=== PATIENT | female | born 1930 | race Caucasian/White ===

== ENCOUNTER → 2016-10-20 | Outpatient (CLI) | payer BC ==
[~2016-10-20] MED LIST: ACET1TAB84 PO; AMIO200T4 PO; AMOX875T PO; ASPI81TA28 PO; ATOR10TA88 PO; CALC500C70 PO; CHOL1000 PO; CLON0.5T3 PO; CLOP1TAB5 PO; CRD200 PO; DXY100 PO; ELQ25 PO; FLUO10CA48 PO; FLUO20CA35 PO; LOSA1TAB38 PO; LOSA50TA54 PO; LPR25 PO; MECL1TAB40 PO; MULT-513 PO; MXZC25 PO; NMN10 PO; OMG3 PO; ONDA4TAB65 PO; PRVC10 PO; SYN25 PO; SYN50 PO; VITA400C3 PO; ZFRI4 IV; ZNT150 PO; [UNRECOGNIZED DRUG - CODE] PO
[2016-10-20 12:39] LABS: BLOOD UREA NITROGEN 21 mg/dl (7-18); BUN/CREATININE RATIO 15.8 (10-20); CALCIUM 9.3 mg/dl (8.5-10.1); CARBON DIOXIDE 27 mmol/L (21-32); CHLORIDE 106 mmol/L (98-107); GLUCOSE 113 mg/dl (70-99); SODIUM 142 mmol/L (136-145)
== END | disposition home or self-care (01) ==
LOC: C.LABPVFM 10:15
PROVIDERS: ATTEND Family Medicine
DX: E03.9 Hypothyroidism, unspecified (principal); E83.52 Hypercalcemia

== ENCOUNTER 2016-10-27 17:05 | Inpatient (IN) | payer BC, OTHER ==
[~2016-10-27] VITALS: Ht 170.2 cm; Wt 77.6 kg
[~2016-10-27 17:05] MED LIST changes: -ACET1TAB84 PO; -AMIO200T4 PO; -AMOX875T PO; -ASPI81TA28 PO; -CRD200 PO; -DXY100 PO; -ELQ25 PO; -FLUO10CA48 PO; -LOSA1TAB38 PO; -LPR25 PO; -ONDA4TAB65 PO; -PRVC10 PO; -SYN25 PO; -SYN50 PO; -VITA400C3 PO; -ZFRI4 IV; -ZNT150 PO; -[UNRECOGNIZED DRUG - CODE] PO
[2016-10-27] MEDS ORDERED: [UNRECOGNIZED DRUG - CODE] PO (17:14)
[2016-10-27] MEDS ORDERED: ACET1TAB84 PO (17:14)
[2016-10-27] MEDS ORDERED: LOSA1TAB38 PO (17:14)
[2016-10-27] MEDS ORDERED: FLUO10CA48 PO (17:14)
[2016-10-27] MEDS ORDERED: VITA400C3 PO (17:14)
[2016-10-27] MEDS ORDERED: SYN25 PO (17:14)
--- NOTE | 2016-10-27 17:30 | EMERGENCY ROOM VISIT NOTE ---
History Report prepared by Marsha: Hayder Bah Under the Supervision of: Dr. Mary Concepcion M.D. First contact with patient: 17:23 Chief Complaint: VOMITING Stated Complaint: weakness Nursing Triage Summary: patient with nasuea and vomiting and headache/ History of Present Illness The patient is an 85 year old female who presents to the Emergency Room with complaints of episodes of vomiting that started this morning. She says she did not feel well when she got up this morning. The patient vomited at her primary care physician's office today, and was then sent here. She was there for a physical checkup that she gets every 3 or 4 months. The patient associates the vomiting with a bad headache. She has not eaten or drank much today, but she says that she did not miss any of her pills today. The patient does not think she vomited them up. She denies any diarrhea or specific abdominal pain. The patient has not had any abdominal surgeries. Source of History: patient Onset: This morning Position: other (global - vomiting) Timing: other (persistent) Associated Symptoms: + headache, No abdominal pain, No diarrhea Note: No other associated symptoms noted. Review of Systems See HPI for pertinent positives & negatives. A total of 10 systems reviewed and were otherwise negative. Past Medical & Surgical Medical Problems: (1) Calculus Of Kidney (2) Diab Tiffanie Wo Compl, Type Ii Or Unspec Type, Not Uncntrld (3) Hyperlipidemia Nec/Nos (4) Hypertension Nos (5) Intractable vomiting (6) Mixed Hyperlipidemia (7) Weakness Family History Malignancy Stroke Social History Smoking Status: Never Smoker Drug Use: none Marital Status: Occupation Status: retired Current/Historical Medications Scheduled Atorvastatin (Lipitor), 10 MG PO DAILY Cholecalciferol (Vitamin D3), 1,000 MG PO DAILY Clopidogrel Bisulfate (Plavix), 75 MG PO DAILY Doxycycline Hyclate (Doxycycline Hyclate), 100 MG PO BID Fish Oil (Fish Oil), 1,000 MG PO DAILY Fluoxetine (Prozac), 10 MG PO DAILY Levothyroxine Sodium (Synthroid), 25 MCG PO DAILY Losartan Potassium (Cozaar), 100 MG PO DAILY Memantine (Namenda), 10 MG PO BID Multivitamins/Minerals (Mvi With Minerals), 1 TAB PO DAILY Ondansetron Hcl (Zofran), 4 MG PO Q6H Triamterene/Hctz (Triamterene/Hctz 37.5-25MG Tab), 0.5 TAB PO DAILY Vitamin E (Vitamin E 400 Iu), 400 INTER.UNIT PO DAILY Scheduled PRN Acetaminophen (Tylenol Arthritis Ext Rel), 650 MG PO QID PRN for Pain Meclizine HCl (Meclizine HCl), 12.5 MG PO Q6H PRN for vertigo Misc Natural Products (Midnite Pm), 1 TAB PO HS PRN for Sleep Allergies Coded Allergies: BEE STING (Verified Allergy, Unknown, SWELLING, 06/20/16) Penicillins (Verified Allergy, Unknown, hives, 10/29/16) Codeine (Unverified Adverse Reaction, Mild, NAUSEA/VOMITING, 06/20/16) Physical Exam Vital Signs Date Time Temp Pulse Resp B/P Pulse Ox O2 Delivery O2 Flow Rate FiO2 10/27/16 21:03 92 23 97 10/27/16 20:58 159/88 10/27/16 20:38 164/85 10/27/16 20:33 86 18 93 10/27/16 20:28 165/100 10/27/16 20:18 166/94 10/27/16 20:08 173/94 10/27/16 20:03 94 24 95 10/27/16 19:58 143/85 10/27/16 19:55 87 21 98 10/27/16 19:50 88 21 98 10/27/16 19:45 87 22 10/27/16 19:44 175/97 10/27/16 19:00 105 19 10/27/16 18:58 162/95 10/27/16 18:55 99 20 97 10/27/16 18:50 95 18 96 10/27/16 18:45 91 19 97 10/27/16 18:43 185/104 10/27/16 18:40 89 19 96 10/27/16 18:37 180/96 10/27/16 18:35 95 15 96 10/27/16 18:25 96 20 220/118 97 10/27/16 18:23 211/124 10/27/16 18:20 85 18 96 10/27/16 18:15 82 20 94 10/27/16 18:10 78 17 93 10/27/16 18:05 79 17 93 10/27/16 18:04 202/110 10/27/16 18:01 202/110 10/27/16 18:00 76 16 95 10/27/16 17:55 79 18 93 10/27/16 17:50 77 19 99 10/27/16 17:48 79 20 205/99 95 Room Air 10/27/16 17:47 205/99 10/27/16 17:45 85 20 92 10/27/16 17:40 77 19 93 10/27/16 17:35 73 17 97 10/27/16 17:31 207/97 10/27/16 17:30 77 19 98 10/27/16 17:29 72 10/27/16 17:12 215/91 10/27/16 17:12 36.4 72 20 215/91 99 Room Air Physical Exam Vital signs reviewed. General: Elderly ill-appearing 85 year old female, in no significant distress. Hypertensive. Neurologically intact but appears distracted when questioned. Somnolent but responds to verbal stimuli. HEENT: No scleral icterus, PERRLA, neck supple. Atraumatic. Cardiovascular: Regular rate and rhythm, no extra sounds. Pulmonary: Clear to auscultation bilaterally, normal work of breathing. Abdomen: Soft, mild diffuse tenderness, no rebound or guarding. Nondistended, positive bowel sounds. Musculoskeletal: Atraumatic, no peripheral edema. Neurologic: Patient somnolent but awakens to verbal stimuli, answers simple questions appropriately. Skin: Warm, dry, no rash Medical Decision & Procedures ER Provider Diagnostic Interpretation: X-ray results as stated below per my interpretation and radiologist interpretation. Other radiology results as stated below per my review and radiologist interpretation: CT HEAD WITHOUT CONTRAST (CT) CLINICAL HISTORY: Headache, vomiting, weakness. COMPARISON STUDY: June 20, 2016 TECHNIQUE: Axial CT of the brain is performed from the vertex to the skull base. IV contrast was not administered for this examination. CT DOSE: 537.48 mGy.cm FINDINGS: There is a stable 1 cm extra-axial mass in the right frontoparietal region, consistent with a small meningioma. There is no CT evidence of acute cortical infarction. There is no evidence of midline shift. There is no acute hemorrhage. No calvarial fractures are visualized. There are patchy white matter hypodensities likely on a small vessel basis. 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 There is mild ventricular prominence, proportional to volume loss. There is minimal fluid within the left maxillary sinus. Several left-sided ethmoid air cells are opacified. There is partial opacification left frontal sinus. IMPRESSION: 1. Inflammatory changes within the left frontal left ethmoid and left maxillary sinuses 2. Right frontoparietal 1 cm meningioma. This remain stable 3. No acute intracranial findings. Electronically signed by: Chino Gallardo M.D. 10/27/2016 6:38 PM Dictated Date/Time: 10/27/2016 6:35 PM ABDOMEN 2VIEW W/PA CHEST RTN CLINICAL HISTORY: vomiting COMPARISON STUDY: Chest x-ray dated 05/29/2014 FINDINGS: There is no free intraperitoneal air. There is mild interstitial thickening. There are old right-sided rib fractures. There are no abnormally dilated loops of large or small bowel. The provided decubitus view is somewhat limited from a technical standpoint as the lower abdomen is not included. IMPRESSION: No evidence of bowel obstruction. No evidence of free air. Electronically signed by: Chino Gallardo M.D. 10/27/2016 7:38 PM Dictated Date/Time: 10/27/2016 7:37 PM Laboratory Results Test 10/27/16 17:35 10/27/16 18:20 Immature Granulocyte % (Auto) 0.7 % White Blood Count 4.12 K/uL (4.8-10.8) Red Blood Count 4.27 M/uL (4.2-5.4) Hemoglobin 12.7 g/dL (12.0-16.0) Hematocrit 37.8 % (37-47) Mean Corpuscular Volume 88.5 fL (80-100) Mean Corpuscular Hemoglobin 29.7 pg (25-34) Mean Corpuscular Hemoglobin Concent 33.6 g/dl (32-36) Platelet Count 240 K/uL (130-400) Mean Platelet Volume 10.3 fL (7.4-10.4) Neutrophils (%) (Auto) 59.3 % Lymphocytes (%) (Auto) 29.1 % Monocytes (%) (Auto) 10.2 % Eosinophils (%) (Auto) 0.5 % Basophils (%) (Auto) 0.2 % Neutrophils # (Auto) 2.44 K/uL (1.4-6.5) Lymphocytes # (Auto) 1.20 K/uL (1.2-3.4) Monocytes # (Auto) 0.42 K/uL (0.11-0.59) Eosinophils # (Auto) 0.02 K/uL (0-0.5) Basophils # (Auto) 0.01 K/uL (0-0.2) Immature Granulocyte # (Auto) 0.03 K/uL (0.00-0.02) Magnesium Level 2.2 mg/dl (1.8-2.4) Direct Bilirubin 0.2 mg/dl (0-0.2) Lipase 175 U/L (73-393) Bedside Troponin I 0.030 ng/ml (0-0.045) Laboratory results per my review. Medications Administered Medications (Trade) Dose Ordered Sig/Cristi Route Start Time Stop Time Status Last Admin Dose Admin Sodium Chloride (Nss 1000ml) 1,000 ml @ 125 mls/hr Q8H STAT IV 10/27/16 18:05 10/27/16 22:28 DC 10/27/16 18:05 125 MLS/HR Hydralazine HCl (HydrALAZINE INJ) 10 mg NOW STAT IV. 10/27/16 18:05 10/27/16 18:08 DC 10/27/16 18:18 10 MG Ondansetron HCl 4 mg 4 mg NOW STAT IV 10/27/16 18:05 10/27/16 18:08 DC 10/27/16 18:05 4 MG Ampicillin Sodium/ Sulbactam Sodium/ Sodium Chloride (Unasyn Inj/Nss 100ml) 108 ml @ 200 mls/hr ONE ONCE IV 10/27/16 19:00 10/27/16 19:32 DC 10/27/16 20:44 200 MLS/HR Morphine Sulfate (MoRPHine SULFATE INJ) 2 mg NOW STAT IV 10/27/16 18:47 10/27/16 18:48 DC 10/27/16 19:46 2 MG Ondansetron HCl (Zofran Inj) 4 mg Q6H PRN IV 10/27/16 21:15 10/29/16 14:38 DC 10/28/16 21:34 4 MG s ECG Indication: vomiting Rate (beats per minute): 73 Rhythm: normal sinus Findings: other (Premature supraventricular complexes, T-wave abnormality in lateral leads) ED Course 172: Past medical records reviewed. The patient was evaluated in room C3. A complete history and physical examination was performed. 180: Ordered Zofran Inj 4 mg IV, Hydralazine Inj 10 mg IV, NSS 1000 ml @ 125 mls/hr IV. 182: I reevaluated the patient and she is resting comfortably. 1846: Ordered Morphine Sulfate Inj 2 mg IV. 1899: Ordered Ampicillin Sodium/Sulbactam Sodium 3000 mg/Sodium Chloride 108 ml @ 200 mls/hr IV. 1923: Ordered Hydralazine Inj 10 mg IV. 1941: I reevaluated the patient and she is resting comfortably. The patient verbally expressed understanding and agreement of the treatment plan. The patient will be evaluated for further treatment. 2029: I discussed the patient with Dr. Nayeli CROCKETT hospitalist - he will evaluate the patient for further treatment. Medical Decision Differential diagnosis: Etiologies such as gastroenteritis, food borne illness, infections, appendicitis , diverticulitis, inflammatory bowel disease, obstruction, GI bleed, biliary pathology, intracranial hemorrhage, intracranial mass, migraine headache, tension headache, sinusitis, meningitis This pt was evaluated and appeared to be in some discomfort. IV access was obtained and lab work was drawn. Pt was hydrated with NSS, given IV zofran. Pt was medicated with IV hydralazine. Abd XR series was performed and reveals no obstruction or free air. Head CT is significant for a meningioma and a L front , ethmoid and maxillary sinusitis. Pt was medicated with IV morphine for pain, additional zofran and IV unasyn. Pt was d/w the hospitalist service for further management. Consults Time Called: 1949 Consulting Physician: Dr. Nayeli CROCKETT hospitalist Returned Call: 2029 I discussed the patient with Dr. Nayeli CROCKETT hospitalist - he will evaluate the patient for further treatment. Impression Primary Impression: Sinusitis Additional Impressions: Vomiting Hypertension Scribe Attestation The scribe's documentation has been prepared under my direction and personally reviewed by me in its entirety. I confirm that the note above accurately reflects all work, treatment, procedures, and medical decision making performed by me. Departure Information Dispostion Being Evaluated By Hospitalist Prescriptions Doxycycline Hyclate (Doxycycline Hyclate) 100 Mg Cap 100 MG PO BID for 5 Days, #10 TABS Prov: Itzel Pink PA-C 10/29/16 Ondansetron Hcl (ZOFRAN) 4 Mg Tab 4 MG PO Q6H for Nausea or Vomiting for 10 Days, #40 TAB Prov: Itzel Pink PA-C 10/29/16 Referrals Khoa Gallegos M.D. (PCP) Patient Instructions [facility], [facility] Problem Qualifiers Primary Impression: Sinusitis Sinusitis location: frontal Chronicity: acute Recurrence: not specified as recurrent Qualified Codes: J01.10 - Acute frontal sinusitis, unspecified Additional Impressions: Vomiting Vomiting type: unspecified Vomiting Intractability: non-intractable Nausea presence: with nausea Qualified Codes: R11.2 - Nausea with vomiting, unspecified Hypertension Hypertension type: essential hypertension Qualified Codes: I10 - Essential ( primary) hypertension
[2016-10-27] MEDS ORDERED: ONDANSETRON INJ 2 MG/ML 2 ML VIAL IV STA (18:05)
[2016-10-27] MEDS ORDERED: HydrALAZINE HCL 20 MG/ML VIAL IV. STA ×2 (18:05→19:24)
[2016-10-27] MEDS ORDERED: SODIUM CHLORIDE 0.9% 1000ML 1,000 ML IV STA (18:05)
[2016-10-27 18:20] LABS: BASO % 0.2 %; BASO ABS # 0.01 K/uL (0-0.2); COMPLETE YES; EOS % 0.5 %; HEMATOCRIT 37.8 % (37-47); IG% 0.7 %; LYMPH % 29.1 %; MEAN CELL VOLUME 88.5 fL (80-100); MEAN CORPUSCULAR HEMOGLOBIN 29.7 pg (25-34); MEAN CORPUSCULAR HGB CONC 33.6 g/dl (32-36); MEAN PLATELET VOLUME 10.3 fL (7.4-10.4); MONO % 10.2 %; NEUT % 59.3 %; PLATELET COUNT 240 K/uL (130-400); RED BLOOD COUNT 4.27 M/uL (4.2-5.4); WHITE BLOOD COUNT 4.12 K/uL (4.8-10.8)
[2016-10-27 18:25] LABS: BUN/CREATININE RATIO 14.5 (10-20); CALCIUM 10.3 mg/dl (8.5-10.1); CREATININE 1.1 mg/dl (0.60-1.20); MAGNESIUM 2.2 mg/dl (1.8-2.4); POTASSIUM 3.9 mmol/L (3.5-5.1)
--- NOTE | 2016-10-27 18:40 | DIAGNOSTIC IMAGING REPORT ---
CT HEAD WITHOUT CONTRAST (CT) CLINICAL HISTORY: Headache, vomiting, weakness. COMPARISON STUDY: June 20, 2016 TECHNIQUE: Axial CT of the brain is performed from the vertex to the skull base. IV contrast was not administered for this examination. CT DOSE: 537.48 mGy.cm FINDINGS: There is a stable 1 cm extra-axial mass in the right frontoparietal region, consistent with a small meningioma. There is no CT evidence of acute cortical infarction. There is no evidence of midline shift. There is no acute hemorrhage. No calvarial fractures are visualized. There are patchy white matter hypodensities likely on a small vessel basis. 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 There is mild ventricular prominence, proportional to volume loss. There is minimal fluid within the left maxillary sinus. Several left-sided ethmoid air cells are opacified. There is partial opacification left frontal sinus. IMPRESSION: 1. Inflammatory changes within the left frontal left ethmoid and left maxillary sinuses 2. Right frontoparietal 1 cm meningioma. This remain stable 3. No acute intracranial findings. Electronically signed by: Chino Gallardo M.D. 10/27/2016 6:38 PM Dictated Date/Time: 10/27/2016 6:35 PM
[2016-10-27] MEDS ORDERED: MoRPHine SULFATE 2 MG/ML CARP IV STA (18:47)
[2016-10-27] MEDS ORDERED: AMPICILLIN/SULBACTAM SOD INJ 3,000 MG in SODIUM CHLORIDE 0.9% 100ML 100 ML IV ONE (19:00)
--- NOTE | 2016-10-27 19:39 | DIAGNOSTIC IMAGING REPORT ---
ABDOMEN 2VIEW W/PA CHEST RTN CLINICAL HISTORY: vomiting COMPARISON STUDY: Chest x-ray dated 05/29/2014 FINDINGS: There is no free intraperitoneal air. There is mild interstitial thickening. There are old right-sided rib fractures. There are no abnormally dilated loops of large or small bowel. The provided decubitus view is somewhat limited from a technical standpoint as the lower abdomen is not included. IMPRESSION: No evidence of bowel obstruction. No evidence of free air. Electronically signed by: Chino Gallardo M.D. 10/27/2016 7:38 PM Dictated Date/Time: 10/27/2016 7:37 PM
[2016-10-27] MEDS ORDERED: ALUMINUM/MAGNESIUM/SIMETH (MAALOX MAX) 30 ML UDC PO PRN (21:15)
[2016-10-27] MEDS ORDERED: MAGNESIUM HYDROXIDE SUSP 30 ML UDC PO PRN (21:15)
[2016-10-27] MEDS ORDERED: MoRPHine SULFATE 2 MG/ML CARP ONE (21:52)
[2016-10-27] MEDS ORDERED: MoRPHine SULFATE 2 MG/ML CARP IV PRN (22:00)
[2016-10-27] MEDS ORDERED: MoRPHine SULFATE 4 MG/ML 1 ML CARP\\VIAL IV PRN (22:00)
[2016-10-27] MEDS: ONDANSETRON INJ 2 MG/ML 2 ML VIAL IV PRN (23:27)
[2016-10-27 23:48] VITALS: BP 163/85; PULSE 78; TEMP 36.7; O2SAT 97
[2016-10-28 00:21] VITALS: BP 162/73; PULSE 76; TEMP 36.8; Ht 170.2 cm; Wt 77.6 kg
[2016-10-28] MEDS ORDERED: NATURAL PRODUCTS PO PRN (00:45)
[2016-10-28] MEDS ORDERED: MECLIZINE HCL 12.5 MG TAB PO PRN (00:45)
[2016-10-28] MEDS ORDERED: ACETAMINOPHEN 325 MG TAB PO PRN (00:45)
[2016-10-28] MEDS: SODIUM CHLORIDE 0.9% 1000ML 1,000 ML IV SCH ×3 (02:10→14:59)
--- NOTE | 2016-10-28 04:57 | History and Physical ---
History & Physical Date & Time of Service: Oct 28, 2016 at 04:41 Chief Complaint: Intractable Vomiting, Weakness Primary Care Physician: Khoa Gallegos M.D. History of Present Illness Source: patient this is an 85 yo f that is presenting to us with N&V and generalized weakness. She states that this morning she woke up with a very mild headache and since then has been vomiting intermittently. She has been unable to keep anything PO down. She denies any abdominal pain. She denies any fever, chest pain, SOB, change in BM or urine. She was concerned because the vomiting was intractable and thought she should be evaluated in the ED. She denies any sick contacts or raw foods. she lives alone but has family close by. Past Medical/Surgical History Medical Problems: (1) Calculus Of Kidney Status: Resolved (2) Diab Tiffanie Wo Compl, Type Ii Or Unspec Type, Not Uncntrld Status: Chronic (3) Hyperlipidemia Nec/Nos Status: Chronic (4) Hypertension Nos Status: Chronic Family History Malignancy Stroke Social History Smoking Status: Never Smoker Smokeless Tobacco Use: No Alcohol Use: none Drug Use: none Marital Status: Housing status: lives alone Occupational Status: retired Immunizations History of Influenza Vaccine: Yes Influenza Vaccine Date: Jul 25, 2007 History of Tetanus Vaccine?: Unknown History of Pneumococcal: No History of Hepatitis B Vaccine: No Multi-Drug Resistant Organisms History of MDRO: No Allergies Coded Allergies: BEE STING (Verified Allergy, Unknown, SWELLING, 06/20/16) Codeine (Unverified Adverse Reaction, Mild, NAUSEA/VOMITING, 06/20/16) Home Medications Scheduled Atorvastatin (Lipitor), 10 MG PO DAILY Cholecalciferol (Vitamin D3), 1,000 MG PO DAILY Clopidogrel Bisulfate (Plavix), 75 MG PO DAILY Fish Oil (Fish Oil), 1,000 MG PO DAILY Fluoxetine (Prozac), 10 MG PO DAILY Levothyroxine Sodium (Synthroid), 25 MCG PO DAILY Losartan Potassium (Cozaar), 100 MG PO DAILY Memantine (Namenda), 10 MG PO BID Multivitamins/Minerals (Mvi With Minerals), 1 TAB PO DAILY Triamterene/Hctz (Triamterene/Hctz 37.5-25MG Tab), 0.5 TAB PO DAILY Vitamin E (Vitamin E 400 Iu), 400 INTER.UNIT PO DAILY Scheduled PRN Acetaminophen (Tylenol Arthritis Ext Rel), 650 MG PO QID PRN for Pain Meclizine HCl (Meclizine HCl), 12.5 MG PO Q6H PRN for vertigo Misc Natural Products (Midnite Pm), 1 TAB PO HS PRN for Sleep Review of Systems Constitutional: No fever Eyes: No worsening of vision ENT: No hearing loss Respiratory: No cough, No dyspnea at rest, No dyspnea on exertion, No shortness of breath, No sputum, No wheezing Cardiovascular: No chest pain Abdomen: + nausea, + vomiting, No constipation, No diarrhea, No pain Musculoskeletal: No joint pain, No muscle pain Genitourinary - Female: + dysuria, + problem reported Neurologic: + weakness, No balance problems, No numbness/tingling Endocrine: + fatigue Integumentary: No rash Physical Exam Vital Signs Date Time Temp Pulse Resp B/P Pulse Ox O2 Delivery O2 Flow Rate FiO2 10/28/16 00:21 36.8 76 20 162/73 Room Air 10/28/16 00:00 Room Air 10/27/16 23:48 36.7 78 18 163/85 97 Room Air 10/27/16 22:08 36.4 86 18 165/91 93 10/27/16 22:03 86 18 93 10/27/16 21:58 165/91 10/27/16 21:44 163/104 10/27/16 21:33 84 23 97 10/27/16 21:28 180/106 10/27/16 21:27 79 10/27/16 21:03 92 23 97 10/27/16 20:58 159/88 10/27/16 20:38 164/85 10/27/16 20:33 86 18 93 10/27/16 20:28 165/100 10/27/16 20:18 166/94 10/27/16 20:08 173/94 10/27/16 20:03 94 24 95 10/27/16 19:58 143/85 10/27/16 19:55 87 21 98 10/27/16 19:50 88 21 98 10/27/16 19:45 87 22 10/27/16 19:44 175/97 10/27/16 19:00 105 19 10/27/16 18:58 162/95 10/27/16 18:55 99 20 97 10/27/16 18:50 95 18 96 10/27/16 18:45 91 19 97 10/27/16 18:43 185/104 10/27/16 18:40 89 19 96 10/27/16 18:37 180/96 10/27/16 18:35 95 15 96 10/27/16 18:25 96 20 220/118 97 10/27/16 18:23 211/124 10/27/16 18:20 85 18 96 10/27/16 18:15 82 20 94 10/27/16 18:10 78 17 93 10/27/16 18:05 79 17 93 10/27/16 18:04 202/110 10/27/16 18:01 202/110 10/27/16 18:00 76 16 95 10/27/16 17:55 79 18 93 10/27/16 17:50 77 19 99 10/27/16 17:48 79 20 205/99 95 Room Air 10/27/16 17:47 205/99 10/27/16 17:45 85 20 92 10/27/16 17:40 77 19 93 10/27/16 17:35 73 17 97 10/27/16 17:31 207/97 10/27/16 17:30 77 19 98 10/27/16 17:29 72 10/27/16 17:12 215/91 10/27/16 17:12 36.4 72 20 215/91 99 Room Air General Appearance: WD/WN, no apparent distress Head: normocephalic, atraumatic Eyes: normal inspection ENT: normal ENT inspection Neck: supple Respiratory/Chest: lungs clear, normal breath sounds, no respiratory distress, no accessory muscle use Cardiovascular: no murmur, + irregularly irregular Abdomen/GI: normal bowel sounds, non tender, soft Back: normal inspection Extremities/Musculoskelatal: normal inspection, no pedal edema, normal range of motion Neurologic/Psych: alert, normal mood/affect, oriented x 3 Skin: normal color, warm/dry, no rash Lymphatic: no adenopathy Diagnostics Laboratory Results Results Past 24 Hours Test 10/27/16 17:35 Range/Units White Blood Count 4.12 4.8-10.8 K/uL Red Blood Count 4.27 4.2-5.4 M/uL Hemoglobin 12.7 12.0-16.0 g/dL Hematocrit 37.8 37-47 % Mean Corpuscular Volume 88.5 80-100 fL Mean Corpuscular Hemoglobin 29.7 25-34 pg Mean Corpuscular Hemoglobin Concent 33.6 32-36 g/dl Platelet Count 240 130-400 K/uL Mean Platelet Volume 10.3 7.4-10.4 fL Neutrophils (%) (Auto) 59.3 % Lymphocytes (%) (Auto) 29.1 % Monocytes (%) (Auto) 10.2 % Eosinophils (%) (Auto) 0.5 % Basophils (%) (Auto) 0.2 % Neutrophils # (Auto) 2.44 1.4-6.5 K/uL Lymphocytes # (Auto) 1.20 1.2-3.4 K/uL Monocytes # (Auto) 0.42 0.11-0.59 K/uL Eosinophils # (Auto) 0.02 0-0.5 K/uL Basophils # (Auto) 0.01 0-0.2 K/uL RDW Standard Deviation 46.3 36.4-46.3 fL RDW Coefficient of Variation 14.3 11.5-14.5 % Immature Granulocyte % (Auto) 0.7 % Immature Granulocyte # (Auto) 0.03 0.00-0.02 K/uL Sodium Level 142 136-145 mmol/L Potassium Level 3.9 3.5-5.1 mmol/L Chloride Level 106 98-107 mmol/L Carbon Dioxide Level 25 21-32 mmol/L Anion Gap 11.0 3-11 mmol/L Blood Urea Nitrogen 16 7-18 mg/dl Creatinine 1.10 0.60-1.20 mg/dl Est Creatinine Clear Calc Drug Dose 39.4 ml/min Estimated GFR () 53.0 Estimated GFR (Non- 45.7 BUN/Creatinine Ratio 14.5 10-20 Random Glucose 102 70-99 mg/dl Calcium Level 10.3 8.5-10.1 mg/dl Magnesium Level 2.2 1.8-2.4 mg/dl Total Bilirubin 0.7 0.2-1 mg/dl Direct Bilirubin 0.2 0-0.2 mg/dl Aspartate Amino Transf (AST/SGOT) 21 15-37 U/L Alanine Aminotransferase (ALT/SGPT) 32 12-78 U/L Alkaline Phosphatase 118 45-117 U/L Total Protein 8.1 6.4-8.2 gm/dl Albumin 4.0 3.4-5.0 gm/dl Lipase 175 73-393 U/L Diagnostic Radiology CT HEAD WITHOUT CONTRAST (CT) CLINICAL HISTORY: Headache, vomiting, weakness. COMPARISON STUDY: June 20, 2016 TECHNIQUE: Axial CT of the brain is performed from the vertex to the skull base. IV contrast was not administered for this examination. CT DOSE: 537.48 mGy.cm FINDINGS: There is a stable 1 cm extra-axial mass in the right frontoparietal region, consistent with a small meningioma. There is no CT evidence of acute cortical infarction. There is no evidence of midline shift. There is no acute hemorrhage. No calvarial fractures are visualized. There are patchy white matter hypodensities likely on a small vessel basis. 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 There is mild ventricular prominence, proportional to volume loss. There is minimal fluid within the left maxillary sinus. Several left-sided ethmoid air cells are opacified. There is partial opacification left frontal sinus. IMPRESSION: 1. Inflammatory changes within the left frontal left ethmoid and left maxillary sinuses 2. Right frontoparietal 1 cm meningioma. This remain stable 3. No acute intracranial findings. ABDOMEN 2VIEW W/PA CHEST RTN CLINICAL HISTORY: vomiting COMPARISON STUDY: Chest x-ray dated 05/29/2014 FINDINGS: There is no free intraperitoneal air. There is mild interstitial thickening. There are old right-sided rib fractures. There are no abnormally dilated loops of large or small bowel. The provided decubitus view is somewhat limited from a technical standpoint as the lower abdomen is not included. IMPRESSION: No evidence of bowel obstruction. No evidence of free air. EKG bpm 73 ectopic beats noted no ishcemic changes Impression Assessment and Plan This is an 85 yo f here with intractable vomiting and generalized weakness Intractable vomiting most likely secondary to a viral illness -med surg admission - NSS IVF @ 150 - CBC and CMP in am - morphine and zofran - abd usg for elevated alk phos Contact dermatis secondary to urinary incontinence -zinc oxide as a barrier cream tid h/o Stroke cont atorvastatin and plavix depression - cont fluoxetine Hypothyroidism - cont levo HTN - cont losartan and triamterene/ HCTZ Alzheimer's - cont memantine DVT prophylaxis - lovenox FULL CODE Level of Care Med/Surg Advanced Directives Existing Living Will: Yes Existing Power of Securities Supervisor: Yes Resuscitation Status FULL RESUSCITATION VTE Prophylaxis VTE Risk Assessment Done? Y/N: Yes Risk Level: Moderate Given or contraindicated: Enoxaparin (Lovenox)SQ Social Service Consult >80 yr.& Lives Alone Note Total Time: Critical Care 30 - 74 minutes Additional Copies To Khoa Gallegos M.D. Assessment and Plan Attending Addendum: I have physically seen and examined this patient, have directed their medical care, have supervised the medical residents activities, and agree with the H&P as noted above, with the following changes: NONE The patient is awake, alert and oriented 3, normocephalic and atraumatic, lying in bed and in mild to moderate distress secondary to headache pain. HEENT--PERRL, EOMI, mucous membranes and oropharynx dry. Neck--supple, no JVD or bruits, thyroid normal, trachea midline, no adenopathy. Heart--normal S1 and S2, no extra beats, no murmurs, rubs or gallops. Lungs--clear bilaterally, no respiratory distress, no accessory muscle use. Abdomen--normal bowel sounds and soft, nontender and nondistended, no hernias or masses, no organomegaly. Extremities--no cyanosis, clubbing or edema. There are good distal pulses b/l. Dermatologic--normal skin turgor, normal color, warm and dry, no abnormal lymph nodes, no rash. Neurologic--cranial nerves II through XII grossly intact. Psychiatric--normal affect. Assessment and Plan: Severe headache secondary to sinusitis and barometric pressure change with the snowstorm coming--patient to be admitted to the medical floor. She has received Unasyn in the emergency department, and we'll place on ceftriaxone 1 g IV daily, and we'll hold on IV Solu-Medrol for now. Her headache may in part be aggravated by dehydration, and we'll hold the triamterene/HCTZ, and gently hydrate with IV fluids. Hyperlipidemia--continue atorvastatin 10 mg by mouth daily. Hypothyroidism--continue levothyroxine sodium at 25 g by mouth daily. Hypertension--hold triamterene/HCTZ as noted above. Continue clopidogrel 70 mg by mouth daily and losartan 100 mg by mouth daily with hold parameters. Depression--continue fluoxetine 10 mg by mouth daily. Dementia--continue Namenda 10 mg by mouth twice a day.
[2016-10-28] MEDS: LEVOTHYROXINE 25 MCG TAB PO SCH (06:21)
[2016-10-28] MEDS: CEFTRIAXONE SOD INJ 1 GM in DEXTROSE 5% ADD-VANTAGE 50ML 50 ML IV SCH (06:21)
[2016-10-28 07:21] LABS: HEMATOCRIT 35.2 % (37-47); MEAN CELL VOLUME 88.9 fL (80-100); MEAN CORPUSCULAR HEMOGLOBIN 29.5 pg (25-34); MEAN CORPUSCULAR HGB CONC 33.2 g/dl (32-36); MEAN PLATELET VOLUME 9.8 fL (7.4-10.4); PLATELET COUNT 215 K/uL (130-400); RED BLOOD COUNT 3.96 M/uL (4.2-5.4); WHITE BLOOD COUNT 7.12 K/uL (4.8-10.8)
[2016-10-28 07:49] LABS: BUN/CREATININE RATIO 15.9 (10-20); CALCIUM 9.4 mg/dl (8.5-10.1); CREATININE 1.1 mg/dl (0.60-1.20); POTASSIUM 3.7 mmol/L (3.5-5.1)
[2016-10-28 08:10] VITALS: BP 160/84; PULSE 82; TEMP 36.8; O2SAT 92
--- NOTE | 2016-10-28 08:12 | Hospitalist Progress Note ---
Hospitalist Progress Note Date of Service Oct 28, 2016. (Itzel Pink ., KEVIN) Subjective Pt evaluation today including: conversation w/ patient, physical exam, chart review, lab review, review of studies, review of inpatient medication list Voiding: no voiding problems, no incontinence Patient states she is feeling slightly better since admission. +nausea. + dizziness. +frontal sinus tenderness. Currently NPO. Patient denies any fever, chills, sweats, lightheadedness, vision changes, CP, palpitations, edema, SOB, wheezing, cough, vomiting, diarrhea, urinary symptoms, melena, numbness/tingling , weakness, muscle/joint pain, anxiety/depression, active bleeding, or new skin discoloration/changes. (Itzel Pink ., TAMYC) Medications Current Inpatient Medications Medications (Trade) Dose Ordered Sig/Cristi Route Start Time Stop Time Status Last Admin Dose Admin Al Hydrox/Mg Hydrox/Simethicone (Maalox Max Susp) 15 ml Q4H PRN PO 10/27/16 21:15 11/26/16 21:14 Magnesium Hydroxide (Milk Of Magnesia Susp) 30 ml Q6H PRN PO 10/27/16 21:15 11/26/16 21:14 Ondansetron HCl (Zofran Inj) 4 mg Q6H PRN IV 10/27/16 21:15 11/26/16 21:14 10/27/16 23:27 4 MG Morphine Sulfate (MoRPHine SULFATE INJ) 2 mg Q2H PRN IV 10/27/16 22:00 11/10/16 21:59 Morphine Sulfate (MoRPHine SULFATE INJ) 4 mg Q2H PRN IV 10/27/16 22:00 11/10/16 21:59 Atorvastatin Calcium (Lipitor Tab) 10 mg DAILY PO 10/28/16 09:00 11/27/16 08:59 10/28/16 08:39 10 MG Cholecalciferol (Vitamin D Tab) 1,000 inter.unit DAILY PO 10/28/16 09:00 11/27/16 08:59 10/28/16 08:39 1,000 INTER.UNIT Clopidogrel Bisulfate (plAVix TAB) 75 mg DAILY PO 10/28/16 09:00 11/27/16 08:59 10/28/16 08:39 75 MG Fish Oil ([place]-3 (Purified Fish Oil) Cap) 1 gm DAILY PO 10/28/16 09:00 11/27/16 08:59 10/28/16 08:39 1 GM Fluoxetine HCl (Prozac Cap) 10 mg DAILY PO 10/28/16 09:00 11/27/16 08:59 10/28/16 08:38 10 MG Levothyroxine Sodium (Synthroid Tab) 25 mcg DAILYBB PO 10/28/16 06:30 11/27/16 06:29 10/28/16 06:21 25 MCG Losartan Potassium (coZAAR TAB) 100 mg DAILY PO 10/28/16 09:00 11/27/16 08:59 10/28/16 08:40 100 MG Memantine (Namenda Tab) 10 mg BID PO 10/28/16 09:00 11/27/16 08:59 10/28/16 08:40 10 MG Multivitamins/ Minerals (Multivitamin W/ Minerals Tab) 1 tab DAILY PO 10/28/16 09:00 11/27/16 08:59 10/28/16 08:39 1 TAB to-Ehrak-Nzuhyzzyio Acetate (Vitamin E Cap) 400 interunit DAILY PO 10/28/16 09:00 11/27/16 08:59 10/28/16 08:38 400 INTERUNIT Acetaminophen (Tylenol Tab) 650 mg QID PRN PO 10/28/16 00:45 11/27/16 00:44 Meclizine HCl 12.5 mg 12.5 mg Q6H PRN PO 10/28/16 00:45 11/27/16 00:44 Sodium Chloride 1,000 ml @ 150 mls/hr Q6H40M IV 10/28/16 01:45 10/28/16 21:44 10/28/16 08:34 150 MLS/HR Ceftriaxone Sodium/Dextrose (Rocephin Inj/ Dextrose Add-[place] 50ML) 50 ml @ 100 mls/hr Q24H IV 10/28/16 06:00 11/07/16 05:59 10/28/16 06:21 100 MLS/HR (Itzel Pink, KEVIN) Objective Vital Signs Date Time Temp Pulse Resp B/P Pulse Ox O2 Delivery O2 Flow Rate FiO2 10/28/16 00:21 36.8 76 20 162/73 Room Air 10/28/16 00:00 Room Air 10/27/16 23:48 36.7 78 18 163/85 97 Room Air 10/27/16 22:08 36.4 86 18 165/91 93 10/27/16 22:03 86 18 93 10/27/16 21:58 165/91 10/27/16 21:44 163/104 10/27/16 21:33 84 23 97 10/27/16 21:28 180/106 10/27/16 21:27 79 10/27/16 21:03 92 23 97 10/27/16 20:58 159/88 10/27/16 20:38 164/85 10/27/16 20:33 86 18 93 10/27/16 20:28 165/100 10/27/16 20:18 166/94 10/27/16 20:08 173/94 10/27/16 20:03 94 24 95 10/27/16 19:58 143/85 10/27/16 19:55 87 21 98 10/27/16 19:50 88 21 98 10/27/16 19:45 87 22 10/27/16 19:44 175/97 10/27/16 19:00 105 19 10/27/16 18:58 162/95 10/27/16 18:55 99 20 97 10/27/16 18:50 95 18 96 10/27/16 18:45 91 19 97 10/27/16 18:43 185/104 10/27/16 18:40 89 19 96 10/27/16 18:37 180/96 10/27/16 18:35 95 15 96 10/27/16 18:25 96 20 220/118 97 10/27/16 18:23 211/124 10/27/16 18:20 85 18 96 10/27/16 18:15 82 20 94 10/27/16 18:10 78 17 93 10/27/16 18:05 79 17 93 10/27/16 18:04 202/110 10/27/16 18:01 202/110 10/27/16 18:00 76 16 95 10/27/16 17:55 79 18 93 10/27/16 17:50 77 19 99 10/27/16 17:48 79 20 205/99 95 Room Air 10/27/16 17:47 205/99 10/27/16 17:45 85 20 92 10/27/16 17:40 77 19 93 10/27/16 17:35 73 17 97 10/27/16 17:31 207/97 10/27/16 17:30 77 19 98 10/27/16 17:29 72 10/27/16 17:12 215/91 10/27/16 17:12 36.4 72 20 215/91 99 Room Air (Itzel Pink, JUAN-C) Physical Exam General Appearance: no apparent distress Eyes: normal inspection, PERRL ENT: hearing grossly normal Neck: supple Respiratory/Chest: lungs clear, no respiratory distress, no accessory muscle use Cardiovascular: regular rate, rhythm Abdomen: normal bowel sounds, soft, + tenderness (mild diffuse abdomen tenderness ) Extremities: no pedal edema, no calf tenderness Neurologic/Psychiatric: alert, normal mood/affect, oriented x 3 Skin: normal color, warm/dry, no rash (Itzel Pink, JUAN-C) Laboratory Results Last 24 Hours Test 10/27/16 17:35 10/28/16 06:57 White Blood Count 4.12 K/uL 7.12 K/uL Red Blood Count 4.27 M/uL 3.96 M/uL Hemoglobin 12.7 g/dL 11.7 g/dL Hematocrit 37.8 % 35.2 % Mean Corpuscular Volume 88.5 fL 88.9 fL Mean Corpuscular Hemoglobin 29.7 pg 29.5 pg Mean Corpuscular Hemoglobin Concent 33.6 g/dl 33.2 g/dl Platelet Count 240 K/uL 215 K/uL Mean Platelet Volume 10.3 fL 9.8 fL Neutrophils (%) (Auto) 59.3 % Lymphocytes (%) (Auto) 29.1 % Monocytes (%) (Auto) 10.2 % Eosinophils (%) (Auto) 0.5 % Basophils (%) (Auto) 0.2 % Neutrophils # (Auto) 2.44 K/uL Lymphocytes # (Auto) 1.20 K/uL Monocytes # (Auto) 0.42 K/uL Eosinophils # (Auto) 0.02 K/uL Basophils # (Auto) 0.01 K/uL RDW Standard Deviation 46.3 fL 46.2 fL RDW Coefficient of Variation 14.3 % 14.3 % Immature Granulocyte % (Auto) 0.7 % Immature Granulocyte # (Auto) 0.03 K/uL Sodium Level 142 mmol/L 142 mmol/L Potassium Level 3.9 mmol/L 3.7 mmol/L Chloride Level 106 mmol/L 106 mmol/L Carbon Dioxide Level 25 mmol/L 28 mmol/L Anion Gap 11.0 mmol/L 8.0 mmol/L Blood Urea Nitrogen 16 mg/dl 17 mg/dl Creatinine 1.10 mg/dl 1.10 mg/dl Est Creatinine Clear Calc Drug Dose 39.4 ml/min 40.1 ml/min Estimated GFR () 53.0 53.0 Estimated GFR (Non- 45.7 45.7 BUN/Creatinine Ratio 14.5 15.9 Random Glucose 102 mg/dl 95 mg/dl Calcium Level 10.3 mg/dl 9.4 mg/dl Magnesium Level 2.2 mg/dl Total Bilirubin 0.7 mg/dl 0.5 mg/dl Direct Bilirubin 0.2 mg/dl Aspartate Amino Transf (AST/SGOT) 21 U/L 14 U/L Alanine Aminotransferase (ALT/SGPT) 32 U/L 25 U/L Alkaline Phosphatase 118 U/L 96 U/L Total Protein 8.1 gm/dl 7.2 gm/dl Albumin 4.0 gm/dl 3.6 gm/dl Lipase 175 U/L Globulin 3.6 gm/dl Albumin/Globulin Ratio 1.0 (Itzel Pink, PA-C) Assessment and Plan This is an 85 y/o female here with intractable vomiting and generalized weakness. Intractable vomiting, likely secondary to a viral illness: - Admit to med/surg - NPO, advance diet as tolerated - NSS IVF @ 150 ml/hr - IV Morphine PRN and IV Zofran PRN - IV Rocephin (started on 10/28) for sinusitis. Significant hx of sinusitis, inflammatory changes on CT, +dizziness, +frontal sinus tenderness. - Imaging/studies: -- Head CT- Inflammatory changes within the left frontal left ethmoid and left maxillary sinuses. Right frontoparietal 1 cm meningioma, stable. No acute intracranial findings. -- Abdominal/chest x-ray- No evidence of bowel obstruction. No evidence of free air. -- Abdominal U/S- - Follow CMP and CBC Contact dermatis secondary to urinary incontinence: - Zinc oxide as a barrier cream TID h/o Stroke: - Continue Atorvastatin and Plavix Depression: - Continue Fluoxetine Hypothyroidism - Continue Synthroid HTN: - Continue Losartan and Triamterene/ HCTZ Alzheimer's: - Continue Memantine DVT prophylaxis: - Lovenox 40 mg SQ q24 hrs - JATIN and SCDs Code Status: - LEVEL I, FULL Dispo: - Lives alone- PT/OT evaluations. (Itzel Pink, PA-C) i personally examined pt and verified all hoang points renard TORO feeling better would like to try some applesauce, no nausea/vomiting today, no diarrhea today vitals noted, nad breathing unlabored no pallor or icterus nausea/vomiting/diarrhea - now resolved - likely viral GE dehydration / weakness - continue IVFs, PT/OT eval and treat DVT proph - lovenox (Kadeem Stephenson D.O.)
--- NOTE | 2016-10-28 08:25 | DIAGNOSTIC IMAGING REPORT ---
ABDOMINAL ULTRASOUND, RIGHT UPPER QUADRANT HISTORY: Right upper quadrant ultrasound gall bladder and harper for elevate alk phos and acute vomiting. COMPARISON: None. FINDINGS: Pancreas: Slight prominence of pancreatic duct 4 mm. Liver: Mild fatty infiltration Gallbladder: No gallbladder wall thickening. No gallstones. CBD: 7 mm Right kidney: No hydronephrosis. IMPRESSION: Slight prominence of the common bile duct and pancreatic duct. Otherwise negative study. As on those minute fatty infiltration of liver. Electronically signed by: Taco Romero M.D. 10/28/2016 8:23 AM Dictated Date/Time: 10/28/2016 8:22 AM
[2016-10-28] MEDS: BUTT PASTE 171 APPLN/57 GM JAR EXT SCH (08:36)
[2016-10-28] MEDS: FLUOXETINE HCL 10 MG CAP PO SCH (08:38)
[2016-10-28] MEDS: TOCOPHERYL, DL-ALPHA 400 INTER.UNIT CAP PO SCH (08:38)
[2016-10-28] MEDS: CEROVITE ADV FORMULA TAB PO SCH (08:39)
[2016-10-28] MEDS: OMEGA-3 (PURIFIED FISH OIL) 1 GM CAP PO SCH (08:39)
[2016-10-28] MEDS: CHOLECALCIFEROL 1000 INTER.UNIT TAB PO SCH (08:39)
[2016-10-28] MEDS: CLOPIDOGREL BISULFATE 75 MG TAB PO SCH (08:39)
[2016-10-28] MEDS: ATORVASTATIN 10 MG TAB PO SCH (08:39)
[2016-10-28] MEDS: LOSARTAN POTASSIUM 50 MG TAB PO SCH (08:40)
[2016-10-28] MEDS: MEMANTINE 10 MG TAB PO SCH ×2 (08:40→22:04)
[2016-10-28] MEDS ORDERED: TRIAMTERENE/HCTZ 37.5/25MG TAB PO SCH (09:00)
[2016-10-28 15:42] VITALS: BP 183/74; PULSE 86; TEMP 36.6; O2SAT 97
[2016-10-28 21:02] LABS: URINE APPEARANCE CLEAR (CLEAR); URINE BILIRUBIN NEG (NEG); URINE COLOR YELLOW; URINE NITRITE NEG (NEG); UROBILINOGEN NEG (NEG); ZZUR CULT IF INDIC CLEAN CATCH NO
[2016-10-28 21:04] LABS: MANUAL MICROSCOPIC REQUIRED? NO; REVIEW REQ? NO
[2016-10-28 21:13] LABS: INR 1.1 (0.9-1.1); PARTIAL THROMBOPLASTIN RATIO 1.1; PROTHROMBIN TIME (PATIENT) 11.7 SECONDS (9.0-12.0)
[2016-10-28] MEDS ORDERED: NURSING VERBAL MED ORDER ONE (21:15)
[2016-10-28] MEDS ORDERED: hydrOXYzine HCL 25 MG TAB PO STA (21:31)
[2016-10-28] MEDS: ONDANSETRON INJ 2 MG/ML 2 ML VIAL IV PRN (21:34)
[2016-10-28 23:15] VITALS: BP 132/76; PULSE 121; TEMP 36.4; O2SAT 91
[2016-10-29 06:09] LABS: HEMATOCRIT 34.5 % (37-47); MEAN CELL VOLUME 89.1 fL (80-100); MEAN CORPUSCULAR HGB CONC 33.6 g/dl (32-36); MEAN PLATELET VOLUME 9.8 fL (7.4-10.4); PLATELET COUNT 207 K/uL (130-400); RED BLOOD COUNT 3.87 M/uL (4.2-5.4); WHITE BLOOD COUNT 5.98 K/uL (4.8-10.8)
[2016-10-29] MEDS: CEFTRIAXONE SOD INJ 1 GM in DEXTROSE 5% ADD-VANTAGE 50ML 50 ML IV SCH (06:18)
[2016-10-29] MEDS: LEVOTHYROXINE 25 MCG TAB PO SCH (06:18)
[2016-10-29 06:37] LABS: BUN/CREATININE RATIO 15.2 (10-20); CALCIUM 8.7 mg/dl (8.5-10.1); POTASSIUM 3.5 mmol/L (3.5-5.1)
[2016-10-29 06:39] LABS: ALB/GLOB RATIO 0.8 (0.9-2)
[2016-10-29 08:03] VITALS: BP 119/66; PULSE 75; TEMP 37; O2SAT 94
[2016-10-29] MEDS: BUTT PASTE 171 APPLN/57 GM JAR EXT SCH (08:05)
[2016-10-29] MEDS: OMEGA-3 (PURIFIED FISH OIL) 1 GM CAP PO SCH (08:06)
[2016-10-29] MEDS: FLUOXETINE HCL 10 MG CAP PO SCH (08:06)
[2016-10-29] MEDS: CHOLECALCIFEROL 1000 INTER.UNIT TAB PO SCH (08:06)
[2016-10-29] MEDS: LOSARTAN POTASSIUM 50 MG TAB PO SCH (08:06)
[2016-10-29] MEDS: ATORVASTATIN 10 MG TAB PO SCH (08:06)
[2016-10-29] MEDS: CLOPIDOGREL BISULFATE 75 MG TAB PO SCH (08:06)
[2016-10-29] MEDS: CEROVITE ADV FORMULA TAB PO SCH (08:07)
[2016-10-29] MEDS: MEMANTINE 10 MG TAB PO SCH (08:07)
[2016-10-29] MEDS: TOCOPHERYL, DL-ALPHA 400 INTER.UNIT CAP PO SCH (08:07)
[2016-10-29] MEDS ORDERED: ENOXAPARIN 40 MG/0.4 ML SYR SQ SCH (09:00)
--- NOTE | 2016-10-29 09:10 | Clinical Documentation Query ---
CLINICAL DOCUMENTATION QUERY 85-y/o female who presents with N/V, Headache, weakness, and hypertensive 11/03/90. Query #1/2 In your clinical opinion is this patient being managed for: ( ) "Hypertensive encephalopathy in setting of hypertensive emergency" treated with IV Hydralazine, morphine, and Zofran. ( ) Other explanation of clinical findings (Please Explain) ( ) Unable to determine (Please Define) ( ) Need to Discuss ( X ) Not Agree The medical record reflects the following clinical findings, treatment, and risk factors. Clinical Indicators: As above. Treatment:IV Hydralazine, IV Morphine, IV Zofran Risk Factors: Age, HTN, CKD Query #2/2 In your clinical opinion is this patient being managed for: ( X ) Possible viral gastroenteritis treated with antiemetics and IVF's ( ) Other explanation of clinical findings (Please Explain) ( ) Unable to determine (Please Define) ( ) Need to Discuss ( ) Not Agree The medical record reflects the following clinical findings, treatment, and risk factors. Clinical Indicators: N/V Treatment: IV Zofran, IVF's Risk Factors: Age Please clarify and document your clinical opinion in the progress notes and discharge summary. Terms such as "probable", "suspected", "likely", "questionable", "possible", or "still to be ruled out" are acceptable. IF IN AGREEMENT, YOU MUST DOCUMENT ABOVE DIAGNOSTIC STATEMENT IN DAILY PROGRESS NOTES AND DISCHARGE SUMMARY. This document is not part of the patient's record. Thank You, Venancio Macedo, RN [phone]
[2016-10-29] MEDS ORDERED: ZFRI4 IV (09:16)
[2016-10-29] MEDS ORDERED: AMOX875T PO (09:16)
[2016-10-29] MEDS ORDERED: ONDA4TAB65 PO ×2 (09:18→09:19)
--- NOTE | 2016-10-29 09:42 | Discharge Summary ---
Discharge Summary Admission Date: Oct 27, 2016 at 21:18 Discharge Date: Oct 29, 2016 Discharge Disposition: Home with services Principal Diagnosis: Intractable vomiting Problems/Secondary Diagnoses: 1. Contact dermatis secondary to urinary incontinence 2. h/o Stroke 3. Depression 4. Hypothyroidism 5. HTN 6. Alzheimer's disease Immunizations: Have You Had Influenza Vaccine: Yes Influenza Vaccine Date: Jul 25, 2007 History of Tetanus Vaccine?: Unknown History of Pneumococcal: No History of Hepatitis B Vaccine: No Procedures: CT HEAD WITHOUT CONTRAST (CT) CLINICAL HISTORY: Headache, vomiting, weakness. COMPARISON STUDY: June 20, 2016 TECHNIQUE: Axial CT of the brain is performed from the vertex to the skull base. IV contrast was not administered for this examination. CT DOSE: 537.48 mGy.cm FINDINGS: There is a stable 1 cm extra-axial mass in the right frontoparietal region, consistent with a small meningioma. There is no CT evidence of acute cortical infarction. There is no evidence of midline shift. There is no acute hemorrhage. No calvarial fractures are visualized. There are patchy white matter hypodensities likely on a small vessel basis. 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 There is mild ventricular prominence, proportional to volume loss. There is minimal fluid within the left maxillary sinus. Several left-sided ethmoid air cells are opacified. There is partial opacification left frontal sinus. IMPRESSION: 1. Inflammatory changes within the left frontal left ethmoid and left maxillary sinuses 2. Right frontoparietal 1 cm meningioma. This remain stable 3. No acute intracranial findings. Electronically signed by: Chino Gallardo M.D. 10/27/2016 6:38 PM Dictated Date/Time: 10/27/2016 6:35 PM The status of this report is Signed. Draft = Not yet reviewed or approved by Radiologist. Signed = Reviewed and approved by Radiologist. ABDOMEN 2VIEW W/PA CHEST RTN CLINICAL HISTORY: vomiting COMPARISON STUDY: Chest x-ray dated 05/29/2014 FINDINGS: There is no free intraperitoneal air. There is mild interstitial thickening. There are old right-sided rib fractures. There are no abnormally dilated loops of large or small bowel. The provided decubitus view is somewhat limited from a technical standpoint as the lower abdomen is not included. IMPRESSION: No evidence of bowel obstruction. No evidence of free air. Electronically signed by: Chino Gallardo M.D. 10/27/2016 7:38 PM Dictated Date/Time: 10/27/2016 7:37 PM The status of this report is Signed. Draft = Not yet reviewed or approved by Radiologist. Signed = Reviewed and approved by Radiologist. ABDOMINAL ULTRASOUND, RIGHT UPPER QUADRANT HISTORY: Right upper quadrant ultrasound gall bladder and harper for elevate alk phos and acute vomiting. COMPARISON: None. FINDINGS: Pancreas: Slight prominence of pancreatic duct 4 mm. Liver: Mild fatty infiltration Gallbladder: No gallbladder wall thickening. No gallstones. CBD: 7 mm Right kidney: No hydronephrosis. IMPRESSION: Slight prominence of the common bile duct and pancreatic duct. Otherwise negative study. As on those minute fatty infiltration of liver. Electronically signed by: Taco Romero M.D. 10/28/2016 8:23 AM Dictated Date/Time: 10/28/2016 8:22 AM The status of this report is Signed. Draft = Not yet reviewed or approved by Radiologist. Signed = Reviewed and approved by Radiologist. (Itzel Pink, TAMYC) Medication Reconciliation New Medications: Amoxicillin & Pot Clavulanate (Augmentin 875-125 mg) 1 Tab Tab 1 TAB PO BID for 5 Days, #10 TAB Ondansetron Hcl (Zofran) 4 Mg Tab 4 MG PO Q6H for Nausea or Vomiting for 10 Days, #40 TAB Continued Medications: Acetaminophen (Tylenol Arthritis Ext Rel) 650 Mg Cplt 650 MG PO QID PRN for Pain, CAP Atorvastatin (Lipitor) 10 Mg Tab 10 MG PO DAILY, 0 Refills Cholecalciferol (Vitamin D3) 1,000 Unit Tab 1000 MG PO DAILY Clopidogrel Bisulfate (Plavix) 75 Mg Tab 75 MG PO DAILY, TAB Fish Oil (Fish Oil) 1 Gm Cap 1000 MG PO DAILY Fluoxetine (Prozac) 10 Mg Cap 10 MG PO DAILY, CAP Levothyroxine Sodium (Synthroid) 25 Mcg Tab 25 MCG PO DAILY Losartan Potassium (Cozaar) 100 Mg Tab 100 MG PO DAILY, TAB Meclizine HCl (Meclizine HCl) 12.5 Mg Tab 12.5 MG PO Q6H PRN for vertigo, #60 TAB Memantine (Namenda) 10 Mg Tab 10 MG PO BID, TAB Misc Natural Products (Midnite Pm) 1 Chw Chw 1 TAB PO HS PRN for Sleep Multivitamins/Minerals (Mvi With Minerals) Tab 1 TAB PO DAILY, TAB Triamterene/Hctz (Triamterene/Hctz 37.5-25MG Tab) 1 Tab Tab 0.5 TAB PO DAILY, TAB TAKE ONE-HALF TAB DAILY Vitamin E (Vitamin E 400 Iu) 400 Unit Cap 400 INTER.UNIT PO DAILY, CAP Referrals At Discharge Follow up Referrals: Family Practice Referral - Within 1 Week with Khoa Gallegos M.D. Discharge Exam Review of Systems: Constitutional: No chills, No fatigue, No fever, No sweats, No weakness Respiratory: No cough, No hemoptysis, No shortness of breath Cardiovascular: No chest pain, No edema, No palpitations Abdomen: No constipation, No diarrhea, No nausea, No pain, No vomiting Musculoskeletal: No calf pain, No joint pain, No muscle pain, No swelling Genitourinary - Female: No dysuria, No hematuria Neurologic: No numbness/tingling, No weakness Psychiatric: No anxiety, No depression symptoms Hematologic / Lymphatic: No abnormal bleeding/bruising Integumentary: No itch, No new/changing skin lesions, No rash Physical Exam: General Appearance: no apparent distress Eyes: normal inspection, PERRL ENT: hearing grossly normal Neck: supple Respiratory/Chest: lungs clear, no respiratory distress, no accessory muscle use Cardiovascular: no edema, normal peripheral pulses, + pertinent finding ( regular rate, irregular rhythm ) Abdomen / GI: normal bowel sounds, non tender, soft Extremities: no calf tenderness, no pedal edema Neurologic/Psychiatric: alert, normal mood/affect, oriented x 3 Skin: normal color, warm/dry, no rash (Itzel Pink, PA-C) Hospital Course This is an 85 y/o female here with intractable vomiting and generalized weakness. Intractable vomiting, likely secondary to a viral gastroenteritis: - Admit to med/surg - NPO, advance diet as tolerated - NSS IVF @ 150 ml/hr - IV Morphine PRN and IV Zofran PRN - IV Rocephin (started on 10/28) for sinusitis. Significant hx of sinusitis, inflammatory changes on CT, +dizziness, +frontal sinus tenderness. - Imaging/studies: -- Head CT- Inflammatory changes within the left frontal left ethmoid and left maxillary sinuses. Right frontoparietal 1 cm meningioma, stable. No acute intracranial findings. -- Abdominal/chest x-ray- No evidence of bowel obstruction. No evidence of free air. -- Abdominal U/S- - Follow CMP and CBC At discharge, patient tolerating full diet well. Given script for Zofran PRN and Doxycycline 100 mg PO BID x5 days to total 7 day course of antibiotic treatment for sinusitis. (Initatally wanted to give patient Augmentin, but patient's pharmacy called, patient allergic to Penicillins- hives) Contact dermatis secondary to urinary incontinence: - Zinc oxide as a barrier cream TID h/o Stroke: - Continue Atorvastatin and Plavix Depression: - Continue Fluoxetine Hypothyroidism - Continue Synthroid HTN: - Continue Losartan 100 mg PO daily - Hydralazine IV PRN During stay, patient was consistently hypertensive. Corrected PRN with Hydralazine. Per patient, has been following closely with PCP due to high blood pressures. Patient states PCP recently (within the last week) increased Losartan from 50 mg to 100 mg and she is to follow-up in the next week. Hesitant to add additional BP medications at this time because patient has not been receiving Maxzide throughout her hospital stay (per patient, takes this medication at home. Although, according to [employer], patient does NOT take this medication). Instructed patient to resume current home regimen and follow- up with PCP on 11/02 to further f/u with patient's BP medications and need for additional medications/any adjustments. Alzheimer's: - Continue Memantine DVT prophylaxis: - Lovenox 40 mg SQ q24 hrs - JATIN and SCDs Code Status: - LEVEL I, FULL Dispo: - Discharge to home Total Time Spent: Greater than 30 minutes This includes examination of the patient, discharge planning, medication reconciliation, and communication with other providers. (Itzel Pink, PAQuintinC) i personally examined pt and verified all hoang points w Papo Pink PAC feeling better, eating OK, wants to go home vitals noted, nad, breathing unlabored, no pallor. did OK w PT dehydration - from viral GE - improved. safe/stable for home (Kadeem Stephenson, D.Waldemar.) Discharge Instructions Please refer to the electronic Patient Visit Report (Discharge Instructions) for additional information. (Itzel Pink, PA-C) Follow-Up Please follow-up with your PCP on November 02 at 9:30 AM Please follow-up/keep all of your subspecialty appointments (Itzel Pink, JUAN-C) Additional Copies To Khoa Gallegos M.D.
--- NOTE | 2016-10-29 09:43 | Discharge Instructions ---
Discharge Instructions Admission Reason for Admission: Intractable Vomiting, Weakness Discharge Discharge Diagnosis / Problem: Intractable vomiting Discharge Goals Goal(s): Decrease discomfort, Improve function, Therapeutic intervention Activity Recommendations Activity Limitations: resume your previous activity . Instructions / Follow-Up Instructions / Follow-Up Nausea and Vomiting- You may take Zofran 4 mg by mouth every 6 hours as needed for nausea/vomiting Sinusitis (infection of sinuses)- Take Doxycycline 1 tablet by mouth twice per day until prescription is complete. START THIS MEDICATION ON 10/30/16. Resume all regular home medications as prescribed to you Please follow-up with your PCP on November 02 at 9:30 AM Please follow-up/keep all of your subspecialty appointments Current Hospital Diet Patient's current hospital diet: Regular Diet Discharge Diet Recommended Diet: Regular Diet Procedures Procedures Performed: 1. Abdominal u/s 2. Abdominal/chest x-ray 3. Head CT Pending Studies Studies pending at discharge: no Laboratory Results Last 24 Hours Test 10/28/16 20:30 10/28/16 20:45 10/29/16 05:54 Prothrombin Time 11.7 SECONDS Prothromb Time International Ratio 1.1 Activated Partial Thromboplast Time 28.6 SECONDS Partial Thromboplastin Ratio 1.1 Urine Color YELLOW Urine Appearance CLEAR Urine pH 7.0 Urine Specific [place] 1.000 Urine Protein NEG Urine Glucose (UA) NEG Urine Ketones NEG Urine Occult Blood NEG Urine Nitrite NEG Urine Bilirubin NEG Urine Urobilinogen NEG Urine Leukocyte Esterase NEG White Blood Count 5.98 K/uL Red Blood Count 3.87 M/uL Hemoglobin 11.6 g/dL Hematocrit 34.5 % Mean Corpuscular Volume 89.1 fL Mean Corpuscular Hemoglobin 30.0 pg Mean Corpuscular Hemoglobin Concent 33.6 g/dl RDW Standard Deviation 46.7 fL RDW Coefficient of Variation 14.3 % Platelet Count 207 K/uL Mean Platelet Volume 9.8 fL Sodium Level 145 mmol/L Potassium Level 3.5 mmol/L Chloride Level 112 mmol/L Carbon Dioxide Level 25 mmol/L Anion Gap 8.0 mmol/L Blood Urea Nitrogen 15 mg/dl Creatinine 1.00 mg/dl Est Creatinine Clear Calc Drug Dose 44.1 ml/min Estimated GFR () 59.5 Estimated GFR (Non- 51.3 BUN/Creatinine Ratio 15.2 Random Glucose 84 mg/dl Calcium Level 8.7 mg/dl Total Bilirubin 0.6 mg/dl Aspartate Amino Transf (AST/SGOT) 15 U/L Alanine Aminotransferase (ALT/SGPT) 20 U/L Alkaline Phosphatase 87 U/L Total Protein 6.8 gm/dl Albumin 3.1 gm/dl Globulin 3.7 gm/dl Albumin/Globulin Ratio 0.8 Medical Emergencies . Who to Call and When: Medical Emergencies: If at any time you feel your situation is an emergency, please call 911 immediately. . Non-Emergent Contact Non-Emergency issues call your: Primary Care Provider Call Non-Emergent contact if: you have a fever, your pain is unusual for you, your pain is concerning you, you have any medication questions . . "Provider Documentation" section prepared by Itzel Pink. VTE Core Measure Inpt VTE Proph given/why not?: Enoxaparin (Lovenox)SQ
[2016-10-29 09:58] VITALS: O2SAT 94
[2016-10-29] MEDS ORDERED: DXY100 PO (10:01)
[2016-10-29 14:15] VITALS: BP 119/66; PULSE 75; TEMP 37; O2SAT 94
[2017-05-08] MEDS ORDERED: ZNT150 PO (10:28)
[2017-05-08] MEDS ORDERED: CRD200 PO (10:28)
[2017-05-08] MEDS ORDERED: LPR25 PO (10:28)
[2017-06-03] MEDS ORDERED: CLON0.5T3 PO (19:58)
[2017-06-03] MEDS ORDERED: AMIO200T4 PO (19:58)
[2017-06-07] MEDS ORDERED: PRVC10 PO (09:15)
[2017-06-07] MEDS ORDERED: ELQ25 PO ×2 (09:15→09:30)
[2017-06-07] MEDS ORDERED: ASPI81TA28 PO (09:15)
[2017-06-07] MEDS ORDERED: SYN50 PO (13:49)
== END 2016-10-29 14:30 | disposition home health service (06) | DRG 392 ==
LOC: ENRESERVDT → ENRESERVTM → EDBD 17:05 → C.EDC 17:06 → C.MS2W 21:18
PROVIDERS: ADMIT Hospitalist; ATTEND Family Medicine
DX: A08.4 Viral intestinal infection, unspecified (principal); E86.0 Dehydration; R51 Headache; R74.8 Abnormal levels of other serum enzymes; J32.9 Chronic sinusitis, unspecified; L25.8 Unspecified contact dermatitis due to other agents; R32 Unspecified urinary incontinence; E03.9 Hypothyroidism, unspecified; E78.5 Hyperlipidemia, unspecified; I10 Essential (primary) hypertension; F32.9 Major depressive disorder, single episode, unspecified; G30.9 Alzheimer's disease, unspecified; F02.80 Dementia in other diseases classified elsewhere, unspecified severity, without behavioral disturbance, psychotic disturbance, mood disturbance, and anxiety; Z86.73 Personal history of transient ischemic attack (TIA), and cerebral infarction without residual deficits; Z88.0 Allergy status to penicillin; Z79.02 Long term (current) use of antithrombotics/antiplatelets; Z79.2 Long term (current) use of antibiotics; Z79.899 Other long term (current) drug therapy

== ENCOUNTER 2017-05-02 14:15 | Inpatient (IN) | payer BC, OTHER ==
[~2017-05-02] VITALS: Ht 162.6 cm; Wt 75.3 kg
[~2017-05-02 14:15] MED LIST changes: +ACET1TAB84 PO; -CALC500C70 PO; -CLON0.5T3 PO; +DXY100 PO; +FLUO10CA48 PO; -FLUO20CA35 PO; +LOSA1TAB38 PO; -LOSA50TA54 PO; +ONDA4TAB65 PO; +SYN25 PO; +VITA400C3 PO; +[UNRECOGNIZED DRUG - CODE] PO
[2017-05-02] MEDS ORDERED: ADENOSINE IV SOLN 3 MG/ML 2 ML VIAL ONE (14:36)
[2017-05-02] MEDS ORDERED: SODIUM CHLORIDE 0.9% 1000ML 1,000 ML IV STA (14:39)
[2017-05-02] MEDS ORDERED: DILTIAZEM BOLUS / DRIP IV STA (14:41)
--- NOTE | 2017-05-02 14:42 | EMERGENCY ROOM VISIT NOTE ---
History Report prepared by Nahedibjosie: Yazmin Sotelo Under the Supervision of: Dr. Jabari Pisano D.O. First contact with patient: 14:35 Chief Complaint: FALL Stated Complaint: FELL X 6 DAYS, TAILBONE AND LEFT SIDED RIB CAGE History of Present Illness The patient is a 86 year old female who presents to the Emergency Room with complaints of worsening back and shoulder pain after a fall. She reports she fell 6 days ago when she tripped over her cat. She fell backwards, landing on her left hip, left shoulder and tailbone area. She currently rates her pain as an 8/10. She denies hitting her head or losing consciousness during the fall. She denies any history of an irregular heart beat or atrial fibrillation. She does not take daily blood thinners. She currently states "I just don't feel good " and complains of a headache. The patient admits to a history of a previous TIA. Source of History: patient Onset: 6 days [employer] Position: shoulder (left), buttock (tailbone), other (left hip) Symptom Intensity: 8/10 Timing: worsening Associated Symptoms: + headache, No LOC Review of Systems See HPI for pertinent positives & negatives. A total of 10 systems reviewed and were otherwise negative. Past Medical & Surgical Medical Problems: (1) Calculus Of Kidney (2) Diab Tiffanie Wo Compl, Type Ii Or Unspec Type, Not Uncntrld (3) Hyperlipidemia Nec/Nos (4) Hypertension Nos (5) Intractable vomiting (6) Mixed Hyperlipidemia (7) Weakness Family History Hypertension Malignancy Stroke Social History Smoking Status: Never Smoker Alcohol Use: none Drug Use: none Marital Status: Housing Status: lives with family Occupation Status: retired Current/Historical Medications Scheduled Atorvastatin (Lipitor), 10 MG PO DAILY Cholecalciferol (Vitamin D3), 1,000 MG PO DAILY Clopidogrel Bisulfate (Plavix), 75 MG PO DAILY Doxycycline Hyclate (Doxycycline Hyclate), 100 MG PO BID Fish Oil (Fish Oil), 1,000 MG PO DAILY Fluoxetine (Prozac), 10 MG PO DAILY Levothyroxine Sodium (Synthroid), 25 MCG PO DAILY Losartan Potassium (Cozaar), 100 MG PO DAILY Memantine (Namenda), 10 MG PO BID Multivitamins/Minerals (Mvi With Minerals), 1 TAB PO DAILY Ondansetron Hcl (Zofran), 4 MG PO Q6H Triamterene/Hctz (Triamterene/Hctz 37.5-25MG Tab), 0.5 TAB PO DAILY Vitamin E (Vitamin E 400 Iu), 400 INTER.UNIT PO DAILY Scheduled PRN Acetaminophen (Tylenol Arthritis Ext Rel), 650 MG PO QID PRN for Pain Meclizine HCl (Meclizine HCl), 12.5 MG PO Q6H PRN for vertigo Misc Natural Products (Midnite Pm), 1 TAB PO HS PRN for Sleep Allergies Coded Allergies: BEE STING (Verified Allergy, Unknown, SWELLING, 06/20/16) Penicillins (Verified Allergy, Unknown, hives, 10/29/16) Codeine (Unverified Adverse Reaction, Mild, NAUSEA/VOMITING, 06/20/16) Physical Exam Vital Signs Date Time Temp Pulse Resp B/P (MAP) Pulse Ox O2 Delivery O2 Flow Rate FiO2 05/02/17 16:10 89 19 152/76 100 Room Air 05/02/17 15:40 101 18 05/02/17 15:36 155/79 05/02/17 15:05 90 17 100 Room Air 05/02/17 15:02 94 05/02/17 15:00 89 20 145/72 100 Room Air 05/02/17 14:55 113 20 99 Room Air 05/02/17 14:54 131/87 05/02/17 14:50 154 20 100 Room Air 05/02/17 14:45 156 19 100 05/02/17 14:41 168/109 05/02/17 14:40 153 23 100 05/02/17 14:40 158 05/02/17 14:35 157 22 95 05/02/17 14:32 137/93 05/02/17 14:18 36.7 162 20 126/81 96 Room Air Physical Exam GENERAL: Patient is awake, alert, very anxious appearing, and appears to be uncomfortable. EYES: The conjunctivae are clear. The pupils are round and reactive. EARS, NOSE, MOUTH AND THROAT: The nose is without any evidence of any deformity. Mucous membranes are moist tongue is midline NECK: The neck is nontender and supple. RESPIRATORY: Normal respiratory effort is noted there is no evidence of wheezing rhonchi or rales CARDIOVASCULAR: Heart sounds were tachycardic but regular. No definite murmur noted to auscultation. GASTROINTESTINAL: The abdomen is soft. Bowel sounds are present in all quadrants. Abdomen is nontender MUSCULOSKELETAL/EXTREMITIES: Tenderness over the lateral aspect of the left hip , ROM appeared intact. No evidence of shortening. Tenderness over posterior shoulder and left lateral rib cage, no ecchymosis noted. SKIN: Trace pedal edema bilaterally. Pulses are symmetric. There is no obvious evidence of any rash. There are no petechiae, pallor or cyanosis noted. NEUROLOGIC: Patient is awake alert and oriented x3 Medical Decision & Procedures ER Provider Diagnostic Interpretation: Radiology results as stated below per my review and radiologist interpretation: TWO VIEW CHEST CLINICAL HISTORY: Palpitations. Fall. FINDINGS: PA and lateral chest radiographs are compared to study dated 10/27/2016. The heart is enlarged and there is atherosclerotic calcification of the thoracic aorta. There is bilateral patchy airspace consolidation, greatest in the upper lobes. The lung bases appear clear. No pleural effusion or pneumothorax is seen. The skeletal structures are osteopenic. Degenerative change is seen throughout the thoracic spine. There are healed right-sided rib fractures. IMPRESSION: 1. Cardiomegaly. 2. There is bilateral patchy airspace consolidation within upper lobe predominance, which is new from 10/27/2016. Correlate clinically for evidence of an infectious/inflammatory pneumonitis. Radiographic follow-up to resolution is recommended. Electronically signed by: Yamil Ambrocio M.D. 05/02/2017 3:38 PM LEFT PELVIS/UNILATERAL HIP 2-3VIEWS CLINICAL HISTORY: fall COMPARISON STUDY: None. FINDINGS: No acute fracture or dislocation within the pelvis or hips. The sacrum appears intact. Vascular calcifications are noted. 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 IMPRESSION: No fracture or dislocation within the pelvis or hips. Electronically signed by: Cabrera Ross M.D. 05/02/2017 3:40 PM LEFT SHOULDER 3 VIEWS HISTORY: Left shoulder pain. fall COMPARISON: None. FINDINGS: There is no fracture or dislocation. Small calcification at the distal supraspinatus tendon consistent with calcific tendinitis. The left clavicle is intact. Mild to moderate degenerative change at the a.c. and glenohumeral joints. No radiopaque foreign bodies. IMPRESSION: 1. No fracture or dislocation within the left shoulder. 2. Supraspinatus calcific tendinitis. 3. Degenerative changes as described above. Electronically signed by: Cabrera Ross M.D. 05/02/2017 3:43 PM Laboratory Results 05/02/17 14:40 Red Blood Count 4.55, Mean Corpuscular Volume 87.3, Mean Corpuscular Hemoglobin 28.1, Mean Corpuscular Hemoglobin Concent 32.2, Mean Platelet Volume 10.7, Neutrophils (%) (Auto) 50.8, Lymphocytes (%) (Auto) 33.8, Monocytes (%) (Auto) 13.6, Eosinophils (%) (Auto) 0.7, Basophils (%) (Auto) 0.1, Neutrophils # (Auto ) 3.46, Lymphocytes # (Auto) 2.31, Monocytes # (Auto) 0.93, Eosinophils # (Auto ) 0.05, Basophils # (Auto) 0.01 05/02/17 14:40 Test 05/02/17 14:40 05/02/17 15:41 05/02/17 17:00 White Blood Count 6.83 K/uL (4.8-10.8) Red Blood Count 4.55 M/uL (4.2-5.4) Hemoglobin 12.8 g/dL (12.0-16.0) Hematocrit 39.7 % (37-47) Mean Corpuscular Volume 87.3 fL (80-100) Mean Corpuscular Hemoglobin 28.1 pg (25-34) Mean Corpuscular Hemoglobin Concent 32.2 g/dl (32-36) Platelet Count 274 K/uL (130-400) Mean Platelet Volume 10.7 fL (7.4-10.4) Neutrophils (%) (Auto) 50.8 % Lymphocytes (%) (Auto) 33.8 % Monocytes (%) (Auto) 13.6 % Eosinophils (%) (Auto) 0.7 % Basophils (%) (Auto) 0.1 % Neutrophils # (Auto) 3.46 K/uL (1.4-6.5) Lymphocytes # (Auto) 2.31 K/uL (1.2-3.4) Monocytes # (Auto) 0.93 K/uL (0.11-0.59) Eosinophils # (Auto) 0.05 K/uL (0-0.5) Basophils # (Auto) 0.01 K/uL (0-0.2) RDW Standard Deviation 45.8 fL (36.4-46.3) RDW Coefficient of Variation 14.3 % (11.5-14.5) Immature Granulocyte % (Auto) 1.0 % Immature Granulocyte # (Auto) 0.07 K/uL (0.00-0.02) Anion Gap 7.0 mmol/L (3-11) Est Creatinine Clear Calc Drug Dose 33.4 ml/min Estimated GFR () 47.4 Estimated GFR (Non- 40.9 BUN/Creatinine Ratio 19.2 (10-20) Calcium Level 10.3 mg/dl (8.5-10.1) Magnesium Level 2.1 mg/dl (1.8-2.4) Total Bilirubin 0.5 mg/dl (0.2-1) Direct Bilirubin 0.1 mg/dl (0-0.2) Aspartate Amino Transf (AST/SGOT) 18 U/L (15-37) Alanine Aminotransferase (ALT/SGPT) 25 U/L (12-78) Alkaline Phosphatase 107 U/L (45-117) Total Creatine Kinase 42 U/L (26-192) Creatine Kinase MB 1.6 ng/ml (0.5-3.6) Creatine Kinase MB Ratio 3.8 (0-3.0) Troponin I 0.039 ng/ml (0-0.045) Pro-B-Type Natriuretic Peptide 5454 pg/ml (0-1800) Total Protein 7.9 gm/dl (6.4-8.2) Albumin 3.6 gm/dl (3.4-5.0) Lipase 250 U/L (73-393) Thyroid Stimulating Hormone (TSH) 5.450 uIu/ml (0.300-4.500) Free Thyroxine 1.03 ng/dl (0.80-1.60) Prothrombin Time 11.0 SECONDS (9.0-12.0) Prothromb Time International Ratio 1.0 (0.9-1.1) Activated Partial Thromboplast Time 28.4 SECONDS (21.0-31.0) Partial Thromboplastin Ratio 1.1 Urine Color YELLOW Urine Appearance CLEAR (CLEAR) Urine pH 6.5 (4.5-7.5) Urine Specific Kimberly 1.015 (1.000-1.030) Urine Protein NEG (NEG) Urine Glucose (UA) NEG (NEG) Urine Ketones NEG (NEG) Urine Occult Blood NEG (NEG) Urine Nitrite NEG (NEG) Urine Bilirubin NEG (NEG) Urine Urobilinogen NEG (NEG) Urine Leukocyte Esterase SMALL (NEG) Urine WBC (Auto) 1-5 /hpf (0-5) Urine RBC (Auto) 0-4 /hpf (0-4) Urine Hyaline Casts (Auto) 1-5 /lpf (0-5) Urine Epithelial Cells (Auto) 5-10 /lpf (0-5) Urine Bacteria (Auto) NEG (NEG) Laboratory results per my review. Medications Administered Medications (Trade) Dose Ordered Sig/Cristi Route Start Time Stop Time Status Last Admin Dose Admin Adenosine (Adenosine IV) 24 mg STK-MED ONCE .ROUTE 05/02/17 14:36 05/02/17 14:37 DC 05/02/17 14:36 6 MG Sodium Chloride 1,000 ml @ 999 mls/hr Q1H1M STAT IV 05/02/17 14:39 05/02/17 15:39 DC 05/02/17 14:55 999 MLS/HR Diltiazem HCl (Cardizem Inj) 10 mg TODAY@1450 ONCE IV 05/02/17 14:50 05/02/17 14:51 DC 05/02/17 14:52 10 MG Diltiazem HCl 125 mg/Dextrose 125 ml @ 0 mls/hr Q0M PRN IV 05/02/17 15:00 06/01/17 14:59 05/02/17 15:09 2.5 MLS/HR Levofloxacin (Levaquin / D5W) 750 mg NOW ONCE IV 05/02/17 16:00 05/02/17 16:01 DC 05/02/17 16:36 750 MG ECG Indication: weakness Rate (beats per minute): 158 Rhythm: atrial fibrillation (Atrial fibrillation with RVR) Findings: nonspecific-ST abn (Diffuse ST segment abnormalities noted), other ( No PVC's) Comparison ECG Date: Changes are new when compared to EKG from October 27, 2016 ED Course 1436: The patient was evaluated in room C1. A complete history and physical examination were performed. 1436: Adenosine 24 mg IV. 1439: NSS 1000 ml @ 999 mls/hr IV. 1450: Diltiazem HCl 10 mg IV. 1500: Diltiazem HCl 125 mg/Dextrose 125 ml @ 0 mls/hr IV. 1600: I reevaluated the patient. She is resting comfortably. I discussed her results and my recommendation she remain in the hospital for further evaluation and management and she verbalized complete understanding and agreement. 1600: Levaquin 750 mg IV. 1610: I discussed the patients case with Dr. Aguirre [facility] Hospitalist. The patient will be further evaluated. Medical Decision Prior records/ancillary studies reviewed. Triage Nursing notes reviewed. The patient's history was concerning for palpitations. Differential diagnosis: Etiologies such as premature contractions, electrolyte abnormality, cardiac dysrhythmia, thyroid dysfunction, pulmonary embolism, infection, gastrointestinal, as well as others were entertained. The patient is an 86-year-old female who presented to the emergency department for an evaluation of weakness and palpitations. The patient states that she became weak and fell. This fall occurred last week and she injured her left hip left shoulder and left chest wall that time. The patient states that recently she started feeling very weak again and was found to be in rapid narrow complex tachycardia. Initially it appeared very regular and my concerns with this was a new rapid atrial fibrillation with rapid ventricular response versus an SVT. Initially she was treated with adenosine which revealed an underlying fibrillation waves. The patient was then switched to IV Cardizem and on subsequent reevaluation was feeling much better. I discussed the patient's laboratory and radiographic studies with her. I discussed her case with the on- call [facility] hospitalist group. They've agreed to evaluate the patient in emergency department for further management and disposition. The patient did not appear to have a headache and did not complain of a headache. She had no signs of trauma on her head and denies striking her head when she fell. Medication Reconcilliation Current Medication List: was personally reviewed by me Blood Pressure Screening Patient's blood pressure: Elevated blood pressure Blood pressure disposition: Referred to PCP (The patients blood pressure will be further managed by the hospital medicine team) Consults Time Called: 1608 Consulting Physician: Dr. Aguirre [facility] Hospitalist Returned Call: 1610 I discussed the patients case with Dr. Aguirre [facility] Hospitalist. The patient will be further evaluated. Impression Primary Impression: Atrial fibrillation with RVR Additional Impressions: Fall Chest wall contusion Contusion, hip Shoulder contusion Pneumonia Critical Care I have personally spent greater than 40 minutes of critical care time in the direct management of this patient. This includes bedside care, interpretation of diagnostic studies, and testing, discussion with consultants, patient, and family members, and other required patient management activities. This 40 minutes is in excess of all separately billable procedures. Scribe Attestation The scribe's documentation has been prepared under my direction and personally reviewed by me in its entirety. I confirm that the note above accurately reflects all work, treatment, procedures, and medical decision making performed by me. Departure Information Dispostion Being Evaluated By Hospitalist Khoa Fuchs M.D. (PCP) Patient Instructions My [facility] Problem Qualifiers Additional Impressions: Fall Encounter type: initial encounter Qualified Codes: W19.XXXA - Unspecified fall, initial encounter Chest wall contusion Encounter type: initial encounter Laterality: left Qualified Codes: S20.212A - Contusion of left front wall of thorax, initial encounter Contusion, hip Encounter type: initial encounter Laterality: left Qualified Codes: S70.02XA - Contusion of left hip, initial encounter Shoulder contusion Encounter type: initial encounter Laterality: left Qualified Codes: S40.012A - Contusion of left shoulder, initial encounter Pneumonia Pneumonia type: due to unspecified organism Laterality: unspecified laterality Lung location: unspecified part of lung Qualified Codes: J18.9 - Pneumonia, unspecified organism
[2017-05-02] MEDS ORDERED: DILTIAZEM HCL 5 MG/ML 5 ML VIAL IV ONE (14:50)
[2017-05-02 14:53] LABS: BASO % 0.1 %; BASO ABS # 0.01 K/uL (0-0.2); COMPLETE YES; EOS % 0.7 %; HEMATOCRIT 39.7 % (37-47); LYMPH % 33.8 %; LYMPH ABS # 2.31 K/uL (1.2-3.4); MEAN CELL VOLUME 87.3 fL (80-100); MEAN CORPUSCULAR HEMOGLOBIN 28.1 pg (25-34); MEAN CORPUSCULAR HGB CONC 32.2 g/dl (32-36); MEAN PLATELET VOLUME 10.7 fL (7.4-10.4); MONO % 13.6 %; NEUT % 50.8 %; PLATELET COUNT 274 K/uL (130-400); RED BLOOD COUNT 4.55 M/uL (4.2-5.4); WHITE BLOOD COUNT 6.83 K/uL (4.8-10.8)
[2017-05-02] MEDS: DILTIAZEM HCL INJ 125 MG in DEXTROSE 5% 100ML IV PRN ×3 (15:09→22:16)
[2017-05-02 15:22] LABS: BUN/CREATININE RATIO 19.2 (10-20); CALCIUM 10.3 mg/dl (8.5-10.1); CKMB/CK RATIO 3.8 (0-3.0); CREATININE 1.2 mg/dl (0.60-1.20); MAGNESIUM 2.1 mg/dl (1.8-2.4); POTASSIUM 4.2 mmol/L (3.5-5.1); THYROID STIMULATING HORMONE 5.45 uIu/ml (0.300-4.500)
--- NOTE | 2017-05-02 15:39 | DIAGNOSTIC IMAGING REPORT ---
TWO VIEW CHEST CLINICAL HISTORY: Palpitations. Fall. FINDINGS: PA and lateral chest radiographs are compared to study dated 10/27/2016. The heart is enlarged and there is atherosclerotic calcification of the thoracic aorta. There is bilateral patchy airspace consolidation, greatest in the upper lobes. The lung bases appear clear. No pleural effusion or pneumothorax is seen. The skeletal structures are osteopenic. Degenerative change is seen throughout the thoracic spine. There are healed right-sided rib fractures. IMPRESSION: 1. Cardiomegaly. 2. There is bilateral patchy airspace consolidation within upper lobe predominance, which is new from 10/27/2016. Correlate clinically for evidence of an infectious/inflammatory pneumonitis. Radiographic follow-up to resolution is recommended. Electronically signed by: Yamil Ambrocio M.D. 05/02/2017 3:38 PM Dictated Date/Time: 05/02/2017 3:36 PM
--- NOTE | 2017-05-02 15:41 | DIAGNOSTIC IMAGING REPORT ---
LEFT PELVIS/UNILATERAL HIP 2-3VIEWS CLINICAL HISTORY: fall COMPARISON STUDY: None. FINDINGS: No acute fracture or dislocation within the pelvis or hips. The sacrum appears intact. Vascular calcifications are noted. 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 IMPRESSION: No fracture or dislocation within the pelvis or hips. Electronically signed by: Cabrera Ross M.D. 05/02/2017 3:40 PM Dictated Date/Time: 05/02/2017 3:39 PM
--- NOTE | 2017-05-02 15:44 | DIAGNOSTIC IMAGING REPORT ---
LEFT SHOULDER 3 VIEWS HISTORY: Left shoulder pain. fall COMPARISON: None. FINDINGS: There is no fracture or dislocation. Small calcification at the distal supraspinatus tendon consistent with calcific tendinitis. The left clavicle is intact. Mild to moderate degenerative change at the a.c. and glenohumeral joints. No radiopaque foreign bodies. IMPRESSION: 1. No fracture or dislocation within the left shoulder. 2. Supraspinatus calcific tendinitis. 3. Degenerative changes as described above. Electronically signed by: Cabrera Ross M.D. 05/02/2017 3:43 PM Dictated Date/Time: 05/02/2017 3:41 PM
[2017-05-02 15:57] LABS: PARTIAL THROMBOPLASTIN RATIO 1.1
[2017-05-02] MEDS ORDERED: LEVAQUIN 750MG / 150ML D5W IV ONE (16:00)
[2017-05-02 17:21] LABS: URINE APPEARANCE CLEAR (CLEAR); URINE BILIRUBIN NEG (NEG); URINE COLOR YELLOW; URINE NITRITE NEG (NEG); URINE PH 6.5 (4.5-7.5); URINE SPECIFIC GRAVITY 1.015 (1.000-1.030); UROBILINOGEN NEG (NEG)
[2017-05-02 17:23] LABS: MANUAL MICROSCOPIC REQUIRED? NO; REVIEW REQ? NO
[2017-05-02] MEDS ORDERED: ALUMINUM/MAGNESIUM/SIMETH (MAALOX MAX) 30 ML UDC PO PRN (19:00)
[2017-05-02] MEDS ORDERED: DILTIAZEM BOLUS / DRIP IV SCH (19:00)
[2017-05-02] MEDS ORDERED: NITROGLYCERIN 0.4 MG SL PER TAB CHARGE SL PRN (19:00)
[2017-05-02] MEDS ORDERED: ACETAMINOPHEN 325 MG TAB ONE (19:27)
[2017-05-02 20:38] VITALS: BP 157/92; PULSE 106; TEMP 37.2; O2SAT 96; Ht 162.6 cm; Wt 75.3 kg
[2017-05-02 21:00] VITALS: PULSE 153
[2017-05-02] MEDS ORDERED: LEVOFLOXACIN / D5W 750 MG in PREMIXED IN D5W 150 ML IV SCH (21:00)
[2017-05-02] MEDS ORDERED: LEVOFLOXACIN CONSULT ACTIVE PRN (21:00)
[2017-05-02] MEDS ORDERED: PNEUMOCOCCAL ADMINISTRATION CHARGE ONE (21:30)
[2017-05-02] MEDS ORDERED: PNEUMOCOCCAL POLYSACCHARIDES 25 MCG/0.5 ML VIAL/SYR IM. ONE (21:30)
[2017-05-02] MEDS ORDERED: HEPARIN IV BOLUS 5,000 UNIT in SYRINGE 0 ML IV ONE (21:45)
[2017-05-02] MEDS: HEPARIN 25,000 UNIT/500ML D5W 500 ML IV PRN (22:14)
[2017-05-02] MEDS: METOPROLOL TARTRATE 25 MG TAB PO SCH (22:16)
[2017-05-02] MEDS: MEMANTINE 10 MG TAB PO SCH (22:17)
[2017-05-02] MEDS: RANITIDINE HCL 150 MG TAB PO SCH (22:17)
[2017-05-02 23:33] VITALS: PULSE 90
--- NOTE | 2017-05-02 23:55 | History and Physical ---
History & Physical Date & Time of Service: May 02, 2017 at 23:54 Chief Complaint: Atrial Flutter With Rvr Primary Care Physician: Khoa Gallegos M.D. History of Present Illness Source: patient, family This patient is an 86-year-old female with a history of TIA, hypertension, mild cognitive impairment, hyperlipidemia, vertigo, depression, insomnia, and colon polyps, who presents to the ER with persistent profound fatigue since a fall 4 days ago. She reports she tripped backwards over a cat and fell down mostly on her left side, injuring her left buttocks and hip as well as left shoulder and left thorax. She has been taking Tylenol for pain and noticed since that fall, she has felt very fatigued and had some dyspnea on exertion. In the ER, she was found to have a rapid heartbeat in the 160s. She was given adenosine which revealed an atrial flutter. She does report feeling similar symptoms in the past, but not for this long. She denies any previous history of A. fib or flutter, but a cardiology consult from 2009 notes that she may have had A. fib in the 1980s. She is also been having some burning in her chest that comes and goes on its own and is not positional or associated with eating. It occurs 2 times a day may be for several weeks and she takes Tylenol for it. She denies any weight loss or weight gain, no lower extremity edema. She has had a mild cough and maybe some sweats and chills the last month. She admits that she has trouble with her memory and cannot give me exact timeframes on her symptoms. Interestingly, her chest x-ray was significant for bilateral patchy airspace opacities particularly in the upper lobes. She has not had any productive sputum. She was started on a diltiazem drip and given IV fluids as well as IV Levaquin in the ER. Her heart rate was in the 80s at the time I saw her. She will be admitted for rapid atrial fibrillation/flutter, and likely atypical pneumonia. Past Medical/Surgical History Past Medical Problems: Calculus Of Kidney Hyperlipidemia Hypertension History of TIA Mild cognitive impairment Vertigo Depression Insomnia Colon polyps Past surgical history: Left TKA Family History Hypertension Malignancy Stroke Father of alcoholic cirrhosis at age 50 Mother at age 89 of an unknown cancer Sr. of complications from alcoholism Another sister of an unknown cancer Social History Smoking Status: Never Smoker Alcohol Use: none Drug Use: none Marital Status: Housing status: lives alone Occupational Status: retired Immunizations History of Influenza Vaccine: Yes Influenza Vaccine Date: Jul 25, 2007 History of Tetanus Vaccine?: Unknown History of Pneumococcal: No History of Hepatitis B Vaccine: No Multi-Drug Resistant Organisms History of MDRO: No Allergies Coded Allergies: BEE STING (Verified Allergy, Unknown, SWELLING, 06/20/16) Penicillins (Verified Allergy, Unknown, hives, 10/29/16) Codeine (Unverified Adverse Reaction, Mild, NAUSEA/VOMITING, 06/20/16) Home Medications Scheduled Atorvastatin (Lipitor), 10 MG PO DAILY Cholecalciferol (Vitamin D3), 1,000 MG PO DAILY Clopidogrel Bisulfate (Plavix), 75 MG PO DAILY Doxycycline Hyclate (Doxycycline Hyclate), 100 MG PO BID Fish Oil (Fish Oil), 1,000 MG PO DAILY Fluoxetine (Prozac), 10 MG PO DAILY Levothyroxine Sodium (Synthroid), 25 MCG PO DAILY Losartan Potassium (Cozaar), 100 MG PO DAILY Memantine (Namenda), 10 MG PO BID Multivitamins/Minerals (Mvi With Minerals), 1 TAB PO DAILY Ondansetron Hcl (Zofran), 4 MG PO Q6H Triamterene/Hctz (Triamterene/Hctz 37.5-25MG Tab), 0.5 TAB PO DAILY Vitamin E (Vitamin E 400 Iu), 400 INTER.UNIT PO DAILY Scheduled PRN Acetaminophen (Tylenol Arthritis Ext Rel), 650 MG PO QID PRN for Pain Meclizine HCl (Meclizine HCl), 12.5 MG PO Q6H PRN for vertigo Misc Natural Products (Midnite Pm), 1 TAB PO HS PRN for Sleep Review of Systems Constitutional: + chills, + sweats, + fatigue Eyes: No problem reported ENT: No problem reported Respiratory: + cough, + dyspnea on exertion, No sputum Cardiovascular: + chest pain (as per history of present illness), No edema, No palpitations Abdomen: No pain, No nausea, No vomiting, No GI bleeding Musculoskeletal: + joint pain (left buttocks, left thorax) Genitourinary - Female: No problem reported Neurologic: + memory loss Psychiatric: No problem reported Endocrine: No problem reported Hematologic / Lymphatic: No abnormal bleeding/bruising, No clotting problems, No problem reported Integumentary: No bleeding Allergic / Immunologic: No problem reported Physical Exam Vital Signs Date Time Temp Pulse Resp B/P (MAP) Pulse Ox O2 Delivery O2 Flow Rate FiO2 05/02/17 23:33 90 05/02/17 22:00 Room Air 05/02/17 21:00 153 05/02/17 20:38 37.2 106 20 157/92 96 Room Air 05/02/17 19:55 36.7 86 18 134/90 98 05/02/17 19:31 86 18 134/90 98 Room Air 05/02/17 19:20 96 19 05/02/17 19:05 150/116 05/02/17 19:02 153 05/02/17 18:50 118 22 05/02/17 18:26 100 18 98 Room Air 05/02/17 16:45 93 20 100 Room Air 05/02/17 16:44 152/76 05/02/17 16:15 93 25 05/02/17 16:10 89 19 152/76 100 Room Air 05/02/17 15:40 101 18 05/02/17 15:36 155/79 05/02/17 15:05 90 17 100 Room Air 05/02/17 15:02 94 05/02/17 15:00 89 20 145/72 100 Room Air 05/02/17 14:55 113 20 99 Room Air 05/02/17 14:54 131/87 05/02/17 14:50 154 20 100 Room Air 05/02/17 14:45 156 19 100 05/02/17 14:41 168/109 05/02/17 14:40 153 23 100 05/02/17 14:40 158 05/02/17 14:35 157 22 95 05/02/17 14:32 137/93 05/02/17 14:18 36.7 162 20 126/81 96 Room Air General Appearance: WD/WN, no apparent distress Head: normocephalic, atraumatic Eyes: normal inspection, sclerae normal ENT: hearing grossly normal, pharynx normal Neck: thyroid normal, no carotid bruits, trachea midline Respiratory/Chest: lungs clear, normal breath sounds, no respiratory distress, no accessory muscle use Cardiovascular: no edema, no gallop, no JVD, no murmur, normal peripheral pulses, + tachycardia (in A. fib on the youth nutritional monitor when I was examining her in the room), + irregularly irregular Abdomen/GI: normal bowel sounds, non tender, soft, no organomegaly, no pulsatile mass Back: normal inspection Extremities/Musculoskelatal: normal inspection, no calf tenderness, no pedal edema Neurologic/Psych: alert, normal mood/affect, oriented x 3 Skin: normal color, warm/dry, no rash Diagnostics Laboratory Results Results Past 24 Hours Test 05/02/17 14:40 05/02/17 15:41 05/02/17 17:00 Range/Units White Blood Count 6.83 4.8-10.8 K/uL Red Blood Count 4.55 4.2-5.4 M/uL Hemoglobin 12.8 12.0-16.0 g/dL Hematocrit 39.7 37-47 % Mean Corpuscular Volume 87.3 80-100 fL Mean Corpuscular Hemoglobin 28.1 25-34 pg Mean Corpuscular Hemoglobin Concent 32.2 32-36 g/dl Platelet Count 274 130-400 K/uL Mean Platelet Volume 10.7 7.4-10.4 fL Neutrophils (%) (Auto) 50.8 % Lymphocytes (%) (Auto) 33.8 % Monocytes (%) (Auto) 13.6 % Eosinophils (%) (Auto) 0.7 % Basophils (%) (Auto) 0.1 % Neutrophils # (Auto) 3.46 1.4-6.5 K/uL Lymphocytes # (Auto) 2.31 1.2-3.4 K/uL Monocytes # (Auto) 0.93 0.11-0.59 K/uL Eosinophils # (Auto) 0.05 0-0.5 K/uL Basophils # (Auto) 0.01 0-0.2 K/uL RDW Standard Deviation 45.8 36.4-46.3 fL RDW Coefficient of Variation 14.3 11.5-14.5 % Immature Granulocyte % (Auto) 1.0 % Immature Granulocyte # (Auto) 0.07 0.00-0.02 K/uL Sodium Level 139 136-145 mmol/L Potassium Level 4.2 3.5-5.1 mmol/L Chloride Level 106 98-107 mmol/L Carbon Dioxide Level 26 21-32 mmol/L Anion Gap 7.0 3-11 mmol/L Blood Urea Nitrogen 23 7-18 mg/dl Creatinine 1.20 0.60-1.20 mg/dl Est Creatinine Clear Calc Drug Dose 33.4 ml/min Estimated GFR () 47.4 Estimated GFR (Non- 40.9 BUN/Creatinine Ratio 19.2 10-20 Random Glucose 88 70-99 mg/dl Calcium Level 10.3 8.5-10.1 mg/dl Magnesium Level 2.1 1.8-2.4 mg/dl Total Bilirubin 0.5 0.2-1 mg/dl Direct Bilirubin 0.1 0-0.2 mg/dl Aspartate Amino Transf (AST/SGOT) 18 15-37 U/L Alanine Aminotransferase (ALT/SGPT) 25 12-78 U/L Alkaline Phosphatase 107 45-117 U/L Total Creatine Kinase 42 26-192 U/L Creatine Kinase MB 1.6 0.5-3.6 ng/ml Creatine Kinase MB Ratio 3.8 0-3.0 Troponin I 0.039 0-0.045 ng/ml Pro-B-Type Natriuretic Peptide 5454 0-1800 pg/ml Total Protein 7.9 6.4-8.2 gm/dl Albumin 3.6 3.4-5.0 gm/dl Lipase 250 73-393 U/L Thyroid Stimulating Hormone (TSH) 5.450 0.300-4.500 uIu/ml Free Thyroxine 1.03 0.80-1.60 ng/dl Prothrombin Time 11.0 9.0-12.0 SECONDS Prothromb Time International Ratio 1.0 0.9-1.1 Activated Partial Thromboplast Time 28.4 21.0-31.0 SECONDS Partial Thromboplastin Ratio 1.1 Urine Color YELLOW Urine Appearance CLEAR CLEAR Urine pH 6.5 4.5-7.5 Urine Specific [place] 1.015 1.000-1.030 Urine Protein NEG NEG Urine Glucose (UA) NEG NEG Urine Ketones NEG NEG Urine Occult Blood NEG NEG Urine Nitrite NEG NEG Urine Bilirubin NEG NEG Urine Urobilinogen NEG NEG Urine Leukocyte Esterase SMALL NEG Urine WBC (Auto) 1-5 0-5 /hpf Urine RBC (Auto) 0-4 0-4 /hpf Urine Hyaline Casts (Auto) 1-5 0-5 /lpf Urine Epithelial Cells (Auto) 5-10 0-5 /lpf Urine Bacteria (Auto) NEG NEG Microbiology Results 05/02/17 Blood Culture, Received Pending 05/02/17 Blood Culture, Received Pending Diagnostic Radiology Left shoulder with supraspinatus calcific tendinitis, degenerative changes, no fractures Left hip and pelvis-no acute changes TWO VIEW CHEST CLINICAL HISTORY: Palpitations. Fall. FINDINGS: PA and lateral chest radiographs are compared to study dated 10/27/2016. The heart is enlarged and there is atherosclerotic calcification of the thoracic aorta. There is bilateral patchy airspace consolidation, greatest in the upper lobes. The lung bases appear clear. No pleural effusion or pneumothorax is seen. The skeletal structures are osteopenic. Degenerative change is seen throughout the thoracic spine. There are healed right-sided rib fractures. IMPRESSION: 1. Cardiomegaly. 2. There is bilateral patchy airspace consolidation within upper lobe predominance, which is new from 10/27/2016. Correlate clinically for evidence of an infectious/inflammatory pneumonitis. Radiographic follow-up to resolution is recommended. EKG ECG with SVT, rate 158 Impression Assessment and Plan This patient is an 86-year-old female with a history of TIA, hypertension, mild cognitive impairment, hyperlipidemia, vertigo, depression, insomnia, and colon polyps, who presents to the ER with persistent profound fatigue and dyspnea on exertion since a mechanical fall 4 days ago. In the ER, she was found to have a rapid heartbeat in the 160s. She was given adenosine which revealed an atrial flutter. She does report feeling similar symptoms in the past, but not for this long. She denies any previous history of A. fib or flutter, but a cardiology consult from 2009 notes that she may have had A. fib in the 1980s. She is also been having some burning in her chest that comes and goes on its own and is not positional or associated with eating. It occurs 2 times a day may be for several weeks and she takes Tylenol for it. She denies any weight loss or weight gain, no lower extremity edema. She has had a mild cough and maybe some sweats and chills the last month. She admits that she has trouble with her memory and cannot give me exact timeframes on her symptoms. Interestingly, her chest x-ray was significant for bilateral patchy airspace opacities particularly in the upper lobes. She has not had any productive sputum. She was started on a diltiazem drip and given IV fluids as well as IV Levaquin in the ER. She will be admitted for rapid atrial fibrillation/flutter, and likely atypical pneumonia. Rapid atrial fibrillation/flutter, dyspnea on exertion-probably not new in onset for her but she is unable to give me a clear history on this. Rate is better controlled on diltiazem drip. She has no contraindications for anticoagulation. I discussed the case with the promotions officer on-call. There is no evidence of clear ischemia on her ECG. Her pro BNP is significantly elevated at 5000, however she has no other evidence on exam of acutely decompensated CHF. Her dyspnea on exertion is probably related to her tachyarrhythmia, but could be related to her concurrent pneumonia. -Start heparin drip for anticoagulation and will need to decide on long-term anticoagulation either with warfarin or NOAC-given her history of TIA, she has a very high risk of future CVA -Check echocardiogram for LV function and valvular abnormalities -No need for diuresis and she is not hypervolemic on exam, can continue her home Dyazide -Start by mouth metoprolol at 25 mg by mouth twice a day for improved rate control -Continue diltiazem drip and wean off as tolerated after starting by mouth metoprolol -Appreciate cardiology consultation Community-acquired pneumonia-appearance suggests atypical pneumonia especially with absence of leukocytosis and fevers. She definitely has an abnormal appearing chest x-ray. She is not hypoxic. -We'll continue IV Levaquin for 7 day course -Will need follow-up chest x-ray to ensure resolution in 2-3 weeks -If chest x-ray appearance is not improving with treatment of pneumonia, would suggest outpatient pulmonology referral Hypertension, hyperlipidemia, history of TIA-all stable here -Continue Plavix, losartan, Dyazide, and statin -Adding on metoprolol as above -May need to lower the dose of her losartan to allow metoprolol to be given Mild cognitive impairment-stable -Continue Namenda Atypical chest pain/burning-could be related to pneumonia versus GERD -Trial of Zantac 150 milligrams by mouth twice a day CKD stage III-creatinine 1.2 with GFR 40. -Renally dose medications -Avoid nephrotoxins -Okay to continue losartan and Dyazide as above Depression, insomnia-stable -Continue Prozac Hypothyroidism-TSH mildly elevated at 5, but free T4 is normal -Continue current dose of levothyroxine Prophylaxis-heparin drip, H2 kush Disposition-she is a DO NOT RESUSCITATE, but does report that if only having respiratory issues, she would still consider intubation Level of Care Telemetry Advanced Directives Existing Living Will: Yes Existing Power of Metal Die Finisher: No Resuscitation Status DO NOT RESUSCITATE VTE Prophylaxis VTE Risk Assessment Done? Y/N: Yes Risk Level: Moderate Given or contraindicated: Unfractionated heparin Social Service Consult >80 yr.& Lives Alone Additional Copies To Khoa Gallegos M.D.
[2017-05-03] VITALS (19 sets, daily range): BP systolic 112–137; BP diastolic 60–85; PULSE 54–141; TEMP 36.4–37.2; O2SAT 94–99
[2017-05-03 05:00] LABS: BASO % 0.2 %; BASO ABS # 0.01 K/uL (0-0.2); COMPLETE YES; EOS % 0.8 %; HEMATOCRIT 34.4 % (37-47); IG% 1.6 %; LYMPH ABS # 1.65 K/uL (1.2-3.4); MEAN CELL VOLUME 85.4 fL (80-100); MEAN PLATELET VOLUME 10.2 fL (7.4-10.4); MONO % 30.9 %; NEUT % 34.5 %; PLATELET COUNT 206 K/uL (130-400); RED BLOOD COUNT 4.03 M/uL (4.2-5.4); WHITE BLOOD COUNT 5.15 K/uL (4.8-10.8)
[2017-05-03 05:21] LABS: INR 1.2 (0.9-1.1); PARTIAL THROMBOPLASTIN RATIO 4.5; PROTHROMBIN TIME (PATIENT) 12.6 SECONDS (9.0-12.0)
[2017-05-03 05:26] LABS: BUN/CREATININE RATIO 16.4 (10-20); CALCIUM 9.5 mg/dl (8.5-10.1); CREATININE 1.2 mg/dl (0.60-1.20); MAGNESIUM 1.7 mg/dl (1.8-2.4); POTASSIUM 4.3 mmol/L (3.5-5.1)
[2017-05-03] MEDS: LEVOTHYROXINE 25 MCG TAB PO SCH (05:54)
[2017-05-03] MEDS: HEPARIN 25,000 UNIT/500ML D5W 500 ML IV PRN (06:37)
[2017-05-03] MEDS: RANITIDINE HCL 150 MG TAB PO SCH ×2 (08:02→20:21)
[2017-05-03] MEDS: TRIAMTERENE/HCTZ 37.5/25MG TAB PO SCH (08:02)
[2017-05-03] MEDS: MEMANTINE 10 MG TAB PO SCH ×2 (08:03→20:22)
[2017-05-03] MEDS: CLOPIDOGREL BISULFATE 75 MG TAB PO SCH (08:04)
[2017-05-03] MEDS: CEROVITE ADV FORMULA TAB PO SCH (08:04)
[2017-05-03] MEDS: FLUOXETINE HCL 10 MG CAP PO SCH (08:04)
[2017-05-03] MEDS: METOPROLOL TARTRATE 25 MG TAB PO SCH ×2 (08:04→20:22)
[2017-05-03] MEDS: ATORVASTATIN 10 MG TAB PO SCH (08:05)
[2017-05-03] MEDS: CHOLECALCIFEROL 1000 INTER.UNIT TAB PO SCH (08:05)
[2017-05-03] MEDS: LOSARTAN POTASSIUM 50 MG TAB PO SCH (08:05)
[2017-05-03] MEDS: ACETAMINOPHEN 325 MG TAB PO PRN ×3 (08:08→19:20)
[2017-05-03] MEDS: DILTIAZEM HCL INJ 125 MG in DEXTROSE 5% 100ML IV PRN (08:56)
[2017-05-03] MEDS ORDERED: MAGNESIUM SULFATE 1GM / D5W 1 GM in PREMIXED IN D5W 100 ML IV STA (09:06)
--- NOTE | 2017-05-03 11:26 | Cardiology Consultation ---
Cardiology Consultation Date of Consultation: May 03, 2017. Requesting Physician: Dr. Aguirre Attending Physician: Dr. Aguirre Reason for Consultation: Atrial flutter with RVR Pt evaluation today including: conversation w/ patient, conversation w/ family (son Noreen), physical exam, chart review, lab review, review of studies, review of inpatient medication list, conversation w/ attending (Dr. Aguirre) History of Present Illness Mrs. Naik is an 86 year old female with a medical history significant for hypertension, history of TIA, dyslipidemia and mild cognitive impairment who was admitted on 05/02/17 with progressive weakness after a fall. Over the past month she has noted fatigue and exertional dyspnea which is unusual for her. She lives alone and remains fairly independent. She does admit to having some difficulties with her memory. She reports a fall at home about one week ago after tripping over her cat. Since then she has had left hip/ buttocks pain and increasing weakness/fatigue. She was spending a great deal of time in bed which is unlike her. She does not recall having any palpitations. She has had intermittent right-sided chest discomfort which she describes as a burning or pressure sensation. Her pain is often associated with strenuous activity but can also be random. She denies any history of atrial fibrillation or atrial flutter. She had a TIA which she believes was 8 or 9 years ago which manifested as right sided visual changes. She has been on Plavix since. She presented to the emergency department with these symptoms on 05/02/17 and was subsequently admitted. In the ED she was tachycardic with a heart rate in the 160s and was given a dose of adenosine. An electrocardiogram revealed atrial flutter with rapid ventricular response. Her troponin I was 0.039. Her chest x-ray noted bilateral patchy airspace opacities and she was started on Levaquin for possible pneumonia. She was started on Cardizem drip and metoprolol tartrate 25 mg twice daily but her heart rate remained difficult to control overnight. She was placed on heparin for anticoagulation. She was seen at the bedside today and is unaccompanied. She was just given a dose of Lopressor and complains of "feeling warm."She has not had any chest discomfort since admission. She denies dyspnea, orthopnea, PND, edema, palpitations, lightheadedness, presyncope or syncope. No abnormal bleeding including melena, hematochezia or hematuria. No symptoms of CVA or TIA. The remainder of her review of systems is unremarkable. Past Medical/Surgical History (1) Atrial flutter with rapid ventricular response (2) Shoulder contusion (3) Fall (4) Pneumonia (5) Contusion, hip (6) Hypertension (7) CVA (cerebral infarction) (8) Hyperlipidemia Nec/Nos (9) Diab Tiffanie Wo Compl, Type Ii Or Unspec Type, Not Uncntrld (10) Calculus Of Kidney Family History Hypertension Malignancy Stroke Social History Smoking Status: Never Smoker History of Alcohol Use: No Patient is and lives alone in [place]. She has 3 sons who live nearby. She has 6 grandchildren and 7 great grandchildren. 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 No history of tobacco use. No alcohol or illicit drug use. Her son, Noreen, is present at the bedside. Allergies Coded Allergies: Penicillins (Verified Allergy, Intermediate, hives, 05/03/17) BEE STING (Verified Allergy, Unknown, SWELLING, 06/20/16) Codeine (Verified Adverse Reaction, Mild, NAUSEA/VOMITING, 05/03/17) Medications Current Inpatient Medications Medications (Trade) Dose Ordered Sig/Cristi Route Start Time Stop Time Status Last Admin Dose Admin Acetaminophen (Tylenol Tab) 650 mg Q4H PRN PO 05/02/17 19:00 06/01/17 18:59 05/03/17 08:08 650 MG Al Hydrox/Mg Hydrox/Simethicone (Maalox Max Susp) 15 ml Q4H PRN PO 05/02/17 19:00 06/01/17 18:59 Nitroglycerin (Nitrostat Tab) 0.4 mg UD PRN SL 05/02/17 19:00 06/01/17 18:59 Metoprolol Tartrate (Lopressor Tab) 25 mg BID PO 05/02/17 21:00 06/01/17 20:59 05/03/17 08:04 25 MG Levofloxacin 750 mg/Prmx 150 ml @ 100 mls/hr Q48H IV 05/02/17 21:00 05/09/17 20:59 05/02/17 21:21 100 MLS/HR Atorvastatin Calcium (Lipitor Tab) 10 mg DAILY PO 05/03/17 09:00 06/02/17 08:59 05/03/17 08:05 10 MG Cholecalciferol (Vitamin D Tab) 1,000 inter.unit DAILY PO 05/03/17 09:00 06/02/17 08:59 05/03/17 08:05 1,000 INTER.UNIT Clopidogrel Bisulfate (plAVix TAB) 75 mg DAILY PO 05/03/17 09:00 06/02/17 08:59 05/03/17 08:04 75 MG Fluoxetine HCl (Prozac Cap) 10 mg DAILY PO 05/03/17 09:00 06/02/17 08:59 05/03/17 08:04 10 MG Levothyroxine Sodium (Synthroid Tab) 25 mcg DAILYBB PO 05/03/17 06:00 06/02/17 05:59 05/03/17 05:54 25 MCG Losartan Potassium (coZAAR TAB) 100 mg DAILY PO 05/03/17 09:00 06/02/17 08:59 05/03/17 08:05 100 MG Memantine (Namenda Tab) 10 mg BID PO 05/02/17 21:00 06/01/17 20:59 05/03/17 08:03 10 MG Multivitamins/ Minerals (Multivitamin W/ Minerals Tab) 1 tab DAILY PO 05/03/17 09:00 06/02/17 08:59 05/03/17 08:04 1 TAB Triamterene/HCTZ (Maxzide 37.5/25 Tab) 0.5 tab DAILY PO 05/03/17 09:00 06/02/17 08:59 05/03/17 08:02 0.5 TAB Ranitidine HCl (zANTac TAB) 150 mg BID PO 05/02/17 21:00 06/01/17 20:59 05/03/17 08:02 150 MG Levofloxacin (Consult) 1 ea UD PRN N/A 05/02/17 21:00 06/01/17 20:59 Diltiazem HCl 125 mg/Dextrose 125 ml @ 0 mls/hr Q0M PRN IV 05/02/17 21:15 06/01/17 21:14 05/03/17 08:56 5 MLS/HR Heparin Sodium/ Dextrose 500 ml @ 19 mls/hr Q24H PRN IV 05/02/17 21:45 06/01/17 21:44 05/03/17 06:37 19 MLS/HR Magnesium Sulfate 1 gm/Prmx 100 ml @ 100 mls/hr ONE IV 05/03/17 09:00 06/02/17 08:59 UNV Physical Exam Vital Signs Past 12 Hours Date Time Temp Pulse Resp B/P (MAP) Pulse Ox O2 Delivery O2 Flow Rate FiO2 05/03/17 07:54 36.6 137 20 122/85 (97) 96 Nasal Cannula 2.0 05/03/17 07:22 37.1 97 18 135/75 (95) 94 Room Air 05/03/17 04:03 Room Air 05/03/17 04:00 37.0 100 18 137/83 (101) 96 Room Air 05/03/17 00:00 Room Air 05/03/17 00:00 37.2 75 18 126/71 (89) 97 Room Air 05/02/17 23:33 90 05/02/17 22:00 Room Air General: In no acute distress. Alert and oriented. Somewhat diaphoretic. HEENT: Head is normal. PERRLA. Sclera nonicteric. Ears, nose and throat unremarkable. Mucous membranes moist. Neck: Supple without appreciable JVD. No carotid bruits. Lungs: Clear to auscultation bilaterally without rales, rhonchi or wheezes. No respiratory distress. Cardiac: Irregular rhythm with tachycardic rate. No appreciable murmur, gallop or rub. No chest wall tenderness to palpation. Abdomen: Soft and nontender. Bowel sounds present. No appreciable mass organomegaly. Extremities: Without cyanosis, clubbing or peripheral edema. Peripheral pulses palpable. Skin: No rashes or abnormal lesions. Normal turgor. Neurologic: Carries on appropriate conversation. No lateralizing changes. Psychiatric: Affect seems appropriate. Data Laboratory Results: Last 24 Hours Test 05/02/17 14:40 05/02/17 15:41 05/02/17 17:00 05/03/17 04:49 White Blood Count 6.83 K/uL 5.15 K/uL Red Blood Count 4.55 M/uL 4.03 M/uL Hemoglobin 12.8 g/dL 11.7 g/dL Hematocrit 39.7 % 34.4 % Mean Corpuscular Volume 87.3 fL 85.4 fL Mean Corpuscular Hemoglobin 28.1 pg 29.0 pg Mean Corpuscular Hemoglobin Concent 32.2 g/dl 34.0 g/dl Platelet Count 274 K/uL 206 K/uL Mean Platelet Volume 10.7 fL 10.2 fL Neutrophils (%) (Auto) 50.8 % 34.5 % Lymphocytes (%) (Auto) 33.8 % 32.0 % Monocytes (%) (Auto) 13.6 % 30.9 % Eosinophils (%) (Auto) 0.7 % 0.8 % Basophils (%) (Auto) 0.1 % 0.2 % Neutrophils # (Auto) 3.46 K/uL 1.78 K/uL Lymphocytes # (Auto) 2.31 K/uL 1.65 K/uL Monocytes # (Auto) 0.93 K/uL 1.59 K/uL Eosinophils # (Auto) 0.05 K/uL 0.04 K/uL Basophils # (Auto) 0.01 K/uL 0.01 K/uL RDW Standard Deviation 45.8 fL 44.5 fL RDW Coefficient of Variation 14.3 % 14.2 % Immature Granulocyte % (Auto) 1.0 % 1.6 % Immature Granulocyte # (Auto) 0.07 K/uL 0.08 K/uL Sodium Level 139 mmol/L 140 mmol/L Potassium Level 4.2 mmol/L 4.3 mmol/L Chloride Level 106 mmol/L 107 mmol/L Carbon Dioxide Level 26 mmol/L 26 mmol/L Anion Gap 7.0 mmol/L 7.0 mmol/L Blood Urea Nitrogen 23 mg/dl 20 mg/dl Creatinine 1.20 mg/dl 1.20 mg/dl Est Creatinine Clear Calc Drug Dose 33.4 ml/min 33.7 ml/min Estimated GFR () 47.4 47.4 Estimated GFR (Non- 40.9 40.9 BUN/Creatinine Ratio 19.2 16.4 Random Glucose 88 mg/dl 102 mg/dl Calcium Level 10.3 mg/dl 9.5 mg/dl Magnesium Level 2.1 mg/dl 1.7 mg/dl Total Bilirubin 0.5 mg/dl Direct Bilirubin 0.1 mg/dl Aspartate Amino Transf (AST/SGOT) 18 U/L Alanine Aminotransferase (ALT/SGPT) 25 U/L Alkaline Phosphatase 107 U/L Total Creatine Kinase 42 U/L Creatine Kinase MB 1.6 ng/ml Creatine Kinase MB Ratio 3.8 Troponin I 0.039 ng/ml Pro-B-Type Natriuretic Peptide 5454 pg/ml Total Protein 7.9 gm/dl Albumin 3.6 gm/dl Lipase 250 U/L Thyroid Stimulating Hormone (TSH) 5.450 uIu/ml Free Thyroxine 1.03 ng/dl Prothrombin Time 11.0 SECONDS 12.6 SECONDS Prothromb Time International Ratio 1.0 1.2 Activated Partial Thromboplast Time 28.4 SECONDS 117.6 SECONDS Partial Thromboplastin Ratio 1.1 4.5 Urine Color YELLOW Urine Appearance CLEAR Urine pH 6.5 Urine Specific [place] 1.015 Urine Protein NEG Urine Glucose (UA) NEG Urine Ketones NEG Urine Occult Blood NEG Urine Nitrite NEG Urine Bilirubin NEG Urine Urobilinogen NEG Urine Leukocyte Esterase SMALL Urine WBC (Auto) 1-5 /hpf Urine RBC (Auto) 0-4 /hpf Urine Hyaline Casts (Auto) 1-5 /lpf Urine Epithelial Cells (Auto) 5-10 /lpf Urine Bacteria (Auto) NEG Imaging: Chest xray 05/02/17: Cardiomegaly. Bilateral patchy airspace consolidation with upper lobe prominence. Electrocardiogram 05/03/17: atrial flutter with variable A-V block. Nonspecific T wave abnormality. Telemetry reviewed: Atrial flutter with RVR Assessment & Plan Patient was discussed with Dr. Alejo and plan was made in collaboration with him. Patient also requested I speak with her son who I attempted to call but had to leave a message. 1. Atrial flutter with RVR: Reportedly a new diagnosis. It is unclear how long she has been in atrial flutter but she has noticed fatigue and exertional dyspnea over the past month. Her heart rate remained uncontrolled overnight despite Cardizem drip. When initially examined she remained tachycardic with a heart rate in the 120-130s. However, shortly after she was given a dose of Lopressor her heart rate improved to the 60s and her so her Cardizem was stopped. Recommend increasing metoprolol tartrate to 50 mg twice daily. If her heart rate is difficult to control we could consider cardioversion. This could be done as an outpatient once she has been anticoagulated for at least 4 weeks or inpatient with a FRANCISCO prior. Recommend medical terminologist anticoagulation for stroke risk reduction. I briefly discussed warfarin versus newer anticoagulants and a decision can be made before hospital discharge. An echocardiogram is pending. 2. Exertional dyspnea: Likely secondary to tachycardia. She appears euvolemic on exam. She is also being treated with antibiotics for possible pneumonia. 3. Chest pain: Right, lower chest pain with exertion and at random. Not reproducible on exam. No history of coronary artery disease. Troponin was not elevated at the time of admission. She denies having any chest pain since admission. Continue to monitor. 4. Hypertension: Blood pressure has been well controlled. Will monitor for hypotension while adjusting rate control medications. Addendum by Cardiology attending: Patient was seen and examined. Please see full details as noted above. Patient care was discussed with Mrs. Martini KEVIN. Patient reports to me that she has had exertional chest discomfort described as a right-sided pain as well as overall a feeling of fatigue. The symptoms have resolved since she has spontaneously converted to sinus rhythm at 12:48 p.m. today. She also admits however that she has not strenuously exerted herself since being in the hospital. She denies bleeding such as melena, hematochezia, hematuria. She denies palpitations. She does feel as though she has improved since converting to sinus. Exam notable for: Neck: No JVD Cardiac: Irregular on exam (sinus with PACs on telemetry). No murmur, rubs, or gallops. Lungs: Clear to auscultation bilaterally. Extremities: No edema or cyanosis. ECGs personally reviewed. ECG 05/03/2017 at 4:20 p.m.: Sinus rhythm with sinus arrhythmia at 72 bpm. Nonspecific T-wave abnormality. ECG 05/03/2017 at 7:24 a.m.: Atrial flutter with variable AV block. Nonspecific T-wave abnormality. Echo 05/03/2017 personally reviewed: 1. Normal left ventricular size with hyperdynamic systolic function. EF 65-70% . No regional wall motion abnormalities. Moderate concentric left ventricular hypertrophy. 2. The left atrium is mildly dilated. 3. There is mild mitral regurgitation. 4. Rhythm is atrial flutter. 5. Normal estimated right ventricular systolic pressure; 23 mmHg. 6. Compared to prior study on 05/30/2014, rhythm is now atrial flutter. ASSESSMENT/PLAN: 1. Atrial flutter with rapid ventricular response: She states she feels better now that she is spontaneously converted. We discussed the diagnosis in detail with the help of a diagram. Her son believes this may have been occurring intermittently for some time based on her symptoms that she has described him in the past. For this reason, anti rhythmic therapy is recommended. We discussed risks and benefits. Amiodarone 200 mg twice daily can be started. If she has recurrent atrial arrhythmias while hospitalized, can increase to a usual loading dose of 400 mg twice daily. Monitor TSH and LFTs periodically. Anticoagulation for stroke risk reduction was recommended and this was discussed in detail. She was agreeable. Continue heparin drip for now at upon discharge, can consider Eliquis. This was communicated with Dr. Aguirre who will discuss with nurse navigator to see which agent is covered with her insurance. 2. Chest pain: May have been related to atrial flutter with rapid ventricular response. If she has continued symptoms, could consider further workup in the future. Could also be related to pneumonia for which she is being treated by primary service. 3. Dyspnea with exertion: Could be secondary to pneumonia or atrial flutter with rapid ventricular response, verses other etiology. If symptoms continue despite treatment as above, consider further evaluation. 4. Pneumonia: Treatment as per primary service. Would try to avoid Levaquin with amiodarone for concerns of QT prolongation. Adjustments are being made by primary service. 5. Disposition: Plan of care has been discussed with Dr. Aguirre. Cardiology will continue to follow along. Thank you for allowing me to participate in the care of your patient. Please call for any other questions or concerns. Sincerely, Teddy Alejo M.D.
[2017-05-03 13:07] LABS: PARTIAL THROMBOPLASTIN RATIO 3.4
--- NOTE | 2017-05-03 15:01 | ECHOCARDIOGRAM REPORT ---
*NOTICE TO RECEIVING [employer] This information is strictly Confidential and protected under [place] law. [place] law prohibits you from making any further disclosure of this information unless further disclosure is expressly permitted by the written consent of the person to whom it pertains or is authorized by law. A general authorization for the release of medical or other information is not sufficient for this purpose. Hospital accepts no responsibility if the information is made available to any other person, INCLUDING THE PATIENT. Interpretation Summary * Name: SUSANNA PRINCE Study Date: 05/03/2017 06:15 AM BP: 137/83 mmHg * Patient Location: 2\S\S239\S\1 HR: 105 * : 1930 (M/d/yyyy) Gender: Female Height: 64 in * Age: 86 yrs Ethnicity: [place] Weight: 165 lb * Ordering Physician: Kylah Aguirer * Referring Physician: Self, Referred * Performed By: Mohini Guzmán RDCS * * Reason For Study: AFLUTTER * BSA: 1.8 m2 * -- Conclusions -- * 1. Normal left ventricular size with hyperdynamic systolic function. EF 65-70%. No regional wall motion abnormalities. Moderate concentric left ventricular hypertrophy. * 2. The left atrium is mildly dilated. * 3. There is mild mitral regurgitation. * 4. Rhythm is atrial flutter. * 5. Normal estimated right ventricular systolic pressure; 23 mmHg. * 6. Compared to prior study on 05/30/2014, rhythm is now atrial flutter. Procedure Details * A complete two-dimensional transthoracic echocardiogram was performed (2D, M-mode, Doppler and color flow Doppler). Left Ventricle * Normal left ventricular size with hyperdynamic systolic function. EF 65-70%. No regional wall motion abnormalities. Moderate concentric left ventricular hypertrophy. Right Ventricle * The right ventricle is normal in size and function. * The right ventricular systolic function is normal as assessed by tricuspid annular plane systolic excursion (TAPSE) (normal >1.5 cm). Atria * The left atrium is mildly dilated. * Right atrial size is normal. * There is no evidence of atrial septal defect, but resolution does not allow assessment for a patent foramen ovale. Mitral Valve * There is mild to moderate mitral annular calcification. * There is no mitral valve stenosis. * There is mild mitral regurgitation. Tricuspid Valve * The tricuspid valve is not well visualized. * There is no tricuspid stenosis. * There is trace tricuspid regurgitation. Aortic Valve * The aortic valve is trileaflet. * No hemodynamically significant valvular aortic stenosis. * Trace aortic regurgitation. Pulmonic Valve * The pulmonary valve is inadequately visualized, but the Doppler data is adequate for interpretation. * There is no pulmonic valvular stenosis. * There is no significant pulmonary regurgitation. Great Vessels * The aortic root is normal size. Pericardium/Pleural * No significant pericardial effusion. Great Vessels * Normal inferior vena cava size and collapsability with sniff indicates a normal right atrial pressure of 3 mmHg MMode 2D Measurements and Calculations IVSd 1.5 cm IVSs 1.8 cm LVIDd 3.5 cm LVIDs 2.3 cm LVPWd 1.4 cm LVPWs 1.8 cm IVS/LVPW 1.1 FS 34.2 % EDV(Teich) 52.1 ml ESV(Teich) 18.7 ml EF(Teich) 64.2 % EDV(cubed) 44.2 ml ESV(cubed) 12.6 ml EF(cubed) 71.5 % % IVS thick 21.6 % % LVPW thick 28.5 % LV mass(C)d 191.6 grams LV mass(C)dI 106.3 grams/m\S\2 LV mass(C)s 171.9 grams LV mass(C)sI 95.4 grams/m\S\2 SV(Teich) 33.4 ml SI(Teich) 18.6 ml/m\S\2 SV(cubed) 31.6 ml SI(cubed) 17.5 ml/m\S\2 Ao root diam 2.9 cm Ao root area 6.7 cm\S\2 LA dimension 4.1 cm asc Aorta Diam 3.3 cm LA/Ao 1.4 LVAd ap4 21.9 cm\S\2 LVLd ap4 7.0 cm EDV(MOD-sp4) 56.9 ml EDV(sp4-el) 58.2 ml LVAs ap4 11.4 cm\S\2 LVLs ap4 6.0 cm ESV(MOD-sp4) 20.9 ml ESV(sp4-el) 18.5 ml EF(MOD-sp4) 63.3 % EF(sp4-el) 68.2 % SV(MOD-sp4) 36.0 ml SI(MOD-sp4) 20.0 ml/m\S\2 SV(sp4-el) 39.7 ml SI(sp4-el) 22.0 ml/m\S\2 Doppler Measurements and Calculations MV E max lizzy 135.3 cm/sec MV dec time 0.27 sec Ao V2 max 126.0 cm/sec Ao max PG 6.3 mmHg Ao max PG (full) 1.3 mmHg LV V1 max PG 5.0 mmHg LV V1 max 112.3 cm/sec TR max lizzy 223.3 cm/sec RVSP(TR) 22.9 mmHg RAP systole 3.0 mmHg
[2017-05-03] MEDS: CEFTRIAXONE SOD INJ 1 GM in DEXTROSE 5% ADD-VANTAGE 50ML 50 ML IV SCH (17:33)
--- NOTE | 2017-05-03 18:27 | Hospitalist Progress Note ---
Hospitalist Progress Note Date of Service May 03, 2017. Subjective Pt evaluation today including: conversation w/ patient, conversation w/ family , physical exam, lab review, review of inpatient medication list Pt feeling better today, less fatigued, not SOB with walking to the bathroom. Had a long d/w pt and her family about anticoagulation All Other Systems: Reviewed and Negative Objective Vital Signs Date Time Temp Pulse Resp B/P (MAP) Pulse Ox O2 Delivery O2 Flow Rate FiO2 05/03/17 11:27 36.8 72 18 131/60 (83) 96 05/03/17 09:55 63 128/75 (92) 05/03/17 09:20 59 112/68 (83) 05/03/17 09:09 54 18 112/68 (83) 98 Nasal Cannula 2.0 05/03/17 08:53 102 125/82 (96) 05/03/17 08:50 124 115/72 (86) 05/03/17 08:23 139 117/77 (90) 05/03/17 08:15 139 120/84 (96) 05/03/17 08:09 141 120/84 (96) 05/03/17 08:00 99 Nasal Cannula 2.0 05/03/17 07:54 36.6 137 20 122/85 (97) 96 Nasal Cannula 2.0 05/03/17 07:22 37.1 97 18 135/75 (95) 94 Room Air 05/03/17 04:03 Room Air 05/03/17 04:00 37.0 100 18 137/83 (101) 96 Room Air 05/03/17 00:00 Room Air 05/03/17 00:00 37.2 75 18 126/71 (89) 97 Room Air 05/02/17 23:33 90 05/02/17 22:00 Room Air 05/02/17 21:00 153 05/02/17 20:38 37.2 106 20 157/92 96 Room Air 05/02/17 19:55 36.7 86 18 134/90 98 05/02/17 19:31 86 18 134/90 98 Room Air 05/02/17 19:20 96 19 05/02/17 19:05 150/116 05/02/17 19:02 153 05/02/17 18:50 118 22 05/02/17 18:26 100 18 98 Room Air 05/02/17 16:45 93 20 100 Room Air 05/02/17 16:44 152/76 05/02/17 16:15 93 25 05/02/17 16:10 89 19 152/76 100 Room Air 05/02/17 15:40 101 18 Physical Exam General Appearance: WD/WN, no apparent distress Eyes: normal inspection, sclerae normal ENT: hearing grossly normal Neck: trachea midline Respiratory/Chest: lungs clear, normal breath sounds, no respiratory distress, no accessory muscle use Cardiovascular: + pertinent finding (frequent ectopy, mostly regular, no mgr) Abdomen: normal bowel sounds, non tender, soft Extremities: non-tender, normal inspection, no pedal edema, no calf tenderness Neurologic/Psychiatric: alert, normal mood/affect, oriented x 3 Skin: normal color, warm/dry, no rash Laboratory Results Last 24 Hours Test 05/02/17 15:41 05/02/17 17:00 05/03/17 04:49 05/03/17 12:36 Prothrombin Time 11.0 SECONDS 12.6 SECONDS Prothromb Time International Ratio 1.0 1.2 Activated Partial Thromboplast Time 28.4 SECONDS 117.6 SECONDS 88.2 SECONDS Partial Thromboplastin Ratio 1.1 4.5 3.4 Urine Color YELLOW Urine Appearance CLEAR Urine pH 6.5 Urine Specific [place] 1.015 Urine Protein NEG Urine Glucose (UA) NEG Urine Ketones NEG Urine Occult Blood NEG Urine Nitrite NEG Urine Bilirubin NEG Urine Urobilinogen NEG Urine Leukocyte Esterase SMALL Urine WBC (Auto) 1-5 /hpf Urine RBC (Auto) 0-4 /hpf Urine Hyaline Casts (Auto) 1-5 /lpf Urine Epithelial Cells (Auto) 5-10 /lpf Urine Bacteria (Auto) NEG White Blood Count 5.15 K/uL Red Blood Count 4.03 M/uL Hemoglobin 11.7 g/dL Hematocrit 34.4 % Mean Corpuscular Volume 85.4 fL Mean Corpuscular Hemoglobin 29.0 pg Mean Corpuscular Hemoglobin Concent 34.0 g/dl Platelet Count 206 K/uL Mean Platelet Volume 10.2 fL Neutrophils (%) (Auto) 34.5 % Lymphocytes (%) (Auto) 32.0 % Monocytes (%) (Auto) 30.9 % Eosinophils (%) (Auto) 0.8 % Basophils (%) (Auto) 0.2 % Neutrophils # (Auto) 1.78 K/uL Lymphocytes # (Auto) 1.65 K/uL Monocytes # (Auto) 1.59 K/uL Eosinophils # (Auto) 0.04 K/uL Basophils # (Auto) 0.01 K/uL RDW Standard Deviation 44.5 fL RDW Coefficient of Variation 14.2 % Immature Granulocyte % (Auto) 1.6 % Immature Granulocyte # (Auto) 0.08 K/uL Sodium Level 140 mmol/L Potassium Level 4.3 mmol/L Chloride Level 107 mmol/L Carbon Dioxide Level 26 mmol/L Anion Gap 7.0 mmol/L Blood Urea Nitrogen 20 mg/dl Creatinine 1.20 mg/dl Est Creatinine Clear Calc Drug Dose 33.7 ml/min Estimated GFR () 47.4 Estimated GFR (Non- 40.9 BUN/Creatinine Ratio 16.4 Random Glucose 102 mg/dl Calcium Level 9.5 mg/dl Magnesium Level 1.7 mg/dl Assessment and Plan This patient is an 86-year-old female with a history of TIA, hypertension, mild cognitive impairment, hyperlipidemia, vertigo, depression, insomnia, and colon polyps, who presents to the ER with persistent profound fatigue and dyspnea on exertion since a mechanical fall 4 days ago. In the ER, she was found to have a rapid heartbeat in the 160s. She was given adenosine which revealed an atrial flutter. She does report feeling similar symptoms in the past, but not for this long. She denies any previous history of A. fib or flutter, but a cardiology consult from 2009 notes that she may have had A. fib in the 1980s. She is also been having some burning in her chest that comes and goes on its own and is not positional or associated with eating. It occurs 2 times a day may be for several weeks and she takes Tylenol for it. She denies any weight loss or weight gain, no lower extremity edema. She has had a mild cough and maybe some sweats and chills the last month. She admits that she has trouble with her memory and cannot give me exact timeframes on her symptoms. Interestingly, her chest x-ray was significant for bilateral patchy airspace opacities particularly in the upper lobes. She has not had any productive sputum. She was started on a diltiazem drip and given IV fluids as well as IV Levaquin in the ER. She will be admitted for rapid atrial fibrillation/flutter, and likely atypical pneumonia. Rapid atrial fibrillation/flutter, dyspnea on exertion-probably not new in onset for her given prior similar symptoms. She is now converted to a NSR after being on diltiazem gtt and po metoprolol. She has no contraindications for anticoagulation, and we discussed risks, ASEs, benefits, and alternatives to AC for CVA prevention with A-fib. There is no evidence of clear ischemia on her ECG. Her pro BNP is significantly elevated at 5000, however she has no other evidence on exam of acutely decompensated CHF. Her dyspnea on exertion is probably related to her tachyarrhythmia, but could be related to her concurrent pneumonia. 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 -I discussed the case with the receiving associate again today-consideration may be made for antiarrhythmic ECHO with hyperdynamic LV function, mod LVH, mild MR -continue heparin drip for anticoagulation and will need to decide on long-term anticoagulation either with warfarin or NOAC-given her history of TIA, she has a very high risk of future CVA -No need for diuresis and she is not hypervolemic on exam, can continue her home Dyazide -continue metoprolol and Cardiolopgy increased to 50 mg by mouth twice a day for improved rate control -Appreciate cardiology consultation Community-acquired pneumonia-appearance suggests atypical pneumonia especially with absence of leukocytosis and fevers. She definitely has an abnormal appearing chest x-ray. She is not hypoxic. Remains fairly symptom-free -We'll continue Levaquin for 7 day course, today day #10/26 -Will need follow-up chest x-ray to ensure resolution in 2-3 weeks, will also repeat CXR in AM here -If chest x-ray appearance is not improving with treatment of pneumonia, would suggest outpatient pulmonology referral Hypertension, hyperlipidemia, history of TIA-all stable here -Continue Plavix, losartan, Dyazide, and statin continue metoprolol as above Mild cognitive impairment-stable -Continue Namenda Atypical chest pain/burning-could be related to pneumonia versus GERD -Trial of Zantac 150 milligrams by mouth twice a day CKD stage III-creatinine 1.2 with GFR 40. -Renally dose medications -Avoid nephrotoxins -Okay to continue losartan and Dyazide as above Depression, insomnia-stable -Continue Prozac Hypothyroidism-TSH mildly elevated at 5, but free T4 is normal -Continue current dose of levothyroxine Prophylaxis-heparin drip, H2 kush Disposition-she is a DO NOT RESUSCITATE, but does report that if only having respiratory issues, she would still consider intubation
[2017-05-03] MEDS ORDERED: METOPROLOL TARTRATE 25 MG TAB PO SCH (21:00)
[2017-05-03] MEDS: DOXYCYCLINE IV 100 MG in DEXTROSE 5% 100ML 100 ML IV SCH (21:23)
[2017-05-03] MEDS: AMIODARONE 200 MG TAB PO SCH (21:23)
[2017-05-03 21:28] LABS: PARTIAL THROMBOPLASTIN RATIO 2.5
[2017-05-04 04:13] VITALS: BP 126/72; PULSE 88; TEMP 36.7; O2SAT 96
[2017-05-04] MEDS: HEPARIN 25,000 UNIT/500ML D5W 500 ML IV PRN (04:21)
[2017-05-04 04:50] LABS: BASO % 0.2 %; BASO ABS # 0.01 K/uL (0-0.2); COMPLETE YES; HEMATOCRIT 31.5 % (37-47); LYMPH % 42.3 %; LYMPH ABS # 1.74 K/uL (1.2-3.4); MEAN CELL VOLUME 85.8 fL (80-100); MEAN CORPUSCULAR HEMOGLOBIN 27.8 pg (25-34); MEAN CORPUSCULAR HGB CONC 32.4 g/dl (32-36); MONO % 30.2 %; NEUT % 25.3 %; PLATELET COUNT 183 K/uL (130-400); RED BLOOD COUNT 3.67 M/uL (4.2-5.4); WHITE BLOOD COUNT 4.11 K/uL (4.8-10.8)
[2017-05-04 05:10] LABS: BUN/CREATININE RATIO 19.6 (10-20); CALCIUM 9.2 mg/dl (8.5-10.1); CREATININE 1.3 mg/dl (0.60-1.20); INR 1.1 (0.9-1.1); MAGNESIUM 1.9 mg/dl (1.8-2.4); PARTIAL THROMBOPLASTIN RATIO 2.6; POTASSIUM 3.8 mmol/L (3.5-5.1); PROTHROMBIN TIME (PATIENT) 11.6 SECONDS (9.0-12.0)
[2017-05-04] MEDS: LEVOTHYROXINE 25 MCG TAB PO SCH (05:58)
[2017-05-04 07:02] VITALS: BP 118/70; PULSE 95; TEMP 36.5; O2SAT 96
--- NOTE | 2017-05-04 07:55 | DIAGNOSTIC IMAGING REPORT ---
CHEST 2 VIEWS ROUTINE CLINICAL HISTORY: Pneumonia COMPARISON STUDY: 05/02/2017 FINDINGS: The heart is normal in size. There is aortic tortuosity/ectasia. There are persistent bilateral pulmonary airspace opacities with a mid to upper lung zone predominance. No significant pleural effusions are visualized. There are old right-sided rib deformities.[ IMPRESSION: Persistent bilateral pulmonary airspace opacities, likely infectious/inflammatory. Radiographic follow-up is recommended. Electronically signed by: Chino Gallardo M.D. 05/04/2017 7:54 AM Dictated Date/Time: 05/04/2017 7:52 AM
[2017-05-04] MEDS: CEROVITE ADV FORMULA TAB PO SCH (08:00)
[2017-05-04] MEDS: LOSARTAN POTASSIUM 50 MG TAB PO SCH (08:00)
[2017-05-04] MEDS: RANITIDINE HCL 150 MG TAB PO SCH ×2 (08:00→20:15)
[2017-05-04] MEDS: METOPROLOL TARTRATE 25 MG TAB PO SCH ×2 (08:00→20:16)
[2017-05-04] MEDS: MEMANTINE 10 MG TAB PO SCH ×2 (08:01→20:14)
[2017-05-04] MEDS: ATORVASTATIN 10 MG TAB PO SCH (08:01)
[2017-05-04] MEDS: CLOPIDOGREL BISULFATE 75 MG TAB PO SCH (08:01)
[2017-05-04] MEDS: TRIAMTERENE/HCTZ 37.5/25MG TAB PO SCH (08:02)
[2017-05-04] MEDS: CHOLECALCIFEROL 1000 INTER.UNIT TAB PO SCH (08:02)
[2017-05-04] MEDS: AMIODARONE 200 MG TAB PO SCH ×2 (08:03→20:15)
[2017-05-04] MEDS: FLUOXETINE HCL 10 MG CAP PO SCH (08:03)
[2017-05-04] MEDS ORDERED: POTASSIUM CHLORIDE 10 MEQ TABCR PO STA (08:03)
[2017-05-04] MEDS: DOXYCYCLINE IV 100 MG in DEXTROSE 5% 100ML 100 ML IV SCH ×2 (08:08→20:17)
[2017-05-04] MEDS ORDERED: MAGNESIUM SULFATE 1GM / D5W 1 GM in PREMIXED IN D5W 100 ML IV ONE (08:15)
[2017-05-04] MEDS ORDERED: LEVOFLOXACIN 750 MG TAB PO SCH (11:00)
[2017-05-04 11:22] VITALS: BP 90/48; PULSE 94; TEMP 36.7; O2SAT 95
--- NOTE | 2017-05-04 12:49 | PROGRESS NOTE ---
DATE: 05/04/2017 TIME: 12:26 p.m. SUBJECTIVE: She denies chest pain, shortness of breath, syncope, near syncope, palpitations or edema. She still feels fatigued somewhat, but overall better than when she presented in the hospital. She states that she tolerated ambulation in the hallway. OBJECTIVE: VITAL SIGNS: Temperature 36.7 degrees, heart rate 94 beats per minute, respiratory rate 16, blood pressure 90/48 mmHg; however, her blood pressure has otherwise been normotensive since yesterday. Oxygen saturation 95% on room air. Weight 77.5 kg. GENERAL: No acute distress. She is alert. NECK: No JVD. CARDIAC: No ventricular heave. Regular with ectopy, normal S1 and S2. No audible murmurs, rubs or gallops. LUNGS: Clear to auscultation bilaterally without wheezes, rales or rhonchi. ABDOMEN: Soft, nontender, and nondistended. Normoactive bowel sounds. No bruits noted. EXTREMITIES: No significant edema. No cyanosis. PSYCHIATRIC: Affect appears appropriate. MEDICATIONS: Reviewed. Medications include atorvastatin 10 mg daily, amiodarone 200 mg p.o. b.i.d., Plavix 75 mg daily, ceftriaxone 1 gram IV q. 24 hours, doxycycline 100 mg IV b.i.d., heparin drip per protocol, losartan 100 mg daily, metoprolol tartrate 25 mg p.o. b.i.d., triamterene/HCTZ half tab daily, and ranitidine 150 mg p.o. b.i.d. Telemetry personally reviewed. She had a very short nonsustained atrial run overnight, but no further atrial flutter noted. Otherwise, sinus with PACs. ECG: From this morning personally reviewed, 05/04/2017 at 06:19 a.m., sinus rhythm with sinus arrhythmia. Nonspecific T-wave abnormality. Normal QT interval. LABORATORY DATA: White blood cell count 4.11, hemoglobin 10.2, and platelets 183. Sodium 136, potassium 3.8, BUN 26, creatinine 1.3, and magnesium 1.9. ASSESSMENT AND PLAN: 1. Paroxysmal atrial flutter: She had rapid ventricular response with her atrial flutter, but spontaneously converted to sinus rhythm yesterday. She has been started on amiodarone to prevent recurrence as her son believes she may have been having issues for quite some time intermittently. Continue anticoagulation for stroke risk reduction, but monitor CBC closely as she has developed anemia. Monitor TSH and LFTs over time. 2. Chest pain: She has not had any further chest pain. It may have been related to atrial flutter. Further evaluation may be appropriate if she has recurrent symptoms while in sinus rhythm. 3. Dyspnea with exertion: Could be due to pneumonia or atrial flutter with rapid ventricular response. She feels much better now. She is in sinus rhythm. 4. Pneumonia: As per primary service. 5. Anemia: Her hemoglobin has decreased somewhat. Monitor closely. She has been placed on Plavix in the past with her transient ischemic attack/stroke. Now that she is on anticoagulation, she may be able to potentially discontinue antiplatelet therapy, but we will leave this to the primary service. Monitor closely with her anemia overall while on anticoagulation. 6. Disposition: Please call for any further questions or concerns from a cardiac perspective. Recommend cardiology followup as an outpatient. We would be happy to follow her in the office.
[2017-05-04] MEDS ORDERED: NURSING VERBAL MED ORDER ONE (13:15)
[2017-05-04] MEDS ORDERED: PROMETHAZINE HCL INJ 12.5 MG in SODIUM CHLORIDE 0.9% 50ML 50 ML IV PRN (13:30)
[2017-05-04 13:41] VITALS: BP 109/61; PULSE 66
[2017-05-04 15:02] LABS: HEMATOCRIT 29.6 % (37-47); MEAN CELL VOLUME 85.5 fL (80-100); MEAN CORPUSCULAR HEMOGLOBIN 28.6 pg (25-34); MEAN PLATELET VOLUME 10.4 fL (7.4-10.4); PLATELET COUNT 186 K/uL (130-400); RED BLOOD COUNT 3.46 M/uL (4.2-5.4); WHITE BLOOD COUNT 4.41 K/uL (4.8-10.8)
--- NOTE | 2017-05-04 15:19 | Hospitalist Progress Note ---
Hospitalist Progress Note Date of Service May 04, 2017. Subjective Pt evaluation today including: conversation w/ patient, conversation w/ family Pt started having a lot of nausea after eating lunch today. Prior to that was feeling very well. Hgb dropped another 1.5 grams today from yesterday. SHe has not had a BM since yesterday and says she didn't look at it so not sure what color it was. She denies abd pain. Was started on amiodarone last evening and switched to Rocephin and doxy All Other Systems: Reviewed and Negative Objective Vital Signs Date Time Temp Pulse Resp B/P (MAP) Pulse Ox O2 Delivery O2 Flow Rate FiO2 05/04/17 13:41 66 109/61 (77) 05/04/17 12:35 Room Air 05/04/17 11:22 36.7 94 16 90/48 (62) 95 Room Air 05/04/17 08:00 Room Air 05/04/17 07:02 36.5 95 16 118/70 (86) 96 Room Air 05/04/17 04:13 36.7 88 16 126/72 (90) 96 Room Air 05/04/17 04:00 Room Air 05/04/17 00:00 Room Air 05/03/17 23:15 36.8 76 16 126/72 (90) 95 Room Air 05/03/17 20:00 Room Air 05/03/17 19:38 36.4 67 18 118/71 (87) 96 Room Air 05/03/17 16:00 97 Nasal Cannula 2.0 05/03/17 15:42 36.6 75 20 131/72 (91) 97 Room Air Physical Exam General Appearance: WD/WN, + mild distress (appears pale and ill, lying in bed) Eyes: normal inspection, sclerae normal ENT: hearing grossly normal Neck: trachea midline Respiratory/Chest: lungs clear, normal breath sounds, no respiratory distress, no accessory muscle use Cardiovascular: regular rate, rhythm (with extra beats), no edema, no gallop, no murmur Abdomen: soft, no organomegaly, no pulsatile mass, + abnormal bowel sounds ( hyperactive), + tenderness (diffusely without guarding or rebound, states it makes her feel like she has to have a BM) Extremities: non-tender, normal inspection, no pedal edema, no calf tenderness Neurologic/Psychiatric: alert, normal mood/affect, oriented x 3 Skin: warm/dry, no rash, + pallor Laboratory Results Last 24 Hours Test 05/03/17 20:55 05/04/17 04:36 Activated Partial Thromboplast Time 66.1 SECONDS 68.8 SECONDS Partial Thromboplastin Ratio 2.5 2.6 White Blood Count 4.11 K/uL Red Blood Count 3.67 M/uL Hemoglobin 10.2 g/dL Hematocrit 31.5 % Mean Corpuscular Volume 85.8 fL Mean Corpuscular Hemoglobin 27.8 pg Mean Corpuscular Hemoglobin Concent 32.4 g/dl Platelet Count 183 K/uL Mean Platelet Volume 10.0 fL Neutrophils (%) (Auto) 25.3 % Lymphocytes (%) (Auto) 42.3 % Monocytes (%) (Auto) 30.2 % Eosinophils (%) (Auto) 1.0 % Basophils (%) (Auto) 0.2 % Neutrophils # (Auto) 1.04 K/uL Lymphocytes # (Auto) 1.74 K/uL Monocytes # (Auto) 1.24 K/uL Eosinophils # (Auto) 0.04 K/uL Basophils # (Auto) 0.01 K/uL RDW Standard Deviation 44.7 fL RDW Coefficient of Variation 14.2 % Immature Granulocyte % (Auto) 1.0 % Immature Granulocyte # (Auto) 0.04 K/uL Prothrombin Time 11.6 SECONDS Prothromb Time International Ratio 1.1 Sodium Level 136 mmol/L Potassium Level 3.8 mmol/L Chloride Level 104 mmol/L Carbon Dioxide Level 25 mmol/L Anion Gap 7.0 mmol/L Blood Urea Nitrogen 26 mg/dl Creatinine 1.30 mg/dl Est Creatinine Clear Calc Drug Dose 31.0 ml/min Estimated GFR () 43.0 Estimated GFR (Non- 37.1 BUN/Creatinine Ratio 19.6 Random Glucose 92 mg/dl Calcium Level 9.2 mg/dl Magnesium Level 1.9 mg/dl Assessment and Plan This patient is an 86-year-old female with a history of TIA, hypertension, mild cognitive impairment, hyperlipidemia, vertigo, depression, insomnia, and colon polyps, who presents to the ER with persistent profound fatigue and dyspnea on exertion since a mechanical fall 4 days ago. In the ER, she was found to have a rapid heartbeat in the 160s. She was given adenosine which revealed an atrial flutter. She does report feeling similar symptoms in the past, but not for this long. She denies any previous history of A. fib or flutter, but a cardiology consult from 2009 notes that she may have had A. fib in the 1980s. She is also been having some burning in her chest that comes and goes on its own and is not positional or associated with eating. It occurs 2 times a day may be for several weeks and she takes Tylenol for it. She denies any weight loss or weight gain, no lower extremity edema. She has had a mild cough and maybe some sweats and chills the last month. Interestingly, her chest x-ray was significant for bilateral patchy airspace opacities particularly in the upper lobes. She has not had any productive sputum. She was started on a diltiazem drip and given IV fluids as well as IV Levaquin in the ER. She will be admitted for rapid atrial fibrillation/flutter, and likely atypical pneumonia. Rapid atrial fibrillation/flutter, dyspnea on exertion-probably not new in onset for her given prior similar symptoms. She is now converted to a NSR after being on diltiazem gtt and po metoprolol. Remains in NSR with PACs. Started on amiodarone as per Cardiology recommendation. She has no contraindications for anticoagulation, and we discussed risks, ASEs, benefits, and alternatives to AC for CVA prevention with A-fib. There is no evidence of clear ischemia on her ECG. Her pro BNP is significantly elevated at 5000, however she has no other evidence on exam of acutely decompensated CHF. Her dyspnea on exertion is probably related to her tachyarrhythmia, but could be related to her concurrent pneumonia. Pt currently undecided on if she desires [facility]p AC. Now with dropping hgb on heparin gtt. ECHO with hyperdynamic LV function, mod LVH, mild MR -continue heparin drip for anticoagulation and will need to decide on long-term anticoagulation either with warfarin or NOAC-given her history of TIA, she has a very high risk of future CVA--> however hgb dropping and with nausea--> repeat CBC now STAT and continue H2 kush -if hgb drops again or has evidence of GI bleeding, will stop heparin gtt -No need for diuresis and she is not hypervolemic on exam, can continue her home Dyazide -continue metoprolol 25mg po bid for rate control -Appreciate cardiology consultation and will need outpt f/u within 2 weeks after dc Community-acquired pneumonia-appearance suggests atypical pneumonia especially with absence of leukocytosis and fevers. She definitely has an abnormal appearing chest x-ray. She is not hypoxic. Remains fairly symptom-free. CXR today is similar to previous Received Levaquin x 2 days, then switched to Rocephin and doxy due to starting amiodarone and risk of QT prolongation -We'll continue antibiotics for 7 day course, today day #3/7-continue Rocephin and doxy -Will need follow-up chest x-ray to ensure resolution in 2-3 weeks -If chest x-ray appearance is not improving with treatment of pneumonia, would suggest outpatient pulmonology referral Nausea, Anemia-hgb droppiong steadily since admission while on heparin gtt. With description of heartburn symptoms occasionally prior to admisison, concern for bleeding. -hemoccult stool -check H/H serially -type and screen if hgb drops further -hold heparin and Plavix if hgb drops -continue Zantac -give phenergan prn, avoid Zofran with risk of prolonged QT on amiodarone Hypertension, hyperlipidemia, history of TIA-all stable here -Continue losartan, Dyazide, and statin continue metoprolol as above -will hold and likely permanently dc Plavix now that Hgb dropping Mild cognitive impairment-stable -Continue Namenda CKD stage III-creatinine 1.2 with GFR 40. -Renally dose medications -Avoid nephrotoxins -Okay to continue losartan and Dyazide as above Depression, insomnia-stable -Continue Prozac Hypothyroidism-TSH mildly elevated at 5, but free T4 is normal -Continue current dose of levothyroxine Prophylaxis-heparin drip, H2 kush Disposition-she is a DO NOT RESUSCITATE, but does report that if only having respiratory issues, she would still consider intubation
[2017-05-04 15:40] VITALS: BP 129/77; PULSE 74; TEMP 37.1; O2SAT 96
[2017-05-04 16:03] LABS: MEAN CORPUSCULAR HGB CONC 33.4 g/dl (32-36)
[2017-05-04] MEDS: CEFTRIAXONE SOD INJ 1 GM in DEXTROSE 5% ADD-VANTAGE 50ML 50 ML IV SCH (18:17)
[2017-05-04 19:15] VITALS: BP 127/68; PULSE 83; TEMP 36.8; O2SAT 97
[2017-05-04 19:23] LABS: HEMATOCRIT 29.4 % (37-47); MEAN CELL VOLUME 85.5 fL (80-100); MEAN CORPUSCULAR HEMOGLOBIN 28.5 pg (25-34); MEAN PLATELET VOLUME 10.2 fL (7.4-10.4); PLATELET COUNT 184 K/uL (130-400); RED BLOOD COUNT 3.44 M/uL (4.2-5.4)
[2017-05-04 19:44] LABS: MEAN CORPUSCULAR HGB CONC 33.3 g/dl (32-36)
[2017-05-04] MEDS: ACETAMINOPHEN 325 MG TAB PO PRN (22:38)
[2017-05-05] VITALS: BP 133/66; PULSE 86; TEMP 37; O2SAT 95
[2017-05-05 03:53] VITALS: BP 128/67; PULSE 82; TEMP 37; O2SAT 95
[2017-05-05] MEDS: LEVOTHYROXINE 25 MCG TAB PO SCH (05:06)
[2017-05-05 06:55] LABS: BASO % 0.2 %; BASO ABS # 0.01 K/uL (0-0.2); COMPLETE YES; EOS % 0.6 %; HEMATOCRIT 29.3 % (37-47); IG% 1.3 %; LYMPH % 42.9 %; LYMPH ABS # 2.25 K/uL (1.2-3.4); MEAN CELL VOLUME 84.9 fL (80-100); MEAN CORPUSCULAR HGB CONC 34.1 g/dl (32-36); MEAN PLATELET VOLUME 10.7 fL (7.4-10.4); MONO % 20.6 %; NEUT % 34.4 %; PLATELET COUNT 178 K/uL (130-400); RED BLOOD COUNT 3.45 M/uL (4.2-5.4); WHITE BLOOD COUNT 5.25 K/uL (4.8-10.8)
[2017-05-05 07:13] VITALS: BP 114/62; PULSE 49; PULSE 70; TEMP 36.8; O2SAT 94
[2017-05-05 07:27] LABS: BUN/CREATININE RATIO 20.3 (10-20); CALCIUM 9.5 mg/dl (8.5-10.1); CREATININE 1.2 mg/dl (0.60-1.20); POTASSIUM 4.1 mmol/L (3.5-5.1)
[2017-05-05] MEDS: DOXYCYCLINE IV 100 MG in DEXTROSE 5% 100ML 100 ML IV SCH ×2 (07:41→20:41)
[2017-05-05] MEDS: ATORVASTATIN 10 MG TAB PO SCH (07:41)
[2017-05-05] MEDS: CEROVITE ADV FORMULA TAB PO SCH (07:42)
[2017-05-05] MEDS: RANITIDINE HCL 150 MG TAB PO SCH ×2 (07:42→20:40)
[2017-05-05] MEDS: CHOLECALCIFEROL 1000 INTER.UNIT TAB PO SCH (07:42)
[2017-05-05] MEDS: AMIODARONE 200 MG TAB PO SCH ×2 (07:42→20:40)
[2017-05-05] MEDS: METOPROLOL TARTRATE 25 MG TAB PO SCH ×2 (07:43→20:40)
[2017-05-05] MEDS: FLUOXETINE HCL 10 MG CAP PO SCH (07:43)
[2017-05-05] MEDS: MEMANTINE 10 MG TAB PO SCH ×2 (07:43→20:40)
[2017-05-05] MEDS: TRIAMTERENE/HCTZ 37.5/25MG TAB PO SCH (07:44)
[2017-05-05] MEDS: LOSARTAN POTASSIUM 50 MG TAB PO SCH (07:45)
[2017-05-05 10:35] VITALS: BP 105/59; PULSE 89; TEMP 36.9; O2SAT 95
--- NOTE | 2017-05-05 11:35 | DIAGNOSTIC IMAGING REPORT ---
(CHEST) THORAX WITHOUT CLINICAL HISTORY: Pneumonia, shortness of breath, atrial flutter. COMPARISON STUDY: Chest x-ray dated 05/04/2017 CT DOSE: 291.05 mGy.cm TECHNIQUE: CT of the thorax was performed from the thoracic inlet to the lung bases. Images are reviewed in the axial, sagittal, and coronal planes. IV contrast was not administered for this examination. A dose lowering technique was utilized adhering to the principles of ALARA. FINDINGS: Thyroid: Imaged portions of the thyroid gland are normal in appearance. Thoracic aorta: There is ectasia of the ascending thoracic aorta which measures 39 mm in diameter. Heart: The heart is mildly enlarged. There are coronary artery calcifications. Lungs and pleural spaces: There are trace bilateral pleural effusions. The examination is compromised due to respiratory motion artifact. There are multifocal pulmonary nodular pulmonary airspace opacities with somewhat lucent centers. This reverse halo sign has been reported in cryptogenic organizing pneumonia, opportunistic invasive fungal infections, Claude's granulomatosis, sarcoidosis, pneumocystis pneumonia, tuberculosis, lymphomatoid granulomatosis, and pulmonary infarction. Mediastinum: There are multiple mildly enlarged mediastinal lymph nodes Oly: There is no evidence of pathologic hilar adenopathy given the limitations of a noncontrast study Axilla: There is no evidence of pathologic axillary lymphadenopathy Upper abdomen: There is upper pole left renal cyst. There are few too small to characterize hepatic hypodensities. Skeletal structures: There are no lytic or blastic osseous lesions. IMPRESSION: 1. Trace bilateral pleural effusions 2. Multifocal pulmonary nodular airspace opacities demonstrating a reverse halo sign. Although originally reported in cryptogenic organizing pneumonia, there is a wide differential. Clinical correlation will be necessary. Please see above differential. Electronically signed by: Chino Gallardo M.D. 05/05/2017 11:34 AM Dictated Date/Time: 05/05/2017 11:26 AM
--- NOTE | 2017-05-05 14:53 | Hospitalist Progress Note ---
Hospitalist Progress Note Date of Service May 05, 2017. Subjective Pt evaluation today including: conversation w/ patient, conversation w/ family , conversation w/ mining consultant (Pulm), review of inpatient medication list Pt feeling better today. No further nausea, has not had a BM. No cough, remains in sinus rhythm. Hgb remained stable todya. Chest CT performed due to abnormal CXR and shows numerous reverse halo type multifocal pulm nodular opacities and some mediastinal KOBE, trace bilat pleural effusions. Pt denies ever living outside [facility]. She has never had any foreign travel, no chemical or toxic exposures. SHe worked at [employer] in a building. She lives in a traditional house with a basement, perhaps had exposure to molds. Is OOB and walking well, but has a lot of pain in her tailbone still mostly with sitting and with getting in and out of bed All Other Systems: Reviewed and Negative Objective Vital Signs Date Time Temp Pulse Resp B/P (MAP) Pulse Ox O2 Delivery O2 Flow Rate FiO2 05/05/17 12:00 Room Air 05/05/17 10:35 36.9 89 105/59 (74) 95 Room Air 05/05/17 08:00 Room Air 05/05/17 07:13 36.8 70 20 114/62 (79) 94 Room Air 05/05/17 04:00 Room Air 05/05/17 03:53 37.0 82 18 128/67 (87) 95 Room Air 05/05/17 00:00 Room Air 05/05/17 00:00 37.0 86 20 133/66 (88) 95 Room Air 05/04/17 20:15 Room Air 05/04/17 19:15 36.8 83 20 127/68 (87) 97 Room Air 05/04/17 16:00 Room Air 05/04/17 15:40 37.1 74 20 129/77 (94) 96 Room Air Physical Exam General Appearance: WD/WN, no apparent distress Eyes: normal inspection, sclerae normal ENT: hearing grossly normal Neck: trachea midline Respiratory/Chest: lungs clear, normal breath sounds, no respiratory distress, no accessory muscle use Cardiovascular: regular rate, rhythm (with some extra beats), no edema, no gallop, no murmur Abdomen: normal bowel sounds, non tender, soft Extremities: non-tender, normal inspection, no pedal edema Neurologic/Psychiatric: alert, normal mood/affect, oriented x 3 Skin: normal color, warm/dry, no rash Laboratory Results Last 24 Hours Test 05/04/17 14:50 05/04/17 19:07 05/05/17 06:22 White Blood Count 4.41 K/uL 5.00 K/uL 5.25 K/uL Red Blood Count 3.46 M/uL 3.44 M/uL 3.45 M/uL Hemoglobin 9.9 g/dL 9.8 g/dL 10.0 g/dL Hematocrit 29.6 % 29.4 % 29.3 % Mean Corpuscular Volume 85.5 fL 85.5 fL 84.9 fL Mean Corpuscular Hemoglobin 28.6 pg 28.5 pg 29.0 pg Mean Corpuscular Hemoglobin Concent 33.4 g/dl 33.3 g/dl 34.1 g/dl RDW Standard Deviation 44.7 fL 44.2 fL 44.3 fL RDW Coefficient of Variation 14.4 % 14.1 % 14.2 % Platelet Count 186 K/uL 184 K/uL 178 K/uL Mean Platelet Volume 10.4 fL 10.2 fL 10.7 fL Neutrophils (%) (Auto) 34.4 % Lymphocytes (%) (Auto) 42.9 % Monocytes (%) (Auto) 20.6 % Eosinophils (%) (Auto) 0.6 % Basophils (%) (Auto) 0.2 % Neutrophils # (Auto) 1.81 K/uL Lymphocytes # (Auto) 2.25 K/uL Monocytes # (Auto) 1.08 K/uL Eosinophils # (Auto) 0.03 K/uL Basophils # (Auto) 0.01 K/uL Immature Granulocyte % (Auto) 1.3 % Immature Granulocyte # (Auto) 0.07 K/uL Sodium Level 137 mmol/L Potassium Level 4.1 mmol/L Chloride Level 105 mmol/L Carbon Dioxide Level 25 mmol/L Anion Gap 7.0 mmol/L Blood Urea Nitrogen 24 mg/dl Creatinine 1.20 mg/dl Est Creatinine Clear Calc Drug Dose 33.9 ml/min Estimated GFR () 47.4 Estimated GFR (Non- 40.9 BUN/Creatinine Ratio 20.3 Random Glucose 90 mg/dl Calcium Level 9.5 mg/dl Magnesium Level 2.0 mg/dl Diagnostic Results CT Chest images personally reviewed by me (CHEST) THORAX WITHOUT FINDINGS: Thyroid: Imaged portions of the thyroid gland are normal in appearance. Thoracic aorta: There is ectasia of the ascending thoracic aorta which measures 39 mm in diameter. Heart: The heart is mildly enlarged. There are coronary artery calcifications. Lungs and pleural spaces: There are trace bilateral pleural effusions. The examination is compromised due to respiratory motion artifact. There are multifocal pulmonary nodular pulmonary airspace opacities with somewhat lucent centers. This reverse halo sign has been reported in cryptogenic organizing pneumonia, opportunistic invasive fungal infections, Claude's granulomatosis, sarcoidosis, pneumocystis pneumonia, tuberculosis, lymphomatoid granulomatosis, and pulmonary infarction. Mediastinum: There are multiple mildly enlarged mediastinal lymph nodes Oly: There is no evidence of pathologic hilar adenopathy given the limitations of a noncontrast study Axilla: There is no evidence of pathologic axillary lymphadenopathy Upper abdomen: There is upper pole left renal cyst. There are few too small to characterize hepatic hypodensities. Skeletal structures: There are no lytic or blastic osseous lesions. IMPRESSION: 1. Trace bilateral pleural effusions 2. Multifocal pulmonary nodular airspace opacities demonstrating a reverse halo sign. Although originally reported in cryptogenic organizing pneumonia, there is a wide differential. Clinical correlation will be necessary. Please see above differential. Assessment and Plan This patient is an 86-year-old female with a history of TIA, hypertension, mild cognitive impairment, hyperlipidemia, vertigo, depression, insomnia, and colon polyps, who presents to the ER with persistent profound fatigue and dyspnea on exertion since a mechanical fall 4 days ago. In the ER, she was found to have a rapid heartbeat in the 160s. She was given adenosine which revealed an atrial flutter. She does report feeling similar symptoms in the past, but not for this long. She denies any previous history of A. fib or flutter, but a cardiology consult from 2009 notes that she may have had A. fib in the 1980s. She is also been having some burning in her chest that comes and goes on its own and is not positional or associated with eating. It occurs 2 times a day may be for several weeks and she takes Tylenol for it. She denies any weight loss or weight gain, no lower extremity edema. She has had a mild cough and maybe some sweats and chills the last month. Interestingly, her chest x-ray was significant for bilateral patchy airspace opacities particularly in the upper lobes. She has not had any productive sputum. She was started on a diltiazem drip and given IV fluids as well as IV Levaquin in the ER. She will be admitted for rapid atrial fibrillation/flutter, and likely atypical pneumonia. 1) Rapid atrial fibrillation/flutter, dyspnea on exertion-probably not new in onset for her given prior similar symptoms. She is now converted to a NSR after being on diltiazem gtt and po metoprolol. Remains in NSR with PACs. Started on amiodarone as per Cardiology recommendation. She has no contraindications for anticoagulation, and we discussed risks, ASEs, benefits, and alternatives to AC for CVA prevention with A-fib. There is no evidence of clear ischemia on her ECG. Her pro BNP is significantly elevated at 5000, however she has no other evidence on exam of acutely decompensated CHF. Her dyspnea on exertion is probably related to her tachyarrhythmia, but could be related to her concurrent pneumonia. *She developed worsening anemia on heparin gtt with Hgb going from 12.8-->9.8 ( some may have been dilutional, some lab error), no obvious GI Bleed, no BM at all. ECHO with hyperdynamic LV function, mod LVH, mild MR PLAN: -discontinued heparin drip until further workup performed for anemia -dc Plavix permanently if going on anticoagulation, but hold Plavix for now -No need for diuresis and she is not hypervolemic on exam, can continue her home Dyazide -continue metoprolol 25mg po bid for rate control, amiodarone 200mg po bid for rhythm control -Appreciate cardiology consultation and will need outpt f/u within 2 weeks after dc 2) Atypical pneumonia vs other etiology with multifocal "reverse halo" pulmonary nodular opacities on Chest CT, Enlarged mediastinal KOBE-with absence of leukocytosis and fevers. She is not hypoxic. Remains fairly symptom-free. Cryptogenic organizing PNA vs sarcoidosis vs Nomi's, TB, opportunistic invasive fungal infections, pneumocystis pneumonia, lymphomatoid granulomatosis , and pulmonary infarction all in differential. Received Levaquin x 2 days, then switched to Rocephin and doxy due to starting amiodarone and risk of QT prolongation -With above findings, will consult Pulm to evaluate for etiology of abnormal findings -continue Rocephin and doxy for now -may need bronchoscopy and other serologies -sputum culture, AFB, TB Gold?--> will await Pulm recommendations 3) Nausea, Anemia-hgb dropping steadily since admission while on heparin gtt. With description of heartburn symptoms occasionally prior to admission, concern for bleeding. Still no BM in 2-3 days makes GI bleeding less likely except microscopic bleeding. Nausea improved now and may have been secondary to amiodarone -hemoccult stool -follow CBC -holding heparin and Plavix -continue Zantac -give phenergan prn, avoid Zofran with risk of prolonged QT on amiodarone Hypertension, hyperlipidemia, history of TIA-all stable here -Continue losartan, Dyazide, and statin continue metoprolol as above -will hold and likely permanently dc Plavix now that Hgb dropping Mild cognitive impairment-stable -Continue Namenda CKD stage III-creatinine 1.2 with GFR 40. -Renally dose medications -Avoid nephrotoxins -Okay to continue losartan and Dyazide as above Depression, insomnia-stable -Continue Prozac Hypothyroidism-TSH mildly elevated at 5, but free T4 is normal -Continue current dose of levothyroxine Prophylaxis-heparin drip, H2 kush Disposition-she is a DO NOT RESUSCITATE, but does report that if only having respiratory issues, she would still consider intubation
[2017-05-05 15:10] VITALS: BP 131/64; PULSE 77; TEMP 36.5; O2SAT 97
[2017-05-05] MEDS: CEFTRIAXONE SOD INJ 1 GM in DEXTROSE 5% ADD-VANTAGE 50ML 50 ML IV SCH (17:36)
[2017-05-05 19:03] VITALS: BP 120/66; PULSE 79; TEMP 37; O2SAT 96
[2017-05-05] MEDS: SENNA 8.6 MG TAB PO SCH (20:40)
[2017-05-05] MEDS: ACETAMINOPHEN 325 MG TAB PO PRN (23:49)
[2017-05-06] VITALS (10 sets, daily range): BP systolic 100–145; BP diastolic 49–78; PULSE 59–80; TEMP 36.6–36.9; O2SAT 93–99
[2017-05-06] MEDS: LEVOTHYROXINE 25 MCG TAB PO SCH (06:18)
[2017-05-06 08:03] LABS: COMPLETE YES; EOS % 1.1 %; IG% 1.9 %; LYMPH % 40.6 %; MEAN CELL VOLUME 86.3 fL (80-100); MEAN CORPUSCULAR HEMOGLOBIN 28.3 pg (25-34); MEAN CORPUSCULAR HGB CONC 32.8 g/dl (32-36); MEAN PLATELET VOLUME 10.3 fL (7.4-10.4); NEUT % 39.4 %; PLATELET COUNT 189 K/uL (130-400); RED BLOOD COUNT 3.71 M/uL (4.2-5.4); WHITE BLOOD COUNT 5.66 K/uL (4.8-10.8)
[2017-05-06 08:20] LABS: BUN/CREATININE RATIO 20.6 (10-20); CALCIUM 9.8 mg/dl (8.5-10.1); CREATININE 1.1 mg/dl (0.60-1.20); MAGNESIUM 1.9 mg/dl (1.8-2.4); POTASSIUM 4.1 mmol/L (3.5-5.1)
[2017-05-06] MEDS: CHOLECALCIFEROL 1000 INTER.UNIT TAB PO SCH (08:32)
[2017-05-06] MEDS: TRIAMTERENE/HCTZ 37.5/25MG TAB PO SCH (08:32)
[2017-05-06] MEDS: LOSARTAN POTASSIUM 50 MG TAB PO SCH (08:32)
[2017-05-06] MEDS: DOXYCYCLINE IV 100 MG in DEXTROSE 5% 100ML 100 ML IV SCH (08:32)
[2017-05-06] MEDS: RANITIDINE HCL 150 MG TAB PO SCH ×2 (08:33→20:53)
[2017-05-06] MEDS: METOPROLOL TARTRATE 25 MG TAB PO SCH ×2 (08:33→20:54)
[2017-05-06] MEDS: AMIODARONE 200 MG TAB PO SCH ×2 (08:33→20:54)
[2017-05-06] MEDS: FLUOXETINE HCL 10 MG CAP PO SCH (08:33)
[2017-05-06] MEDS: ATORVASTATIN 10 MG TAB PO SCH (08:33)
[2017-05-06] MEDS: CEROVITE ADV FORMULA TAB PO SCH (08:33)
[2017-05-06] MEDS: MEMANTINE 10 MG TAB PO SCH ×2 (08:34→20:54)
[2017-05-06] MEDS ORDERED: MoRPHine SULFATE 2 MG/ML CARP IV PRN (10:30)
[2017-05-06 11:20] LABS: CKMB/CK RATIO 2.2 (0-3.0)
--- NOTE | 2017-05-06 15:48 | Pulmonary Consultation ---
History General Date of Service: May 06, 2017. Stated Complaint: Atrial Flutter With Rvr HPI The patient is a 86 year old female who presents to [facility] with complaints of Atrial Flutter With Rvr. The patient's primary care provider is Khoa Gallegos M.D.. Ms. Simon is a 86-year-old female with past medical history of TIA, paroxysmal atrial fibrillation, hypertension, vertigo, hyperlipidemia, and colonic polyps who presented to the ER on 05/02/2017 with increased fatigue status post a fall on 04/28/2017. Per history she tripped and fell over her cat hitting her left side. She denies any head trauma. Since the fall patient had increased malaise associated with progressive dyspnea and presented to the ER for further evaluation. Upon arrival to the ER she was found to have A. fib with RVR. She was given adenosine which revealed an atrial flutter rhythm. Her laboratory data was significant for a BNP of 5454 and troponin was 0.039. Calcium 10.3 and TSH of 5.4. Urine showed small LE and was negative for protein or bacteria. Chest xray showed Bilateral patchy airspace opacities in upper lobes. She was started on a diltiazem drip, given IV fluids and given IV Levaquin. She was admitted to telemetry for A. fib and atypical pneumonia. She was started on Amiodarone for rhythm control and heparin drip. Levaquin discontinued to concerns for QT prolongation. She has been on doxycycline 100 mg since 05/03/2017 as well as doxycycline. Patient has had required minimal oxygen requirements, had no cough and better oxygen tolerance since admission. Pulmonary was consulted today for abnormal CT scan and x-ray. During my history today, patient endorses a 3 to four-month history of shortness of breath. She denies any fevers, chest pain, cough, hemoptysis night sweats or weight loss. She does have occasional intermittent "burning" in chest that that are unrelated to eating or position. She denies any episodes of coughing while eating or vomiting. She states that she always has the chills and complains that her hands and feet are always cold. She denies any joint pain or skin rashes. She denies any lower extremity edema or swelling, orthopnea or paroxysmal nocturnal dyspnea. She is able to climb stairs in her home and able to walk at least 500 feet and up inclines without dyspnea on exertion. Her sons were at bedside, and they found black mold in her garage after [employer] stopped working about month ago. She denies any recent travel or sick contacts. She has one cat and denies any other animal exposure. She uses no inhalants. On review of chart, she was admitted in November 2016 for intractable vomiting secondary to viral gastroenteritis. Her medications include atorvastatin 10 mg by mouth daily, vitamin D 1000 mg by mouth daily, Plavix 75 mg by mouth daily, doxycycline 100 mg by mouth twice a day, fish oil 1000 units daily, Prozac 10 mg by mouth daily Synthroid 25 g by mouth daily, losartan 100 mg by mouth daily, Namenda 10 mg by mouth twice a day , 1 tab by mouth daily, ondansetron 4 mg by mouth every 6 hours triamterene/ hydrochlorothiazide 37.5/20 5/2 a tablet daily and vitamin E. Her when necessary medications include Tylenol arthritis 650 mg by mouth every 6 hours, meclizine 12.5 mg by mouth every 6 hours when necessary for vertigo and midnight PM 1 tab by mouth at night when necessary for sleep. Vital signs within the last 24 hours MAXIMUM TEMPERATURE 36.6, pressure 100/54- 145/70, pulse 59-80, respiratory rate 18-20, pulse oximetry 93-99% on FiO2 of 2 L. Historian: patient, family Onset: other (Since this admission) Severity: mild Complaint Status: improved Review of Systems Constitutional: reports: chills, malaise Eyes: reports: no symptoms ENT: reports: no symptoms Cardiovascular: reports: as stated in HPI Respiratory: reports: as stated in HPI Gastrointestinal: reports: as stated in HPI Genitourinary - Female: reports: as stated in HPI Musculoskeletal: reports: as stated in HPI Integumentary: reports: as stated in HPI Neurologic: reports: as stated in HPI Psychiatric: reports: as stated in HPI Endocrine: as stated in HPI Hematologic / Lymphatic: as stated in HPI Allergic / Immunologic: as stated in HPI All Other Symptoms All Other Systems: Reviewed and Negative Past Medical History Past Medical History: Past medical history includes hyperlipidemia, hypothyroidism, hypertension, history of TIA, vertigo, depression, insomnia, colonic polyps, calculus of kidney and remote history of atrial fibrillation back in the 80s. Past Surgical History: Her surgical history is significant for left knee arthroscopy. Family History Hypertension Malignancy Stroke She has 3 sons who are healthy. She has a family history of malignancy for lung , skin and gastric cancers. Her father of alcoholic cirrhosis. Social History She is a nonsmoker and denies any exposures to fumes. She sought the grocery store as well as at [facility] in the nutrition department. She is , lives alone (with cat) and performs all her activities of daily living independently. Hx Tobacco Use In Past Year?: No Smoking Status: Never Smoker Marital status: Housing status: lives alone Occupational Status: retired Immunizations History of Influenza Vaccine: Yes Influenza Vaccine Date: Jul 25, 2007 History of Tetanus Vaccine?: Unknown History of Pneumococcal: No History of Hepatitis B Vaccine: No History of MDRO History of MDRO: No Allergies Coded Allergies: Penicillins (Verified Allergy, Intermediate, hives, 05/03/17) BEE STING (Verified Allergy, Unknown, SWELLING, 06/20/16) Codeine (Verified Adverse Reaction, Mild, NAUSEA/VOMITING, 05/03/17) Current Medications Reported Home Medications Medications Dose Route/Sig Max Daily Dose Days Date Category Dose Instructions Doxycycline Hyclate 100 Mg Cap 100 Mg PO BID 5 10/29/16 Rx Zofran (Ondansetron Hcl) 4 Mg Tab 4 Mg PO Q6H 10 10/29/16 Rx Vitamin E 400 Iu (Vitamin E) 400 Unit Cap 400 Inter.unit PO DAILY 10/27/16 Reported Midnite Pm (Misc Natural Products) 1 Chw Chw 1 Tab PO HS PRN 10/27/16 Reported Tylenol Arthritis Ext Rel (Acetaminophen) 650 Mg Cplt 650 Mg PO QID PRN 10/27/16 Reported Synthroid (Levothyroxine Sodium) 25 Mcg Tab 25 Mcg PO DAILY 10/27/16 Reported Cozaar (Losartan Potassium) 100 Mg Tab 100 Mg PO DAILY 10/27/16 Reported Prozac (Fluoxetine HCl) 10 Mg Cap 10 Mg PO DAILY 10/27/16 Reported Vitamin D3 (Cholecalciferol) 1,000 Unit Tab 1,000 Mg PO DAILY 06/20/16 Reported Fish Oil 1 Gm Cap 1,000 Mg PO DAILY 06/20/16 Reported Mvi With Minerals (Multivitamins/Minerals) Tab 1 Tab PO DAILY 06/20/16 Reported Namenda (Memantine) 10 Mg Tab 10 Mg PO BID 06/20/16 Reported Meclizine HCl 12.5 Mg Tab 12.5 Mg PO Q6H PRN 05/31/14 Rx Triamterene/Hctz 37.5-25MG Tab (Triamterene/Hctz) 1 Tab Tab 0.5 Tab PO DAILY 05/29/14 Reported TAKE ONE-HALF TAB DAILY Plavix (Clopidogrel Bisulfate) 75 Mg Tab 75 Mg PO DAILY 05/29/14 Reported Lipitor (Atorvastatin Calcium) 10 Mg Tab 10 Mg PO DAILY 07/05/07 Reported Physical Physical Exam Vital Signs: Date Time Temp Pulse Resp B/P (MAP) Pulse Ox O2 Delivery O2 Flow Rate FiO2 05/06/17 10:44 80 20 108/62 (77) 98 Nasal Cannula 2.0 05/06/17 10:35 72 18 100/54 (69) 99 Nasal Cannula 2.0 05/06/17 10:25 65 18 138/78 (98) 99 Nasal Cannula 2.0 05/06/17 08:06 Room Air 05/06/17 07:37 36.6 59 18 126/63 (84) 93 Room Air 05/06/17 04:02 Room Air 05/06/17 04:01 36.6 68 18 114/61 (78) 98 Room Air 05/06/17 00:03 36.6 64 18 145/70 (95) 96 Room Air 05/06/17 00:00 Room Air 05/05/17 20:00 Room Air 05/05/17 19:03 37.0 79 20 120/66 (84) 96 Room Air 05/05/17 16:00 Room Air 05/05/17 15:10 36.5 77 21 131/64 (86) 97 Room Air General: AAOX3, NAD HEENT: Head AT, NC PERRLA. Sclera nonicteric. Ears, nose and throat unremarkable. Mucous membranes moist. Neck: Supple without appreciable JVD. No carotid bruits. Lungs: Clear to auscultation bilaterally without rales, rhonchi or wheezes. No respiratory distress. Cardiac: S1, S2, irregularly irregular No appreciable murmur, gallop or rub. No chest wall tenderness to palpation. Abdomen: Soft and nontender. Bowel sounds present. No appreciable mass or organomegaly. Extremities: No cyanosis, clubbing or peripheral edema b/l . Peripheral pulses palpable. MsK; no joint pain Skin: No rashes or abnormal lesions. Normal turgor. Neurologic: Carries on appropriate conversation. No focal neurological deficits. Psychiatric: Affect seems appropriate, suicidal ideation. Diagnostics Labs Results Past 24 Hours Test 05/06/17 07:22 05/06/17 10:45 Range/Units White Blood Count 5.66 4.8-10.8 K/uL Red Blood Count 3.71 4.2-5.4 M/uL Hemoglobin 10.5 12.0-16.0 g/dL Hematocrit 32.0 37-47 % Mean Corpuscular Volume 86.3 80-100 fL Mean Corpuscular Hemoglobin 28.3 25-34 pg Mean Corpuscular Hemoglobin Concent 32.8 32-36 g/dl Platelet Count 189 130-400 K/uL Mean Platelet Volume 10.3 7.4-10.4 fL Neutrophils (%) (Auto) 39.4 % Lymphocytes (%) (Auto) 40.6 % Monocytes (%) (Auto) 17.0 % Eosinophils (%) (Auto) 1.1 % Basophils (%) (Auto) 0.0 % Neutrophils # (Auto) 2.23 1.4-6.5 K/uL Lymphocytes # (Auto) 2.30 1.2-3.4 K/uL Monocytes # (Auto) 0.96 0.11-0.59 K/uL Eosinophils # (Auto) 0.06 0-0.5 K/uL Basophils # (Auto) 0.00 0-0.2 K/uL RDW Standard Deviation 44.5 36.4-46.3 fL RDW Coefficient of Variation 14.2 11.5-14.5 % Immature Granulocyte % (Auto) 1.9 % Immature Granulocyte # (Auto) 0.11 0.00-0.02 K/uL Sodium Level 136 136-145 mmol/L Potassium Level 4.1 3.5-5.1 mmol/L Chloride Level 103 98-107 mmol/L Carbon Dioxide Level 27 21-32 mmol/L Anion Gap 6.0 3-11 mmol/L Blood Urea Nitrogen 23 7-18 mg/dl Creatinine 1.10 0.60-1.20 mg/dl Est Creatinine Clear Calc Drug Dose 37.0 ml/min Estimated GFR () 52.6 Estimated GFR (Non- 45.4 BUN/Creatinine Ratio 20.6 10-20 Random Glucose 85 70-99 mg/dl Calcium Level 9.8 8.5-10.1 mg/dl Magnesium Level 1.9 1.8-2.4 mg/dl Total Bilirubin 0.5 0.2-1 mg/dl Direct Bilirubin 0.1 0-0.2 mg/dl Aspartate Amino Transf (AST/SGOT) 14 15-37 U/L Alanine Aminotransferase (ALT/SGPT) 19 12-78 U/L Alkaline Phosphatase 86 45-117 U/L Total Protein 6.7 6.4-8.2 gm/dl Albumin 3.1 3.4-5.0 gm/dl Total Creatine Kinase 32 26-192 U/L Creatine Kinase MB 0.7 0.5-3.6 ng/ml Creatine Kinase MB Ratio 2.2 0-3.0 Troponin I < 0.015 0-0.045 ng/ml Diagnostic Radiology CT chest without contrast 05/06/2017 IMPRESSION: 1. Trace bilateral pleural effusions 2. Multifocal pulmonary nodular airspace opacities demonstrating a reverse halo sign. Although originally reported in cryptogenic organizing pneumonia, there is a wide differential CXR: 05/04/2017 FINDINGS: The heart is normal in size. There is aortic tortuosity/ectasia. There are persistent bilateral pulmonary airspace opacities with a mid to upper lung zone predominance. No significant pleural effusions are visualized. There are old right-sided rib deformities.[ IMPRESSION: Persistent bilateral pulmonary airspace opacities, likely infectious/inflammatory. TE: 05/03/2017 * -- Conclusions -- * 1. Normal left ventricular size with hyperdynamic systolic function. EF 65-70 %. No regional wall motion abnormalities. Moderate concentric left ventricular hypertrophy. * 2. The left atrium is mildly dilated. * 3. There is mild mitral regurgitation. * 4. Rhythm is atrial flutter. * 5. Normal estimated right ventricular systolic pressure; 23 mmHg. * 6. Compared to prior study on 05/30/2014, rhythm is now atrial flutter. CXR 05/02/2017 IMPRESSION: 1. Cardiomegaly. 2. There is bilateral patchy airspace consolidation within upper lobe predominance, which is new from 10/27/2016. Correlate clinically for evidence of an infectious/inflammatory pneumonitis. Radiographic follow-up to resolution is recommended. T Impression Assessment and Plan Atypical pneumonia Dyspnea Patient has atypical pneumonia. Her imaging looks far worse than her clinical exam. CT chest findings are with ground glass opacifications and "reverse halo sign" concerning for fungal and mycobacterial infections and often seen in someone who immunocompromised, cryptogenic organizing pneumonia, Claude's granulomatois or an underlying malignancy. I have ordered sputum for culture & AFB and sent a quantiferon gold. Tuberculosis should be ruled out although my clinical suspicion for this is less likely. I will send off mycoplasma Ab, Legionella Ab, pneumococcal Ab, cryptococcus Ag, histoplasma, aspergillus Ab, cryptococcal and coccidiomycosis Ab. I would also like to obtain a video swallow evaluation as she may be silently aspirating, although the upper lobe distribution does not quite fit. I would like schedule her for bronchoscopy with transbronchial biopsy for evaluation of lung parenchyma. She was on plavix for CVA, her last dose 2016. She is currently on heparin for anticoagulation. I have spoken to Dr. Garcia as he will be on service next week however, he would like to see her in pulmonary clinic as an outpatient for continuation of care. At that time , he together with family will discuss a suitable time to schedule an outpatient bronchoscopy with possible EBUS. In the meantime, I would continue with empiric antibiotic therapy. Continue with current management. I appreciate this interesting consult.
[2017-05-06] MEDS ORDERED: NURSING VERBAL MED ORDER ONE (17:00)
[2017-05-06] MEDS: POLYETHYLENE (MIRALAX) 17 GM PACK PO SCH (17:13)
--- NOTE | 2017-05-06 17:41 | GASTROINTESTINAL CONSULTATION ---
DATE OF CONSULTATION: 05/06/2017 REASON FOR CONSULTATION: Normochromic normocytic anemia. HISTORY OF PRESENT ILLNESS: The patient is an 86-year-old female admitted through the Emergency Room on May 02 6 days following a fall where she suffered pain in her tailbone and left-sided rib cage. The patient states that she has been feeling somewhat weak and she did not hit her head or lose consciousness. When she was evaluated in the Emergency Room, she was found to be in a rapid rhythm. It turned out to be atrial flutter and she was hospitalized for further evaluation. An W[place] has been rolled out, but evaluation of her lungs shows several ground-glass areas and a CT scan shows reverse halos signs mostly in the upper lobes are worrisome for an infectious etiology. Blood tests have been sent for tuberculosis. She was also noted to be mildly anemic with normochromic normocytic indices. In reviewing her past record, this is going back at least 3 years, she has had some polyps removed from her colon in the past, but the date of her last colonoscopy is probably about 10 years ago. She denies any loss of appetite, fevers, chills, night sweats, nausea or vomiting, abdominal pain or change in bowels. She has had no visible blood in her stools or hematemesis. Stool for Hemoccult has been requested, but she has not had a bowel movement in several days. Of note is that her sister of stomach cancer. PAST MEDICAL HISTORY: Kidney stones, diabetes, hyperlipidemia, hypertension. MEDICATIONS: Lipitor, vitamin D, Plavix, fish oil, Prozac, Synthroid, Cozaar, Namenda, Zofran, triamterene/hydrochlorothiazide, and vitamin E. ALLERGIES: PENICILLIN AND CODEINE. FAMILY HISTORY: Positive for stomach cancer in her sister. SOCIAL HISTORY: The patient is . She lives with her family. She does not smoke. She is retired. REVIEW OF SYSTEMS: Positive for some weakness. Remainder is negative. PHYSICAL EXAMINATION: GENERAL: The patient appears awake, alert, in no acute distress. VITAL SIGNS: Blood pressure is 150/70, pulse is 90. LUNGS: Clear. HEART: Showed a normal S1 and S2 at a rate of 90. ABDOMEN: Soft. There are no masses, tenderness, or hepatosplenomegaly. There are no abdominal scars. IMPRESSION AND PLAN: The patient has normochromic normocytic anemia with no overt gastrointestinal symptoms, although she does have a prior history of colon polyps and her sister of stomach cancer. We are awaiting a stool Hemoccult at this time and I have also ordered a stool for Helicobacter pylori, test on her lungs are pending, but tuberculosis is in the differential. I have asked the nurses to check with the scruff worker about whether or not she should be placed in TB isolation, while this is pending. I think their plan is to pursue a bronchoscopy as an outpatient. Will await her stool results and if need be, we can proceed with endoscopic evaluation next week to rule out a GI source for her anemia. Dr. Luan Mayberry will be covering this weekend.
[2017-05-06] MEDS: CEFTRIAXONE SOD INJ 1 GM in DEXTROSE 5% ADD-VANTAGE 50ML 50 ML IV SCH (17:44)
[2017-05-06] MEDS ORDERED: TUBERCULIN SKIN TEST 5 TU in SYRINGE 0 ML ID SCH (19:00)
[2017-05-06] MEDS ORDERED: TUBERCULIN PPD ID ONE (19:15)
[2017-05-06] MEDS ORDERED: [UNRECOGNIZED DRUG - OTHER] ID ONE (19:15)
--- NOTE | 2017-05-06 19:55 | Hospitalist Progress Note ---
Hospitalist Progress Note Date of Service May 06, 2017. Subjective Pt evaluation today including: conversation w/ patient, conversation w/ integration consultant (Cardiology) pt having chest pressure/tightness now for the last 1 hour, nonradiating, is a 5 /10 in severity, associated with mild nausea, mild SOB, no diaphoresis. Remains in sinus arrhythmia, ECG without ischemic changes. Was given SLNTG and had some relief, then given Maalox and not sure if much change. Never had this before. Still no BM since admission to check for blood Constitutional: + chills All Other Systems: Reviewed and Negative Objective Vital Signs Date Time Temp Pulse Resp B/P (MAP) Pulse Ox O2 Delivery O2 Flow Rate FiO2 05/06/17 10:44 80 20 108/62 (77) 98 Nasal Cannula 2.0 05/06/17 10:35 72 18 100/54 (69) 99 Nasal Cannula 2.0 05/06/17 10:25 65 18 138/78 (98) 99 Nasal Cannula 2.0 05/06/17 08:06 Room Air 05/06/17 07:37 36.6 59 18 126/63 (84) 93 Room Air 05/06/17 04:02 Room Air 05/06/17 04:01 36.6 68 18 114/61 (78) 98 Room Air 05/06/17 00:03 36.6 64 18 145/70 (95) 96 Room Air 05/06/17 00:00 Room Air 05/05/17 20:00 Room Air 05/05/17 19:03 37.0 79 20 120/66 (84) 96 Room Air 05/05/17 16:00 Room Air 05/05/17 15:10 36.5 77 21 131/64 (86) 97 Room Air 05/05/17 12:00 Room Air Physical Exam General Appearance: + mild distress (appears ill) Eyes: normal inspection, sclerae normal ENT: hearing grossly normal Neck: trachea midline Respiratory/Chest: lungs clear, normal breath sounds, no respiratory distress, no accessory muscle use Cardiovascular: regular rate, rhythm (with extra beats), no edema, no murmur Abdomen: normal bowel sounds, non tender, soft Extremities: non-tender, normal inspection, no pedal edema, no calf tenderness Neurologic/Psychiatric: alert, oriented x 3 Skin: + pallor Laboratory Results Last 24 Hours Test 05/06/17 07:22 8/18/17 10:30 05/06/17 10:45 White Blood Count 5.66 K/uL Red Blood Count 3.71 M/uL Hemoglobin 10.5 g/dL Hematocrit 32.0 % Mean Corpuscular Volume 86.3 fL Mean Corpuscular Hemoglobin 28.3 pg Mean Corpuscular Hemoglobin Concent 32.8 g/dl Platelet Count 189 K/uL Mean Platelet Volume 10.3 fL Neutrophils (%) (Auto) 39.4 % Lymphocytes (%) (Auto) 40.6 % Monocytes (%) (Auto) 17.0 % Eosinophils (%) (Auto) 1.1 % Basophils (%) (Auto) 0.0 % Neutrophils # (Auto) 2.23 K/uL Lymphocytes # (Auto) 2.30 K/uL Monocytes # (Auto) 0.96 K/uL Eosinophils # (Auto) 0.06 K/uL Basophils # (Auto) 0.00 K/uL RDW Standard Deviation 44.5 fL RDW Coefficient of Variation 14.2 % Immature Granulocyte % (Auto) 1.9 % Immature Granulocyte # (Auto) 0.11 K/uL Sodium Level 136 mmol/L Potassium Level 4.1 mmol/L Chloride Level 103 mmol/L Carbon Dioxide Level 27 mmol/L Anion Gap 6.0 mmol/L Blood Urea Nitrogen 23 mg/dl Creatinine 1.10 mg/dl Est Creatinine Clear Calc Drug Dose 37.0 ml/min Estimated GFR () 52.6 Estimated GFR (Non- 45.4 BUN/Creatinine Ratio 20.6 Random Glucose 85 mg/dl Calcium Level 9.8 mg/dl Magnesium Level 1.9 mg/dl Total Bilirubin 0.5 mg/dl Direct Bilirubin 0.1 mg/dl Aspartate Amino Transf (AST/SGOT) 14 U/L Alanine Aminotransferase (ALT/SGPT) 19 U/L Alkaline Phosphatase 86 U/L Total Protein 6.7 gm/dl Albumin 3.1 gm/dl Creatine Kinase MB Ratio Assessment and Plan This patient is an 86-year-old female with a history of TIA, hypertension, mild cognitive impairment, hyperlipidemia, vertigo, depression, insomnia, and colon polyps, who presents to the ER with persistent profound fatigue and dyspnea on exertion since a mechanical fall 4 days ago. In the ER, she was found to have a rapid heartbeat in the 160s. She was given adenosine which revealed an atrial flutter. She does report feeling similar symptoms in the past, but not for this long. She denies any previous history of A. fib or flutter, but a cardiology consult from 2009 notes that she may have had A. fib in the 1980s. She is also been having some burning in her chest that comes and goes on its own and is not positional or associated with eating. It occurs 2 times a day may be for several weeks and she takes Tylenol for it. She denies any weight loss or weight gain, no lower extremity edema. She has had a mild cough and maybe some sweats and chills the last month. Interestingly, her chest x-ray was significant for bilateral patchy airspace opacities particularly in the upper lobes. She has not had any productive sputum. She was started on a diltiazem drip and given IV fluids as well as IV Levaquin in the ER. She will be admitted for rapid atrial fibrillation/flutter, and likely atypical pneumonia. 1) Rapid atrial fibrillation/flutter, dyspnea on exertion-probably not new in onset for her given prior similar symptoms. She is now converted to a NSR after being on diltiazem gtt and po metoprolol. Continues to remain in NSR with PACs. Started on amiodarone as per Cardiology recommendation. She has no contraindications for anticoagulation, and we discussed risks, ASEs, benefits, and alternatives to AC for CVA prevention with A-fib. There is no evidence of clear ischemia on her ECG. Her pro BNP is significantly elevated at 5000, however she has no other evidence on exam of acutely decompensated CHF. Her dyspnea on exertion is probably related to her tachyarrhythmia, but could be related to her concurrent pneumonia. *She developed worsening anemia on heparin gtt with Hgb going from 12.8-->9.8 ( some may have been dilutional, some lab error), no obvious GI Bleed, no BM at all. ECHO with hyperdynamic LV function, mod LVH, mild MR PLAN: -discontinued heparin drip until further workup performed for anemia -dc Plavix permanently if going on anticoagulation, but hold Plavix for now -No need for diuresis and she is not hypervolemic on exam, can continue her home Dyazide -continue metoprolol 25mg po bid for rate control, amiodarone 200mg po bid for rhythm control -Appreciate cardiology consultation and will need outpt f/u within 2 weeks after dc 2) Atypical pneumonia vs other etiology with multifocal "reverse halo" pulmonary nodular opacities on Chest CT, Enlarged mediastinal KOBE-with absence of leukocytosis and fevers. She is not hypoxic. Remains fairly symptom-free. Cryptogenic organizing PNA vs sarcoidosis vs Nomi's, TB, opportunistic invasive fungal infections, pneumocystis pneumonia, lymphomatoid granulomatosis , and pulmonary infarction all in differential. Received Levaquin x 2 days, then switched to Rocephin and doxy due to starting amiodarone and risk of QT prolongation -consult Pulm to evaluate for etiology of abnormal findings-recommendations appreciated--> checking for fungal infections, atypical PNA, TB, sarcoid -continue Rocephin and doxy for now -will need bronchoscopy with Dr. Garcia as outpt-he is aware of case -sputum culture, AFB ordered 3) Nausea, Anemia-hgb dropping steadily since admission while on heparin gtt. With description of heartburn symptoms occasionally prior to admission, concern for bleeding. Still no BM in 2-3 days makes GI bleeding less likely except microscopic bleeding. Nausea improved now and may have been secondary to amiodarone. Hgb stable now in the 10s -hemoccult stool still pending -consult GI appreciated -follow CBC -holding heparin and Plavix -continue Zantac -give phenergan prn, avoid Zofran with risk of prolonged QT on amiodarone -may need EGD -check H. pylori stool ag 4) Chest tightness-ECG no ischemic changes, troponin neg x 2, not likely cardiac in nature. -trend one m ore troponin -could be GI related or perhaps related to lung infection/process -relieved now with morphine 5) Hypertension, hyperlipidemia, history of TIA-all stable here -Continue losartan, Dyazide, and statin continue metoprolol as above -will hold and likely permanently dc Plavix now that Hgb dropping 6) Mild cognitive impairment-stable -Continue Namenda 7) CKD stage III-creatinine 1.2 with GFR 40. -Renally dose medications -Avoid nephrotoxins -Okay to continue losartan and Dyazide as above 8) Depression, insomnia-stable -Continue Prozac 9) Hypothyroidism-TSH mildly elevated at 5, but free T4 is normal -Continue current dose of levothyroxine Prophylaxis-heparin drip, H2 kush Disposition-she is a DO NOT RESUSCITATE, but does report that if only having respiratory issues, she would still consider intubation
[2017-05-06] MEDS: DOXYCYCLINE HYCLATE 100 MG CAP PO SCH (20:53)
[2017-05-06] MEDS: SENNA 8.6 MG TAB PO SCH (20:53)
[2017-05-06] MEDS: ACETAMINOPHEN 325 MG TAB PO PRN (21:07)
[2017-05-07 00:29] LABS: CKMB/CK RATIO 2.7 (0-3.0)
[2017-05-07 04:10] VITALS: BP 134/68; PULSE 74; TEMP 36.5; O2SAT 98
[2017-05-07 06:09] LABS: CKMB/CK RATIO 2.5 (0-3.0)
[2017-05-07] MEDS: LEVOTHYROXINE 25 MCG TAB PO SCH (06:25)
[2017-05-07 07:38] VITALS: BP 125/73; PULSE 69; TEMP 36.8; O2SAT 96
[2017-05-07] MEDS: MEMANTINE 10 MG TAB PO SCH ×2 (08:06→20:59)
[2017-05-07] MEDS: LOSARTAN POTASSIUM 50 MG TAB PO SCH (08:07)
[2017-05-07] MEDS: RANITIDINE HCL 150 MG TAB PO SCH ×2 (08:07→20:59)
[2017-05-07] MEDS: ATORVASTATIN 10 MG TAB PO SCH (08:07)
[2017-05-07] MEDS: CEROVITE ADV FORMULA TAB PO SCH (08:07)
[2017-05-07] MEDS: METOPROLOL TARTRATE 25 MG TAB PO SCH ×2 (08:07→20:59)
[2017-05-07] MEDS: DOXYCYCLINE HYCLATE 100 MG CAP PO SCH ×2 (08:08→20:59)
[2017-05-07] MEDS: AMIODARONE 200 MG TAB PO SCH ×2 (08:08→20:59)
[2017-05-07] MEDS: CHOLECALCIFEROL 1000 INTER.UNIT TAB PO SCH (08:08)
[2017-05-07] MEDS: FLUOXETINE HCL 10 MG CAP PO SCH (08:09)
[2017-05-07] MEDS: TRIAMTERENE/HCTZ 37.5/25MG TAB PO SCH (08:09)
[2017-05-07] MEDS: POLYETHYLENE (MIRALAX) 17 GM PACK PO SCH (08:13)
[2017-05-07 11:40] VITALS: BP 95/58; PULSE 70; TEMP 36.8; O2SAT 98
--- NOTE | 2017-05-07 12:58 | CARDIOLOGY PROGRESS NOTE ---
DATE: 05/07/2017 TIME: 12:00 p.m. SUBJECTIVE: Yesterday, she had some right-sided chest discomfort. She remembers having it, but does not recall how long it lasted. She has not had any further chest pain. She denies shortness of breath, orthopnea, syncope, near syncope, palpitations or edema. She states that she is in perfect health. She does recall, however, that she has abnormal lung findings on CT scan and pulmonology is following. She is currently on airborne precautions. OBJECTIVE: VITAL SIGNS: Temperature 36.8 degrees, heart rate 70 beats per minute, respiratory rate 18, and blood pressure 95/58 mmHg; however, her blood pressure has mostly been normotensive. Oxygen saturation 98% on room air. I's and O's negative 355 mL yesterday. Weight is 76.9 kg. GENERAL: In no acute distress. She is alert. NECK: No JVD. CARDIAC EXAM: No ventricular heave. Regular with occasional ectopy. Normal S1 and S2. No audible murmurs, rubs or gallops. LUNGS: Clear to auscultation bilaterally without wheezes, rales or rhonchi. ABDOMEN: Soft, nontender, and nondistended. Normoactive bowel sounds. EXTREMITIES: No cyanosis or pitting edema. CHEST: Nontender to palpation. PSYCHIATRIC: Affect appears appropriate. MEDICATIONS: Include Lipitor 10 mg daily, amiodarone 200 mg p.o. b.i.d., ceftriaxone 1 gram IV q. 24 hours, doxycycline 100 mg p.o. b.i.d., losartan 100 mg daily, metoprolol 25 mg p.o. b.i.d., and Maxzide 37.5/25 mg half a tab per day. TELEMETRY: Personally reviewed. Sinus rhythm with sinus arrhythmia and PACs. No further arrhythmia. LABORATORY DATA: Blood culture is negative to date. Troponin negative x5 beginning yesterday morning. Labs from 05/06/2017, white blood cell count 5.66, hemoglobin 10.5, and platelets 189. Sodium 136, potassium 4.1, BUN 23, creatinine 1.1, and albumin 3.1. ECG from 05/06/2017 personally reviewed. Sinus rhythm with sinus arrhythmia 69 beats per minute. Normal QT interval. ASSESSMENT AND PLAN: 1. Paroxysmal atrial flutter: She remains in sinus rhythm on amiodarone. Continue amiodarone at current dose. Monitor TSH and LFTs over time. Follow up in the outpatient cardiology office. 2. Chest pain: She had right-sided chest pain. This is atypical. Negative troponins x5. The entire length of the episode is not entirely known at this time as she does not recall the entire event, but recalls having chest pain to some degree. Not likely cardiac in nature as her symptoms are atypical and she has significant lung findings which may or may not represent the etiology of her chest pain. If she has more typical symptoms in the future or her pulmonary issues resolved and she continues to have pain, would consider noninvasive ischemic evaluation as an outpatient if appropriate at that time. No further testing plan for now from a cardiac perspective. 3. Dyspnea with exertion: She denies any symptoms here, but states that she had dyspnea at home. 4. Pneumonia: As per primary service. 5. Pulmonary findings on CT scan: Workup as per pulmonary. 6. Anemia: GI is involved. Anticoagulation for stroke risk reduction for her atrial flutter and is currently on hold until anemia evaluation is completed as per primary service. Her hemoglobin is trending upward now over the past 2 days. 7. Disposition: Cardiology will sign off for now. Please call for any further questions or concerns. I recommend cardiology followup as an outpatient to help manage her amiodarone in the outpatient settings.
--- NOTE | 2017-05-07 15:48 | Pulmonology Progress Note ---
Pulmonary Progress Note Date of Service May 07, 2017. Attending Subjective Patient seen and examined. She states that she is feeling tired. She denies any fever, chills, chest pain, cough or shortness of breath. Had episode of chest pain yesterday that was relieved by morphine and "GI cocktail." ACS ruled out. She is now in an isolation room and on airborne precautions while we rule out TB. Objective General: AAOX3, NAD HEENT: Head AT, NC PERRLA. Sclera nonicteric. Ears, nose and throat unremarkable. Mucous membranes moist. Neck: Supple without appreciable JVD. No carotid bruits. Lungs: Clear to auscultation bilaterally without rales, rhonchi or wheezes. No respiratory distress. Cardiac: S1, S2, irregularly irregular No appreciable murmur, gallop or rub. No chest wall tenderness to palpation. Abdomen: Soft and nontender. Bowel sounds present. No appreciable mass or organomegaly. Extremities: No cyanosis, clubbing or peripheral edema b/l . Peripheral pulses palpable. MsK; no joint pain Skin: No rashes or abnormal lesions. Normal turgor. Neurologic: Carries on appropriate conversation. No focal neurological deficits. Psychiatric: Affect seems appropriate, suicidal ideation. Assessment & Plan Atypical pneumonia Dyspnea Patient has atypical pneumonia. Her imaging looks far worse than her clinical exam. CT chest findings are with ground glass opacifications and "reverse halo sign" concerning for fungal and mycobacterial infections and often seen in someone who immunocompromised, cryptogenic organizing pneumonia, Claude's granulomatois or an underlying malignancy. I have ordered sputum for culture & AFB and sent a quantiferon gold. Tuberculosis should be ruled out although my clinical suspicion for this is less likely. I will send off mycoplasma Ab, Legionella Ab, pneumococcal Ab, histoplasma, aspergillus Ab, cryptococcal and coccidiomycosis Ab--all are still pending at this time. Cryptococcus Ag--negative thus far Please obtain video swallow evaluation. Bronchoscopy will be scheduled upon pulmonary follow up with Dr. Garcia. In the meantime, I would continue with empiric antibiotic therapy. Continue with current management as her clinical exam has not changed. Data Medications: Current Inpatient Medications Medications (Trade) Dose Ordered Sig/Cristi Route Start Time Stop Time Status Last Admin Dose Admin Acetaminophen (Tylenol Tab) 650 mg Q4H PRN PO 05/02/17 19:00 06/01/17 18:59 05/06/17 21:07 650 MG Al Hydrox/Mg Hydrox/Simethicone (Maalox Max Susp) 15 ml Q4H PRN PO 05/02/17 19:00 06/01/17 18:59 05/06/17 10:44 15 ML Nitroglycerin (Nitrostat Tab) 0.4 mg UD PRN SL 05/02/17 19:00 06/01/17 18:59 Atorvastatin Calcium (Lipitor Tab) 10 mg DAILY PO 05/03/17 09:00 06/02/17 08:59 05/07/17 08:07 10 MG Cholecalciferol (Vitamin D Tab) 1,000 inter.unit DAILY PO 05/03/17 09:00 06/02/17 08:59 05/07/17 08:08 1,000 INTER.UNIT Fluoxetine HCl (Prozac Cap) 10 mg DAILY PO 05/03/17 09:00 06/02/17 08:59 05/07/17 08:09 10 MG Levothyroxine Sodium (Synthroid Tab) 25 mcg DAILYBB PO 05/03/17 06:00 06/02/17 05:59 05/07/17 06:25 25 MCG Losartan Potassium (coZAAR TAB) 100 mg DAILY PO 05/03/17 09:00 06/02/17 08:59 05/07/17 08:07 100 MG Memantine (Namenda Tab) 10 mg BID PO 05/02/17 21:00 06/01/17 20:59 05/07/17 08:06 10 MG Multivitamins/ Minerals (Multivitamin W/ Minerals Tab) 1 tab DAILY PO 05/03/17 09:00 06/02/17 08:59 05/07/17 08:07 1 TAB Triamterene/HCTZ (Maxzide 37.5/25 Tab) 0.5 tab DAILY PO 05/03/17 09:00 06/02/17 08:59 05/07/17 08:09 0.5 TAB Ranitidine HCl (zANTac TAB) 150 mg BID PO 05/02/17 21:00 06/01/17 20:59 05/07/17 08:07 150 MG Heparin Sodium/ Dextrose 500 ml @ 16 mls/hr Q24H PRN IV 05/02/17 21:45 06/01/17 21:44 Future Hold 05/04/17 04:21 16 MLS/HR Metoprolol Tartrate (Lopressor Tab) 25 mg BID PO 05/03/17 21:00 06/01/17 20:59 05/07/17 08:07 25 MG Amiodarone HCl (Cordarone Tab) 200 mg BID PO 05/03/17 21:00 06/02/17 20:59 05/07/17 08:08 200 MG Ceftriaxone Sodium 1 gm/ Dextrose 50 ml @ 100 mls/hr Q24H IV 05/03/17 18:00 05/10/17 17:59 05/06/17 17:44 100 MLS/HR Promethazine HCl 12.5 mg/Sodium Chloride 50.5 ml @ 202 mls/hr Q6H PRN IV 05/04/17 13:30 06/03/17 13:29 05/04/17 13:32 202 MLS/HR Senna (Senokot Tab) 17.2 mg HS PO 05/05/17 21:00 06/04/17 20:59 05/06/17 20:53 17.2 MG Polyethylene (Miralax Powder Packet) 17 gm DAILY PO 05/06/17 09:00 06/05/17 08:59 05/06/17 17:13 17 GM Morphine Sulfate (MoRPHine SULFATE INJ) 2 mg Q3H PRN IV 05/06/17 10:30 05/20/17 10:29 05/06/17 10:53 2 MG Doxycycline Hyclate (Vibramycin Cap) 100 mg BID PO 05/06/17 21:00 05/10/17 20:59 05/07/17 08:08 100 MG Miscellaneous (Ppd Check) 1 ea Q48H N/A 05/08/17 20:00 05/08/17 20:01 I & O: 24-Hour Column 05/08/17 08:00 Intake Total 350 ml Output Total 250 ml Balance 100 ml Vital Signs: Date Time Temp Pulse Resp B/P (MAP) Pulse Ox O2 Delivery O2 Flow Rate FiO2 05/07/17 12:00 Room Air 05/07/17 11:40 36.8 70 18 95/58 (70) 98 05/07/17 08:00 Room Air 05/07/17 07:38 36.8 69 18 125/73 (90) 96 05/07/17 04:10 36.5 74 18 134/68 (90) 98 Room Air 05/07/17 04:00 Room Air 05/07/17 00:00 Room Air 05/06/17 23:50 36.7 63 20 112/49 (70) 95 Room Air 05/06/17 20:19 36.9 77 18 117/67 (84) 93 Room Air 05/06/17 20:00 Room Air 05/06/17 16:03 Room Air 05/06/17 15:44 36.7 68 20 128/73 (91) 98 Nasal Cannula 3.0 Laboratory Results: Last 24 Hours Test 05/06/17 16:51 05/06/17 18:15 05/06/17 23:02 05/07/17 05:00 Total Creatine Kinase 29 U/L 26 U/L 20 U/L Creatine Kinase MB < 0.5 ng/ml 0.7 ng/ml 0.5 ng/ml Creatine Kinase MB Ratio 2.7 2.5 Troponin I < 0.015 ng/ml < 0.015 ng/ml < 0.015 ng/ml Stool Occult Blood NEGATIVE Test 05/07/17 11:00 Total Creatine Kinase 23 U/L Creatine Kinase MB < 0.5 ng/ml Creatine Kinase MB Ratio Troponin I < 0.015 ng/ml
[2017-05-07 15:59] VITALS: BP 165/87; PULSE 75; TEMP 37.5; O2SAT 96
--- NOTE | 2017-05-07 17:22 | Hospitalist Progress Note ---
Hospitalist Progress Note Date of Service May 07, 2017. Subjective Pt evaluation today including: conversation w/ patient, conversation w/ [employer] fusion consultant (Cardiology) Pt had one episode of chest tightness this AM but not as bad as yesterday. SHe had serially neg troponins yesterday. Remains in NSR. Is moved to a room with airborne precautions due to being tested for TB. She denies cough, no night sweats, no sputum production. She is ambulating around her room though without problems. Has tailbone pain mostly with going from lying to sitting position Abdomen: No GI bleeding (Hemoccult neg) All Other Systems: Reviewed and Negative (tailbone pain) Objective Vital Signs Date Time Temp Pulse Resp B/P (MAP) Pulse Ox O2 Delivery O2 Flow Rate FiO2 05/07/17 16:00 Room Air 05/07/17 15:59 37.5 75 20 165/87 (113) 96 Room Air 05/07/17 12:00 Room Air 05/07/17 11:40 36.8 70 18 95/58 (70) 98 05/07/17 08:00 Room Air 05/07/17 07:38 36.8 69 18 125/73 (90) 96 05/07/17 04:10 36.5 74 18 134/68 (90) 98 Room Air 05/07/17 04:00 Room Air 05/07/17 00:00 Room Air 05/06/17 23:50 36.7 63 20 112/49 (70) 95 Room Air 05/06/17 20:19 36.9 77 18 117/67 (84) 93 Room Air 05/06/17 20:00 Room Air Physical Exam General Appearance: WD/WN, no apparent distress Eyes: normal inspection ENT: hearing grossly normal Neck: trachea midline Respiratory/Chest: normal breath sounds, no respiratory distress, no accessory muscle use Cardiovascular: regular rate, rhythm, no edema, no gallop, no murmur Abdomen: soft Extremities: non-tender, no pedal edema, no calf tenderness Neurologic/Psychiatric: alert, normal mood/affect, oriented x 3 Skin: normal color, warm/dry, no rash Laboratory Results Last 24 Hours Test 05/06/17 18:15 05/06/17 23:02 05/07/17 05:00 05/07/17 11:00 Stool Occult Blood NEGATIVE Total Creatine Kinase 26 U/L 20 U/L 23 U/L Creatine Kinase MB 0.7 ng/ml 0.5 ng/ml < 0.5 ng/ml Creatine Kinase MB Ratio 2.7 2.5 Troponin I < 0.015 ng/ml < 0.015 ng/ml < 0.015 ng/ml Assessment and Plan This patient is an 86-year-old female with a history of TIA, hypertension, mild cognitive impairment, hyperlipidemia, vertigo, depression, insomnia, and colon polyps, who presents to the ER with persistent profound fatigue and dyspnea on exertion since a mechanical fall 4 days ago. In the ER, she was found to have a rapid heartbeat in the 160s. She was given adenosine which revealed an atrial flutter. She does report feeling similar symptoms in the past, but not for this long. She denies any previous history of A. fib or flutter, but a cardiology consult from 2009 notes that she may have had A. fib in the 1980s. She is also been having some burning in her chest that comes and goes on its own and is not positional or associated with eating. It occurs 2 times a day may be for several weeks and she takes Tylenol for it. She denies any weight loss or weight gain, no lower extremity edema. She has had a mild cough and maybe some sweats and chills the last month. Interestingly, her chest x-ray was significant for bilateral patchy airspace opacities particularly in the upper lobes. She has not had any productive sputum. She was started on a diltiazem drip and given IV fluids as well as IV Levaquin in the ER. She is admitted for rapid atrial fibrillation/flutter, and likely atypical pneumonia. 1) Rapid atrial fibrillation/flutter, dyspnea on exertion-probably not new in onset for her given prior similar symptoms. She is now converted to a NSR after being on diltiazem gtt and po metoprolol. Still remains in NSR with PACs. Started on amiodarone as per Cardiology recommendation and tolerating She has no contraindications for anticoagulation, and we discussed risks, ASEs, benefits, and alternatives to AC for CVA prevention with A-fib. There is no evidence of clear ischemia on her ECG. Her pro BNP is significantly elevated at 5000, however she has no other evidence on exam of acutely decompensated CHF. Her dyspnea on exertion is probably related to her tachyarrhythmia, but could be related to her concurrent pneumonia. *She developed worsening anemia on heparin gtt with Hgb going from 12.8-->9.8 ( some may have been dilutional, some lab error), no obvious GI Bleed, no BM at all. Anemia improving now that she is off heparin ECHO with hyperdynamic LV function, mod LVH, mild MR PLAN: -discontinued heparin drip until further workup performed for anemia -dc Plavix permanently if going on anticoagulation, but continue to hold Plavix for now -No need for diuresis and she is not hypervolemic on exam, can continue her home Dyazide -continue metoprolol 25mg po bid for rate control, amiodarone 200mg po bid for rhythm control -Appreciate cardiology consultation and will need outpt f/u within 2 weeks after dc -will need to have TSH and LFTs followed periodically on amiodarone 2) Atypical pneumonia vs other etiology with multifocal "reverse halo" pulmonary nodular opacities on Chest CT, Enlarged mediastinal KOBE-with absence of leukocytosis and fevers. She is not hypoxic. Remains fairly symptom-free. Cryptogenic organizing PNA vs sarcoidosis vs Nomi's, TB, opportunistic invasive fungal infections, pneumocystis pneumonia, lymphomatoid granulomatosis , and pulmonary infarction all in differential. Received Levaquin x 2 days, then switched to Rocephin and doxy due to starting amiodarone and risk of QT prolongation -consult Pulm to evaluate for etiology of abnormal findings-recommendations appreciated--> checking for fungal infections, atypical PNA, TB, sarcoid -PPD placed and can be read evening of 05/08. Spoke with Infection Security Business Analyst-if PPD neg tomorrow, would be fine to dc her to home while awaiting bronch and Quantiferon Gold testing -continue Rocephin and doxy for now and dc on 05/08 for total 7 day course -will need bronchoscopy with Dr. Garcia as outpt-he is aware of case -sputum culture, AFB ordered but not producing any sputum at all 3) Nausea, Anemia-hgb dropping steadily since admission while on heparin gtt. With description of heartburn symptoms occasionally prior to admission, concern for bleeding. Still no BM in 2-3 days makes GI bleeding less likely except microscopic bleeding. Nausea improved now and may have been secondary to amiodarone. Hgb stable now in the 10s and increasing since being off AC -hemoccult stool negative 0H. pylori stool ag pending -consult GI appreciated -follow CBC -holding heparin and Plavix -continue Zantac -give phenergan prn, avoid Zofran with risk of prolonged QT on amiodarone -may need EGD as outpt 4) Chest tightness-ECG no ischemic changes, troponin neg x 3, not likely cardiac in nature. -could be GI related or perhaps related to lung infection/process or side effect of meds -relieved now -could consider future ischemic evaluation as outpt if persists 5) Hypertension, hyperlipidemia, history of TIA-all stable here -Continue losartan, Dyazide, and statin continue metoprolol as above -will hold and likely permanently dc Plavix now that Hgb dropping 6) Mild cognitive impairment-stable -Continue Namenda 7) CKD stage III-creatinine 1.2 with GFR 40. -Renally dose medications -Avoid nephrotoxins -Okay to continue losartan and Dyazide as above 8) Depression, insomnia-stable -Continue Prozac 9) Hypothyroidism-TSH mildly elevated at 5, but free T4 is normal -Continue current dose of levothyroxine Prophylaxis-SCDs, H2 kush Disposition-she is a DO NOT RESUSCITATE, but does report that if only having respiratory issues, she would still consider intubation Likely dc to home tomorrow when PPD negative
[2017-05-07] MEDS: CEFTRIAXONE SOD INJ 1 GM in DEXTROSE 5% ADD-VANTAGE 50ML 50 ML IV SCH (17:57)
[2017-05-07 19:38] VITALS: BP 119/73; PULSE 73; TEMP 36.9; O2SAT 94
[2017-05-07] MEDS: SENNA 8.6 MG TAB PO SCH (20:59)
[2017-05-07] MEDS: ACETAMINOPHEN 325 MG TAB PO PRN (21:00)
[2017-05-08 00:31] VITALS: BP 105/42; PULSE 70; TEMP 36.6; O2SAT 97
[2017-05-08 04:40] VITALS: BP 120/66; PULSE 72; TEMP 37; O2SAT 98
[2017-05-08 05:04] LABS: BASO % 0.1 %; BASO ABS # 0.01 K/uL (0-0.2); COMPLETE YES; EOS % 0.9 %; HEMATOCRIT 31.5 % (37-47); IG% 1.5 %; LYMPH % 36.3 %; LYMPH ABS # 2.94 K/uL (1.2-3.4); MEAN CELL VOLUME 86.5 fL (80-100); MEAN CORPUSCULAR HEMOGLOBIN 28.3 pg (25-34); MEAN CORPUSCULAR HGB CONC 32.7 g/dl (32-36); MEAN PLATELET VOLUME 10.2 fL (7.4-10.4); MONO % 14.9 %; NEUT % 46.3 %; PLATELET COUNT 214 K/uL (130-400); RED BLOOD COUNT 3.64 M/uL (4.2-5.4)
[2017-05-08 05:32] LABS: CREATININE 1.4 mg/dl (0.60-1.20); POTASSIUM 4.5 mmol/L (3.5-5.1)
[2017-05-08] MEDS: LEVOTHYROXINE 25 MCG TAB PO SCH (06:38)
[2017-05-08 07:06] VITALS: BP 114/68; PULSE 65; TEMP 36.7; O2SAT 99
[2017-05-08] MEDS: METOPROLOL TARTRATE 25 MG TAB PO SCH (08:38)
[2017-05-08] MEDS: RANITIDINE HCL 150 MG TAB PO SCH (08:38)
[2017-05-08] MEDS: ATORVASTATIN 10 MG TAB PO SCH (08:38)
[2017-05-08] MEDS: AMIODARONE 200 MG TAB PO SCH (08:38)
[2017-05-08] MEDS: CEROVITE ADV FORMULA TAB PO SCH (08:38)
[2017-05-08] MEDS: LOSARTAN POTASSIUM 50 MG TAB PO SCH (08:38)
[2017-05-08] MEDS: DOXYCYCLINE HYCLATE 100 MG CAP PO SCH (08:39)
[2017-05-08] MEDS: TRIAMTERENE/HCTZ 37.5/25MG TAB PO SCH (08:39)
[2017-05-08] MEDS: CHOLECALCIFEROL 1000 INTER.UNIT TAB PO SCH (08:39)
[2017-05-08] MEDS: FLUOXETINE HCL 10 MG CAP PO SCH (08:40)
[2017-05-08] MEDS: MEMANTINE 10 MG TAB PO SCH (08:40)
[2017-05-08] MEDS: POLYETHYLENE (MIRALAX) 17 GM PACK PO SCH (08:40)
[2017-05-08] MEDS ORDERED: ZNT150 PO (10:28)
[2017-05-08] MEDS ORDERED: LPR25 PO (10:28)
[2017-05-08] MEDS ORDERED: CRD200 PO (10:28)
--- NOTE | 2017-05-08 10:35 | Pulmonology Progress Note ---
Pulmonary Progress Note Date of Service May 08, 2017. Attending Dr. Hermosillo Subjective Patient seen and examined. She denies any fever, chills, shortness of breath, cough, night sweats or chest pain. Objective General: AAOX3, NAD HEENT: Head AT, NC PERRLA. Sclera nonicteric. Ears, nose and throat unremarkable. Mucous membranes moist. Neck: Supple without appreciable JVD. No carotid bruits. Lungs: Clear to auscultation bilaterally without rales, rhonchi or wheezes. No respiratory distress. Cardiac: S1, S2, irregularly irregular No appreciable murmur, gallop or rub. No chest wall tenderness to palpation. Abdomen: Soft and nontender. Bowel sounds present. No appreciable mass or organomegaly. Extremities: No cyanosis, clubbing or peripheral edema b/l . Peripheral pulses palpable. MsK; no joint pain Skin: No rashes or abnormal lesions. Normal turgor. Neurologic: Carries on appropriate conversation. No focal neurological deficits. Psychiatric: Affect seems appropriate, suicidal ideation. Labs Serology Crytococus--negative PPD placed on 05/06/2017 at 7pm--currently there is no induration. Assessment & Plan Atypical pneumonia Dyspnea Patient has atypical pneumonia. Her imaging looks far worse than her clinical exam. CT chest findings are with ground glass opacifications and "reverse halo sign" concerning for fungal and mycobacterial infections and often seen in someone who immunocompromised, cryptogenic organizing pneumonia, Claude's granulomatosis or an underlying malignancy. I have ordered sputum for culture & AFB and sent a quantiferon gold. Tuberculosis should be ruled out although my clinical suspicion for this is less likely. PPD shows no induration at this time. mycoplasma Ab, Legionella Ab, pneumococcal Ab, histoplasma, aspergillus Ab, cryptococcal and coccidiomycosis Ab--all are still pending at this time. Bronchoscopy will be scheduled upon pulmonary follow up with Dr. Garcia. In the meantime, I would continue with empiric antibiotic therapy. Continue with current management as her clinical exam has not changed. I appreciate the consult and will sign of the case. Data Medications: Current Inpatient Medications Medications (Trade) Dose Ordered Sig/Cristi Route Start Time Stop Time Status Last Admin Dose Admin Acetaminophen (Tylenol Tab) 650 mg Q4H PRN PO 05/02/17 19:00 9/13/17 18:59 05/07/17 21:00 650 MG Al Hydrox/Mg Hydrox/Simethicone (Maalox Max Susp) 15 ml Q4H PRN PO 05/02/17 19:00 06/01/17 18:59 05/06/17 10:44 15 ML Nitroglycerin (Nitrostat Tab) 0.4 mg UD PRN SL 05/02/17 19:00 06/01/17 18:59 Atorvastatin Calcium (Lipitor Tab) 10 mg DAILY PO 05/03/17 09:00 06/02/17 08:59 05/08/17 08:38 10 MG Cholecalciferol (Vitamin D Tab) 1,000 inter.unit DAILY PO 05/03/17 09:00 06/02/17 08:59 05/08/17 08:39 1,000 INTER.UNIT Fluoxetine HCl (Prozac Cap) 10 mg DAILY PO 05/03/17 09:00 06/02/17 08:59 05/08/17 08:40 10 MG Levothyroxine Sodium (Synthroid Tab) 25 mcg DAILYBB PO 05/03/17 06:00 06/02/17 05:59 05/08/17 06:38 25 MCG Losartan Potassium (coZAAR TAB) 100 mg DAILY PO 05/03/17 09:00 06/02/17 08:59 05/08/17 08:38 100 MG Memantine (Namenda Tab) 10 mg BID PO 05/02/17 21:00 06/01/17 20:59 05/08/17 08:40 10 MG Multivitamins/ Minerals (Multivitamin W/ Minerals Tab) 1 tab DAILY PO 05/03/17 09:00 06/02/17 08:59 05/08/17 08:38 1 TAB Triamterene/HCTZ (Maxzide 37.5/25 Tab) 0.5 tab DAILY PO 05/03/17 09:00 06/02/17 08:59 05/08/17 08:39 0.5 TAB Ranitidine HCl (zANTac TAB) 150 mg BID PO 05/02/17 21:00 06/01/17 20:59 05/08/17 08:38 150 MG Heparin Sodium/ Dextrose 500 ml @ 16 mls/hr Q24H PRN IV 05/02/17 21:45 06/01/17 21:44 Future Hold 05/04/17 04:21 16 MLS/HR Metoprolol Tartrate (Lopressor Tab) 25 mg BID PO 05/03/17 21:00 06/01/17 20:59 05/08/17 08:38 25 MG Amiodarone HCl (Cordarone Tab) 200 mg BID PO 05/03/17 21:00 06/02/17 20:59 05/08/17 08:38 200 MG Ceftriaxone Sodium 1 gm/ Dextrose 50 ml @ 100 mls/hr Q24H IV 05/03/17 18:00 05/10/17 17:59 05/07/17 17:57 100 MLS/HR Promethazine HCl 12.5 mg/Sodium Chloride 50.5 ml @ 202 mls/hr Q6H PRN IV 05/04/17 13:30 06/03/17 13:29 05/04/17 13:32 202 MLS/HR Senna (Senokot Tab) 17.2 mg HS PO 05/05/17 21:00 06/04/17 20:59 05/07/17 20:59 17.2 MG Polyethylene (Miralax Powder Packet) 17 gm DAILY PO 05/06/17 09:00 06/05/17 08:59 05/08/17 08:40 17 GM Morphine Sulfate (MoRPHine SULFATE INJ) 2 mg Q3H PRN IV 05/06/17 10:30 05/20/17 10:29 05/06/17 10:53 2 MG Doxycycline Hyclate (Vibramycin Cap) 100 mg BID PO 05/06/17 21:00 05/10/17 20:59 05/08/17 08:39 100 MG Miscellaneous (Ppd Check) 1 ea Q48H N/A 05/08/17 20:00 05/08/17 20:01 Vital Signs: Date Time Temp Pulse Resp B/P (MAP) Pulse Ox O2 Delivery O2 Flow Rate FiO2 05/08/17 08:30 Room Air 05/08/17 07:06 36.7 65 18 114/68 (83) 99 Room Air 05/08/17 04:40 37.0 72 18 120/66 (84) 98 Room Air 05/08/17 04:00 Room Air 05/08/17 00:31 36.6 70 16 105/42 (63) 97 Room Air 05/08/17 00:00 Room Air 05/07/17 20:00 Room Air 05/07/17 19:38 36.9 73 119/73 (88) 94 Room Air 05/07/17 16:00 Room Air 05/07/17 15:59 37.5 75 20 165/87 (113) 96 Room Air 05/07/17 12:00 Room Air 05/07/17 11:40 36.8 70 18 95/58 (70) 98 Laboratory Results: Last 24 Hours Test 05/07/17 11:00 05/08/17 04:46 Total Creatine Kinase 23 U/L Creatine Kinase MB < 0.5 ng/ml Creatine Kinase MB Ratio Troponin I < 0.015 ng/ml White Blood Count 8.10 K/uL Red Blood Count 3.64 M/uL Hemoglobin 10.3 g/dL Hematocrit 31.5 % Mean Corpuscular Volume 86.5 fL Mean Corpuscular Hemoglobin 28.3 pg Mean Corpuscular Hemoglobin Concent 32.7 g/dl Platelet Count 214 K/uL Mean Platelet Volume 10.2 fL Neutrophils (%) (Auto) 46.3 % Lymphocytes (%) (Auto) 36.3 % Monocytes (%) (Auto) 14.9 % Eosinophils (%) (Auto) 0.9 % Basophils (%) (Auto) 0.1 % Neutrophils # (Auto) 3.75 K/uL Lymphocytes # (Auto) 2.94 K/uL Monocytes # (Auto) 1.21 K/uL Eosinophils # (Auto) 0.07 K/uL Basophils # (Auto) 0.01 K/uL RDW Standard Deviation 45.1 fL RDW Coefficient of Variation 14.4 % Immature Granulocyte % (Auto) 1.5 % Immature Granulocyte # (Auto) 0.12 K/uL Sodium Level 137 mmol/L Potassium Level 4.5 mmol/L Chloride Level 105 mmol/L Carbon Dioxide Level 28 mmol/L Anion Gap 4.0 mmol/L Blood Urea Nitrogen 28 mg/dl Creatinine 1.40 mg/dl Est Creatinine Clear Calc Drug Dose 29.0 ml/min Estimated GFR () 39.3 Estimated GFR (Non- 33.9 BUN/Creatinine Ratio 20.0 Random Glucose 91 mg/dl Calcium Level 10.0 mg/dl Magnesium Level 2.0 mg/dl
--- NOTE | 2017-05-08 10:41 | Discharge Instructions ---
Discharge Instructions Date of Service May 08, 2017. Admission Reason for Admission: Rapid Atrial Flutter Discharge Discharge Diagnosis / Problem: Rapid atrial flutter, Abnormal Chest CT Discharge Goals Goal(s): Improve disease control, Diagnostic testing, Therapeutic intervention Activity Recommendations Activity Limitations: resume your previous activity Exercise/Sports Limitations: gradually increase as tolerated Shower/Bathe: no limitations . Instructions / Follow-Up Instructions / Follow-Up You were admitted with a rapid, irregular heart rhythm called Atrial Flutter. Your heart converted back to a normal rhythm during your stay, and you were started on metoprolol and amiodarone. These are medications that will help keep your heart rate normal and heart rhythm normal, respectively. You were initially started on a blood thinner to reduce your risk of having a stroke related to your atrial flutter, but then had a drop in your red blood cell count and this was stopped. Please follow up with the Pallet Assembler within 2 weeks of discharge. Incidentally, arboleda were found to have abnormal nodules throughout your upper lungs on both sides. You were treated with a course of antibiotics, but this may be an atypical pneumonia, fungal infection, an autoimmune process, or perhaps a cancer. It is unclear at this time as all of the blood tests are still pending at the time of discharge. You were not having any symptoms related to your lungs. You had a PPD test on your arm which was non-reactive so Tuberculosis is not likely. It is very important that you follow up with the Tour Actor, Dr. Booker Garcia, as an outpatient. You will need to have a Bronchoscopy to look inside your lungs and take a sample or biopsy to help determine what the cause of your lung abnormality is. As for your tailbone injury, please purchase a "donut cushion" at the drugstore to sit upon to reduce your pain. You will have home health services evaluate your need for PT at home. Please follow up with your family doctor within 1 week of discharge. Current Hospital Diet Patient's current hospital diet: Low Sodium Diet (2gm Na) Discharge Diet Recommended Diet: AHA Diet (Heart Healthy) Procedures Procedures Performed: Echocardiogram CT Chest PPD placement Chest xray Hip/pelvis xray Pending Studies Studies pending at discharge: yes List of pending studies: Quantiferon Gold TB test, Histoplasma ab, Mycoplasma ab, Legionella ab, Coccidioides ab, Pneumococcal ab, Aspergillus ab, H. pylori stool antigen, Angiotensin converting enzyme Laboratory Results Last 24 Hours Test 05/07/17 11:00 05/08/17 04:46 Total Creatine Kinase 23 U/L Creatine Kinase MB < 0.5 ng/ml Creatine Kinase MB Ratio Troponin I < 0.015 ng/ml White Blood Count 8.10 K/uL Red Blood Count 3.64 M/uL Hemoglobin 10.3 g/dL Hematocrit 31.5 % Mean Corpuscular Volume 86.5 fL Mean Corpuscular Hemoglobin 28.3 pg Mean Corpuscular Hemoglobin Concent 32.7 g/dl Platelet Count 214 K/uL Mean Platelet Volume 10.2 fL Neutrophils (%) (Auto) 46.3 % Lymphocytes (%) (Auto) 36.3 % Monocytes (%) (Auto) 14.9 % Eosinophils (%) (Auto) 0.9 % Basophils (%) (Auto) 0.1 % Neutrophils # (Auto) 3.75 K/uL Lymphocytes # (Auto) 2.94 K/uL Monocytes # (Auto) 1.21 K/uL Eosinophils # (Auto) 0.07 K/uL Basophils # (Auto) 0.01 K/uL RDW Standard Deviation 45.1 fL RDW Coefficient of Variation 14.4 % Immature Granulocyte % (Auto) 1.5 % Immature Granulocyte # (Auto) 0.12 K/uL Sodium Level 137 mmol/L Potassium Level 4.5 mmol/L Chloride Level 105 mmol/L Carbon Dioxide Level 28 mmol/L Anion Gap 4.0 mmol/L Blood Urea Nitrogen 28 mg/dl Creatinine 1.40 mg/dl Est Creatinine Clear Calc Drug Dose 29.0 ml/min Estimated GFR () 39.3 Estimated GFR (Non- 33.9 BUN/Creatinine Ratio 20.0 Random Glucose 91 mg/dl Calcium Level 10.0 mg/dl Magnesium Level 2.0 mg/dl Medical Emergencies . Who to Call and When: Medical Emergencies: If at any time you feel your situation is an emergency, please call 911 immediately. . Non-Emergent Contact Non-Emergency issues call your: Primary Care Provider, Pallet Assembler, Tour Actor Call Non-Emergent contact if: you have a fever, temperature is above 100.5, your pain is not controlled, your pain is worsening, your pain is unusual for you, your pain is concerning you, you have any medication questions you have worsening shortness of breath, heart palpitations, rapid heartbeat, feel lightheaded, or worsening chest pains. . . "Provider Documentation" section prepared by Kylah Aguirre. . VTE Core Measure Inpt VTE Proph given/why not?: Unfractionated heparin SQ
--- NOTE | 2017-05-08 10:57 | Discharge Summary ---
Discharge Summary Date of Service May 08, 2017. Discharge Summary Admission Date: May 02, 2017 at 19:21 Discharge Date: May 08, 2017 Discharge Disposition: Home with services Principal Diagnosis: Rapid atrial flutter, Abnormal Chest CT Problems/Secondary Diagnoses: Atypical PNA, Pulmonary fungal infection vs Autoimmune disorder vs Malignancy- Abnormal Chest CT History of TIA Hypertension Hyperlipidemia Mild cognitive impairment Hyperlipidemia Vertigo Depression Insomnia Colon polyps Coccyalgia GERD Nausea Atypical chest pain Anemia Moderate LVH Mild Mitral regurgitation CKD stage III Hypothyroidism Immunizations: Have You Had Influenza Vaccine: Yes Influenza Vaccine Date: Jul 25, 2007 History of Tetanus Vaccine?: Unknown History of Pneumococcal: No History of Hepatitis B Vaccine: No Procedures: ECHO CT Chest Chest xrays Hip/pelvis xray Consultations: Cardiology Pulmonology Gastroenterology Medication Reconciliation New Medications: Amiodarone HCl (Amiodarone HCl) 200 Mg Tab 200 MG PO BID for 30 Days, #60 TAB Metoprolol Tartrate (Lopressor) 25 Mg Tab 25 MG PO BID for 30 Days, #60 TAB Ranitidine HCl (Ranitidine HCl) 150 Mg Tab 150 MG PO BID for 30 Days, #60 TAB Continued Medications: Acetaminophen (Tylenol Arthritis Ext Rel) 650 Mg Cplt 650 MG PO QID PRN for Pain, CAP Atorvastatin (Lipitor) 10 Mg Tab 10 MG PO DAILY, 0 Refills Cholecalciferol (Vitamin D3) 1,000 Unit Tab 1000 MG PO DAILY Clopidogrel Bisulfate (Plavix) 75 Mg Tab 75 MG PO DAILY, TAB Fish Oil (Fish Oil) 1 Gm Cap 1000 MG PO DAILY Fluoxetine (Prozac) 10 Mg Cap 10 MG PO DAILY, CAP Levothyroxine Sodium (Synthroid) 25 Mcg Tab 25 MCG PO DAILY Losartan Potassium (Cozaar) 100 Mg Tab 100 MG PO DAILY, TAB Meclizine HCl (Meclizine HCl) 12.5 Mg Tab 12.5 MG PO Q6H PRN for vertigo, #60 TAB Memantine (Namenda) 10 Mg Tab 10 MG PO BID, TAB Multivitamins/Minerals (Mvi With Minerals) Tab 1 TAB PO DAILY, TAB Triamterene/Hctz (Triamterene/Hctz 37.5-25MG Tab) 1 Tab Tab 0.5 TAB PO DAILY, TAB TAKE ONE-HALF TAB DAILY Vitamin E (Vitamin E 400 Iu) 400 Unit Cap 400 INTER.UNIT PO DAILY, CAP Discontinued Medications: Doxycycline Hyclate (Doxycycline Hyclate) 100 Mg Cap 100 MG PO BID for 5 Days, #10 TABS Misc Natural Products (Midnite Pm) 1 Chw Chw 1 TAB PO HS PRN for Sleep Ondansetron Hcl (Zofran) 4 Mg Tab 4 MG PO Q6H for Nausea or Vomiting for 10 Days, #40 TAB Referrals At Discharge Follow up Referrals: [facility] Referral - Within 2 Weeks with Jad Alejo MD Manager [facility] Referral - Within 1-2 Weeks with Booker Garcia MD Discharge Exam Feeling better, still with pain in tailbone. Denies headache, no SOB, no chest pain, no nausea, no heartburn. Has been ambulating around room on her own unassisted Physical Exam Tele: NSR with sinus arrhythmia, rates in the 60s-70s General Appearance: WD/WN, no apparent distress Eyes: normal inspection ENT: hearing grossly normal Neck: trachea midline Respiratory/Chest: normal breath sounds, no respiratory distress, no accessory muscle use Cardiovascular: regular rate, rhythm, no edema, no gallop, no murmur Abdomen: soft Extremities: non-tender, no pedal edema, no calf tenderness Neurologic/Psychiatric: alert, normal mood/affect, oriented x 3 Skin: normal color, warm/dry, no rash Review of Systems: Constitutional: No fever, No chills Eyes: No problem reported ENT: No problem reported Respiratory: No cough, No sputum, No shortness of breath Cardiovascular: No chest pain Abdomen: No pain, No nausea, No vomiting, No diarrhea, No constipation, No GI bleeding Musculoskeletal: + joint pain (coccyx) Genitourinary - Female: No problem reported Neurologic: + memory loss (mild) Psychiatric: No problem reported Endocrine: No problem reported Hematologic / Lymphatic: No problem reported Integumentary: No problem reported Hospital Course This patient is an 86-year-old female with a history of TIA, hypertension, mild cognitive impairment, hyperlipidemia, vertigo, depression, insomnia, and colon polyps, who presents to the ER with persistent profound fatigue and dyspnea on exertion since a mechanical fall 4 days ago. In the ER, she was found to have a rapid heartbeat in the 160s. She was given adenosine which revealed an atrial flutter. She does report feeling similar symptoms in the past, but not for this long. She denies any previous history of A. fib or flutter, but a cardiology consult from 2009 notes that she may have had A. fib in the 1980s. She is also been having some burning in her chest that comes and goes on its own and is not positional or associated with eating. It occurs 2 times a day may be for several weeks and she takes Tylenol for it. She denies any weight loss or weight gain, no lower extremity edema. She has had a mild cough and maybe some sweats and chills the last month. Interestingly, her chest x-ray was significant for bilateral patchy airspace opacities particularly in the upper lobes. She has not had any productive sputum. She was started on a diltiazem drip and given IV fluids as well as IV Levaquin in the ER. She is admitted for rapid atrial fibrillation/flutter, and likely atypical pneumonia. 1) Rapid atrial fibrillation/flutter, dyspnea on exertion-probably not new in onset for her given prior similar symptoms. She is now converted to a NSR after being on diltiazem gtt and po metoprolol. Still remains in NSR with PACs. Started on amiodarone as per Cardiology recommendation and tolerating She has no contraindications for anticoagulation, and we discussed risks, ASEs, benefits, and alternatives to AC for CVA prevention with A-fib. There is no evidence of clear ischemia on her ECG. Her pro BNP is significantly elevated at 5000, however she has no other evidence on exam of acutely decompensated CHF. Her dyspnea on exertion is probably related to her tachyarrhythmia, but could be related to her concurrent pneumonia. *She developed worsening anemia on heparin gtt with Hgb going from 12.8-->9.8 ( some may have been dilutional, some lab error), no obvious GI Bleed, Hemoccult negative Anemia improving now that she is off heparin ECHO with hyperdynamic LV function, mod LVH, mild MR PLAN: -discontinued heparin drip until further workup performed for anemia -held Plavix and would stop permanently if going on anticoagulation, but will restart Plavix upon discharge as not using anticoagulation -there was no need for diuresis and she is not hypervolemic on exam, can continue her home Dyazide -continue metoprolol 25mg po bid for rate control, amiodarone 200mg po bid for rhythm control -Appreciate cardiology consultation and will need outpt f/u within 2 weeks after dc -will need to have TSH and LFTs followed periodically on amiodarone 2) Atypical pneumonia vs other etiology with multifocal "reverse halo" pulmonary nodular opacities on Chest CT, Enlarged mediastinal KOBE-with absence of leukocytosis and fevers. She is not hypoxic. Remains fairly symptom-free. Cryptogenic organizing PNA vs sarcoidosis vs Nomi's, TB, opportunistic invasive fungal infections, pneumocystis pneumonia, lymphomatoid granulomatosis , and pulmonary infarction all in differential. Received Levaquin x 2 days, then switched to Rocephin and doxy due to starting amiodarone and risk of QT prolongation--> completed 7 day course of antibiotics and now STOP -consult Pulm to evaluate for etiology of abnormal findings-recommendations appreciated--> checking for fungal infections, atypical PNA, TB, sarcoid -PPD placed and nonreactive -all fungal, atypical PNA abs, pneumococcal, Quantiferon Gold, LESLIE level labs all pending at time of discharge and will need to be followed by Pulm and/or PCP -will need bronchoscopy with Dr. Garcia as outpt-he is aware of case -sputum culture, AFB ordered but not producing any sputum at all 3) Nausea, Anemia-hgb dropping steadily since admission while on heparin gtt. With description of heartburn symptoms occasionally prior to admission, concern for bleeding. Stool Heme negative which makes GI bleeding less likely. Nausea improved now and may have been secondary to amiodarone. Hgb stable now in the 10s and increasing since being off AC -hemoccult stool negative -H. pylori stool ag pending at time of dc -consult GI appreciated -follow CBC -holding heparin but can restart Plavix on dc for h/o TIA -continue Zantac on dc -avoid Zofran in future with risk of prolonged QT on amiodarone -may need EGD as outpt if persists 4) Chest tightness-Atypical CP, ECG no ischemic changes, troponin neg x 3, not likely cardiac in nature. -could be GI related or perhaps related to lung infection/process or side effect of meds -relieved now -could consider future ischemic evaluation as outpt if persists 5) Hypertension, hyperlipidemia, history of TIA-all stable here -Continue losartan, Dyazide, and statin continue metoprolol as above -ok to restart Plavix as has been on this for a while nad hgb was only slightly low at time of admission on Plavix 6) Mild cognitive impairment-stable -Continue Namenda 7) CKD stage III-creatinine 1.2-1.4 with GFR 40. -Renally dose medications -Avoid nephrotoxins -Okay to continue losartan and Dyazide as above 8) Depression, insomnia-stable -Continue Prozac 9) Hypothyroidism-TSH mildly elevated at 5, but free T4 is normal -Continue current dose of levothyroxine -follow TSH as outpt especially now tat is on amiodarone Discharge to home with home health services today Total Time Spent: Greater than 30 minutes This includes examination of the patient, discharge planning, medication reconciliation, and communication with other providers. Discharge Instructions Please refer to the electronic Patient Visit Report (Discharge Instructions) for additional information. Follow-Up PCP within 1 week Cardiology within 2 weeks Pulmonology within 1-2 weeks Additional Copies To Jad Alejo MD; Booker Garcia MD; Khoa Gallegos M.D.
[2017-05-08 11:29] VITALS: BP 123/73; PULSE 73; TEMP 36.9; O2SAT 98
[2017-05-08 14:57] VITALS: BP 123/73; PULSE 73; TEMP 36.9; O2SAT 98
[2017-05-08] MEDS ORDERED: PPD CHECK SCH (20:00)
[2017-05-09 15:34] LABS: QUANTIF TB AG-NIL <0.00 IU/ML; QUANTIFERON NIL 0.05 IU/ML
[2017-05-11 20:35] LABS: ASPERGILLUS FLAVUS Negative (Negative); ASPERGILLUS FUMIGATUS Negative (Negative); ASPERGILLUS NIGER Negative (Negative); HISTOPLASMA AB Negative (Negative); LEGIONELLA PNEUMOPHILA IGG AB <1:64 TITER; PNEUMOCOCCAL IGG TYPE 1 3.1; PNEUMOCOCCAL IGG TYPE 12(12F 0.9; PNEUMOCOCCAL IGG TYPE 14 4.7; PNEUMOCOCCAL IGG TYPE 19(19F 2.7; PNEUMOCOCCAL IGG TYPE 23(23F 5.8; PNEUMOCOCCAL IGG TYPE 26 (6B 3.3; PNEUMOCOCCAL IGG TYPE 3 1.8; PNEUMOCOCCAL IGG TYPE 4 0.4; PNEUMOCOCCAL IGG TYPE 5 0.9; PNEUMOCOCCAL IGG TYPE 51 (7F 19.9; PNEUMOCOCCAL IGG TYPE 56(18C 1.3; PNEUMOCOCCAL IGG TYPE 68 (9V 1.2; PNEUMOCOCCAL IGG TYPE 8 2.1; PNEUMOCOCCAL IGG TYPE 9 (9N) 1.4
[2017-06-03] MEDS ORDERED: AMIO200T4 PO (19:58)
[2017-06-03] MEDS ORDERED: CLON0.5T3 PO (19:58)
[2017-06-07] MEDS ORDERED: PRVC10 PO (09:15)
[2017-06-07] MEDS ORDERED: ELQ25 PO ×2 (09:15→09:30)
[2017-06-07] MEDS ORDERED: ASPI81TA28 PO (09:15)
[2017-06-07] MEDS ORDERED: SYN50 PO (13:49)
== END 2017-05-08 17:24 | disposition home health service (06) | DRG 308 ==
LOC: C.EDB 14:17 → C.2T 19:21 → ENRESERV 19:41 → C.2T 05-06 17:06
PROVIDERS: ADMIT Family Medicine; ATTEND Family Medicine
DX: I48.92 Unspecified atrial flutter (principal); J18.9 Pneumonia, unspecified organism; I48.91 Unspecified atrial fibrillation; S20.212A Contusion of left front wall of thorax, initial encounter; S70.02XA Contusion of left hip, initial encounter; S40.012A Contusion of left shoulder, initial encounter; R91.8 Other nonspecific abnormal finding of lung field; I13.10 Hypertensive heart and chronic kidney disease without heart failure, with stage 1 through stage 4 chronic kidney disease, or unspecified chronic kidney disease; K21.9 Gastro-esophageal reflux disease without esophagitis; D64.9 Anemia, unspecified; E11.9 Type 2 diabetes mellitus without complications; E78.2 Mixed hyperlipidemia; N18.3 Chronic kidney disease, stage 3 (moderate); F32.9 Major depressive disorder, single episode, unspecified; E03.9 Hypothyroidism, unspecified; G31.84 Mild cognitive impairment of uncertain or unknown etiology; G47.00 Insomnia, unspecified; Z51.81 Encounter for therapeutic drug level monitoring; Z79.899 Other long term (current) drug therapy; Z66 Do not resuscitate; Z86.73 Personal history of transient ischemic attack (TIA), and cerebral infarction without residual deficits; Z86.010 Personal history of colon polyps; Z82.49 Family history of ischemic heart disease and other diseases of the circulatory system; Z82.3 Family history of stroke; Z80.1 Family history of malignant neoplasm of trachea, bronchus and lung; Z80.0 Family history of malignant neoplasm of digestive organs; Z80.8 Family history of malignant neoplasm of other organs or systems; W01.0XXA Fall on same level from slipping, tripping and stumbling without subsequent striking against object, initial encounter; Y92.009 Unspecified place in unspecified non-institutional (private) residence as the place of occurrence of the external cause; Y99.8 Other external cause status

== ENCOUNTER → 2017-05-19 | Outpatient (CLI) | payer BC ==
[~2017-05-19] MED LIST changes: +AMIO200T4 PO; +ASPI81TA28 PO; +CLON0.5T3 PO; +CRD200 PO; -DXY100 PO; +ELQ25 PO; +LPR25 PO; -ONDA4TAB65 PO; +PRVC10 PO; +SYN50 PO; +ZNT150 PO; -[UNRECOGNIZED DRUG - CODE] PO
[2017-05-19 17:48] LABS: BASO % 0.2 %; BASO ABS # 0.01 K/uL (0-0.2); COMPLETE YES; EOS % 0.8 %; HEMATOCRIT 32.6 % (37-47); IG% 1.6 %; LYMPH ABS # 2.14 K/uL (1.2-3.4); MEAN CELL VOLUME 88.1 fL (80-100); MEAN CORPUSCULAR HEMOGLOBIN 28.6 pg (25-34); MEAN CORPUSCULAR HGB CONC 32.5 g/dl (32-36); MEAN PLATELET VOLUME 10.6 fL (7.4-10.4); MONO % 14.4 %; PLATELET COUNT 234 K/uL (130-400)
[2017-05-19 17:58] LABS: PARTIAL THROMBOPLASTIN RATIO 1.1; PROTHROMBIN TIME (PATIENT) 11.2 SECONDS (9.0-12.0)
[2017-05-19 18:12] LABS: BLOOD UREA NITROGEN 23 mg/dl (7-18); BUN/CREATININE RATIO 13.7 (10-20); CALCIUM 9.9 mg/dl (8.5-10.1); CARBON DIOXIDE 28 mmol/L (21-32); CHLORIDE 106 mmol/L (98-107); GLUCOSE 97 mg/dl (70-99); POTASSIUM 4.2 mmol/L (3.5-5.1); SODIUM 139 mmol/L (136-145)
== END | disposition home or self-care (01) ==
LOC: C.LAB1850 16:16
PROVIDERS: ATTEND Physician Assistant
DX: R93.8 Abnormal findings on diagnostic imaging of other specified body structures (principal)

== ENCOUNTER → 2017-06-02 | Day surgery (SDC) | payer BC ==
[~2017-06-02] VITALS: Ht 167.6 cm; Wt 76.0 kg
[2017-06-02] VITALS (16 sets, daily range): BP systolic 120–193; BP diastolic 60–89; PULSE 61–68; TEMP 36.5–37.2; O2SAT 91–99; Ht 167.6 cm; Wt 76.0 kg
[~2017-06-02] MED LIST changes: +FENTANYL CITRATE INJ 50 MCG/1 ML 2 ML VIAL IV ONE; +LIDOCAINE 4% INH SOLN 4 ML BTL ONE; +LIDOCAINE HCL 2% LOCAL 50ML VIAL INFIL ONE; +MIDAZOLAM HCL 5 MG/ML 1 ML VIAL IV ONE; +NURSING VERBAL MED ORDER ONE
--- NOTE | 2017-06-02 09:13 | History and Physical ---
History & Physical Date Jun 02, 2017. Chief Complaint Diffuse bilateral infiltrates with the Atoll/Reverse Halo History of Present Illness The patient is a 86 year old female with complaints of Diffuse bilateral infiltrates with the Atoll/Reverse Halo 86y/o female recently admitted to [facility] between May 02 and May 08, 2017 for rapid atrial fibrillation but noted on workup to have an abnormal CT of the chest demonstrating the Atoll/revers halo sign. PmHx includes: Anemia, atrial fibrillation (diagnosed ), history of CVA/ TIA, hyperlipidemia, hypertension, obesity, mild cognitive impairment, vertigo, depression, GERD, atypical chest pain, pneumonia, CKD 3. She is a lifelong nonsmoker with 2nd exposure to multiple family members. She denies history of frequent pulmonary infections, childhood asthma or allergies or hypoxic respiratory failure. She denies ever having been prescribed any inhalers in the past. She generally feels she has been quite healthy. She worked formally for 20 years and [employer] in the [employer] department. 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 She denies any specific occupational exposures. She denies any exposure to asbestos, brick coal dust. She is a lifelong [place] resident born in [place], [place]. She now lives in [place] and has lived there for most of her adult life. 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 She currently lives alone. Her home was built in 1988. She has 1 cat. Heat is hot water. She does have a basement. There is no active mold or mildew. During her admission she was treated with levofloxacin then transitioned to doxycycline + ceftriaxone after amiodarone initiated improved control of atrial arrhythmia. For her consult note she described a 3-4 month history of dyspnea. On my interview today she denies this. She states that in general she has been very active. She does ambulate an incline behind her home and reports some mild dyspnea after this without any associated cough, wheeze, or chest pain. She states she recovers from this quite quickly. She is active around her home without any. She denies any symptoms of daily cough or chest pain. CT chest (images reviewed) 05/05/2017 noted the Atoll/Reverse Halo sign along with trace bilateral pleural effusions, multiple mildly enlarged mediastinal lymph nodes without pathologic criteria met. She underwent extensive workup which included Coccidioides, histoplasmosis, Aspergillus fumigatus/ niger/flavus , Quant gold, pneumococcal, and mycoplasma IgM all of which were unremarkable. Echocardiogram 05/03/2017: EF 65-70 %. Moderate LVH, mild mitral reached patient, atrial flutter, RVSP: 23mmHg Past Medical/Surgical History Medical Problems: (1) Abnormal CT scan, chest (2) Atrial flutter with rapid ventricular response (3) Atypical pneumonia (4) Calculus Of Kidney (5) Diab Tiffanie Wo Compl, Type Ii Or Unspec Type, Not Uncntrld (6) Hyperlipidemia Nec/Nos (7) Hypertension Nos (8) Intractable vomiting (9) Mixed Hyperlipidemia (10) Weakness Additional History Hepatic Disease: No Endocrine Disorder: No Kidney Disease: No Hypertension: No Heart Disease: No Bleeding Tendencies: No Infectious Diseases: No Allergies Coded Allergies: Penicillins (Verified Allergy, Intermediate, hives, 06/02/17) BEE STING (Verified Allergy, Unknown, SWELLING, 06/02/17) Codeine (Verified Adverse Reaction, Mild, NAUSEA/VOMITING, 06/02/17) Home Medications Scheduled Amiodarone HCl (Amiodarone HCl), 200 MG PO BID Atorvastatin (Lipitor), 10 MG PO DAILY Cholecalciferol (Vitamin D3), 1,000 MG PO DAILY Clopidogrel Bisulfate (Plavix), 75 MG PO DAILY Fish Oil (Fish Oil), 1,000 MG PO DAILY Fluoxetine (Prozac), 10 MG PO DAILY Levothyroxine Sodium (Synthroid), 25 MCG PO DAILY Losartan Potassium (Cozaar), 100 MG PO DAILY Memantine (Namenda), 10 MG PO BID Metoprolol Tartrate (Lopressor), 25 MG PO BID Multivitamins/Minerals (Mvi With Minerals), 1 TAB PO DAILY Ranitidine HCl (Ranitidine HCl), 150 MG PO BID Triamterene/Hctz (Triamterene/Hctz 37.5-25MG Tab), 0.5 TAB PO DAILY Vitamin E (Vitamin E 400 Iu), 400 INTER.UNIT PO DAILY Scheduled PRN Acetaminophen (Tylenol Arthritis Ext Rel), 650 MG PO QID PRN for Pain Meclizine HCl (Meclizine HCl), 12.5 MG PO Q6H PRN for vertigo Physical Examination Skin: warm/dry, no rash Eyes: normal inspection, EOMI, sclerae normal ENT: normal ENT inspection, pharynx normal Head: normocephalic, atraumatic Neck: supple, no adenopathy, trachea midline Respiratory/Chest: lungs clear, normal breath sounds, no respiratory distress Cardiovascular: regular rate, rhythm, no edema, no murmur Abdomen / GI: normal bowel sounds, non tender Back: normal inspection Extremities: normal inspection, normal range of motion Neurologic/Psych: no motor/sensory deficits, alert, normal reflexes, oriented x [address] of the chest ASA Classification: ASA Class II Plan of Treatment Bronchoscopy, conscious sedation, transbronchial biopsies, cytology brushing
--- NOTE | 2017-06-02 09:14 | Procedure Note ---
Pre-Mod Sedation Assessment General Date of Moderate Sedation: Jun 02, 2017. Vital Signs: Vital Signs Past 12 Hours Date Time Temp Pulse Resp B/P (MAP) Pulse Ox O2 Delivery O2 Flow Rate FiO2 06/02/17 08:49 36.5 61 18 141/60 96 Room Air 06/02/17 08:11 36.5 61 18 141/60 (87) 96 Room Air Review Cardiovascular: regular rate, rhythm, no edema, no gallop, no JVD, no murmur, normal peripheral pulses Abdomen: normal bowel sounds, non tender, soft, no organomegaly, no pulsatile mass Lungs: chest non-tender, lungs clear, normal breath sounds, no respiratory distress, no accessory muscle use Airway Class: II Pre-Sedation Airway Assessment Oral Cavity: Dentures Able to Visualize Vocal Cords: Yes Short Thick Neck: Yes Hx of Sleep Apnea: No Smoking Status: Never Smoker Mallampati Classification: Class III Procedure Planning Contraindications-for Mod Sed: None Yes Notes The planned sedation has been discussed with the patient and consent obtained. I have identified the patient, determined the appropriateness of sedation and have assessed the patient immediately prior to the procedure. All medicine(s) and interventions are by my order.
--- NOTE | 2017-06-02 10:36 | Bronchoscopy Procedure Note ---
Bronchoscopy Procedure Note Procedure: Bronchoscopy, conscious sedation, transbronchial biopsies, bronchial lavage Consent: Obtained through the patient placed into the chart Pre-procedural diagnosis: Abnormal CT scan Post-procedural diagnosis: Abnormal CT scan Start time: 940 End time: 1003 Total time: 23minutes Analgesia: 2% liquid lidocaine: Via nebulizer 4% gel lidocaine: Via right naris 2% liquid lidocaine: Via bronchoscopy Sedation: Versed IV: 3 mg Fentanyl IV: 50 g Procedure: The OpenPeak video bronchoscope was used for this procedure and passed down through the right naris Right naris/posterior naris/posterior oropharynx: Anatomically within normal limits Glottis: Anatomically within normal limits Vocal cords: Proper abduction and abduction, anatomically within normal limits Subglottis/trachea/Na: Anatomically within normal limits Right bronchial tree: Right mainstem bronchus: Anatomically within normal limits Right upper lobe: Anatomically within normal limits Bronchus intermedius: Anatomically within normal limits Right middle lobe: Anatomically within normal limits Right lower lobe: Anatomically within normal limits Findings: No significant findings noted Left bronchial tree: Left mainstem bronchus: Anatomically within normal limits Left upper lobe: Anatomically within normal limits Lingula: Anatomically within normal limits Left lower lobe: Anatomically within normal limits Findings: No significant findings noted Bronchial alveolar lavage: Right middle lobe Tbbx: 5 passes in the lateral subsegment of the right middle lobe EBL: 10cc Complications: None Follow-up: In the [facility]
--- NOTE | 2017-06-02 10:38 | Procedure Note ---
Post-Moderate Sedation Plan General Date of Moderate Sedation Jun 02, 2017. Vital Signs: Vital Signs Past 12 Hours Date Time Temp Pulse Resp B/P (MAP) Pulse Ox O2 Delivery O2 Flow Rate FiO2 06/02/17 10:20 36.5 62 16 127/65 97 Nasal Cannula 4 06/02/17 10:16 64 20 135/65 92 Nasal Cannula 4.0 06/02/17 10:11 68 20 130/60 94 Mask 8.0 06/02/17 10:06 63 17 154/76 94 Mask 8.0 06/02/17 10:01 62 17 137/68 91 Mask 8.0 06/02/17 09:56 63 17 158/68 94 Mask 8.0 06/02/17 09:51 67 18 193/89 95 Mask 8.0 06/02/17 09:46 62 20 155/71 99 Mask 8.0 06/02/17 09:19 63 21 182/86 94 Mask 8.0 06/02/17 08:49 36.5 61 18 141/60 96 Room Air 06/02/17 08:11 36.5 61 18 141/60 (87) 96 Room Air Review - Discharge Plan Post Moderate Sedation Plan: On clinical assessment, the patient appears to have tolerated the conscious sedation without complications. Patient is recovering as anticipated. Patient will continue to be monitored by nursing and may be discharged when conscious sedation discharge criteria are met.
--- NOTE | 2017-06-02 11:34 | Discharge Instructions ---
Discharge Instructions Date of Service Jun 02, 2017. Admission Reason for Admission: Abn Imaging Discharge Discharge Diagnosis / Problem: Abnormal CT of the chest Discharge Goals Goal(s): Diagnostic testing Activity Recommendations Activity Limitations: resume your previous activity . Instructions / Follow-Up Instructions / Follow-Up [facility] Pulmonary Department Current Hospital Diet Patient's current hospital diet: Discharge Diet Recommended Diet: Regular Diet Procedures Procedures Performed: Bronchoscopy, Sedation, Trans-Bronchial Biopsy, Bronchial Lavage Pending Studies Studies pending at discharge: no Medical Emergencies . Who to Call and When: Medical Emergencies: If at any time you feel your situation is an emergency, please call 911 immediately. . Non-Emergent Contact Non-Emergency issues call your: [facility] . . "Provider Documentation" section prepared by Booker Garcia. . VTE Core Measure Inpt VTE Proph given/why not?: Treatment not indicated
--- NOTE | 2017-06-02 12:04 | DIAGNOSTIC IMAGING REPORT ---
CHEST 1 VW FRONT-NOT PORTABLE CLINICAL HISTORY: Evaluate for pneumothorax post bronchoscopy. COMPARISON STUDY: Chest CT May 05, 2017. FINDINGS: Equivocal trace right apical pneumothorax is likely artifactual. Multifocal bilateral airspace opacities persist. Mild cardiomegaly is unchanged. There is no pleural effusion. Old right-sided rib fractures are noted. IMPRESSION: 1. Equivocal trace right apical pneumothorax which is likely artifactual. A short-term follow-up chest radiograph could be obtained. 2. Persistent nodular bilateral airspace opacities. Electronically signed by: Lars Street M.D. 06/02/2017 12:03 PM Dictated Date/Time: 06/02/2017 11:57 AM
[2017-06-29 09:35] LABS: HERPES SIMPLEX CULT SOURCE OTHER-BAL RML; HERPES SIMPLEX VIRUS CULT NOT ISOLATED (NOT ISOLATED)
== END | disposition home or self-care (01) ==
LOC: C.ACU 07:46
PROVIDERS: ATTEND Internal Medicine Critical Care Medicine
DX: R93.2 Abnormal findings on diagnostic imaging of liver and biliary tract (principal); I48.91 Unspecified atrial fibrillation; D64.9 Anemia, unspecified; I12.9 Hypertensive chronic kidney disease with stage 1 through stage 4 chronic kidney disease, or unspecified chronic kidney disease; E78.2 Mixed hyperlipidemia; Z86.73 Personal history of transient ischemic attack (TIA), and cerebral infarction without residual deficits; E66.9 Obesity, unspecified; G31.84 Mild cognitive impairment of uncertain or unknown etiology; K21.9 Gastro-esophageal reflux disease without esophagitis; F32.9 Major depressive disorder, single episode, unspecified; R42 Dizziness and giddiness; N18.3 Chronic kidney disease, stage 3 (moderate); E11.22 Type 2 diabetes mellitus with diabetic chronic kidney disease; Z79.899 Other long term (current) drug therapy

== ENCOUNTER → 2017-08-02 | Outpatient (CLI) | payer BC ==
[~2017-08-02] MED LIST changes: +APIX1TAB3 PO; -ATOR10TA88 PO; -CLOP1TAB5 PO; -CRD200 PO; -ELQ25 PO; -FENTANYL CITRATE INJ 50 MCG/1 ML 2 ML VIAL IV ONE; -LIDOCAINE 4% INH SOLN 4 ML BTL ONE; -LIDOCAINE HCL 2% LOCAL 50ML VIAL INFIL ONE; -LPR25 PO; +METO25TA56 PO; -MIDAZOLAM HCL 5 MG/ML 1 ML VIAL IV ONE; -NURSING VERBAL MED ORDER ONE; -SYN25 PO
[2017-08-02 19:27] LABS: URINE APPEARANCE TURBID (CLEAR); URINE BILIRUBIN NEG (NEG); URINE COLOR YELLOW; URINE NITRITE POS (NEG); URINE PH 7.5 (4.5-7.5); URINE SPECIFIC GRAVITY 1.015 (1.000-1.030); UROBILINOGEN NEG (NEG); ZZUR CULT IF INDIC CLEAN CATCH YES
[2017-08-02 19:41] LABS: MANUAL MICROSCOPIC REQUIRED? NO; REVIEW REQ? YES
[2017-08-02 19:42] LABS: SULFASALICYLIC ACID POS (NEG)
== END | disposition home or self-care (01) ==
LOC: C.LABSPEC 12:13
PROVIDERS: ATTEND Family Medicine
DX: R39.9 Unspecified symptoms and signs involving the genitourinary system (principal)

== ENCOUNTER → 2017-10-11 | Outpatient (CLI) | payer BC ==
--- NOTE | 2017-10-11 14:45 | DIAGNOSTIC IMAGING REPORT ---
(CHEST) THORAX WITHOUT CT DOSE: 293.56 mGycm HISTORY: Abnormal chest CT. Infiltrate. R93.8 Abnormal chest CTappt sched 10-11-17 @ 2:00 pt aware TECHNIQUE: Multiaxial CT images of the chest were performed without contrast. A dose lowering technique was utilized adhering to the principles of ALARA. COMPARISON: 05/05/2017 FINDINGS: Diffuse parenchymal infiltrative changes previously described are similar in terms of distribution. They are considerably improved in density, however. The underlying nodular component is improved as well. Moderate stable to somewhat improved mid mediastinal adenopathy. Moderate distention a sending thoracic aorta at 4 cm is unchanged. Trace pericardial effusion with a maximum thickness of 8 mm. IMPRESSION: 1. Improving diffuse bilateral parenchymal infiltrative/nodular changes. 2. Overall distribution is similar, although density characteristics are improved. 3. Mediastinal adenopathy moderately improved from the prior study. 4. Mild distention a sending thoracic aorta at 4 cm unchanged. The above report was generated using voice recognition software. It may contain grammatical, syntax or spelling errors. Electronically signed by: Taco Romero M.D. 10/11/2017 2:44 PM Dictated Date/Time: 10/11/2017 2:36 PM
== END | disposition home or self-care (01) ==
LOC: C.CTS 14:10
PROVIDERS: ATTEND Physician Assistant
DX: R93.8 Abnormal findings on diagnostic imaging of other specified body structures (principal)

== ENCOUNTER 2019-08-17 14:37 | Inpatient (IN) ==
[2019-08-17] MEDS ORDERED: SODIUM CHLORIDE 0.9% 1000ML 1,000 ML IV SCH ×2 (15:00→20:29)
[2019-08-17 15:05] LABS: Basophils # (auto) 0.02 K/uL (0-0.2); Basophils % (auto) 0.2 %; Eosinophils # (auto) 0.05 K/uL (0-0.5); Eosinophils % (auto) 0.5 %; Hematocrit (blood only) 40.2 % (37-47); Hemoglobin 13.3 g/dL (12.0-16.0); Immature Granulocytes # (auto) 0.14 K/uL (0.00-0.02); Immature Granulocytes % (auto) 1.4 %; Lymphocytes # (auto) 3.57 K/uL (1.2-3.4); Mean Corpuscular Hemoglobin 29.8 pg (25-34); Mean Corpuscular Hgb Conc 33.1 g/dL (32-36); Mean Corpuscular Volume 90.1 fL (80-100); Mean Platelet Volume 10.8 fL (7.4-10.4); Monocytes # (auto) 1.53 K/uL (0.11-0.59); Monocytes % (auto) 15.8 %; Neutrophils # (auto) 4.35 K/uL (1.4-6.5); Neutrophils % (auto) 45.1 %; Platelet Count 224 K/uL (130-400); RDW Coefficient of Variation 15.3 % (11.5-14.5); RDW Standard Deviation 50.6 fL (36.4-46.3); Red Blood Count 4.46 M/uL (4.2-5.4); White Blood Count 9.66 K/uL (4.8-10.8)
--- NOTE | 2019-08-17 15:13 | XRay Report ---
SINGLE VIEW CHEST CLINICAL HISTORY: Generalized weakness. FINDINGS: An AP, portable, upright chest radiograph is compared to study dated 07/25/2017 and correlat ed with chest CT dated 10/11/2017. The examination is degraded by portable technique and patient rotat ion. The heart is mildly enlarged noting atherosclerotic calcification of the thoracic aorta. There a re diffuse bilateral patchy airspace opacities. No large pleural effusion or pneumothorax is seen. Th e skeletal structures are osteopenic. There are healed right-sided rib fractures. Calcific tendinopat hy is noted in the left shoulder. IMPRESSION: 1. There are diffuse bilateral patchy airspace opacities. Top differential considerations include pul monary edema or an infectious/inflammatory pneumonitis. Clinical correlation will be required. 2. Cardiomegaly. 3. No large pleural effusion is seen. Electronically signed by: Yamil Ambrocio M.D. 08/17/2019 3:12 PM
[2019-08-17 15:14] LABS: Prothrombin Time 10.6 Seconds (9.0-12.0)
[2019-08-17 15:17] LABS: BUN Creatinine Ratio 12.9 (10-20); Calcium 10.2 mg/dl (8.5-10.1); Creatinine Clr Calc Pharmacy 22.4 ml/min; Est GFR (African American) 33.5; Est GFR (Non-African American) 28.9; Magnesium 2.1 mg/dl (1.8-2.4); Potassium 3.9 mmol/L (3.5-5.1)
[2019-08-17 15:29] LABS: Albumin Globulin Ratio 1.1 (0.9-2); Bilirubin,Total 0.6 mg/dl (0.2-1); Globulin 3.8 gm/dl (2.5-4.0); Thyroid Stimulating Hormone 7.99 uIu/ml (0.300-4.500); Total Protein 7.8 gm/dl (6.4-8.2); Troponin I 0.13 ng/ml (0-0.045)
[2019-08-17 15:46] LABS: T4 Free Thyroxine 1.37 ng/dl (0.8-1.6)
[2019-08-17 15:50] LABS: Appearance Urine Clear (Clear); Bacteria Urine Automated 2+ (Negative); Bilirubin Urine Negative (Negative); Blood Urine 2+ (Negative); Color Urine Yellow; Epithelial Cell Urine Auto 0-5 /lpf (0-5); Glucose Urine UA Negative (Negative); Ketones Urine Negative (Negative); Leukocyte Esterase Urine 1+ (Negative); Nitrite Urine Negative (Negative); Protein Urine 1+ (Negative); Specific Gravity Urine 1.013 (1.000-1.030); Urobilinogen Urine Negative (Negative); WBC Urine Automated >30 /hpf (0-5)
--- NOTE | 2019-08-17 16:04 | CT Scan Report ---
CT head/brain wo con CLINICAL HISTORY: change in vision COMPARISON STUDY: 03/07/2019 TECHNIQUE: Axial CT of the brain is performed from the vertex to the skull base. IV contrast was not administered for this examination. A dose lowering technique was utilized adhering to the principles of ALARA. CT DOSE: 614.27 mGy.cm FINDINGS: No intra or extra-axial mass lesions are visualized. There is no CT evidence of acute cortical infarc tion. There is no evidence of midline shift. There is no acute hemorrhage. No calvarial fractures ar e visualized. There are moderate white matter hypodensities likely on a small vessel basis. 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 Mild ventricular prominence is felt to be secondary to volume loss There is left maxillary sinusitis left ethmoid sinus and left frontal sinus mucosal disease. IMPRESSION: No acute intracranial findings Electronically signed by: Chino Gallardo M.D. 08/17/2019 4:02 PM
[2019-08-17] MEDS ORDERED: cefTRIAXone SODIUM 1,000 MG/50 ML BAG IV STA (16:10)
[2019-08-17] MEDS ORDERED: LEVOFLOXACIN/D5W 750 MG/150 ML BAG IV SCH (16:45)
[2019-08-17] MEDS ORDERED: PHENAZOPYRIDINE HCL 100 MG TAB PO STA (17:00)
[2019-08-17] MEDS ORDERED: PHENAZOPYRIDINE HCL 200 MG TAB PO STA (17:00)
[2019-08-17] MEDS ORDERED: PHENAZOPYRIDINE HCL 200 MG TAB ONE (17:24)
--- NOTE | 2019-08-17 17:33 | History & Physical Report ---
Date of Service August 17, 2019 Assessment & Plan (1) Urinary tract infection: Admit to [facility] on telemetry Vital signs every 4 hours Replenish electrolytes CBC and CMP daily BNP pending, procalcitonin pending Started ceftriaxone empirically in the ER for urinary tract infection and possi ble pneumonia. Continue ceftriaxone and doxycycline. Pyridium for dysuria 100 mg p.o. 3 times daily as needed. DVT prophylaxis patient is on apixaban for paroxysmal A. fib's a flutter Patient is DNR/DNI Present on Admission?: Yes (2) Atypical pneumonia: As above Present on Admission?: Yes (3) Hypothyroidism: Patient has subclinical hypothyroidism. Continue for now 88 MCG's of levothyroxine. We deferred this to PCP when patient clinically improved from infection. Would recheck TSH in 6 weeks. Present on Admission?: Yes (4) Chronic kidney disease, stage III (moderate): Avoid nephrotoxic agents. Continue monitoring creatinine and GFR. Hold triamterene hydrochlorothiazide 0.5 mg tablet p.o. every morning due to worsening kidney insufficiency. Present on Admission?: Yes (5) Hypertension: Stable, continue home medicine amlodipine 5 mg p.o. every morning, aspirin 81 mg p.o. every morning, losartan 100 mg p.o. every morning, hold triamterene hydrochlorothiazide 0.5 tablets p.o. every morning due to worsening kidney insufficiency. Present on Admission?: Yes (6) Weakness: Likely due to acute urinary tract infection and possibly pneumonia. Treat underlying cause of disease. Physical and Occupational Therapy-order placed. Present on Admission?: Yes (7) Hyperlipidemia: We will check fasting lipid panel. Present on Admission?: Yes (8) Depression: Stable. Continue fluoxetine 20 mg p.o. every morning. Continue buspirone 7.5 mg p.o. twice daily. Present on Admission?: Yes (9) Dementia: Progressive vascular dementia. Continue donepezil 5 mg p.o. every morning, continue multivitamins. Present on Admission?: Yes History of Present Illness Chief Complaint: Double vision, generalized weakness and persistent cough persistent cough. Primary Care Provider: Wilner Hernandez MD It is a 88 years old female with past medical history of hypertension, CVA, Alzheimer's dementia ,atrial flutter with ventricular response on apixaban who was brought in from the [place] assisted living with a complaint that she have trouble with her vision, double vision, generalized weakness dysuria and fever. Patient's 2 sons are at the bedside and stated that patient was doing okay up this morning at the [place] and nurses reported that everything was okay with her. In the afternoon patient started to complain of dysuria problems with urination feeling a lots of pain and having double vision. Once when she arrived to the emergency room she stated that her vision is improved and her son informed us that she just recently (last Tuesday) had ophthalmologic procedure entropion repair of the right lower eyelid using lateral tarsal strip by Dr. Nice. She denies fever, chest pain, abdominal pain, hematuria dysuria syncope or near syncope. Patient is incontinent for urine. She has diapers. Per her family she is able to walk even though not very stable. Labs are reviewed: WBCs 9.66, hemoglobin 13.3, hematocrit 40.2, PLT 224, PT 10.6, INR 1, sodium 138, potassium 3.9, chloride 104, BUN 20, creatinine 1.58, GFR 28.9, magnesium 2.1, bilirubin 0.6, AST 16, ALT 22, alkaline phosphatase 108, troponin 0.130., TSH 7.990, free T4 1.37. BNP pending. Procalcitonin pending. Urine analysis positive for 2+ blood, leukocyte esterase 1+, WBCs 30, RBCs 10-30, urine bacteria 2+, clean- catch. Chest x-ray shows diffuse bilateral patchy airspace opacities with possibility of pulmonary edema or an infectious inflammatory pneumonitis. Cardiomegaly. No large pleural effusion. In the previous notes from 2017 it is noticed that patient had chronic bilateral lung infiltrates of unknown significance which were worked up by the special education paraeducator. Patient had diagnostic bronchoscopy the day prior. It was also noted in 2017 that patient had mild troponin elevation and elevated TSH. EKG: Shows normal sinus T wave abnormalities. Patient denies chest pain. Her troponin is elevated to 0.13. Decision was made to admit patient to [facility] on telemetry to follow-up in her troponin, urinary tract infection and possibly pneumonia. Allergies Allergy/AdvReac Type Severity Reaction Status Date / Time bee venom protein (honey bee) Allergy Intermediate SWELLING Verified 08/17/19 16:19 Penicillins Allergy Intermediate hives Verified 08/17/19 16:19 codeine AdvReac Mild NAUSEA/VOMI Verified 08/17/19 16:19 TING Home Medications Home Medications Medication Instructions Recorded Confirmed Type apixaban [Eliquis] 2.5 mg PO BID 03/07/19 08/17/19 History aspirin [Aspir-81] 81 mg PO QAM 03/07/19 08/17/19 History buspirone 7.5 mg PO BID 03/07/19 08/17/19 History calcium carbonate [Calcium 600] 600 mg PO QAM 03/07/19 08/17/19 History cetirizine [Zyrtec] 10 mg PO QAM 03/07/19 08/17/19 History cholecalciferol (vitamin D3) 1,000 unit PO QAM 03/07/19 08/17/19 History [Vitamin D3] fluoxetine [Prozac] 20 mg PO QAM 03/07/19 08/17/19 History levothyroxine 88 mcg PO DAILYBB 03/07/19 08/17/19 History losartan [Cozaar] 100 mg PO QAM 03/07/19 08/17/19 History multivitamin,ms-ajvc-ntraktyl 1 tab PO QAM 03/07/19 08/17/19 History [Therems-M] triamterene-hydrochlorothiazid 0.5 tab PO QAM 03/07/19 08/17/19 History azelastine 137 mcg (0.1 %) nasal 2 sprays INTRANASAL BID PRN #1 ml 03/31/19 08/17/19 History spray aerosol benzocaine-menthol 15 mg-3.6 mg 1 colt PO Q2H PRN 03/31/19 08/17/19 History lozenges fluticasone propionate 50 1 sprays INTRANASAL BID PRN #1 gm 03/31/19 08/17/19 History mcg/actuation nasal spray,suspension food supplemt, lactose-reduced 1 ea PO BID PRN ml 03/31/19 08/17/19 History donepezil 5 mg tablet 5 mg PO QAM #30 tab 07/05/19 08/17/19 Rx acetaminophen [Acetaminophen Extra 1,000 mg PO Q8H PRN 08/17/19 08/17/19 History Strength] amiodarone 200 mg PO QAM 08/17/19 08/17/19 History amlodipine [Norvasc] 5 mg PO QAM 08/17/19 08/17/19 History carboxymethylcellulose-glycern 2 drp OPR HS 08/17/19 08/17/19 History [Refresh Optive] erythromycin 0.25 inch OPR QID 08/17/19 08/17/19 History famotidine [Pepcid] 20 mg PO QAM 08/17/19 08/17/19 History loperamide [Anti-Diarrheal 2 mg PO Q4H 08/17/19 08/17/19 History (loperamide)] propylene glycol [Systane Complete] 1 drp OPHTHALMIC (EYE) QID 08/17/19 08/17/19 History Past Med/Surg History Medical History Abnormal CT scan, chest Altered mental status Atrial flutter with rapid ventricular response Atypical pneumonia Chronic kidney disease, stage III (moderate) (Acute) CVA (cerebral infarction) (Acute 05/29/14) Hyperlipidemia (Acute) Hypertension (Acute) Hypothyroidism (Acute) Intractable vomiting Meningioma (Acute) Sinusitis (Acute) Vertigo (Acute 05/29/14) Vomiting (Acute) Weakness (Acute) Weakness Family History Other Family history non-contributory Social History Preferred Language: [place] marital status: / Current Living Situation: Alone current occupational status: retired Feels Safe at Home: Yes Smoking Status: Never smoker Review of Systems Review of Systems: All systems reviewed & are unremarkable except as noted in HPI & below Physical Exam Constitutional: WD/WN, vitals as above well developed and + cachectic Eyes: PERRL, conjunctivae normal, anicteric sclerae ENMT: external ear and nose normal, oropharynx normal Neck: trachea midline, no thyromegaly Respiratory: normal respiratory effort Auscultation: + wheezes Cardiovascular: RRR, no murmur, no edema Musculoskeletal: no cyanosis or clubbing, extremities motor strength 5/5 Skin: no rashes, warm and dry Neurologic: patellar DTR's 2+ bilat, sensation intact Psychiatric: Moderate cognitive impairment due to vascular dementia Lymphatic: no cervical or axillary lymphadenopathy Results & Data Vital Signs (Past 12 Hours) Vital Signs Temp Pulse Pulse Resp BP BP Pulse Ox 08/17/19 16:30 76 18 174/68 H 94 08/17/19 15:30 60 17 154/55 H 95 08/17/19 15:09 63 17 96 08/17/19 14:50 36.9 C 65 16 163/65 H 100 Code Status & VTE Plan Code Status DNR/DNI VTE Prophylaxis Plan VTE Prophylaxis will be ordered: Yes PG Care Time/CCT Total # of Minutes Spent Total Time Spent with Patient: Total time spent is greater than 50% in coordination of care (as documented) at patient's floor/unit and/or counseling patient:
--- NOTE | 2019-08-17 18:43 | Emergency Department Note ---
Entered by Rosita Reddy acting as a scribe for History of Present Illness General Chief complaint: Eye Problems Stated complaint: weakness/blurred vision Source: patient, family and EMS History of Present Illness Onset (ago): hour(s) (6) Location: eyes Pain Consistency: + constant Quality: + other (blurred vision) Associated symptoms: + denies other symptoms (abdominal pain, diarrhea); no chest pain, no cough, no headaches, no nausea/vomiting and no shortness of br eath The patient is a 88 year old female who presents to the Emergency Room with complaints of constant blurred vision beginning 6 hours ago. The patient denies nausea, vomiting, diarrhea, chest pain, abdominal pain, headache, shortness of breath, and cough. EMS reports the patient lives at [facility]. They state the patient was more emotional this morning, and the staff was worried about a TIA. The patient's family member reports a history of anxiety. Sons note that she is slightly confused off of her baseline. Home Medications Home Medications Medication Instructions Recorded Confirmed Type apixaban [Eliquis] 2.5 mg PO BID 03/07/19 08/17/19 History aspirin [Aspir-81] 81 mg PO QAM 03/07/19 08/17/19 History buspirone 7.5 mg PO BID 03/07/19 08/17/19 History calcium carbonate [Calcium 600] 600 mg PO QAM 03/07/19 08/17/19 History cetirizine [Zyrtec] 10 mg PO QAM 03/07/19 08/17/19 History cholecalciferol (vitamin D3) 1,000 unit PO QAM 03/07/19 08/17/19 History [Vitamin D3] fluoxetine [Prozac] 20 mg PO QAM 03/07/19 08/17/19 History levothyroxine 88 mcg PO DAILYBB 03/07/19 08/17/19 History losartan [Cozaar] 100 mg PO QAM 03/07/19 08/17/19 History multivitamin,ha-jwod-otqgcdnm 1 tab PO QAM 03/07/19 08/17/19 History [Therems-M] triamterene-hydrochlorothiazid 0.5 tab PO QAM 03/07/19 08/17/19 History azelastine 137 mcg (0.1 %) nasal 2 sprays INTRANASAL BID PRN #1 ml 03/31/19 08/17/19 History spray aerosol benzocaine-menthol 15 mg-3.6 mg 1 colt PO Q2H PRN 03/31/19 08/17/19 History lozenges fluticasone propionate 50 1 sprays INTRANASAL BID PRN #1 gm 03/31/19 08/17/19 History mcg/actuation nasal spray,suspension food supplemt, lactose-reduced 1 ea PO BID PRN ml 03/31/19 08/17/19 History donepezil 5 mg tablet 5 mg PO QAM #30 tab 07/05/19 08/17/19 Rx acetaminophen [Acetaminophen Extra 1,000 mg PO Q8H PRN 08/17/19 08/17/19 History Strength] amiodarone 200 mg PO QAM 08/17/19 08/17/19 History amlodipine [Norvasc] 5 mg PO QAM 08/17/19 08/17/19 History carboxymethylcellulose-glycern 2 drp OPR HS 08/17/19 08/17/19 History [Refresh Optive] erythromycin 0.25 inch OPR QID 08/17/19 08/17/19 History famotidine [Pepcid] 20 mg PO QAM 08/17/19 08/17/19 History loperamide [Anti-Diarrheal 2 mg PO Q4H 08/17/19 08/17/19 History (loperamide)] propylene glycol [Systane Complete] 1 drp OPHTHALMIC (EYE) QID 08/17/19 08/17/19 History Allergies Allergy/AdvReac Type Severity Reaction Status Date / Time bee venom protein (honey bee) Allergy Intermediate SWELLING Verified 08/17/19 16:19 Penicillins Allergy Intermediate hives Verified 08/17/19 16:19 codeine AdvReac Mild NAUSEA/VOMI Verified 08/17/19 16:19 TING Past Med/Surg History Medical History Abnormal CT scan, chest Altered mental status Atrial flutter with rapid ventricular response Atypical pneumonia Chronic kidney disease, stage III (moderate) (Acute) CVA (cerebral infarction) (Acute 05/29/14) Hyperlipidemia (Acute) Hypertension (Acute) Hypothyroidism (Acute) Intractable vomiting Meningioma (Acute) Sinusitis (Acute) Vertigo (Acute 05/29/14) Vomiting (Acute) Weakness (Acute) Weakness Surgical History No pertinent past surgical history Family History Other Family history non-contributory Social History Preferred Language: Spanish marital status: / Current Living Situation: Alone current occupational status: retired Feels Safe at Home: Yes Smoking Status: Never smoker Review of Systems See HPI for pertinent positives & negatives. and A total of 10 systems reviewed and were otherwise negative Physical Exam Vital Signs Vital Signs - 24 hr 08/17/19 14:50 08/17/19 15:09 08/17/19 15:30 Temperature 36.9 C Temperature Source Oral Pulse Rate 65 63 Pulse Rate [Apical] 60 Pulse Rhythm Regular Regular Pulse Rhythm [Apical] Regular Respiratory Rate 16 17 17 Respiratory Effort / Characteristics Non-Labored Spontaneous Non-Labored Spontaneous Respiratory Depth Normal Normal Respiratory Pattern Regular Regular Blood Pressure 163/65 H Blood Pressure [Right Arm] 154/55 H Blood Pressure Mean 97 Blood Pressure Mean [Right Arm] 88 Pulse Oximetry 100 96 95 Oxygen Delivery Method Room Air Room Air Room Air Sepsis Recent Fever Within 48 Hours No Sepsis New/Unexplained Change in Mental Status No Sepsis Action Taken by Nursing No Action Required 08/17/19 16:30 08/17/19 17:57 08/17/19 18:33 Temperature Temperature Source Pulse Rate Pulse Rate [Apical] 76 75 93 H Pulse Rhythm Pulse Rhythm [Apical] Regular Regular Regular Respiratory Rate 18 17 17 Respiratory Effort / Characteristics Non-Labored Spontaneous Non-Labored Spontaneous Non-Labored Spontaneous Respiratory Depth Normal Normal Normal Respiratory Pattern Regular Regular Regular Blood Pressure Blood Pressure [Right Arm] 174/68 H 146/74 H 156/77 H Blood Pressure Mean Blood Pressure Mean [Right Arm] 103 98 103 Pulse Oximetry 94 95 96 Oxygen Delivery Method Room Air Room Air Room Air Sepsis Recent Fever Within 48 Hours Sepsis New/Unexplained Change in Mental Status Sepsis Action Taken by Nursing GENERAL: sitting up in bed wearing hospital gown, disheveled, non-toxic EYE EXAM: normal conjunctiva, PERRL and EOM's intact, bruising around right orbit, mild injection of right eye. IOP of 18 for right eye, and 20 for left eye. OROPHARYNX: no exudate, no erythema, lips, buccal mucosa, and tongue normal and mucous membranes are moist NECK: supple, no nuchal rigidity, no adenopathy, non-tender LUNGS: Clear to auscultation. Normal chest wall mechanics HEART: no murmurs, S1 normal and S2 normal ABDOMEN: abdomen soft, non-tender, normo-active bowel sounds, no masses, no rebound or guarding. BACK: Back is symmetrical on inspection and there is no deformity, no midline tenderness, no CVA tenderness. SKIN: no rashes and no bruising UPPER EXTREMITIES: upper extremities are grossly normal. LOWER EXTREMITIES: No pitting edema. NEURO EXAM: Normal sensorium, cranial nerves II-XII intact, normal speech, no weakness of arms, no weakness of legs. No drift. Finger to nose intact. Gross s ensation intact. Course Course ED COURSE: Vital signs were reviewed and showed situational hypertension. The patients medical record was reviewed The above diagnostic studies were performed and reviewed. ED treatments and interventions as stated above. 1443: The patient was evaluated in room C07. A complete history and physical examination was performed. 1615: Upon reevaluation, the patient is resting more comfortably. I discussed my findings with the patient and her family and they understand and agree with the treatment plan. Based on the patients age, coexisting illnesses, exam and lab findings the deci jarod to treat as an inpatient was made. I reviewed the patient's case with Dr. Daniels - [facility] Hospitalist. He will evaluate the patient for further management. The patient remained stable while under my care. The patient will be evaluated for further management. Administered Medications Levofloxacin/Dextrose (Levaquin/D5w) 750 mg in 150 mls @ 100 mls/hr IV Q24H SPEEDY Stop: 08/31/19 16:44 Last Admin: 08/17/19 17:30 Dose: 100 mls/hr Documented by: [id number] Discontinued Medications Sodium Chloride (Nss 1000ml) 1,000 mls @ 999 mls/hr IV .Q1H1M SPEEDY Stop: 08/17/19 16:00 Last Infusion: 08/17/19 16:32 Dose: 0 mls/hr Documented by: [id number] Admin: 08/17/19 15:38 Dose: 999 mls/hr Documented by: [id number] Ceftriaxone Sodium (Rocephin) 1,000 mg in 50 mls @ 100 mls/hr IV NOW STA Stop: 08/17/19 16:39 Last Infusion: 08/17/19 17:10 Dose: 0 mls/hr Documented by: [id number] Admin: 08/17/19 16:28 Dose: 100 mls/hr Documented by: [id number] Phenazopyridine HCl (Pyridium) 200 mg PO NOW STA Stop: 08/17/19 17:01 Last Admin: 08/17/19 17:10 Dose: Not Given Documented by: [id number] Phenazopyridine HCl (Pyridium) 100 mg PO NOW STA Stop: 08/17/19 17:01 Last Admin: 08/17/19 17:27 Dose: Not Given Documented by: [id number] Phenazopyridine HCl (Pyridium) Confirm Administered Dose 200 mg .ROUTE .STK-MED ONE Stop: 08/17/19 17:25 Last Admin: 08/17/19 17:27 Dose: 100 mg Documented by: [id number] Medical Decision Making Differential Diagnosis Differential diagnosis:Etiologies such as metabolic, infection, hypoglycemia, electrolyte abnormalities, cardiac sources, intracerebral event, toxicologic, neurologic, as well as others were entertained. Medical Records Attestation: I reviewed the patient's medical records. Home Medications Current Medication List: was personally reviewed by me Laboratory Data Attestation: I reviewed the patient's lab results. Result diagrams: 08/17/19 14:30 08/17/19 14:30 Lab Results 08/17/19 08/17/19 08/17/19 Range/Units 14:30 14:30 14:30 WBC 9.66 (4.8-10.8) K/uL RBC 4.46 (4.2-5.4) M/uL Hgb 13.3 (12.0-16.0) g/dL Hct 40.2 (37-47) % MCV 90.1 (80-100) fL MCH 29.8 (25-34) pg MCHC 33.1 (32-36) g/dL RDW Std Deviation 50.6 H (36.4-46.3) fL RDW Coeff of Fidel 15.3 H (11.5-14.5) % Plt Count 224 (130-400) K/uL MPV 10.8 H (7.4-10.4) fL Immature Gran % (Auto) 1.4 % Neut % (Auto) 45.1 % Lymph % (Auto) 37.0 % [place] % (Auto) 15.8 % Eos % (Auto) 0.5 % Baso % (Auto) 0.2 % Immature Gran # (Auto) 0.14 H (0.00-0.02) K/uL Neut # (Auto) 4.35 (1.4-6.5) K/uL Lymph # (Auto) 3.57 H (1.2-3.4) K/uL [place] # (Auto) 1.53 H (0.11-0.59) K/uL Eos # (Auto) 0.05 (0-0.5) K/uL Baso # (Auto) 0.02 (0-0.2) K/uL PT 10.6 (9.0-12.0) Seconds INR 1.0 (0.9-1.1) Sodium 138 (136-145) mmol/L Potassium 3.9 (3.5-5.1) mmol/L Chloride 104 (98-107) mmol/L Carbon Dioxide 25 (21-32) mmol/L Anion Gap 9.0 (3-11) BUN 20 H (7-18) mg/dl Creatinine 1.58 H (0.6-1.2) mg/dl Est Cr Clr Drug Dosing 22.4 ml/min Est GFR ( Amer) 33.5 Est GFR (Non-Af Amer) 28.9 BUN/Creatinine Ratio 12.9 (10-20) Glucose 85 (70-99) mg/dl Calcium 10.2 H (8.5-10.1) mg/dl Magnesium 2.1 (1.8-2.4) mg/dl Total Bilirubin 0.6 (0.2-1) mg/dl AST 16 (15-37) U/L ALT 22 (12-78) U/L Alkaline Phosphatase 108 (45-117) U/L Troponin I 0.130 H* (0-0.045) ng/ml Total Protein 7.8 (6.4-8.2) gm/dl Albumin 4.0 (3.4-5.0) gm/dl Globulin 3.8 (2.5-4.0) gm/dl Albumin/Globulin Ratio 1.1 (0.9-2) TSH 7.990 H (0.300-4.500) uIu/ml Free T4 1.37 (0.8-1.6) ng/dl Urine Color Urine Appearance (Clear) Urine pH (4.5-7.5) Ur Specific [place] (1.000-1.030) Urine Protein (Negative) Urine Glucose (UA) (Negative) Urine Ketones (Negative) Urine Blood (Negative) Urine Nitrite (Negative) Urine Bilirubin (Negative) Urine Urobilinogen (Negative) Ur Leukocyte Esterase (Negative) Urine WBC (Auto) (0-5) /hpf Urine RBC (Auto) (0-4) /hpf U Hyaline Cast (Auto) (0-5) /lpf U Epithel Cells (Auto) (0-5) /lpf Urine Bacteria (Auto) (Negative) 08/17/19 Range/Units 15:30 WBC (4.8-10.8) K/uL RBC (4.2-5.4) M/uL Hgb (12.0-16.0) g/dL Hct (37-47) % MCV (80-100) fL MCH (25-34) pg MCHC (32-36) g/dL RDW Std Deviation (36.4-46.3) fL RDW Coeff of Fidel (11.5-14.5) % Plt Count (130-400) K/uL MPV (7.4-10.4) fL Immature Gran % (Auto) % Neut % (Auto) % Lymph % (Auto) % [place] % (Auto) % Eos % (Auto) % Baso % (Auto) % Immature Gran # (Auto) (0.00-0.02) K/uL Neut # (Auto) (1.4-6.5) K/uL Lymph # (Auto) (1.2-3.4) K/uL [place] # (Auto) (0.11-0.59) K/uL Eos # (Auto) (0-0.5) K/uL Baso # (Auto) (0-0.2) K/uL PT (9.0-12.0) Seconds INR (0.9-1.1) Sodium (136-145) mmol/L Potassium (3.5-5.1) mmol/L Chloride (98-107) mmol/L Carbon Dioxide (21-32) mmol/L Anion Gap (3-11) BUN (7-18) mg/dl Creatinine (0.6-1.2) mg/dl Est Cr Clr Drug Dosing ml/min Est GFR ( Amer) Est GFR (Non-Af Amer) BUN/Creatinine Ratio (10-20) Glucose (70-99) mg/dl Calcium (8.5-10.1) mg/dl Magnesium (1.8-2.4) mg/dl Total Bilirubin (0.2-1) mg/dl AST (15-37) U/L ALT (12-78) U/L Alkaline Phosphatase (45-117) U/L Troponin I (0-0.045) ng/ml Total Protein (6.4-8.2) gm/dl Albumin (3.4-5.0) gm/dl Globulin (2.5-4.0) gm/dl Albumin/Globulin Ratio (0.9-2) TSH (0.300-4.500) uIu/ml Free T4 (0.8-1.6) ng/dl Urine Color Yellow Urine Appearance Clear (Clear) Urine pH 7.0 (4.5-7.5) Ur Specific [place] 1.013 (1.000-1.030) Urine Protein 1+ H (Negative) Urine Glucose (UA) Negative (Negative) Urine Ketones Negative (Negative) Urine Blood 2+ H (Negative) Urine Nitrite Negative (Negative) Urine Bilirubin Negative (Negative) Urine Urobilinogen Negative (Negative) Ur Leukocyte Esterase 1+ H (Negative) Urine WBC (Auto) >30 H (0-5) /hpf Urine RBC (Auto) 10-30 H (0-4) /hpf U Hyaline Cast (Auto) 1-5 (0-5) /lpf U Epithel Cells (Auto) 0-5 (0-5) /lpf Urine Bacteria (Auto) 2+ H (Negative) Imaging Data Radiologist's Impression: Radiology results as stated below per my review and the radiologist's interpretation: SINGLE VIEW CHEST CLINICAL HISTORY: Generalized weakness. FINDINGS: An AP, portable, upright chest radiograph is compared to study dated 07/25/2017 and correlated with chest CT dated 10/11/2017. The examination is degraded by portable technique and patient rotation. The heart is mildly enlarged noting atherosclerotic calcification of the thoracic aorta. There are diffuse bilateral patchy airspace opacities. No large pleural effusion or pneumothorax is seen. The skeletal structures are osteopenic. There are healed right-sided rib fractures. Calcific tendinopathy is noted in the left shoulder. IMPRESSION: 1. There are diffuse bilateral patchy airspace opacities. Top differential considerations include pulmonary edema or an infectious/inflammatory pneumonitis. Clinical correlation will be required. 2. Cardiomegaly. 3. No large pleural effusion is seen. Electronically signed by: Yamil Ambrocio M.D. 08/17/2019 3:[address] head/brain wo con CLINICAL HISTORY: change in vision COMPARISON STUDY: 03/07/2019 TECHNIQUE: Axial CT of the brain is performed from the vertex to the skull base. IV contrast was not administered for this examination. A dose lowering technique was utilized adhering to the principles of ALARA. CT DOSE: 614.27 mGy.cm FINDINGS: No intra or extra-axial mass lesions are visualized. There is no CT evidence of acute cortical infarction. There is no evidence of midline shift. There is no acute hemorrhage. No calvarial fractures are visualized. There are moderate white matter hypodensities likely on a small vessel basis. 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 Mild ventricular prominence is felt to be secondary to volume loss There is left maxillary sinusitis left ethmoid sinus and left frontal sinus mucosal disease. IMPRESSION: No acute intracranial findings Electronically signed by: Chino Gallardo M.D. 08/17/2019 4:02 PM ECG Data Attestation: I personally reviewed and interpreted this ECG as follows: Indication: + altered mental status Rate (beats per minute): 63 Rhythm: + sinus rhythm ECG [place]: + Normal ECG Findings: + Other (T wave flattening in lateral leads); no PVCs Blood Pressure Blood Pressure Findings: Elevated blood pressure Blood Pressure Disposition: elevated BP felt to be situational MDM Narrative Patient is an 88-year-old female presents the ER for blurry vision. She is a terrible historian. Upon review of the chart this appears to be consistent with previous admissions. She is unable to describe whether it is blurry vision or loss of vision or what part of her vision is affected. She knows that she does feel weak and cold. This is the extent of the history to which she can obtain. Upon review of her chart she has a history of anxiety, hypertension, A. fib, CVA and cognitive dysfunction which I believe plays a role. Labs show no signif icant leukocytosis or anemia. INR was unremarkable. BMP with creatinine 1.58. Magnesium LFTs and bilirubin was unremarkable. Troponin was positive at 0.130. She is here in 07/25/2017 with a negative troponin. TSH was slightly elevated. Free T4 was normal. UA did have white cells, leukocytes and bacteria with no epithelial cells. Patient was given IV fluids and IV Zofran along with aspirin. Patient was treated for UTI. EKG was not significant change from previous. CT of the head was negative. Chest x-ray with infiltrates. Patient did not admit to any respiratory symptoms. Did treat with Rocephin and Levaquin to be on the safe side.. Family and patient updated at bedside. Discussed with the hospitalist. Impression & Plan Elevated troponin, Weakness, Urinary tract infection, Blurred vision, Pulmonary infiltrate Discharge Plan Visit Data Chief Complaint: Eye Problems Stated Complaint: weakness/blurred vision ED Provider: Kadeem Agosto Discharge Problem: Elevated troponin, Weakness, Urinary tract infection, Blurred vision, Pulmonary infiltrate Patient Disposition: Being Evaluated by Hospitalist Forms Stand Alone Forms: My [facility] Prescriptions Prescriptions: No Action donepezil [Aricept] 5 mg tablet 5 mg PO QAM Qty: 30 RF: 5 Cepacol Sore Throat (erna-men) 15-3.6 mg lozenge 1 colt PO Q2H PRN (Reason: sore throat) RF: 0 Ensure liquid 1 ea PO BID PRN (Reason: nutritional supplement) RF: 0 azelastine 137 mcg (0.1 %) aerosol,spray 2 sprays intranasal BID PRN (Reason: allergy symptoms) Qty: 1 RF: 0 fluticasone propionate 50 mcg/actuation spray,suspension 1 sprays intranasal BID PRN (Reason: allergy symptoms) Qty: 1 RF: 0 cetirizine [Zyrtec] 10 mg Tablet 10 mg PO QAM RF: 0 aspirin [Aspir-81] 81 mg Tablet,Delayed Release (Dr/Ec) 81 mg PO QAM RF: 0 levothyroxine 88 mcg tablet 88 mcg PO DAILYBB RF: 0 calcium carbonate [Calcium 600] 600 mg calcium (1,500 mg) Tablet 600 mg PO QAM RF: 0 buspirone 7.5 mg Tablet 7.5 mg PO BID RF: 0 triamterene-hydrochlorothiazid 37.5-25 mg tablet 0.5 tab PO QAM RF: 0 losartan [Cozaar] 100 mg tablet 100 mg PO QAM RF: 0 fluoxetine [Prozac] 20 mg Capsule 20 mg PO QAM RF: 0 Therems-M 27-0.4 mg Tablet 1 tab PO QAM RF: 0 cholecalciferol (vitamin D3) [Vitamin D3] 1,000 unit Tablet 1,000 unit PO QAM RF: 0 Eliquis 2.5 mg Tablet 2.5 mg PO BID RF: 0 erythromycin 5 mg/gram (0.5 %) Ointment 0.25 inch OPR QID RF: 0 Systane Complete 0.6 % Drops 1 drp OPHTHALMIC (EYE) QID RF: 0 Refresh Optive 1-0.9 % Drops,Gel 2 drp OPR HS RF: 0 amiodarone 200 mg tablet 200 mg PO QAM RF: 0 loperamide [Anti-Diarrheal (loperamide)] 2 mg tablet 2 mg PO Q4H RF: 0 amlodipine [Norvasc] 5 mg tablet 5 mg PO QAM RF: 0 acetaminophen [Acetaminophen Extra Strength] 500 mg tablet 1,000 mg PO Q8H PRN (Reason: Fever Or Pain) RF: 0 famotidine [Pepcid] 20 mg tablet 20 mg PO QAM RF: 0 Referrals Referrals: Wilner Hernandez MD [Primary Care Provider] - Discharge Problem: Urinary tract infection Qualifiers: Urinary tract infection type: site unspecified Hematuria presence: without hematuria Qualified Code(s): N39.0 - Urinary tract infection, site not specified The scribe's documentation has been prepared under my direction and personally reviewed by me in its entirety. I confirm that the note above accurately reflects all work, treatment, procedures, and medical decision making performed by me.
[2019-08-17] MEDS ORDERED: ALUMINUM/MAGNESIUM SUSP 30 ML UDC PO PRN (20:29)
[2019-08-17] MEDS ORDERED: COUGH DROP (SUGAR FREE) LOZ 24 LOZ/1 BOX BUCCAL PRN (20:29)
[2019-08-17] MEDS ORDERED: FLUTICASONE PROPIONATE NA SPR 16 GM BTL NAE PRN (20:29)
[2019-08-17] MEDS ORDERED: ACETAMINOPHEN 325 MG TAB PO PRN (20:29)
[2019-08-17] MEDS ORDERED: PHENAZOPYRIDINE HCL 100 MG TAB PO PRN (20:29)
[2019-08-17] MEDS ORDERED: cefTRIAXone SODIUM 2,000 MG/70 ML BAG IV STA (20:29)
[2019-08-17] MEDS ORDERED: NON-FORMULARY MEDICATION (Food Supplemt, Lactose-Reduced [Ensure] 1 EA) PO PRN (20:29)
[2019-08-17] MEDS ORDERED: POLYETHYLENE (MIRALAX) 17 GM PACK PO PRN (20:29)
[2019-08-17] MEDS ORDERED: MAGNESIUM HYDROXIDE SUSP 30 ML UDC PO PRN (20:29)
[2019-08-17] MEDS ORDERED: ONDANSETRON INJ 2 MG/ML 2 ML VIAL IV PRN (20:29)
[2019-08-17] MEDS ORDERED: LOPERAMIDE HCL 2 MG CAP PO PRN (20:51)
[2019-08-17] MEDS: ALBUT/IPRATROP 3MG/0.5MG NEB 3 ML VIAL NEB SCH ×2 (20:52→22:38)
[2019-08-17] MEDS ORDERED: HydrALAZINE 10 MG TAB PO PRN (20:53)
--- NOTE | 2019-08-17 21:48 | Magnetic Resonance Report ---
MRI OF THE BRAIN WITHOUT CONTRAST CLINICAL HISTORY: double vision COMPARISON STUDY: July 25, 2017 FINDINGS: Sagittal T1, axial diffusion, proton density and T2 weighted axial, coronal FLAIR, and axial T1-weigh yudith images were acquired. No intra or extra-axial mass lesions are visualized There are foci of restricted water diffusion involving the inferior medial aspect the right occipital lobe. The findings are indicative of acute/subacute infarct. There are also foci of restricted water diffusion within the right basal ganglia, indicative of acute/subacute infarct. There is additional tiny focus of restricted water diffusion within the right frontal lobe consistent with acute/subacute infarct. There is also a tiny focus of reticular water diffusion within the right cerebellar hemisph ere indicative of acute/subacute infarct The distribution favors an embolic etiology. There is mild ventricular dilatation, likely secondary to volume loss. Proton density T2-weighted and FLAIR images reveal moderate foci of increased T2 signal within the wh ite matter, likely on a small vessel basis. There is an old left occipital infarct. There are no abnormal flow voids. IMPRESSION: 1. Foci of restricted water diffusion involving the inferior medial right occipital lobe, the right b nikia ganglia, right frontal lobe, and right cerebellar hemisphere.. The findings are indicative of ac grant/subacute infarcts. The distribution favors an embolic etiology. Electronically signed by: Chino Gallardo M.D. 08/17/2019 9:47 PM
[2019-08-17] MEDS: ERYTHROMYCIN OP OINT 5 MG/GM 3.5 GM TUBE OPR SCH (22:05)
[2019-08-17] MEDS: APIXABAN 2.5 MG TAB PO SCH (22:06)
[2019-08-17] MEDS: BUSPIRONE HCL 7.5 MG TAB PO SCH (22:07)
[2019-08-17] MEDS: DOXYCYCLINE HYCLATE 100 MG in DEXTROSE 5% 100 ML IV SCH (22:07)
[2019-08-17] MEDS: ARTIFICIAL TEARS OP SCH ×2 (22:18→22:19)
[2019-08-17] MEDS ORDERED: PHARMACIST DISCHARGE MED REC CONSULT PRN (22:21)
[2019-08-18 03:00] LABS: Basophils # (auto) 0.01 K/uL (0-0.2); Basophils % (auto) 0.1 %; Eosinophils # (auto) 0.02 K/uL (0-0.5); Eosinophils % (auto) 0.3 %; Hemoglobin 12.1 g/dL (12.0-16.0); Immature Granulocytes # (auto) 0.12 K/uL (0.00-0.02); Immature Granulocytes % (auto) 1.6 %; Lymphocytes # (auto) 1.64 K/uL (1.2-3.4); Lymphocytes % (auto) 21.8 %; Mean Corpuscular Hemoglobin 29.9 pg (25-34); Mean Corpuscular Hgb Conc 33.6 g/dL (32-36); Mean Corpuscular Volume 88.9 fL (80-100); Mean Platelet Volume 10.8 fL (7.4-10.4); Monocytes # (auto) 2.02 K/uL (0.11-0.59); Monocytes % (auto) 26.8 %; Neutrophils # (auto) 3.72 K/uL (1.4-6.5); Neutrophils % (auto) 49.4 %; Platelet Count 184 K/uL (130-400); RDW Coefficient of Variation 15.1 % (11.5-14.5); RDW Standard Deviation 49.2 fL (36.4-46.3); Red Blood Count 4.05 M/uL (4.2-5.4); White Blood Count 7.53 K/uL (4.8-10.8)
[2019-08-18 03:24] LABS: Albumin Level 3.3 gm/dl (3.4-5.0); BUN Creatinine Ratio 12.6 (10-20); Calcium 9.1 mg/dl (8.5-10.1); Creatinine Clr Calc Pharmacy 25.5 ml/min; Est GFR (African American) 39.1; Est GFR (Non-African American) 33.8; Potassium 3.6 mmol/L (3.5-5.1)
[2019-08-18] MEDS: ALBUT/IPRATROP 3MG/0.5MG NEB 3 ML VIAL NEB SCH ×3 (03:26→11:08)
[2019-08-18 03:37] LABS: Albumin Globulin Ratio 0.9 (0.9-2); Bilirubin,Total 0.5 mg/dl (0.2-1); Globulin 3.6 gm/dl (2.5-4.0); Total Protein 6.9 gm/dl (6.4-8.2); Troponin I 0.1 ng/ml (0-0.045)
--- NOTE | 2019-08-18 05:47 | Ultrasound Report ---
US venous doppler LE BI HISTORY: Pain. Edema. possible DVT COMPARISON STUDY: None. FINDINGS: There is normal compressibility, flow, and augmentation within the bilateral lower extremit y deep venous systems. IMPRESSION: No DVT within the right or left lower extremity. The above report was generated using voice recognition software. It may contain grammatical, syntax or spelling errors. Electronically signed by: Taco Romero M.D. 08/18/2019 5:45 AM
--- NOTE | 2019-08-18 05:49 | Ultrasound Report ---
US carotid doppler BI HISTORY: Mental status change double vision COMPARISON: None. TECHNIQUE: Real-time, grayscale, and color Doppler sonography of the carotid arteries was performed. Imaging reviewed in the transverse and longitudinal planes. All measurements were calculated based on NASCET criteria. FINDINGS: Antegrade flow is seen in the bilateral vertebral arteries. The brachial pressures are hemodynamically similar. Significant plaque formation bilaterally The peak systolic velocity within the right ICA is 61. The right systolic ratio is 0.5. The peak systolic velocity within the left ICA is 100. The left systolic ratio is 0.96. Increased velocity left external carotid artery. IMPRESSION: 1. Considerable plaque formation laterally. 2. No significant stenosis of the internal or common carotid systems. 3. 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 The above report was generated using voice recognition software. It may contain grammatical, syntax or spelling errors. Electronically signed by: Taco Romero M.D. 08/18/2019 5:48 AM
[2019-08-18] MEDS: LEVOTHYROXINE SODIUM 88 MCG TABLET PO SCH (06:23)
[2019-08-18 07:14] LABS: Estimated Average Glucose 108 mg/dl; Hemoglobin A1C 5.4 % (4.5-5.6)
[2019-08-18] MEDS: APIXABAN 2.5 MG TAB PO SCH ×2 (09:24→21:54)
[2019-08-18] MEDS: BUSPIRONE HCL 7.5 MG TAB PO SCH ×2 (09:24→21:22)
[2019-08-18] MEDS: AMIODARONE 200 MG TAB PO SCH (09:24)
[2019-08-18] MEDS: AMLODIPINE BESYLATE 5 MG TAB PO SCH (09:25)
[2019-08-18] MEDS: CHOLECALCIFEROL 1,000 UNITS TAB PO SCH (09:25)
[2019-08-18] MEDS: DONEPEZIL HCL 5 MG TAB PO SCH (09:25)
[2019-08-18] MEDS: FLUOXETINE HCL 20 MG CAP PO SCH (09:25)
[2019-08-18] MEDS: CEROVITE ADV FORMULA TAB PO SCH (09:25)
[2019-08-18] MEDS: CALCIUM 600MG + VIT D 400 IU TAB PO SCH (09:26)
[2019-08-18] MEDS: CETIRIZINE HCL 10 MG TABLET PO SCH (09:26)
[2019-08-18] MEDS: LOSARTAN POTASSIUM 50 MG TAB PO SCH (09:26)
[2019-08-18] MEDS: FAMOTIDINE 20 MG TAB PO SCH (09:26)
[2019-08-18] MEDS: TRIAMTERENE/HCTZ 37.5/25MG TAB PO SCH (09:27)
[2019-08-18] MEDS: ASPIRIN 81 MG ECTAB PO SCH (09:27)
[2019-08-18] MEDS: ARTIFICIAL TEARS OP SCH ×5 (09:28→21:14)
[2019-08-18] MEDS: ERYTHROMYCIN OP OINT 5 MG/GM 3.5 GM TUBE OPR SCH ×4 (09:28→21:19)
[2019-08-18] MEDS: DOXYCYCLINE HYCLATE 100 MG in DEXTROSE 5% 100 ML IV SCH ×2 (09:30→21:19)
--- NOTE | 2019-08-18 15:57 | Hospitalist Progress Note ---
Date of Service August 18, 2019 Assessment & Plan (1) Stroke: - Presentation of double vision - santos had R entropian repair on 08/15 - MRI reveals embolic strokes in inferior medial R occipital lobe, R basal ganglia, R frontal lobe, and R cerebellar hemisphere - Carotid U/S reveals 60-70% stenosis of L ECA and possibly off AC for eye procedure with H/O paroxysmal A Fib - currently in sinus - question embolic due to carotids vs A Fib? - Continue stroke w/o tPA protocol/speech/PT/OT - ASA 81 mg daily and Apixaban 2.5 mg BID; case was discussed with [facility] Neuro on admission not a tPA candidate - Lipid panel WNL - advised to give statin if abnormal by Karen however given carotids will discuss with Neuro about implementation as possibly embolic from carotid instead of A Fib? -- Per review of previous admission in 2017 - appears she was on Pravastatin 10 mg as an alternative to Lipitor. Not sure if there were intolerance to this medication? As well it appears she was on Plavix but this was stopped when Eliquis was initiated - Neurology following - appreciate input (2) Urinary tract infection: - UA with gram neg bacilli - await culture identification - Ceftriaxone 2 g daily; Pyridium PRN (3) Atypical pneumonia: - Uncertain if this is infectious vs inflammatory vs pulmonary edema - Maintaining appropriate saturations on RA - currently denies respiratory complaints - Will continue Rocephin as above; Doxycycline 100 mg BID - Does follow with Pulm - upon reading other notes it appears they are following her for chronic infiltrative changes and this may be ultimately a manifestation of that (4) Paroxysmal atrial fibrillation: - Currently NSR and will monitor on telemetry given embolic nature of CVA - Possibly caused by holding Eliquis for eye procedure? - Continue Amiodarone 200 mg daily and Eliquis 2.5 mg BID (5) Elevated troponin: - Has chronic elevations; currently troponins x 3 positive but trending down and now ACS symptoms - On previous admission question of moderate LVH and contributor to chronic troponins (6) Hypothyroidism: - TSH chronically elevated with normal T4 - question of subclinical hypothyroidism - Continue Levothyroxine 88 mcg daily - may be slightly reactive vs normal variant given age and can F/U in 6 weeks with recheck with PCP (7) Chronic kidney disease, stage III (moderate): - STABLE - appears baseline is 1.2-1.7 - Avoid nephrotoxic agents; renal dose as necessary (8) Hypertension: - STABLE - Continue Amlodipine 5 mg daily, Losartan 100 mg daily, Triamterene/HCTZ 0.5 tab daily (9) Weakness: - Possibly due to UTI - will await response with treatment - PT/OT chung (10) Hyperlipidemia: - Lipid panel WNL - appears to have been on Lipitor then Pravastatin in the past (2017 notes) - may need to F/U with the [facility] to see if this was missed on her med rec - Lipid panel is WNL however does have carotid stenosis (11) Depression: - STABLE - Continue Fluoxetine 20 mg daily and Buspirone 7.5 mg BID (12) Dementia: - Progressive vascular dementia - Continue Donepezil 5 mg daily Disposition: Await UCx and F/U with neurology recommendations/PT/OT - resident of the [facility]; updated son Tripp over the phone Subjective Reports feeling pretty fatigued this morning. Had a little more energy after eating some lunch. She reports some ongoing difficulty seeing but states he vision hasn't completely improved since her eye procedure and now with new CVAs. She cannot remember if she held her Apixaban prior to her eye surgery. Her son wasn't sure either but knows she was told to hold her ASA. There is question of a possible PNA on imaging but patient does not endorse any respiratory symptoms. Troponins are trending down and denies CP. Updated son over the phone. Review of Systems Constitutional: + fatigue; no fever and no chills Eyes: + diplopia; no eye pain Ear, Nose, Mouth, Throat: no nasal congestion and no sore throat Respiratory: no cough and no dyspnea Cardiovascular: no chest pain, no palpitations and no lightheadedness Gastrointestinal: no abdominal pain, no nausea, no vomiting, no constipation and no diarrhea/loose stools Genitourinary: no dysuria Integumentary: no rash Neurologic: + generalized weakness Physical Exam Constitutional: + frail appearing Eyes: + anicteric sclerae Some mild edema noted around R eye ENMT: Ears: no hearing impairment Neck: trachea midline Respiratory: normal respiratory effort, lungs clear to auscultation Cardiovascular: RRR, no murmur, no edema Gastrointestinal (Abdomen): Inspection/Auscultation: normal bowel sounds Percussion/Palpation: abdomen soft; abdomen nontender Musculoskeletal: Head/Neck/Chest: normocephalic and head atraumatic Extremities: no cyanosis and no clubbing Skin: no rashes, warm and dry Neurologic: moves all extremities Psychiatric: Orientation: alert Results & Data Vital Signs (Past 12 Hours) Vital Signs Temp Pulse Pulse Resp BP BP Pulse Ox 08/18/19 15:47 36.3 C L 76 20 133/63 90 08/18/19 11:55 37.0 C 69 18 146/84 H 98 08/18/19 11:08 67 16 93 08/18/19 09:20 76 08/18/19 07:18 37.1 C 73 18 145/73 H 91 08/18/19 07:14 77 18 94 08/18/19 04:40 76 PG Care Time/CCT Total # of Minutes Spent Total Time Spent with Patient: Total time spent is greater than 50% in coordination of care (as documented) at patient's floor/unit and/or counseling patient: (1) Urinary tract infection Hematuria presence: without hematuria Urinary tract infection type: site unspecified Qualified Code(s): N39.0 - Urinary tract infection, site not specified
[2019-08-18] MEDS ORDERED: cefTRIAXone SODIUM 2,000 MG in DEXTROSE 5% 50 ML IV SCH (16:00)
--- NOTE | 2019-08-18 16:16 | Neurology Consultation ---
Date of Consultation August 18, 2019 Assessment & Plan (1) Elevated troponin: (2) Dementia: (3) Stroke: Sunshine Steward is an 88 yo woman w/ PMH of HLD, CKD3, meningioma, dementia, depression, recurrent UTIs, hypothyroidism, HTN, h/o stroke in 2013, and Afib on apixaban who p/t [facility] with c/o vision change, diplopia, generalized weakness, dysuria and fever. # Multifocal strokes: Symptom localization: occipital for vision complaints, generalized weakness se condary to UTI Stroke mechanism: cardioembolic Stroke WorkUp: - TTE: pending, will consider FRANCISCO - Telemetry: pending - A1c: 5.4 - LDL: 87 - Troponin, TSH: Negative, TSH elevated with normal free T4 Stroke Management: - Continuous cardiac monitoring (has known P A. fib so no need to have Holter on DC) - Vitals, Neurochecks, NIHSS per unit routine - BP parameters: SBP CAP 180, ok to restart home BP meds with goal of normotension over next 3-4 days - Complete ischemic stroke workup with TTE without bubble, CTA head and neck if able to obtain - Consult speech, PT, OT for supportive management - Will counselor aid concerning stroke education, smoking cessation, healthy diet, physical activity, weight loss - Follow up with PCP for assistance with outpatient goals (BP <135/85, LDL <70, A1c <7) - Follow up in neurology clinic in 6-8 weeks Secondary Stroke Prevention: - Antiplatelet: n/a - Anticoagulation: apixaban 2.5mg bid - Statin: Atorvastatin 40mg daily FEN/GI: - Diet: NPO until cleared by Speech evaluation - Monitor lytes and replete PRN Glucose Control: - Sliding scale insulin and accuchecks per primary team to avoid hyperglycemia Thank you for this interesting consult. Please call or text with any questions. History of Present Illness Attending Physician: Balbir Celeste, DO History of Present Illness Sunshine Steward is an 88 yo woman w/ PMH of HLD, CKD3, meningioma, dementia, depression, recurrent UTIs, hypothyroidism, HTN, h/o stroke in 2013, and Afib on apixaban who p/t [facility] with c/o vision change, diplopia, generalized weakness, dysuria and fever. JAWBONE PULLER in the afternoon on 08/17 before reporting dysuria, diplopia and frequent need to urinate. Sons reported that she had held her apixaban for ophtho procedure on 08/15. In the ED, labs notable for WBC 9.66, Hb 13.3, Plt 224, INR 1, Na 138, BUN 20, Cr 1.58, troponin 0.130, TSH 7.990, free T4 1.37. UA positive for 2+ blood, 1+ leukocyte esterase, WBCs 30, RBCs 10-30, urine bacteria 2+. CXR showed diffuse patchy bilateral airspace opacities w/ possible pulmonary edema vs infectious/inflammatory pneumonitis. CTH showed old left occipital infarct, moderate SVID, generalized atrophy, no acute infarct or hemorrhage. MRI brain showed multiple small infarcts in medial right occipital lobe (largest), right basal ganglia, right frontal lobe, right cerebellar hemisphere, chronic infarct in left occipital lobe. Allergies Allergy/AdvReac Type Severity Reaction Status Date / Time bee venom protein (honey bee) Allergy Intermediate SWELLING Verified 08/17/19 16:19 Penicillins Allergy Intermediate hives Verified 08/17/19 16:19 codeine AdvReac Mild NAUSEA/VOMI Verified 08/17/19 16:19 TING Home Medications Home Medications Medication Instructions Recorded Confirmed Type apixaban [Eliquis] 2.5 mg PO BID 03/07/19 08/17/19 History aspirin [Aspir-81] 81 mg PO QAM 03/07/19 08/17/19 History buspirone 7.5 mg PO BID 03/07/19 08/17/19 History calcium carbonate [Calcium 600] 600 mg PO QAM 03/07/19 08/17/19 History cetirizine [Zyrtec] 10 mg PO QAM 03/07/19 08/17/19 History cholecalciferol (vitamin D3) 1,000 unit PO QAM 03/07/19 08/17/19 History [Vitamin D3] fluoxetine [Prozac] 20 mg PO QAM 03/07/19 08/17/19 History levothyroxine 88 mcg PO DAILYBB 03/07/19 08/17/19 History losartan [Cozaar] 100 mg PO QAM 03/07/19 08/17/19 History multivitamin,hk-luit-esxisxfp 1 tab PO QAM 03/07/19 08/17/19 History [Therems-M] triamterene-hydrochlorothiazid 0.5 tab PO QAM 03/07/19 08/17/19 History azelastine 137 mcg (0.1 %) nasal 2 sprays INTRANASAL BID PRN #1 ml 03/31/19 08/17/19 History spray aerosol benzocaine-menthol 15 mg-3.6 mg 1 colt PO Q2H PRN 03/31/19 08/17/19 History lozenges fluticasone propionate 50 1 sprays INTRANASAL BID PRN #1 gm 03/31/19 08/17/19 History mcg/actuation nasal spray,suspension food supplemt, lactose-reduced 1 ea PO BID PRN ml 03/31/19 08/17/19 History donepezil 5 mg tablet 5 mg PO QAM #30 tab 07/05/19 08/17/19 Rx acetaminophen [Acetaminophen Extra 1,000 mg PO Q8H PRN 08/17/19 08/17/19 History Strength] amiodarone 200 mg PO QAM 08/17/19 08/17/19 History amlodipine [Norvasc] 5 mg PO QAM 08/17/19 08/17/19 History carboxymethylcellulose-glycern 2 drp OPR HS 08/17/19 08/17/19 History [Refresh Optive] erythromycin 0.25 inch OPR QID 08/17/19 08/17/19 History famotidine [Pepcid] 20 mg PO QAM 08/17/19 08/17/19 History loperamide [Anti-Diarrheal 2 mg PO Q4H 08/17/19 08/17/19 History (loperamide)] propylene glycol [Systane Complete] 1 drp OPHTHALMIC (EYE) QID 08/17/19 08/17/19 History Patient History Medical History Abnormal CT scan, chest Altered mental status Atrial flutter with rapid ventricular response Atypical pneumonia Chronic kidney disease, stage III (moderate) (Acute) CVA (cerebral infarction) (Acute 05/29/14) Hyperlipidemia (Acute) Hypertension (Acute) Hypothyroidism (Acute) Intractable vomiting Meningioma (Acute) Sinusitis (Acute) Vertigo (Acute 05/29/14) Vomiting (Acute) Weakness (Acute) Weakness Surgical History No pertinent past surgical history Family History Other Family history non-contributory Social History Preferred Language: [place] Communication Ability: Effective Seafood Specialist Required: No Beliefs That Will Affect Care: None marital status: / Current Living Situation: Personal Care Facility current occupational status: retired Feels Safe at Home: Yes Smoking Status: Never smoker Second Hand Exposure: No ; Hx Alcohol Use: No Hx Substance Use: No Review of Systems Review of Systems: 14 point review of systems completed and negative except as in HPI. Physical Exam Physical Exam: General Exam: GEN: NAD, sitting in bed. HEENT: No conjunctival injection, no rhinorrhea. CV: Irregularly irregular, no peripheral edema PULM: Nonlabored respirations on room air. Neuro Exam: MS: Awake and Alert. Oriented to person, place, month/year but not date. Speech fluent and appropriate without dysarthria or paraphasic errors. Language intact including naming, comprehension, repetition. Cognition and memory grossly intact. Attention intact. No neglect. CN: Left visual field cut most notable in the left eye. No extinction to double simultaneous stimuli. Unable to visualize fundi on fundoscopic exam. PERRLA OU. EOMI without nystagmus. Facial sensation intact to LT. Facial muscles full and symmetric. Hearing intact to conversation. Uvula midline with symmetric palatal elevation. Shoulder shrug normal. Tongue midline. MOTOR: Normal bulk and tone. No pronator drift. BUE strength 5-/5 at deltoids, biceps, triceps, wrist flexors and extensors, and hand grasp bilaterally. BLE strength 5-/5 at iliopsoas, hamstrings, quadriceps, tibialis anterior, and gastrocnemius bilaterally. REFLEXES: 1+ at biceps, triceps, brachioradialis, 1+ patella and absent Achilles bilaterally. Toes mute bilaterally. SENSORY: Intact to LT without extinction to double simultaneous stimuli. Vibration and temperature intact throughout. COORDINATION: No dysmetria or ataxia on [id number] bilaterally. Normal [place] bilaterally. GAIT: Deferred given fall risk Results & Data Vital Signs (Past 12 Hours) Vital Signs Temp Pulse Pulse Resp BP BP Pulse Ox 08/18/19 15:47 36.3 C L 76 20 133/63 90 08/18/19 11:55 37.0 C 69 18 146/84 H 98 08/18/19 11:08 67 16 93 08/18/19 09:20 76 08/18/19 07:18 37.1 C 73 18 145/73 H 91 08/18/19 07:14 77 18 94 08/18/19 04:40 76 PG Care Time/CCT Total # of Minutes Spent Total Time Spent with Patient: Total time spent is greater than 50% in coordination of care (as documented) at patient's floor/unit and/or counseling patient:
[2019-08-19] MEDS: LEVOTHYROXINE SODIUM 88 MCG TABLET PO SCH (05:43)
[2019-08-19 07:55] LABS: Basophils # (auto) 0.01 K/uL (0-0.2); Basophils % (auto) 0.1 %; Eosinophils # (auto) 0.05 K/uL (0-0.5); Eosinophils % (auto) 0.7 %; Hematocrit (blood only) 35.4 % (37-47); Immature Granulocytes # (auto) 0.12 K/uL (0.00-0.02); Immature Granulocytes % (auto) 1.6 %; Lymphocytes # (auto) 1.76 K/uL (1.2-3.4); Lymphocytes % (auto) 23.2 %; Mean Corpuscular Hemoglobin 29.9 pg (25-34); Mean Corpuscular Hgb Conc 33.9 g/dL (32-36); Mean Corpuscular Volume 88.1 fL (80-100); Mean Platelet Volume 10.7 fL (7.4-10.4); Monocytes # (auto) 1.99 K/uL (0.11-0.59); Monocytes % (auto) 26.2 %; Neutrophils # (auto) 3.67 K/uL (1.4-6.5); Neutrophils % (auto) 48.2 %; Platelet Count 175 K/uL (130-400); RDW Coefficient of Variation 15.2 % (11.5-14.5); Red Blood Count 4.02 M/uL (4.2-5.4)
[2019-08-19] MEDS: TRIAMTERENE/HCTZ 37.5/25MG TAB PO SCH (07:58)
[2019-08-19] MEDS: ASPIRIN 81 MG ECTAB PO SCH (07:59)
[2019-08-19] MEDS: CETIRIZINE HCL 10 MG TABLET PO SCH (07:59)
[2019-08-19] MEDS: LOSARTAN POTASSIUM 50 MG TAB PO SCH (07:59)
[2019-08-19] MEDS: FAMOTIDINE 20 MG TAB PO SCH (07:59)
[2019-08-19] MEDS: BUSPIRONE HCL 7.5 MG TAB PO SCH ×2 (08:00→21:14)
[2019-08-19] MEDS: CALCIUM 600MG + VIT D 400 IU TAB PO SCH (08:00)
[2019-08-19] MEDS: AMIODARONE 200 MG TAB PO SCH (08:00)
[2019-08-19] MEDS: APIXABAN 2.5 MG TAB PO SCH ×2 (08:00→21:15)
[2019-08-19] MEDS: FLUOXETINE HCL 20 MG CAP PO SCH (08:00)
[2019-08-19] MEDS: AMLODIPINE BESYLATE 5 MG TAB PO SCH (08:01)
[2019-08-19] MEDS: CHOLECALCIFEROL 1,000 UNITS TAB PO SCH (08:01)
[2019-08-19] MEDS: CEROVITE ADV FORMULA TAB PO SCH (08:01)
[2019-08-19] MEDS: ERYTHROMYCIN OP OINT 5 MG/GM 3.5 GM TUBE OPR SCH ×4 (08:01→21:15)
[2019-08-19] MEDS: ARTIFICIAL TEARS OP SCH ×5 (08:02→21:13)
[2019-08-19] MEDS: DOXYCYCLINE HYCLATE 100 MG in DEXTROSE 5% 100 ML IV SCH (08:03)
[2019-08-19 08:34] LABS: Albumin Level 3.2 gm/dl (3.4-5.0); BUN Creatinine Ratio 15.7 (10-20); Calcium 9.8 mg/dl (8.5-10.1); Creatinine Clr Calc Pharmacy 27.3 ml/min; Est GFR (African American) 40.5; Potassium 3.6 mmol/L (3.5-5.1)
[2019-08-19 08:37] LABS: Albumin Globulin Ratio 0.9 (0.9-2); Bilirubin,Total 0.6 mg/dl (0.2-1); Globulin 3.7 gm/dl (2.5-4.0); Total Protein 6.9 gm/dl (6.4-8.2)
[2019-08-19] MEDS: DONEPEZIL HCL 5 MG TAB PO SCH (08:49)
--- NOTE | 2019-08-19 12:40 | Neurology Progress Note ---
Date of Service August 19, 2019 Assessment & Plan (1) Stroke: Sunshine Steward is an 88 yo woman w/ PMH of HLD, CKD3, meningioma, dementia, depression, recurrent UTIs, hypothyroidism, HTN, h/o stroke in 2013, and Afib on apixaban who p/t [facility] with c/o vision change, diplopia, generalized weakness, dysuria and fever. # Multifocal strokes: Symptom localization: occipital for vision complaints, generalized weakness secondary to UTI Stroke mechanism: cardioembolic Stroke WorkUp: - TTE: pending, will consider FRANCISCO - Telemetry: Afib - A1c: 5.4 - LDL: 87 - Troponin, TSH: Negative, TSH elevated with normal free T4 - Carotid Doppler: 60 to 70% stenosis of the left external carotid artery, no significant stenosis of the bilateral internal or common carotids (no symptomatic carotids) Stroke Management: - Continuous cardiac monitoring (has known pAfib so no need to have Holter on D/C) - Vitals, Neurochecks, NIHSS per unit routine - BP parameters: SBP CAP 180, ok to restart home BP meds with goal of normotens ion over next 3-4 days - Complete ischemic stroke workup with TTE without bubble, CTA head and neck if able to obtain - Consult speech, PT, OT for supportive management - Counseled concerning stroke education, smoking cessation, healthy diet, physical activity, weight loss - Follow up with PCP for assistance with outpatient goals (BP <135/85, LDL <70, A1c <7) - Follow up in neurology clinic in 6-8 weeks - given multiple strokes in the setting of holding apixaban for a few days for procedure, would recommend that she use interim lovenox for any future procedures to prevent further cardioembolic strokes Secondary Stroke Prevention: - Antiplatelet: n/a - Anticoagulation: apixaban 2.5mg bid - Statin: Atorvastatin 40mg daily (has history of intolerance in the past, could consider pravastatin or simvastatin) FEN/GI: - Diet: Heart healthy diet - Monitor lytes and replete PRN Glucose Control: - Sliding scale insulin and accuchecks per primary team to avoid hyperglycemia Thank you for this interesting consult. Please call or text with any questions. Subjective No acute events overnight. Reports ongoing difficulties with vision particularly in the left visual field. She forgot her hearing aids and is unable to hear as well today. Denies any other neurological complaints at this time. Review of Systems Review of Systems: 14 point review of systems completed and negative except as in HPI. Physical Exam Physical Exam: General Exam: GEN: NAD, sitting in bed. HEENT: No conjunctival injection, no rhinorrhea. CV: Irregularly irregular, no peripheral edema PULM: Nonlabored respirations on room air. Neuro Exam: MS: Awake and Alert. Oriented to person, place, month/year but not date. Speech fluent and appropriate without dysarthria or paraphasic errors. Language intact including naming, comprehension, repetition. Cognition and memory grossly intact. Attention intact. No neglect. CN: Left visual field cut most notable in the left eye. No extinction to double simultaneous stimuli. Unable to visualize fundi on fundoscopic exam. PERRLA OU. EOMI without nystagmus. Facial sensation intact to LT. Facial muscles full and symmetric. Hearing intact to conversation. Uvula midline with symmetric palatal elevation. Shoulder shrug normal. Tongue midline. MOTOR: Normal bulk and tone. No pronator drift. BUE strength 5-/5 at deltoids, biceps, triceps, wrist flexors and extensors, and hand grasp bilaterally. BLE strength 5-/5 at iliopsoas, hamstrings, quadriceps, tibialis anterior, and gastrocnemius bilaterally. REFLEXES: 1+ at biceps, triceps, brachioradialis, 1+ R patella, absent L patella and absent Achilles bilaterally. Toes mute bilaterally. SENSORY: Intact to LT without extinction to double simultaneous stimuli. Vibration and temperature intact throughout. COORDINATION: No dysmetria or ataxia on [id number] bilaterally. Normal [place] bilaterally. GAIT: Deferred given fall risk Results & Data Vital Signs (Past 12 Hours) Vital Signs Temp Pulse Resp BP BP Pulse Ox 08/19/19 11:16 36.9 C 70 16 117/65 93 08/19/19 07:25 36.8 C 84 18 153/73 H 92 08/19/19 03:00 36.9 C 81 20 150/67 H 93 PG Care Time/CCT Total # of Minutes Spent Total Time Spent with Patient: Total time spent is greater than 50% in coordination of care (as documented) at patient's floor/unit and/or counseling patient:
--- NOTE | 2019-08-19 16:01 | Hospitalist Progress Note ---
Date of Service August 19, 2019 Assessment & Plan (1) Stroke: - Presentation of double vision - also had R entropian repair on 08/15 - MRI reveals embolic strokes in inferior medial R occipital lobe, R basal ganglia, R frontal lobe, and R cerebellar hemisphere - Carotid U/S reveals 60-70% stenosis of L ECA and possibly off AC for eye procedure with H/O paroxysmal A Fib - currently in sinus - question embolic due to A Fib? - Continue stroke w/o tPA protocol/speech/PT/OT - ASA 81 mg daily and Apixaban 2.5 mg BID; case was discussed with [facility] Neuro on admission not a tPA candidate - Lipid panel WNL - advised to give statin if abnormal by Karen however given carotids may benefit even though finding is in external carotid -- Per review of previous admission in 2017 - appears she was on Pravastatin 10 mg as an alternative to Lipitor. Not sure if there were intolerance to this m edication? As well it appears she was on Plavix but this was stopped when Eliquis was initiated -patient is not certain about this - Neurology following - appreciate input (2) Urinary tract infection: - UA Klebsiella -convert to Keflex 250 mg twice daily for renal adjustment; Pyridium PRN (3) Atypical pneumonia: - Uncertain if this is infectious vs inflammatory vs pulmonary edema - Maintaining appropriate saturations on RA - currently denies respiratory complaints - Does follow with Pulm - upon reading other notes it appears they are following her for chronic infiltrative changes and this may be ultimately a manifestation of that -did review CXR from 2017 which reveals similar opacities (4) Paroxysmal atrial fibrillation: - Currently NSR and will monitor on telemetry given embolic nature of CVA - Possibly caused by holding Eliquis for eye procedure? - Continue Amiodarone 200 mg daily and Eliquis 2.5 mg BID (5) Elevated troponin: - Has chronic elevations; currently troponins x 3 positive but trending down and now ACS symptoms - On previous admission question of moderate LVH and contributor to chronic troponins (6) Hypothyroidism: - TSH chronically elevated with normal T4 - question of subclinical hypothyroidism -may be contributing to overall fatigue? - Continue Levothyroxine 88 mcg daily - may be slightly reactive vs normal variant given age and can F/U in 6 weeks with recheck with PCP (7) Chronic kidney disease, stage III (moderate): - STABLE - appears baseline is 1.2-1.7 - Avoid nephrotoxic agents; renal dose as necessary (8) Hypertension: - STABLE - Continue Amlodipine 5 mg daily, Losartan 100 mg daily, hold triamterene/HCTZ 0.5 tab daily while treating UTI to prevent dehydration (9) Weakness: - Possibly due to UTI - will await response with treatment - PT/OT chung (10) Hyperlipidemia: - Lipid panel WNL - appears to have been on Lipitor then Pravastatin in the past (2017 notes) - may need to F/U with the [facility] to see if this was missed on her med rec versus further intolerance? - Lipid panel is WNL however does have external carotid stenosis of 60 to 70% (11) Depression: - STABLE - Continue Fluoxetine 20 mg daily and Buspirone 7.5 mg BID (12) Dementia: - Progressive vascular dementia - Continue Donepezil 5 mg daily Disposition: Await PT/OT - resident of the [facility] -may need SNF prior to returning to personal care; updated son Tripp over the phone Subjective Reports feeling very fatigued today. Reports her memory is bad and does not require our discussion of why she is admitted. She continues to have visual changes but denies other issues at this time. She states she does not feel well today. When asked what was bothering her she said she just worries about her family. She was not able to elaborate further on what she means by this. Review of Systems Constitutional: + fatigue; no fever and no chills Eyes: + diplopia; no eye pain Respiratory: no cough and no dyspnea Cardiovascular: no chest pain, no lightheadedness and no edema Gastrointestinal: no abdominal pain, no nausea, no vomiting and no diarrhea/loose stools Genitourinary: no dysuria Neurologic: + generalized weakness Physical Exam Constitutional: + frail appearing Eyes: + anicteric sclerae ENMT: Ears: no hearing impairment Neck: trachea midline Respiratory: normal respiratory effort, lungs clear to auscultation Cardiovascular: RRR, no murmur, no edema Gastrointestinal (Abdomen): Inspection/Auscultation: normal bowel sounds Percussion/Palpation: abdomen soft; abdomen nontender Musculoskeletal: Head/Neck/Chest: normocephalic and head atraumatic Extremities: no cyanosis and no clubbing Skin: no rashes, warm and dry Neurologic: moves all extremities Psychiatric: Orientation: alert Results & Data Vital Signs (Past 12 Hours) Vital Signs Temp Pulse Pulse Resp BP BP Pulse Ox 08/19/19 11:16 36.9 C 70 16 117/65 93 08/19/19 10:00 82 08/19/19 07:25 36.8 C 84 18 153/73 H 92 PG Care Time/CCT Total # of Minutes Spent Total Time Spent with Patient: Total time spent is greater than 50% in coordination of care (as documented) at patient's floor/unit and/or counseling patient: (1) Urinary tract infection Hematuria presence: without hematuria Urinary tract infection type: site unspecified Qualified Code(s): N39.0 - Urinary tract infection, site not specified
[2019-08-19] MEDS: cephALEXin 250 MG CAP PO SCH (21:17)
[2019-08-20] MEDS: LEVOTHYROXINE SODIUM 88 MCG TABLET PO SCH (06:36)
[2019-08-20 07:01] LABS: Basophils # (auto) 0.02 K/uL (0-0.2); Basophils % (auto) 0.3 %; Eosinophils # (auto) 0.07 K/uL (0-0.5); Hematocrit (blood only) 38.4 % (37-47); Hemoglobin 12.4 g/dL (12.0-16.0); Immature Granulocytes % (auto) 1.4 %; Lymphocytes # (auto) 2.47 K/uL (1.2-3.4); Lymphocytes % (auto) 33.6 %; Mean Corpuscular Hemoglobin 29.3 pg (25-34); Mean Corpuscular Hgb Conc 32.3 g/dL (32-36); Mean Corpuscular Volume 90.8 fL (80-100); Monocytes # (auto) 1.37 K/uL (0.11-0.59); Monocytes % (auto) 18.6 %; Neutrophils # (auto) 3.32 K/uL (1.4-6.5); Neutrophils % (auto) 45.1 %; Platelet Count 185 K/uL (130-400); RDW Coefficient of Variation 15.2 % (11.5-14.5); RDW Standard Deviation 50.9 fL (36.4-46.3); Red Blood Count 4.23 M/uL (4.2-5.4); White Blood Count 7.35 K/uL (4.8-10.8)
[2019-08-20 07:43] LABS: Albumin Level 3.2 gm/dl (3.4-5.0); BUN Creatinine Ratio 16.7 (10-20); Calcium 10.1 mg/dl (8.5-10.1); Creatinine Clr Calc Pharmacy 22.6 ml/min; Est GFR (African American) 32.3; Est GFR (Non-African American) 27.8
[2019-08-20 07:46] LABS: Albumin Globulin Ratio 0.9 (0.9-2); Bilirubin,Total 0.5 mg/dl (0.2-1); Globulin 3.7 gm/dl (2.5-4.0); Total Protein 6.9 gm/dl (6.4-8.2)
[2019-08-20] MEDS: LOSARTAN POTASSIUM 50 MG TAB PO SCH (08:57)
[2019-08-20] MEDS: CHOLECALCIFEROL 1,000 UNITS TAB PO SCH (08:58)
[2019-08-20] MEDS: AMLODIPINE BESYLATE 5 MG TAB PO SCH (08:58)
[2019-08-20] MEDS: CALCIUM 600MG + VIT D 400 IU TAB PO SCH (08:58)
[2019-08-20] MEDS: cephALEXin 250 MG CAP PO SCH ×2 (08:58→21:45)
[2019-08-20] MEDS: DONEPEZIL HCL 5 MG TAB PO SCH (08:58)
[2019-08-20] MEDS: ASPIRIN 81 MG ECTAB PO SCH (08:58)
[2019-08-20] MEDS: CEROVITE ADV FORMULA TAB PO SCH (08:59)
[2019-08-20] MEDS: FLUOXETINE HCL 20 MG CAP PO SCH (08:59)
[2019-08-20] MEDS: AMIODARONE 200 MG TAB PO SCH (08:59)
[2019-08-20] MEDS: BUSPIRONE HCL 7.5 MG TAB PO SCH ×2 (08:59→21:44)
[2019-08-20] MEDS: FAMOTIDINE 20 MG TAB PO SCH (08:59)
[2019-08-20] MEDS: CETIRIZINE HCL 10 MG TABLET PO SCH (08:59)
[2019-08-20] MEDS: APIXABAN 2.5 MG TAB PO SCH ×2 (09:00→21:44)
[2019-08-20] MEDS: ARTIFICIAL TEARS OP SCH ×5 (09:00→21:43)
[2019-08-20] MEDS: ERYTHROMYCIN OP OINT 5 MG/GM 3.5 GM TUBE OPR SCH ×4 (09:02→21:45)
--- NOTE | 2019-08-20 13:51 | Hospitalist Progress Note ---
Date of Service August 20, 2019 Assessment & Plan (1) Stroke: * Presentation of double vision - also had R entropian repair on 08/[address] Nice. 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 (Patient was previously on Plavix but was stopped when started on Eliquis, however patient poor historian with regards to medication history) * Neurology following - appreciate input * Lipid panel WNL - advised to give statin if abnormal by Karen however given carotids may benefit even though finding is in external carotid. Patient had previously been on Pravastatin in 2017 but no longer on it --? intolerance/myalgias (2) Urinary tract infection: * UA Klebsiella -was initially treated with ceftriaxone, however switched to keflex 250mg BID * Pyridium prn (3) Atypical pneumonia: * Uncertain if this is infectious vs inflammatory vs pulmonary edema * Maintaining appropriate saturations on RA - currently denies respiratory complaints. Currently 91% on RA * Does follow with Pulm - upon reading other notes it appears they are following her for chronic infiltrative changes and this may be ultimately a manifestation of that -did review CXR from 2017 which reveals similar opacities. Had been on doxy as outpatient. (4) Paroxysmal atrial fibrillation: * Was NSR until this morning at 07:41, currently aflutter -- running as high as 120-130s, currently 85 on production proofreader -- will monitor on telemetry given embolic nature of CVA * Likely the cause of current CVA, d/t holding of eliquis * As patient already on amiodarone 200mg daily for rhythm control (although not currently NSR) and eliquis 2.5mg BID, will initiate metoprolol 12.5mg BID for better rate control now that she is anticoagulated * Monitor closely (5) Elevated troponin: * Has chronic elevations; currently troponins x 3 positive but trending down and without ACS symptoms * On previous admission question of moderate LVH and contributor to chronic troponins (6) Hypothyroidism: * TSH chronically elevated with normal T4 - question of subclinical hypothyroidism -may be contributing to overall fatigue? * Continue Levothyroxine 88 mcg daily - may be slightly reactive vs normal variant given age and can F/U in 6 weeks with recheck with PCP (7) Chronic kidney disease, stage III (moderate): * Creatinine elevated again today, at 1.63 from 1.35 * However, baseline appears 1.2-1.7 over the past several months * Avoid nephrotoxic agents; renal dose as necessary (8) Hypertension: * STABLE * Continue Losartan 100 mg daily * Continue tohold triamterene/HCTZ while treating UTI to prevent dehydration * Given aflutter and increased rate --> discontinued amlodipine, started on metoprolol 12.5 mg BID * Continue to monitor (9) Weakness: * Improving -- possibly due to UTI * PT/OT evals (10) Hyperlipidemia: * Lipid panel WNL - appears to have been on Lipitor then Pravastatin in the past (2017 notes) - may need to F/U with the [facility] to see if this was missed on her med rec versus further intolerance? * Consider initiating statin prior to discharge d/t carotid findings on U/S -- external stenosis 60-70% (11) Depression: * STABLE * Continue Fluoxetine 20 mg daily and Buspirone 7.5 mg BID (12) Dementia: * Progressive vascular dementia * Continue Donepezil 5 mg daily Disposition: resident of the [facility] (the [facility] willing to accept her back, however may benefit from rehab) -may need SNF prior to returning to personal care Supervising Physician Co-Signing Physician Notes Attending Attestation: Chart reviewed in detail, care plan d/w JUAN Duenas. I agree w/ the hoang components of her documentation. 88yo female with recent right eye surgery - was off chronic anticoagulation for such. Presented w/ diplopia. Found to have multiple strokes on MRI brain - likely cardioembolic given her PAF history and being off anticoagulation. Eliquis resumed. Klebsiella UTI - under Rx. Pt/Ot/Speech/Neuro evals appreciated. Dispo planning. Should refer back to ophtho post-d/c. Fransisco Russell MD Subjective Patient continues to state she has double vision. She had previously had surgery to her right eye, and denies any difficulty with her vision prior to that event. She states she is always cold, and has been on thyroid replacement for longer than she remembers. She states she does not keep track of her medications, as she states "they take care of that for me, I wouldn't know what the medications are for anyways." When asked if she felt any palpitations, she states she did have some pounding in her chest this morning that was accompanied by some shortness of breath that lasted a couple minutes. She denies any chest pain, but states she does have "pressure" that is made worse by taking a deep breath. Review of Systems Constitutional: no fever and no chills Eyes: + diplopia; no eye pain Ear, Nose, Mouth, Throat: no sore throat and no dysphagia Respiratory: + dyspnea (with deep breath); no cough Cardiovascular: + palpitations; no chest pain and no edema Gastrointestinal: no abdominal pain, no nausea, no vomiting, no constipation and no diarrhea/loose stools Genitourinary: + urinary frequency; no hematuria Integumentary: no rash and no lesions Neurologic: no numbness, no paresthesia and no headache(s) Endocrine: + cold intolerance Physical Exam Constitutional: + frail appearing and cooperative; no acute distress Eyes: Anicteric snlerae Small scar below right eye, lateral aspect Neck: trachea midline, no thyromegaly Respiratory: normal respiratory effort, lungs clear to auscultation Cardiovascular: Rate/Rhythm: + irregularly irregular Heart Sounds: normal S1 and normal S2; no murmur Gastrointestinal (Abdomen): normal bowel sounds, soft, nontender, no hepatosplenomegaly Musculoskeletal: Head/Neck/Chest: + head abnormal to inspection, normocephalic and head atraumatic Extremities: extremities normal to inspection Skin: no rashes, warm and dry Psychiatric: Orientation: alert and oriented to person; + not oriented to time Results & Data Vital Signs (Past 12 Hours) Vital Signs Temp Pulse Resp BP BP Pulse Ox 08/20/19 11:07 36.8 C 94 H 18 93/58 L 91 08/20/19 07:29 37.1 C 100 H 16 123/74 93 Laboratory Results 08/20/19 08/20/19 Range/Units 06:28 06:28 WBC 7.35 (4.8-10.8) K/uL RBC 4.23 (4.2-5.4) M/uL Hgb 12.4 (12.0-16.0) g/dL Hct 38.4 (37-47) % MCV 90.8 (80-100) fL MCH 29.3 (25-34) pg MCHC 32.3 (32-36) g/dL RDW Std Deviation 50.9 H (36.4-46.3) fL RDW Coeff of Fidel 15.2 H (11.5-14.5) % Plt Count 185 (130-400) K/uL MPV 11.0 H (7.4-10.4) fL Immature Gran % (Auto) 1.4 % Neut % (Auto) 45.1 % Lymph % (Auto) 33.6 % [place] % (Auto) 18.6 % Eos % (Auto) 1.0 % Baso % (Auto) 0.3 % Immature Gran # (Auto) 0.10 H (0.00-0.02) K/uL Neut # (Auto) 3.32 (1.4-6.5) K/uL Lymph # (Auto) 2.47 (1.2-3.4) K/uL [place] # (Auto) 1.37 H (0.11-0.59) K/uL Eos # (Auto) 0.07 (0-0.5) K/uL Baso # (Auto) 0.02 (0-0.2) K/uL Sodium 136 (136-145) mmol/L Potassium 4.0 (3.5-5.1) mmol/L Chloride 106 (98-107) mmol/L Carbon Dioxide 24 (21-32) mmol/L Anion Gap 6.0 (3-11) BUN 27 H (7-18) mg/dl Creatinine 1.63 H (0.6-1.2) mg/dl Est Cr Clr Drug Dosing 22.6 ml/min Est GFR ( Amer) 32.3 Est GFR (Non-Af Amer) 27.8 BUN/Creatinine Ratio 16.7 (10-20) Glucose 82 (70-99) mg/dl Calcium 10.1 (8.5-10.1) mg/dl Total Bilirubin 0.5 (0.2-1) mg/dl AST 15 (15-37) U/L ALT 16 (12-78) U/L Alkaline Phosphatase 90 (45-117) U/L Total Protein 6.9 (6.4-8.2) gm/dl Albumin 3.2 L (3.4-5.0) gm/dl Globulin 3.7 (2.5-4.0) gm/dl Albumin/Globulin Ratio 0.9 (0.9-2) Diagnostic Findings ECHO 08/19/19 Interpretation Summary: Left ventricular systolic function is normal. No regional wall motion abnormalities noted. There is mild concentric left ventricular hypertrophy. Ejection Fraction = 65-70% There is mild regurgitation. Compared with study dated 06/05/2017, no significant change. PG Care Time/CCT Total # of Minutes Spent Total Time Spent with Patient: Total time spent is greater than 50% in coordination of care (as documented) at patient's floor/unit and/or counseling patient: (1) Urinary tract infection Hematuria presence: without hematuria Urinary tract infection type: site unspecified Qualified Code(s): N39.0 - Urinary tract infection, site not specified
[2019-08-20] MEDS: METOPROLOL TARTRATE 25 MG TAB PO SCH (21:45)
[2019-08-21] MEDS: LEVOTHYROXINE SODIUM 88 MCG TABLET PO SCH (05:52)
[2019-08-21 07:36] LABS: Basophils # (auto) 0.02 K/uL (0-0.2); Basophils % (auto) 0.2 %; Eosinophils # (auto) 0.11 K/uL (0-0.5); Eosinophils % (auto) 0.9 %; Hematocrit (blood only) 38.2 % (37-47); Hemoglobin 12.8 g/dL (12.0-16.0); Immature Granulocytes # (auto) 0.15 K/uL (0.00-0.02); Immature Granulocytes % (auto) 1.3 %; Lymphocytes # (auto) 2.46 K/uL (1.2-3.4); Lymphocytes % (auto) 21.2 %; Mean Corpuscular Hgb Conc 33.5 g/dL (32-36); Mean Corpuscular Volume 89.7 fL (80-100); Mean Platelet Volume 10.7 fL (7.4-10.4); Monocytes # (auto) 1.71 K/uL (0.11-0.59); Monocytes % (auto) 14.8 %; Neutrophils # (auto) 7.14 K/uL (1.4-6.5); Neutrophils % (auto) 61.6 %; Platelet Count 194 K/uL (130-400); RDW Coefficient of Variation 15.1 % (11.5-14.5); RDW Standard Deviation 49.3 fL (36.4-46.3); Red Blood Count 4.26 M/uL (4.2-5.4); White Blood Count 11.59 K/uL (4.8-10.8)
[2019-08-21] MEDS: LOSARTAN POTASSIUM 50 MG TAB PO SCH (08:07)
[2019-08-21] MEDS: BUSPIRONE HCL 7.5 MG TAB PO SCH ×2 (08:08→21:08)
[2019-08-21] MEDS: APIXABAN 2.5 MG TAB PO SCH ×2 (08:08→21:08)
[2019-08-21] MEDS: METOPROLOL TARTRATE 25 MG TAB PO SCH ×2 (08:08→21:09)
[2019-08-21] MEDS: CETIRIZINE HCL 10 MG TABLET PO SCH (08:08)
[2019-08-21] MEDS: cephALEXin 250 MG CAP PO SCH ×2 (08:08→21:08)
[2019-08-21] MEDS: CALCIUM 600MG + VIT D 400 IU TAB PO SCH (08:09)
[2019-08-21] MEDS: CEROVITE ADV FORMULA TAB PO SCH (08:09)
[2019-08-21] MEDS: FAMOTIDINE 20 MG TAB PO SCH (08:09)
[2019-08-21] MEDS: FLUOXETINE HCL 20 MG CAP PO SCH (08:09)
[2019-08-21] MEDS: ASPIRIN 81 MG ECTAB PO SCH (08:09)
[2019-08-21] MEDS: AMIODARONE 200 MG TAB PO SCH (08:10)
[2019-08-21] MEDS: CHOLECALCIFEROL 1,000 UNITS TAB PO SCH (08:10)
[2019-08-21] MEDS: DONEPEZIL HCL 5 MG TAB PO SCH (08:10)
[2019-08-21] MEDS: ARTIFICIAL TEARS OP SCH ×5 (08:10→21:07)
[2019-08-21] MEDS: ERYTHROMYCIN OP OINT 5 MG/GM 3.5 GM TUBE OPR SCH ×4 (08:11→21:08)
[2019-08-21 08:14] LABS: BUN Creatinine Ratio 20.4 (10-20); Calcium 9.9 mg/dl (8.5-10.1); Creatinine Clr Calc Pharmacy 22.5 ml/min; Est GFR (African American) 33.3; Est GFR (Non-African American) 28.7; Potassium 3.9 mmol/L (3.5-5.1)
[2019-08-21 08:17] LABS: Albumin Globulin Ratio 0.8 (0.9-2); Bilirubin,Total 0.4 mg/dl (0.2-1); Globulin 3.7 gm/dl (2.5-4.0); Total Protein 6.7 gm/dl (6.4-8.2)
[2019-08-21] MEDS: PRAVASTATIN SOD 40 MG TAB PO SCH (16:37)
--- NOTE | 2019-08-21 17:16 | Hospitalist Progress Note ---
Date of Service August 21, 2019 Assessment & Plan (1) Stroke: * Presentation of double vision - also had R entropian repair on 08/[address] Nice. 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 (Patient was previously on Plavix but was stopped when started on Eliquis, however patient poor historian with regards to medication history) * Neurology consult - appreciate input * Lipid panel WNL - advised to give statin if abnormal by Karen however given carotids may benefit even though finding is in external carotid. Patient had previously been on Pravastatin in 2017 but no longer on it -- will start this evening and see if patient tolerates * Will need follow up with Ophthalmology -- pref neurological specialist dealing with patients with strokes--> if not, will see about local follow-up (2) Urinary tract infection: * Improving -- patient admits to decreased frequency compared to previous days * UA Klebsiella -was initially treated with ceftriaxone, however switched to keflex 250mg BID. * Pyridium prn (3) Atypical pneumonia: * Uncertain if this is infectious vs inflammatory vs pulmonary edema * Maintaining appropriate saturations on RA - currently denies respiratory complaints. Currently 91% on RA * Does follow with Pulm - upon reading other notes it appears they are following her for chronic infiltrative changes and this may be ultimately a manifestation of that - CXR from 2017 which reveals similar opacities. Had been on doxy as outpatient. (4) Paroxysmal atrial fibrillation: * Given embolic nature of CVA, will continue to monitor on telemetry * Was NSR until morning of 08/20 at 07:41 where she flipped into aflutter with rates as high as 120-130s * As patient already on amiodarone 200mg daily for rhythm control (although not currently NSR) and eliquis 2.5mg BID, started metoprolol 12.5mg BID on 08/20 for better rate control --> review of telemetry with patient still in aflutter, however rates have been 70-80s * Continued eliquis * Continue to monitor (5) Hypothyroidism: * TSH chronically elevated with normal T4 - question of subclinical hypothyroidism -may be contributing to overall fatigue/recent constipation * Will increase levothyroxine to 100mcg daily, as patient with continued fatigue and continues to have elevated TSH * Will need follow-up and TFTs in 6 weeks as outpatient (6) Chronic kidney disease, stage III (moderate): * Creatinine improved minimally to 1.59, however baseline appears to be 1.2-1.7 over the past several months * Avoid nephrotoxic agents; renal dose as necessary (7) Hypertension: * STABLE -- currently 119/72 * Continue Losartan 100 mg daily * Continue to hold triamterene/HCTZ while treating UTI to prevent dehydration -- may not need to restart given excellent BP control with discontinuation of amlodipine and initiation of metoprolol 12.5mg BID last evening * Continue to monitor (8) Weakness: * Improved yesterday, although today patient with increased fatigue -- likely addition of BB and hypothyroid state * PT/OT -- better today --> possible for patient to return to the [facility]?? (9) Hyperlipidemia: * Lipid panel WNL, however will initiate pravastatin 20mg tonight and see if patient tolerates-- possible benefit given external stenosis of carotid 60- 67% (10) Depression: * STABLE * Continue Fluoxetine 20 mg daily and Buspirone 7.5 mg BID -- could consider titrating fluoxetine (11) Elevated troponin: * Has chronic elevations; currently troponins x 3 positive but trending down and without ACS symptoms * On previous admission question of moderate LVH and contributor to chronic troponins (12) Dementia: * Progressive vascular dementia * Continue Donepezil 5 mg daily Supervising Physician Co-Signing Physician Notes Attending Attestation: Chart reviewed in detail, care plan d/w JUAN Duenas. I agree w/ the hoang components of her documentation. 88yo female with recent right eye surgery (right-sided entropion repair)- was off chronic anticoagulation for such - who presented w/ diplopia. Found to have multiple strokes on MRI brain - likely cardioembolic given her PAF history and being off anticoagulation. Eliquis resumed. Labs/vitals remain stable. PT, OT. Dispo planning. Fransisco Russell MD Subjective Patient evaluated at bedside with multiple family members present. She continues to have double/blurred vision, that she states is the same in both eyes and is intermittent. She states sometimes she can read the writing on the board but s ometimes she can't quite make it out. She states this has not changed since her original complaint, but she states this may have been going on for weeks but she is unsure. She believes it has been over two years since she had an eye exam, and had previously been following with Dr. Hunter at [facility]. She states she doesn't have any "get up and go today" and admits she has not been out of bed much. She also has not been taking deep breaths but denies any recent fevers, chills, cough or sputum production. She had concerns yesterday evening about not having had a BM, but states she did have one today but it was hard. She believes she has been drinking adequate fluids, but after further discussion she admits she drinks coffee/tea because "it's the thing to do" and she loves diet pepsi. She denies much water intake. When asked about plans moving forward, the patient states she has a good quality of life at the [facility] and would like to return there, but has been thinking about more frequently lately. She states her and her were together for 68 years and ever since he passed, she states she wishes she would "have gone right along with him." She states she does not want any heroic measures taken if her heart were to stop, but she is agreeable to treatment at this time. Discussion regarding possible fatigue recently related to elevated thyroid test as well as initiation of metoprolol instead of amlodipine for better rate control now that she is no longer in NSR. Review of Systems Constitutional: no fever and no chills Eyes: + diplopia; no eye pain Ear, Nose, Mouth, Throat: no sore throat and no dysphagia Respiratory: no cough and no dyspnea Cardiovascular: no chest pain, no palpitations and no edema Gastrointestinal: no abdominal pain, no nausea and no vomiting Genitourinary: + urinary frequency; no hematuria Psychiatric: + anhedonia Endocrine: + cold intolerance Physical Exam Constitutional: + frail appearing and cooperative; no acute distress ENMT: EOMI without nystagmus. Visual garces by confrontation with notable peripheral visual deficits left sided, moreso left eye than right Neck: trachea midline, no thyromegaly Respiratory: normal respiratory effort, lungs clear to auscultation Cardiovascular: Rate/Rhythm: + irregularly irregular Heart Sounds: normal S1 and normal S2; no murmur Gastrointestinal (Abdomen): normal bowel sounds, soft, nontender, no hepatosplenomegaly Musculoskeletal: Head/Neck/Chest: normocephalic and head atraumatic Extremities: extremities normal to inspection Psychiatric: Orientation: alert and oriented to person; + not oriented to time Results & Data Vital Signs (Past 12 Hours) Vital Signs Temp Pulse Resp BP BP Pulse Ox 08/21/19 15:37 36.7 C 71 20 119/72 92 08/21/19 11:37 93 08/21/19 11:29 36.6 C 83 18 102/65 94 08/21/19 07:09 36.6 C 75 19 116/67 93 Laboratory Results 08/21/19 08/21/19 08/21/19 Range/Units 07:24 07:24 07:24 WBC 11.59 H (4.8-10.8) K/uL RBC 4.26 (4.2-5.4) M/uL Hgb 12.8 (12.0-16.0) g/dL Hct 38.2 (37-47) % MCV 89.7 (80-100) fL MCH 30.0 (25-34) pg MCHC 33.5 (32-36) g/dL RDW Std Deviation 49.3 H (36.4-46.3) fL RDW Coeff of Fidel 15.1 H (11.5-14.5) % Plt Count 194 (130-400) K/uL MPV 10.7 H (7.4-10.4) fL Immature Gran % (Auto) 1.3 % Neut % (Auto) 61.6 % Lymph % (Auto) 21.2 % [place] % (Auto) 14.8 % Eos % (Auto) 0.9 % Baso % (Auto) 0.2 % Immature Gran # (Auto) 0.15 H (0.00-0.02) K/uL Neut # (Auto) 7.14 H (1.4-6.5) K/uL Lymph # (Auto) 2.46 (1.2-3.4) K/uL [place] # (Auto) 1.71 H (0.11-0.59) K/uL Eos # (Auto) 0.11 (0-0.5) K/uL Baso # (Auto) 0.02 (0-0.2) K/uL Sodium 136 (136-145) mmol/L Potassium 3.9 (3.5-5.1) mmol/L Chloride 106 (98-107) mmol/L Carbon Dioxide 22 (21-32) mmol/L Anion Gap 8.0 (3-11) BUN 33 H (7-18) mg/dl Creatinine 1.59 H (0.6-1.2) mg/dl Est Cr Clr Drug Dosing 22.5 ml/min Est GFR ( Amer) 33.3 Est GFR (Non-Af Amer) 28.7 BUN/Creatinine Ratio 20.4 H (10-20) Glucose 99 (70-99) mg/dl Calcium 9.9 (8.5-10.1) mg/dl Total Bilirubin 0.4 (0.2-1) mg/dl AST 20 (15-37) U/L ALT 21 (12-78) U/L Alkaline Phosphatase 99 (45-117) U/L Total Protein 6.7 (6.4-8.2) gm/dl Albumin 3.0 L (3.4-5.0) gm/dl Globulin 3.7 (2.5-4.0) gm/dl Albumin/Globulin Ratio 0.8 L (0.9-2) TSH 5.480 H (0.300-4.500) uIu/ml PG Care Time/CCT Total # of Minutes Spent Total Time Spent with Patient: Total time spent is greater than 50% in coordination of care (as documented) at patient's floor/unit and/or counseling patient: Prolonged Care Time Prolonged Care Time: Yes Total Prolonged Care Time: 100 Total time spent with patient at bedside with family explaining condition/next steps/answering all questions, reviewing chart, medication changes and discharge planning (1) Urinary tract infection Hematuria presence: without hematuria Urinary tract infection type: site unspecified Qualified Code(s): N39.0 - Urinary tract infection, site not specified
[2019-08-22] MEDS: LEVOTHYROXINE SODIUM 100 MCG TABLET PO SCH (05:51)
[2019-08-22 07:46] LABS: Basophils # (auto) 0.01 K/uL (0-0.2); Basophils % (auto) 0.1 %; Eosinophils # (auto) 0.09 K/uL (0-0.5); Eosinophils % (auto) 0.9 %; Hemoglobin 12.8 g/dL (12.0-16.0); Immature Granulocytes # (auto) 0.15 K/uL (0.00-0.02); Immature Granulocytes % (auto) 1.5 %; Lymphocytes # (auto) 2.48 K/uL (1.2-3.4); Lymphocytes % (auto) 24.8 %; Mean Corpuscular Hgb Conc 33.7 g/dL (32-36); Mean Corpuscular Volume 89.2 fL (80-100); Mean Platelet Volume 11.1 fL (7.4-10.4); Monocytes # (auto) 1.79 K/uL (0.11-0.59); Monocytes % (auto) 17.9 %; Neutrophils # (auto) 5.48 K/uL (1.4-6.5); Neutrophils % (auto) 54.8 %; Platelet Count 204 K/uL (130-400); RDW Coefficient of Variation 15.1 % (11.5-14.5); RDW Standard Deviation 49.1 fL (36.4-46.3); Red Blood Count 4.26 M/uL (4.2-5.4)
[2019-08-22 08:14] LABS: Albumin Level 3.1 gm/dl (3.4-5.0); BUN Creatinine Ratio 21.1 (10-20); Calcium 10.2 mg/dl (8.5-10.1); Creatinine Clr Calc Pharmacy 24.5 ml/min; Est GFR (African American) 36.9; Est GFR (Non-African American) 31.8
[2019-08-22 08:16] LABS: Albumin Globulin Ratio 0.9 (0.9-2); Bilirubin,Total 0.4 mg/dl (0.2-1); Globulin 3.6 gm/dl (2.5-4.0); Total Protein 6.7 gm/dl (6.4-8.2)
[2019-08-22] MEDS: METOPROLOL TARTRATE 25 MG TAB PO SCH ×2 (08:52→20:03)
[2019-08-22] MEDS: LOSARTAN POTASSIUM 50 MG TAB PO SCH (08:52)
[2019-08-22] MEDS: CHOLECALCIFEROL 1,000 UNITS TAB PO SCH (08:53)
[2019-08-22] MEDS: DONEPEZIL HCL 5 MG TAB PO SCH (08:53)
[2019-08-22] MEDS: CALCIUM 600MG + VIT D 400 IU TAB PO SCH (08:53)
[2019-08-22] MEDS: FLUOXETINE HCL 20 MG CAP PO SCH (08:54)
[2019-08-22] MEDS: CEROVITE ADV FORMULA TAB PO SCH (08:54)
[2019-08-22] MEDS: cephALEXin 250 MG CAP PO SCH ×2 (08:54→20:02)
[2019-08-22] MEDS: CETIRIZINE HCL 10 MG TABLET PO SCH (08:54)
[2019-08-22] MEDS: ASPIRIN 81 MG ECTAB PO SCH (08:54)
[2019-08-22] MEDS: BUSPIRONE HCL 7.5 MG TAB PO SCH ×2 (08:54→20:02)
[2019-08-22] MEDS: APIXABAN 2.5 MG TAB PO SCH ×2 (08:55→20:02)
[2019-08-22] MEDS: FAMOTIDINE 20 MG TAB PO SCH (08:55)
[2019-08-22] MEDS: ARTIFICIAL TEARS OP SCH ×5 (08:55→20:01)
[2019-08-22] MEDS: AMIODARONE 200 MG TAB PO SCH (08:55)
[2019-08-22] MEDS: ERYTHROMYCIN OP OINT 5 MG/GM 3.5 GM TUBE OPR SCH ×4 (08:56→20:01)
[2019-08-22] MEDS: SODIUM CHLORIDE 0.9% 500 ML IV SCH ×2 (10:30→19:56)
[2019-08-22] MEDS ORDERED: FUROSEMIDE 40 MG in SYRINGE 0 ML IV ONE (10:45)
--- NOTE | 2019-08-22 13:21 | Hospitalist Progress Note ---
Date of Service August 22, 2019 Assessment & Plan (1) Stroke: * Presentation of double vision - also had R entropian repair on 08/[address] Nice. * MRI reveals embolic strokes in inferior medial R occipital lobe, R basal ganglia, R frontal lobe, and R cerebellar hemisphere * Carotid U/S reveals 60-70% stenosis of L ECA and possibly off AC for eye procedure with H/O paroxysmal A Fib - patient was in NSR -- likely embolic due to afib, as patient currently in aflutter since 07:41 on 08/20 * Neurology consult - appreciate input * ASA 81 mg daily and Apixaban 2.5 mg BID; case was discussed with Karen Neuro on admission not a tPA candidate. (Patient was previously on Plavix but was stopped when started on Eliquis, however patient poor historian with regards to medication history) * Continue stroke w/o tPA protocol/speech/PT/OT * Lipid panel WNL - advised to give statin if abnormal by Karen however given carotids may benefit even though finding is in external carotid. Patient had previously been on Pravastatin in 2017 but no longer on it -- will start this evening and see if patient tolerates * Will need follow up with Ophthalmology -- nurse navigator to set up follow up with Dr. De Souza's office after discussion with son, Tripp --> if unable to treat, they will refer her at that time (2) Urinary tract infection: * Improving -- patient admits to decreased frequency compared to previous days * UA Klebsiella -was initially treated with ceftriaxone, however switched to keflex 250mg BID. * Pyridium prn (3) Atypical pneumonia: * Uncertain if this is infectious vs inflammatory vs pulmonary edema --> today on physical exam, patient with bibasilar crackles and minimal JVD --> in addition, patient with elevated calcium level despite holding hctz --> likely component of pulmonary edema, although previous imaging from 2017 with similar opacities (treated recently outpatient with doxy) --> will give 40mg IV lasix today in addition to NS and repeat labs this evening * O2 saturation 94% currently on RA, stable (4) Paroxysmal atrial fibrillation: * Given embolic nature of CVA d/t lapse in eliquis, will continue to monitor on telemetry * Was NSR until morning of 08/20 at 07:41 where she flipped into aflutter with rates as high as 120-130s * As patient already on amiodarone 200mg daily for rhythm control (although not currently NSR) and eliquis 2.5mg BID, started metoprolol 12.5mg BID on 08/20 for better rate control --> review of telemetry with patient still in aflutter, however rates have been 70s today with 50-60s overnight --> may be able to transition to once daily long acting * Continued eliquis * Continue to monitor (5) Hypercalcemia: * Patient with elevated calcium of 10.2 today, per previous lab values, it appears she has been on the high-normal end, with values of 10 since 2017 * Albumin 3.0 today --> calculated corrected calcium which would be 10.9 today -- could be contributing to mental fog, constipation, depression, generalized malaise * Will give lasix and IVF above and repeat BMP this afternoon * D/C HCTZ/triamterene that had previously been on hold * Continue to monitor -- if not corrected, may need to investigate other causes, as diuretic has been on hold since admission (6) Hypothyroidism: * TSH chronically elevated with normal T4 - question of subclinical hypothyroidism -may be contributing to overall fatigue/recent constipation * Levothyroxine increased to 100mcg this morning --> Will need follow-up and TF Ts in 6 weeks as outpatient (7) Chronic kidney disease, stage III (moderate): * Stable * Creatinine improved to 1.46 today from 1.59 --> baseline appears to be between 1.2-1.7 for the past several months * Avoid nephrotoxic agents; renally dose as necessary (8) Hypertension: * STABLE -- currently 121/75 * Continue Losartan 100 mg daily * Continue to hold triamterene/HCTZ while treating UTI to prevent dehydration -- would highly recommend discontinuing this medication as calcium levels have been on high-normal side and could be d/t HCTZ use (albumin running ~3.0 and correct calcium calculated to be around 10.9 today) * Continue to monitor (9) Weakness: * Patient continues to express generalized fatigue today in addition to myalgias -- given pravastatin given last night and patient with myalgias today, will discontinue at this time * May also be due to multiple factors -- UTI, addition of BB yesterday, hypothyroid state, and pulmonary congestion * PT/OT--> possible for patient to return to the [facility] (10) Hyperlipidemia: * Lipid panel WNL, however initiated pravastatin 20mg last evening (thought possible benefit given external carotid stenosis 60-67%) --> given patient's continued fatigue and myalgias, in addition to LDL of 87, will hold off further statin use at this time (11) Depression: * STABLE * Continue Fluoxetine 20 mg daily and Buspirone 7.5 mg BID -- will increase f luoxetine to 40mg daily due to increased depression over the last several weeks (12) Elevated troponin: * Has chronic elevations; currently troponins x 3 positive but trending down and without ACS symptoms * On previous admission question of moderate LVH and contributor to chronic troponins (13) Dementia: * Progressive vascular dementia * Continue Donepezil 5 mg daily Disposition: will try to correct calcium today/this afternoon and repeat labs -- patient may need to stay overnight and could be discharge in the morning to the [place]. Discussion b/w CM and son Tripp with wishes to return to the [facility] Supervising Physician Co-Signing Physician Notes Attending Attestation: Chart reviewed in detail, care plan d/w JUAN Duenas. I agree w/ the hoang components of her documentation. 88yo female with recent right eye surgery (right-sided entropion repair)- was off chronic anticoagulation for such - who presented w/ diplopia. Found to have multiple strokes on MRI brain - likely cardioembolic given her PAF history and being off anticoagulation. Eliquis resumed during this stay. Treating mildly high calcium today. HCTZ has been d/c. Will need surveillance of high calcium post-discharge. Anticipate d/c tomorrow. Fransisco Russell MD Subjective Patient evaluated this morning. She has concerns about not being able to find her top dentures and continues to express some depression and would like her antidepressant increased. She states she has not been out of bed much and states she does feel like she has some generalized body aches. She confirms that she never received an incentive spirometer and has not used due to that. She states she feels a little cold, and the temperature in the room was set to low and was increased per her wishes. She does have an occasional cough during our conversation although she denies any shortness of breath, and describes it as a "tickle in my throat that I feel like I can't cough up". She does not feel well enough to return to the [place] today, but hopes that tomorrow she will be able to return. Review of Systems Constitutional: + malaise; no fever and no chills Eyes: + diplopia and + problem reported (blurred vision) Ear, Nose, Mouth, Throat: no sore throat and no dysphagia "feels like a tickle in my throat and there is something in there that I can't cough up" Respiratory: + cough; no chest congestion and no dyspnea Cardiovascular: no chest pain, no palpitations and no edema Gastrointestinal: no abdominal pain, no nausea and no vomiting chronically constipated but states she did have soft BM today Genitourinary: no dysuria and no hematuria Musculoskeletal: + myalgia and + body aches Integumentary: no rash and no lesions Neurologic: + memory loss; no headache(s) Psychiatric: + depression and + anhedonia Endocrine: + fatigue and + cold intolerance Physical Exam Constitutional: + frail appearing and cooperative; no acute distress Eyes: EOMI without nystagmus. Visual garces by confrontation with notable peripheral visual deficits left sided, moreso left eye than right ENMT: Throat: uvula midline bottom dentures No top plate Neck: trachea midline, no thyromegaly Respiratory: normal respiratory effort; no respiratory distress and no labored breathing Auscultation: + crackles (bibasilar crackles); no wheezes Cardiovascular: Rate/Rhythm: + irregularly irregular Heart Sounds: normal S1 and normal S2; no murmur Vessels: + JVD Gastrointestinal (Abdomen): normal bowel sounds, soft, nontender, no hepatosplenomegaly Musculoskeletal: Head/Neck/Chest: normocephalic and head atraumatic Extremities: extremities normal to inspection Skin: no rashes, warm and dry Psychiatric: Orientation: alert; + not oriented to time Results & Data Vital Signs (Past 12 Hours) Vital Signs Temp Pulse Resp BP BP Pulse Ox 08/22/19 11:19 36.4 C L 78 16 121/75 94 08/22/19 07:04 36.8 C 74 18 119/60 96 08/22/19 04:02 36.5 C 72 18 132/73 93 Laboratory Results 08/22/19 08/22/19 Range/Units 07:24 07:24 WBC 10.00 (4.8-10.8) K/uL RBC 4.26 (4.2-5.4) M/uL Hgb 12.8 (12.0-16.0) g/dL Hct 38.0 (37-47) % MCV 89.2 (80-100) fL MCH 30.0 (25-34) pg MCHC 33.7 (32-36) g/dL RDW Std Deviation 49.1 H (36.4-46.3) fL RDW Coeff of Fidel 15.1 H (11.5-14.5) % Plt Count 204 (130-400) K/uL MPV 11.1 H (7.4-10.4) fL Immature Gran % (Auto) 1.5 % Neut % (Auto) 54.8 % Lymph % (Auto) 24.8 % [place] % (Auto) 17.9 % Eos % (Auto) 0.9 % Baso % (Auto) 0.1 % Immature Gran # (Auto) 0.15 H (0.00-0.02) K/uL Neut # (Auto) 5.48 (1.4-6.5) K/uL Lymph # (Auto) 2.48 (1.2-3.4) K/uL [place] # (Auto) 1.79 H (0.11-0.59) K/uL Eos # (Auto) 0.09 (0-0.5) K/uL Baso # (Auto) 0.01 (0-0.2) K/uL Sodium 138 (136-145) mmol/L Potassium 4.0 (3.5-5.1) mmol/L Chloride 109 H (98-107) mmol/L Carbon Dioxide 21 (21-32) mmol/L Anion Gap 8.0 (3-11) BUN 31 H (7-18) mg/dl Creatinine 1.46 H (0.6-1.2) mg/dl Est Cr Clr Drug Dosing 24.5 ml/min Est GFR ( Amer) 36.9 Est GFR (Non-Af Amer) 31.8 BUN/Creatinine Ratio 21.1 H (10-20) Glucose 100 H (70-99) mg/dl Calcium 10.2 H (8.5-10.1) mg/dl Total Bilirubin 0.4 (0.2-1) mg/dl AST 19 (15-37) U/L ALT 23 (12-78) U/L Alkaline Phosphatase 101 (45-117) U/L Total Protein 6.7 (6.4-8.2) gm/dl Albumin 3.1 L (3.4-5.0) gm/dl Globulin 3.6 (2.5-4.0) gm/dl Albumin/Globulin Ratio 0.9 (0.9-2) PG Care Time/CCT Total # of Minutes Spent Total Time Spent with Patient: Total time spent is greater than 50% in coordination of care (as documented) at patient's floor/unit and/or counseling patient: (1) Urinary tract infection Hematuria presence: without hematuria Urinary tract infection type: site unspecified Qualified Code(s): N39.0 - Urinary tract infection, site not specified
[2019-08-22 15:33] LABS: BUN Creatinine Ratio 20.9 (10-20); Calcium 10.3 mg/dl (8.5-10.1); Creatinine Clr Calc Pharmacy 23.7 ml/min; Est GFR (African American) 35.4; Est GFR (Non-African American) 30.5
[2019-08-22] MEDS: PRAVASTATIN SOD 40 MG TAB PO SCH (17:08)
[2019-08-23] MEDS: SODIUM CHLORIDE 0.9% 500 ML IV SCH (01:18)
[2019-08-23] MEDS: LEVOTHYROXINE SODIUM 100 MCG TABLET PO SCH (05:52)
[2019-08-23] MEDS: METOPROLOL TARTRATE 25 MG TAB PO SCH (07:56)
[2019-08-23] MEDS: LOSARTAN POTASSIUM 50 MG TAB PO SCH (07:56)
[2019-08-23] MEDS: CHOLECALCIFEROL 1,000 UNITS TAB PO SCH (07:57)
[2019-08-23] MEDS: CALCIUM 600MG + VIT D 400 IU TAB PO SCH (07:57)
[2019-08-23] MEDS: APIXABAN 2.5 MG TAB PO SCH (07:57)
[2019-08-23] MEDS: CEROVITE ADV FORMULA TAB PO SCH (07:57)
[2019-08-23] MEDS: BUSPIRONE HCL 7.5 MG TAB PO SCH (07:57)
[2019-08-23] MEDS: FAMOTIDINE 20 MG TAB PO SCH (07:57)
[2019-08-23] MEDS: cephALEXin 250 MG CAP PO SCH (07:57)
[2019-08-23] MEDS: DONEPEZIL HCL 5 MG TAB PO SCH (07:57)
[2019-08-23] MEDS: ASPIRIN 81 MG ECTAB PO SCH (07:58)
[2019-08-23] MEDS: CETIRIZINE HCL 10 MG TABLET PO SCH (07:58)
[2019-08-23] MEDS: AMIODARONE 200 MG TAB PO SCH (07:58)
[2019-08-23] MEDS: ERYTHROMYCIN OP OINT 5 MG/GM 3.5 GM TUBE OPR SCH ×2 (07:58→12:02)
[2019-08-23] MEDS: ARTIFICIAL TEARS OP SCH ×2 (07:59→12:02)
[2019-08-23 08:22] LABS: Hematocrit (blood only) 36.6 % (37-47); Hemoglobin 12.1 g/dL (12.0-16.0); Mean Corpuscular Hgb Conc 33.1 g/dL (32-36); Mean Corpuscular Volume 90.6 fL (80-100); Mean Platelet Volume 10.9 fL (7.4-10.4); Platelet Count 205 K/uL (130-400); RDW Coefficient of Variation 15.3 % (11.5-14.5); Red Blood Count 4.04 M/uL (4.2-5.4); White Blood Count 8.99 K/uL (4.8-10.8)
[2019-08-23 08:53] LABS: BUN Creatinine Ratio 19.3 (10-20); Creatinine Clr Calc Pharmacy 22.4 ml/min; Est GFR (Non-African American) 28.5; Potassium 4.1 mmol/L (3.5-5.1)
[2019-08-23 08:55] LABS: Albumin Globulin Ratio 0.8 (0.9-2); Bilirubin,Total 0.4 mg/dl (0.2-1); Globulin 3.5 gm/dl (2.5-4.0); Total Protein 6.5 gm/dl (6.4-8.2)
[2019-08-23] MEDS ORDERED: FLUOXETINE HCL 20 MG CAP PO SCH (09:00)
--- NOTE | 2019-08-23 14:22 | Discharge Summary ---
Date of Service August 23, 2019 Admission HPI Per Admitting Provider It is a 88 years old female with past medical history of hypertension, CVA, Alzheimer's dementia ,atrial flutter with ventricular response on apixaban who was brought in from the [facility] living with a complaint that she have trouble with her vision, double vision, generalized weakness dysuria and fever. Patient's 2 sons are at the bedside and stated that patient was doing okay up this morning at the [facility] and nurses reported that everything was okay with her. In the afternoon patient started to complain of dysuria problems with urination feeling a lots of pain and having double vision. Once when she arrived to the emergency room she stated that her vision is improved and her son informed us that she just recently (last Tuesday) had ophthalmologic procedure entropion repair of the right lower eyelid using lateral tarsal strip by Dr. Nice. She denies fever, chest pain, abdominal pain, hematuria dysuria syncope or near syncope. Patient is incontinent for urine. She has diapers. Per her family she is able to walk even though not very stable. Labs are reviewed: WBCs 9.66, hemoglobin 13.3, hematocrit 40.2, PLT 224, PT 10.6, INR 1, sodium 138, potassium 3.9, chloride 104, BUN 20, creatinine 1.58, GFR 28.9, magnesium 2.1, bilirubin 0.6, AST 16, ALT 22, alkaline phosphatase 108, troponin 0.130., TSH 7.990, free T4 1.37. BNP pending. Procalcitonin pending. Urine analysis positive for 2+ blood, leukocyte esterase 1+, WBCs 30, RBCs 10-30, urine bacteria 2+, clean- catch. Chest x-ray shows diffuse bilateral patchy airspace opacities with possibility of pulmonary edema or an infectious inflammatory pneumonitis. Cardiomegaly. No large pleural effusion. In the previous notes from 2017 it is noticed that patient had chronic bilateral lung infiltrates of unknown significance which were worked up by the plate furnace operator. Patient had diagnostic bronchoscopy the day prior. It was also noted in 2017 that patient had mild troponin elevation and elevated TSH. EKG: Shows normal sinus T wave abnormalities. Patient denies chest pain. Her troponin is elevated to 0.13. Decision was made to admit patient to [facility] on telemetry to follow-up in her troponin, urinary tract infection and possibly pneumonia. Admission Exam Per Admitting Provider Constitutional: WD/WN, vitals as above well developed and + cachectic Eyes: PERRL, conjunctivae normal, anicteric sclerae ENMT: external ear and nose normal, oropharynx normal Neck: trachea midline, no thyromegaly Respiratory: normal respiratory effort Auscultation: + wheezes Cardiovascular: RRR, no murmur, no edema Musculoskeletal: no cyanosis or clubbing, extremities motor strength 5/5 Skin: no rashes, warm and dry Neurologic: patellar DTR's 2+ bilat, sensation intact Psychiatric: Moderate cognitive impairment due to vascular dementia Lymphatic: no cervical or axillary lymphadenopathy Principal Diagnosis CVA, UTI Discharge Exam Constitutional + frail appearing and cooperative; no acute distress Eyes + anicteric sclerae and PERRL visual garces by confrontation with improvement to left field ENMT Throat: uvula midline Neck trachea midline, no thyromegaly Respiratory normal respiratory effort, lungs clear to auscultation normal respiratory effort; no respiratory distress and no labored breathing Auscultation: + crackles (bibasilar crackles); no wheezes Cardiovascular Rate/Rhythm: regular rate and regular rhythm Heart Sounds: normal S1 and normal S2 Extremities: no edema Gastrointestinal (Abdomen) normal bowel sounds, soft, nontender, no hepatosplenomegaly Musculoskeletal Head/Neck/Chest: normocephalic and head atraumatic Extremities: extremities normal to inspection Skin no rashes, warm and dry Psychiatric Orientation: alert and oriented to person; + not oriented to time Discharge Data Allergies Allergy/AdvReac Type Severity Reaction Status Date / Time bee venom protein (honey bee) Allergy Intermediate SWELLING Verified 08/17/19 16:19 Penicillins Allergy Intermediate hives Verified 08/17/19 16:19 codeine AdvReac Mild NAUSEA/VOMI Verified 08/17/19 16:19 TING Consultations 08/17/19 16:30 ED Decision to Admit Stat 08/17/19 22:00 Consult Neurology Routine 08/17/19 22:21 Consult Case Management - Discharge Planning Routine Ordered Studies 08/17 CXR 08/17/19 14:54 CT head/brain wo con Stat 08/17/19 20:29 MR brain wo con Stat US carotid doppler BI Urgent 08/17/19 22:13 US venous doppler LE BI Routine 08/19 ECHO Hospital Course (1) Stroke: * Presentation of double vision - also had R entropian repair on 08/[address] Nice. * MRI revealed embolic strokes in inferior medial R occipital lobe, R basal ganglia, R frontal lobe, and R cerebellar hemisphere * Carotid U/S revealed 60-70% stenosis of L ECA and possibly off AC for eye procedure with H/O paroxysmal A Fib - patient was in NSR -- likely embolic due to afib, as patient flipped to aflutter at 07:41 on 08/20 and remained in flutter until 16:47 on 08/22 * Neurology consult on consult during admission. ASA 81mg daily. Continued apixaban 2.5mg BID * Case was discussed with [facility] Neuro on admission --> patient not a tPA candidate. (Patient was previously on Plavix but was stopped when started on Eliquis, however patient poor historian with regards to medication history) * Lipid panel WNL - advised to give statin if abnormal by Karen however given carotids may benefit even though finding is in external carotid. Patient had previously been on Pravastatin in 2017 but no longer on it -- initiated evening 08/22 however given increased weakness and fatigue was discontinued. Once improved, could consider different agent as outpatient * Will need follow up with Ophthalmology -- nurse navigator set up follow up with Dr. De Souza's office after discussion with son, Tripp --> if unable to treat, they will refer her at that time * Neurology follow up in 6-8 weeks (2) Urinary tract infection: * UA/cx with UTI -- Klebsiella -was initially treated with ceftriaxone, however switched to keflex 250mg BID -- to complete course on 08/24 * Pyridium prn for pain while inpatient (3) Atypical pneumonia: * Uncertain if was infectious vs inflammatory vs pulmonary edema --> likely component of pulmonary edema, although previous imaging from 2017 with similar opacities (treated recently outpatient with doxy) --> given 40mg IV lasix in addition to NS -- continued to be 97% on RA prior to discharge * Incentive spirometer encouraged while inpatient (4) Paroxysmal atrial fibrillation: * Given embolic nature of CVA d/t lapse in eliquis, continued to monitor on telemetry * Was NSR until morning of 08/20 at 07:41 where she flipped into aflutter with rates as high as 120-130s--> started on metoprolol 12.5mg BID with excellent rate control, 60-70s. Flipped back into NSR as above. * Given increased fatigue during stay, was discharged on only 12.5mg metoprolol succinate * Continued eliquis (5) Hypercalcemia: * STABLE * Appears patient with chronic elevation of calcium per previous lab values, as she appears to have been high-normal end, with values of 10 since 2017. Corrected calcium up to around 10.9/11. Was given IVF and diuretic to see if that improved calcium level. Improved slightly prior to discharge. * Patient HCTZ/triamterene discontinued as this likely contributing to elevated Ca levels. * Should have repeat labs in the next week at discretion of PCP (6) Hypothyroidism: * TSH chronically elevated with normal T4 - question of subclinical hypoth yroidism -may be contributing to overall fatigue * Levothyroxine increased to 100mcg. * Will need follow-up and TFTs in 6 weeks as outpatient (7) Chronic kidney disease, stage III (moderate): * Stable. Baseline Creat 1.2-1.7 for the past several years. Creat 1.6 on discharge. * Avoided nephrotoxic agents; renally dosed medications as necessary while inpatient (8) Hypertension: * STABLE. Home losartan 100mg daily continued. * Discontinued amlodipine and HCTZ/triamterene as above * Initiated metoprolol tartrate 12.5mg BID while inpatient and in flutter with conversion back to NSR as above on 08/22 * Discharged on 12.5mg MTP succinate * BP stable at 118/71 prior to discharge (9) Weakness: * Patient continued to express generalized fatigue in addition to myalgias after addidtion of pravastatin -- medication was discontinued as above (10) Hyperlipidemia: * Lipid panel WNL, however initiated pravastatin 20mg last evening (thought possible benefit given external carotid stenosis 60-67%) --> given patient's continued fatigue and myalgias, in addition to LDL of 87, statin discontinued at this time * Could consider different statin as outpatient as ddiscretion of PCP (11) Depression: * STABLE. Continued home buspirone 7.5mg BID but increased fluoxetine to 40mg from 20mg for increased anhedonia expressed by patient over the last several weeks/months (12) Elevated troponin: * Patient with chronic elevations; troponins x 3 positive but trended down and without ACS symptoms * On previous admission question of moderate LVH and contributor to chronic troponins (13) Dementia: * Progressive vascular dementia * Continued Donepezil 5 mg daily Total Time Total Time Spent Total Time Spent (In Minutes): 45 Discharge Plan Discharge Items Patient Disposition: Personal Custodial Reason For Visit: PNEUMONIA,UTI Discharge Diagnosis: Stroke Goals: You have been hospitalized for an acute medical problem. During your stay at [facility], we have made an effort to correct the problem that brought you to the hospital while keeping you as comfortable as possible. Medications were used to bring your condition under control and your discharge instructions will include directions for any medications you should take after leaving the hospital. Please make sure you see your Primary Care Provider as part of your follow up plan. Activity: Resume your previous activity Non-emergency contact: Primary Care Provider Call non-emergency contact if: you have any medication questions, your symptoms worsen and you have a fever Follow-up/Referrals: [facility] [Provider Group] - 08/27/19 1:00 pm (Please, follow up at [facility] on TuesdayAugust 27 at 1:00 pm. *The office is located at [address] in [place]. If you have any questions, call the office at [phone].) Wilner Hernandez MD [Primary Care Provider] - Silvana Escobedo MD [Physician] - 10/12/19 9:45 am (Please, follow up at [facility] Neurology Office with Dr. Escobedo on TuesdayOctober 12 at 10:00 am (arrive at 9:45 am). *The office is located at [address] in [place]. If you need to change this appointment, call the office at [phone].) Diet: Heart Healthy Addtl Attending Provider Instructions: You have been sent a prescription for keflex. This is an antibiotic to treat your urinary tract infection. Please complete the full course as prescribed and do not miss any doses. Your heart did go into an arrhythmia called atrial flutter. You have been on amiodarone and other medications to help keep you out of that rhythm, and we made medication adjustments during your hospitalization and you are back in a normal rhythm. The following medication changes have been made: --START metoprolol succinate 12.5mg -- this is for both blood pressure and heart rate control -- DISCONTINUE Amlodipine 5mg -- DISCONTINUE Maxzide (HCTZ/triamterene 37.5/25mg) -- START Aspirin 81mg daily --INCREASED levothyroxine from 88mcg to 100mcg -- You will need to have repeat thyroid function tests in 6-8 weeks and further adjustments may be made at that time. -- INCREASED fluoxetine (prozac) from 20mg to 40mg daily -- You may need further adjustments on this medication and should discuss this with your primary care provider. You have been set up an appointment with [facility] for follow-up eye examination. You appointment is on August 27 at 1:00pm. If they are unable to perform services needed during your visit, instructions were made to refer you to a neurological specialist. Please follow up with Dr. Escobedo (Neurology) office in the next 6-8 weeks. An appointment is being made for you, but if you do not hear anything by next week, please give their office a call at [phone]. Please return to the emergency room with any worsening of your symptoms, visual changes, fever, shortness of breath or for any other symptoms that are concerning for you. It has been a pleasure being a part of the medical team helping to take care of your during your admission. Thank you so much. Take care! Pending Studies at Discharge: No Stand-Alone Forms: [facility] [employer] Smoking Cessation Skilled Items Patient informed of condition?: Yes DNR: Yes Discharge Level of Care: Other Communicable Disease: No Discharge Prognosis: Improving Lines: None Urinary Catheter: No Medications and DC Order Prescriptions: New cephalexin 250 mg Capsule 250 mg PO BID Qty: 5 RF: 0 levothyroxine [Synthroid] 100 mcg Tablet 100 mcg PO DAILYBB 30 Days Qty: 30 RF: 0 metoprolol succinate 25 mg Tablet Extended Release 24 Hr 12.5 mg PO QAM 30 Days Qty: 15 RF: 0 fluoxetine 20 mg Capsule 40 mg PO QAM 30 Days Qty: 60 RF: 0 Continued donepezil [Aricept] 5 mg tablet 5 mg PO QAM Qty: 30 RF: 5 Cepacol Sore Throat (erna-men) 15-3.6 mg lozenge 1 colt PO Q2H PRN (Reason: sore throat) RF: 0 Ensure liquid 1 ea PO BID PRN (Reason: nutritional supplement) RF: 0 azelastine 137 mcg (0.1 %) aerosol,spray 2 sprays intranasal BID PRN (Reason: allergy symptoms) Qty: 1 RF: 0 fluticasone propionate 50 mcg/actuation spray,suspension 1 sprays intranasal BID PRN (Reason: allergy symptoms) Qty: 1 RF: 0 cetirizine [Zyrtec] 10 mg Tablet 10 mg PO QAM RF: 0 aspirin [Aspir-81] 81 mg Tablet,Delayed Release (Dr/Ec) 81 mg PO QAM RF: 0 calcium carbonate [Calcium 600] 600 mg calcium (1,500 mg) Tablet 600 mg PO QAM RF: 0 buspirone 7.5 mg Tablet 7.5 mg PO BID RF: 0 losartan [Cozaar] 100 mg tablet 100 mg PO QAM RF: 0 Therems-M 27-0.4 mg Tablet 1 tab PO QAM RF: 0 cholecalciferol (vitamin D3) [Vitamin D3] 1,000 unit Tablet 1,000 unit PO QAM RF: 0 Eliquis 2.5 mg Tablet 2.5 mg PO BID RF: 0 erythromycin 5 mg/gram (0.5 %) Ointment 0.25 inch OPR QID RF: 0 Systane Complete 0.6 % Drops 1 drp OPHTHALMIC (EYE) QID RF: 0 Refresh Optive 1-0.9 % Drops,Gel 2 drp OPR HS RF: 0 amiodarone 200 mg tablet 200 mg PO QAM RF: 0 loperamide [Anti-Diarrheal (loperamide)] 2 mg tablet 2 mg PO Q4H RF: 0 acetaminophen [Acetaminophen Extra Strength] 500 mg tablet 1,000 mg PO Q8H PRN (Reason: Fever Or Pain) RF: 0 famotidine [Pepcid] 20 mg tablet 20 mg PO QAM RF: 0 Discontinued levothyroxine 88 mcg tablet 88 mcg PO DAILYBB RF: 0 triamterene-hydrochlorothiazid 37.5-25 mg tablet 0.5 tab PO QAM RF: 0 fluoxetine [Prozac] 20 mg Capsule 20 mg PO QAM RF: 0 amlodipine [Norvasc] 5 mg tablet 5 mg PO QAM RF: 0 Discharge Orders: Discharge Order (Routine); Ordered 08/23/19 Ordered By: Sia Duenas Admission Data Admit Date/Time: 08/17/19 17:30 Attending Provider: Fransisco Russell Admit Provider: Esha Daniels Primary Care Provider: Wilner Hernandez Other Providers: Esha Daniels ; Silvana Escobedo Other Interventions: Discharge Summary Assessment (RN) Last Done: 08/23/19 16:20 DC Date/Time DO NOT enter until pt leaves facility: 08/23/19 17:30 Supervising Physician Co-Signing Physician Notes Attending Attestation and Discharge Note: Pt seen/examined, chart reviewed in detail, care plan d/w PA Sia Duenas. I agree w/ the hoang components of her discharge documentation. 88yo female with recent right eye surgery (right-sided entropion repair)- was off chronic anticoagulation for such - who presented w/ diplopia. Found to have multiple strokes on MRI brain - likely cardioembolic given her PAF history and being off anticoagulation. Eliquis resumed during this stay. Also had Klebsiella UTI and received antibiotics for such. Further had episode of paroxysmal a flutter - ultimately converted back to NSR. Beta kush was substituted for HCTZ in the event she develops paroxysmal a fib/flutter in the future. Hypercalcemia - possibly due to HCTZ use - was treated in customary fashion with fluids/lasix. HCTZ again was discontinued. Calcium level should be followed carefully over the next 1-2 weeks post- discharge. Had standard post-stroke work-up/treatment including neuro/PT/OT/speech consultations. Following administration of statin agent she felt poorly; thus, statin was deferred at discharge. She will need ophtho follow-up post-d/c. Discharge exam: gen - NAD eyes - right lower lid incision clean/dry, no nystagmus, PERRL heart - RRR lungs - CTA b/l abd - soft NT ND BS+ ext - no edema neuro - strength 5/5 x 4 exts; speech fluent; no facial droop Fransisco Russell MD
[2019-08-24] MEDS ORDERED: METOPROLOL SUCC 25MG EXT REL TAB PO SCH (09:00)
--- NOTE | 2019-08-31 12:08 | Coding Query ---
CODING QUERY To promote full compliance with coding requirements relating to patient care, provider participation is requested in all cases of informal waiter/waitress uncertainty. Please assist us with the question(s) below: Coding Question(s): There is documentation in the record and Discharge Summary of, "Atypical pneumonia: * Uncertain if was infectious vs inflammatory vs pulmonary edema --> likely component of pulmonary edema, although previous imaging from 2017 with similar opacities (treated recently outpatient with doxy) --> given 40mg IV lasix in addition to NS -- continued to be 97% on RA prior to discharge * Incentive spirometer encouraged while inpatient". Please clarify below, your clinical opinion. ( ) Atypical Pneumonia was treated during this admission ( ) Pulmonary Edema was treated during this admission ( ) Acute Pulmonary Edema ( ) Chronic Pulmonary Edema ( ) Acute and Chronic Pulmonary Edema ( ) Atypical Pneumonia and Pulmonary Edema from other etiology were treated during this admission ( ) Acute Pulmonary Edema ( ) Chronic Pulmonary Edema ( ) Acute and Chronic Pulmonary Edema (x ) Other: Please Specify_---- It is not clear what the diagnosis on imaging is. But it is a chronic finding. I would not label her as having atypical pneumonia. Physician's Response(s): Thank you Chika Gonsalez Principal Diagnosis: "that condition established after study, to be chiefly responsible for occasioning the admission of the patient to the hospital for care." Co-Existing Principal Diagnosis: "when two or more diagnoses equally meet the criteria for principal diagnosis as determined by the circumstances of admission, diagnostic work up, and/or therapy provided, and the Alphabetic Index, Tabular List, or another coding guideline does not provide sequencing direction, any one of the diagnoses may be sequenced first." "When the physician has documented what appears to be a current diagnosis in the body of the record, but has not included the diagnosis in the final diagnostic statement, the physician should be asked whether the diagnosis should be added." (Source Coding Clinic 2 QTR90. p3-4) [place]
== END 2019-08-23 17:30 | disposition home health service (06) | DRG 65 ==
LOC: ED 14:37 → 2W 17:30 → SUATTDRO 17:30 → 2W 19:44

== ENCOUNTER 2019-09-04 04:16 | Inpatient (IN) ==
[2019-09-04 04:39] LABS: Appearance Urine Clear (Clear); Bacteria Urine Automated 3+ (Negative); Bilirubin Urine Negative (Negative); Blood Urine 3+ (Negative); Color Urine Yellow; Epithelial Cell Urine Auto >30 /lpf (0-5); Glucose Urine UA Negative (Negative); Ketones Urine Negative (Negative); Leukocyte Esterase Urine 2+ (Negative); Nitrite Urine Positive (Negative); Protein Urine 2+ (Negative); Specific Gravity Urine 1.007 (1.000-1.030); Urobilinogen Urine Negative (Negative)
[2019-09-04] MEDS ORDERED: SODIUM CHLORIDE 0.9% 500 ML IV ONE (05:00)
[2019-09-04] MEDS ORDERED: cefTRIAXone SODIUM 2,000 MG/70 ML BAG IV STA (05:00)
[2019-09-04 05:50] LABS: Eosinophils % (auto) 1.1 %; Hematocrit (blood only) 38.2 % (37-47); Hemoglobin 12.6 g/dL (12.0-16.0); Immature Granulocytes # (auto) 0.11 K/uL (0.00-0.02); Immature Granulocytes % (auto) 1.2 %; Lymphocytes # (auto) 1.56 K/uL (1.2-3.4); Lymphocytes % (auto) 17.4 %; Mean Platelet Volume 10.4 fL (7.4-10.4); Monocytes # (auto) 1.45 K/uL (0.11-0.59); Monocytes % (auto) 16.2 %; Neutrophils # (auto) 5.75 K/uL (1.4-6.5); Neutrophils % (auto) 64.1 %; Platelet Count 235 K/uL (130-400); RDW Coefficient of Variation 15.3 % (11.5-14.5); RDW Standard Deviation 50.9 fL (36.4-46.3); White Blood Count 8.97 K/uL (4.8-10.8)
[2019-09-04 06:03] LABS: Albumin Level 3.4 gm/dl (3.4-5.0); BUN Creatinine Ratio 10.7 (10-20); Calcium 8.9 mg/dl (8.5-10.1); Creatinine Clr Calc Pharmacy 27.2 ml/min; Est GFR (African American) 41.6; Est GFR (Non-African American) 35.9; Potassium 3.4 mmol/L (3.5-5.1)
[2019-09-04 06:06] LABS: Albumin Globulin Ratio 0.9 (0.9-2); Bilirubin,Total 0.5 mg/dl (0.2-1); Globulin 3.9 gm/dl (2.5-4.0); Total Protein 7.3 gm/dl (6.4-8.2)
[2019-09-04] MEDS ORDERED: ACETAMINOPHEN 1,000 MG/100 ML VIAL IV STA (06:41)
--- NOTE | 2019-09-04 06:55 | Emergency Department Note ---
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 EMS states the patient had a normal void earlier this evening. They reports she woke at the [facility] and then had difficulty going to the restroom. EMS notes the patient had mild leakage on their way to the ED. They state the patient's bladder is palpable in the lower abdomen. EMS reports the patient has a history of a CVA, and she just finished cephalexin 250 a week ago for a UTI. The patient states she recently had a UTI. She reports she was able to void during her UTI. The patient notes she has a history of not being able to void, and she is currently mildly nauseous. She denies abdominal pain, back pain, headaches, fevers, chills, and vomiting. Home Medications Home Medications Medication Instructions Recorded Confirmed Type Eliquis 2.5 mg PO BID 03/07/19 09/04/19 History Therems-M 1 tab PO QAM 03/07/19 09/04/19 History aspirin [Aspir-81] 81 mg PO QAM 03/07/19 09/04/19 History buspirone 7.5 mg PO BID 03/07/19 09/04/19 History calcium carbonate [Calcium 600] 600 mg PO QAM 03/07/19 09/04/19 History cetirizine [Zyrtec] 10 mg PO QAM 03/07/19 09/04/19 History cholecalciferol (vitamin D3) 1,000 unit PO QAM 03/07/19 09/04/19 History [Vitamin D3] losartan [Cozaar] 100 mg PO QAM 03/07/19 09/04/19 History azelastine 137 mcg (0.1 %) nasal 2 sprays INTRANASAL BID PRN #1 ml 03/31/19 09/04/19 History spray aerosol benzocaine-menthol 15 mg-3.6 mg 1 colt PO UD PRN 03/31/19 09/04/19 History lozenges fluticasone propionate 50 1 sprays INTRANASAL BID PRN #1 gm 03/31/19 09/04/19 History mcg/actuation nasal spray,suspension food supplemt, lactose-reduced 1 ea PO BID PRN ml 03/31/19 09/04/19 History donepezil 5 mg tablet 5 mg PO QAM #30 tab 07/05/19 09/04/19 Rx Refresh Optive 2 drp OPR HS 08/17/19 09/04/19 History Systane Complete 1 drp OPB QID 08/17/19 09/04/19 History acetaminophen [Acetaminophen Extra 1,000 mg PO TID PRN MDD 3gm/24hr 08/17/19 09/04/19 History Strength] amiodarone 200 mg PO QAM 08/17/19 09/04/19 History erythromycin 0.25 inch OPR QID 08/17/19 09/04/19 History famotidine [Pepcid] 20 mg PO QAM 08/17/19 09/04/19 History loperamide [Anti-Diarrheal 2 mg PO Q4H 08/17/19 09/04/19 History (loperamide)] fluoxetine 40 mg PO QAM 30 Days #60 cap 08/23/19 09/04/19 Rx levothyroxine [Synthroid] 100 mcg PO DAILYBB 30 Days #30 tab 08/23/19 09/04/19 Rx metoprolol succinate 12.5 mg PO QAM 30 Days #15 tab 08/23/19 09/04/19 Rx Allergies Allergy/AdvReac Type Severity Reaction Status Date / Time bee venom protein (honey bee) Allergy Intermediate SWELLING Verified 09/04/19 04:52 Penicillins Allergy Intermediate hives Verified 09/04/19 04:52 codeine AdvReac Mild NAUSEA/VOMI Verified 09/04/19 04:52 TING Past Med/Surg History Medical History Abnormal CT scan, chest Altered mental status Atrial flutter with rapid ventricular response Atypical pneumonia Chronic kidney disease, stage III (moderate) (Acute) CVA (cerebral infarction) (Acute 05/29/14) Hyperlipidemia (Acute) Hypertension (Acute) Hypothyroidism (Acute) Intractable vomiting Meningioma (Acute) Sinusitis (Acute) Vertigo (Acute 05/29/14) Vomiting (Acute) Weakness (Acute) Weakness Surgical History History of left knee replacement History of sinus surgery Family History Other Family history non-contributory Social History Preferred Language: Pashto Communication Ability: Effective Community Sports Coordinator Required: No Beliefs That Will Affect Care: None marital status: / Current Living Situation: Personal Care Facility current occupational status: retired Feels Safe at Home: Yes Smoking Status: Never smoker Second Hand Exposure: No ; Hx Alcohol Use: No Hx Substance Use: No Review of Systems See HPI for pertinent positives & negatives. and A total of 10 systems reviewed and were otherwise negative Physical Exam Vital Signs Vital Signs - 24 hr 09/04/19 04:17 09/04/19 04:26 09/04/19 04:30 Temperature 36.9 C Temperature Source Oral Pulse Rate 69 61 Pulse Rate [Right Finger] 61 Pulse Rate from SpO2 Sensor 61 Pulse Rhythm Regular Pulse Rhythm [Right Finger] Regular Pulse Strength Normal Pulse Strength [Right Finger] Normal Respiratory Rate 20 21 Respiratory Effort / Characteristics Non-Labored Spontaneous Non-Labored Spontaneous Respiratory Depth Normal Normal Respiratory Pattern Regular Blood Pressure 199/87 H 179/86 H Blood Pressure [Right Arm] 179/86 H Blood Pressure Mean 124 93 Blood Pressure Mean [Right Arm] 117 Blood Pressure Position [Right Arm] Sitting Pulse Oximetry 93 93 92 Oxygen Delivery Method Room Air Nasal Cannula Nasal Cannula Oxygen Flow Rate 3 3 Sepsis Recent Fever Within 48 Hours No Sepsis Action Taken by Nursing No Action Required 09/04/19 06:11 09/04/19 06:52 09/04/19 07:10 Temperature Temperature Source Pulse Rate Pulse Rate [Right Finger] 63 58 L Pulse Rate from SpO2 Sensor Pulse Rhythm Pulse Rhythm [Right Finger] Pulse Strength Pulse Strength [Right Finger] Respiratory Rate 18 18 Respiratory Effort / Characteristics Non-Labored Spontaneous Respiratory Depth Respiratory Pattern Blood Pressure Blood Pressure [Right Arm] 191/79 H 180/82 H Blood Pressure Mean Blood Pressure Mean [Right Arm] 116 114 Blood Pressure Position [Right Arm] Sitting Pulse Oximetry 89 L 97 87 L Oxygen Delivery Method Nasal Cannula Nasal Cannula Room Air Oxygen Flow Rate 3 1.5 Sepsis Recent Fever Within 48 Hours Sepsis Action Taken by Nursing 09/04/19 07:11 Temperature Temperature Source Pulse Rate Pulse Rate [Right Finger] Pulse Rate from SpO2 Sensor Pulse Rhythm Pulse Rhythm [Right Finger] Pulse Strength Pulse Strength [Right Finger] Respiratory Rate Respiratory Effort / Characteristics Respiratory Depth Respiratory Pattern Blood Pressure Blood Pressure [Right Arm] Blood Pressure Mean Blood Pressure Mean [Right Arm] Blood Pressure Position [Right Arm] Pulse Oximetry 91 Oxygen Delivery Method Nasal Cannula Oxygen Flow Rate 2 Sepsis Recent Fever Within 48 Hours Sepsis Action Taken by Nursing GENERAL: alert, uncomfortable appearing, well nourished, mild distress, non- toxic EYE EXAM: normal conjunctiva, PERRL and EOM's grossly intact OROPHARYNX: no exudate, no erythema, lips, buccal mucosa, and tongue normal and mucous membranes are moist NECK: supple, no nuchal rigidity, no adenopathy, non-tender LUNGS: Clear to auscultation. Normal chest wall mechanics, no w/r/r HEART: no murmurs, S1 normal and S2 normal ABDOMEN: abdomen soft, lower abdominal and suprapubic tenderness to palpation with fullness, normo-active bowel sounds, no masses, no rebound or guarding. BACK: Back is symmetrical on inspection and there is no deformity, no midline tenderness, no CVA tenderness. SKIN: no rashes and no bruising UPPER EXTREMITIES: upper extremities are grossly normal. FROM, nml pulses b/l. LOWER EXTREMITIES: No pitting edema. FROM, nml pulses b/l. NEURO EXAM: Normal sensorium, cranial nerves II-XII grossly intact, normal speech, no gross weakness of arms, no gross weakness of legs. Course Course 0423: Past medical records reviewed. The patient was evaluated in room B09. A complete history and physical exam was performed. 0425: Review of EMR: Urine culture from two weeks ago grew out klebsiella that was harper-sensitive. 0640: VS stable. Pt updated. Awaiting CT results. Pt has urinated here several times, pt with stress incontinence. Attempting to wean pt off oxygen. 0726: Pt still unable to be weaned to room air. Has dropped sats on 2 occasions to 85%. 0730: Case discussed with Dr Daniels, [facility] hospitalist. Consultations Consultation #1: Case discussed with Dr. Daniels. Time: 07:30 Administered Medications Discontinued Medications Furosemide (Lasix) 40 mg IV NOW STA Stop: 09/04/19 07:03 Last Admin: 09/04/19 07:21 Dose: 40 mg Documented by: [id number] Ceftriaxone Sodium (Rocephin) 2,000 mg in 70 mls @ 140 mls/hr IV NOW STA Stop: 09/04/19 05:29 Last Infusion: 09/04/19 06:15 Dose: 0 mls/hr Documented by: [id number] Admin: 09/04/19 05:36 Dose: 140 mls/hr Documented by: [id number] Sodium Chloride (Nss) 500 mls @ 999 mls/hr IV .Q31M ONE Stop: 09/04/19 05:30 Last Infusion: 09/04/19 06:15 Dose: 0 mls/hr Documented by: [id number] Admin: 09/04/19 05:36 Dose: 999 mls/hr Documented by: [id number] Acetaminophen (Ofirmev) 1,000 mg in 100 mls @ 400 mls/hr IV NOW STA Stop: 09/04/19 06:55 Last Infusion: 09/04/19 07:12 Dose: 0 mls/hr Documented by: [id number] Admin: 09/04/19 06:48 Dose: 400 mls/hr Documented by: [id number] Losartan Potassium (Cozaar) 100 mg PO NOW STA Stop: 09/04/19 07:02 Last Admin: 09/04/19 07:25 Dose: 100 mg Documented by: [id number] Potassium Chloride (Klor-Con M20) 40 meq PO NOW STA Stop: 09/04/19 07:02 Last Admin: 09/04/19 07:21 Dose: 40 meq Documented by: [id number] Medical Decision Making Differential Diagnosis Differential diagnoses includes but is not limited to gastritis, peptic ulcer disease, GERD, gallbladder disease, pancreatitis, small bowel obstruction, acute coronary syndrome, pericarditis, ischemic bowel, irritable bowel disease, irritable bowel syndrome, appendicitis, diverticulitis, malignancy, hernia, urinary tract infection, torsion, urinary retention, perforation, trauma, infectious. Medical Records Attestation: I reviewed the patient's medical records. Home Medications Current Medication List: was personally reviewed by me Laboratory Data Attestation: I reviewed the patient's lab results. Result diagrams: 09/04/19 05:40 09/04/19 05:40 Lab Results 09/04/19 09/04/19 09/04/19 Range/Units 04:23 05:40 05:40 WBC 8.97 (4.8-10.8) K/uL RBC 4.20 (4.2-5.4) M/uL Hgb 12.6 (12.0-16.0) g/dL Hct 38.2 (37-47) % MCV 91.0 (80-100) fL MCH 30.0 (25-34) pg MCHC 33.0 (32-36) g/dL RDW Std Deviation 50.9 H (36.4-46.3) fL RDW Coeff of Fidel 15.3 H (11.5-14.5) % Plt Count 235 (130-400) K/uL MPV 10.4 (7.4-10.4) fL Immature Gran % (Auto) 1.2 % Neut % (Auto) 64.1 % Lymph % (Auto) 17.4 % [place] % (Auto) 16.2 % Eos % (Auto) 1.1 % Baso % (Auto) 0.0 % Immature Gran # (Auto) 0.11 H (0.00-0.02) K/uL Neut # (Auto) 5.75 (1.4-6.5) K/uL Lymph # (Auto) 1.56 (1.2-3.4) K/uL [place] # (Auto) 1.45 H (0.11-0.59) K/uL Eos # (Auto) 0.10 (0-0.5) K/uL Baso # (Auto) 0.00 (0-0.2) K/uL Sodium 139 (136-145) mmol/L Potassium 3.4 L (3.5-5.1) mmol/L Chloride 109 H (98-107) mmol/L Carbon Dioxide 27 (21-32) mmol/L Anion Gap 3.0 (3-11) BUN 14 (7-18) mg/dl Creatinine 1.32 H (0.6-1.2) mg/dl Est Cr Clr Drug Dosing 27.2 ml/min Est GFR ( Amer) 41.6 Est GFR (Non-Af Amer) 35.9 BUN/Creatinine Ratio 10.7 (10-20) Glucose 96 (70-99) mg/dl Calcium 8.9 (8.5-10.1) mg/dl Total Bilirubin 0.5 (0.2-1) mg/dl AST 24 (15-37) U/L ALT 33 (12-78) U/L Alkaline Phosphatase 109 (45-117) U/L Total Protein 7.3 (6.4-8.2) gm/dl Albumin 3.4 (3.4-5.0) gm/dl Globulin 3.9 (2.5-4.0) gm/dl Albumin/Globulin Ratio 0.9 (0.9-2) Urine Color Yellow Urine Appearance Clear (Clear) Urine pH 7.0 (4.5-7.5) Ur Specific [place] 1.007 (1.000-1.030) Urine Protein 2+ H (Negative) Urine Glucose (UA) Negative (Negative) Urine Ketones Negative (Negative) Urine Blood 3+ H (Negative) Urine Nitrite Positive A (Negative) Urine Bilirubin Negative (Negative) Urine Urobilinogen Negative (Negative) Ur Leukocyte Esterase 2+ H (Negative) Urine WBC (Auto) 5-10 H (0-5) /hpf Urine RBC (Auto) 10-30 H (0-4) /hpf U Hyaline Cast (Auto) 5-10 H (0-5) /lpf U Epithel Cells (Auto) >30 H (0-5) /lpf Urine Bacteria (Auto) 3+ H (Negative) Imaging Data Radiologist's Impression: CT abdomen and pelvis without contrast: Mild bilateral hydroureteronephrosis. Punctate nonobstructing right renal stone. No evidence of ureteral stone. Urinary bladder is mildly distended. Mild bladder wall thickening and adjacent fat stranding, compatible with cystitis. Combination of findings most compatible with CHF/fluid overload. Small bila teral pleural effusions. Interlobular septal thickening and patchy ill-defined central groundglass. Left atrium is mildly enlarged. Trace pericardial fluid. Left upper pole renal cyst. Colonic and duodenal diverticulosis without evidence of acute diverticulitis. Epiphrenic esophageal diverticulum. Normal appendix. No free air or free fluid. No bowel obstruction. Atherosclerotic calcifications of aorta and its branches. Multilevel degenerative changes of lumbar spine. Small fat-containing umbilical hernia. Radiologist: Timothy Castillo MD Blood Pressure Blood Pressure Findings: Elevated blood pressure MDM Narrative Patient presenting here with urinary symptoms. Patient with a recent history of UTI having taken a course of antibiotics. Due to recurrence in a short amount of time, labs drawn and sent and patient sent for CT imaging to rule out other processes which could be contributing to this recurrence. CT reassuring with exception of findings suggestive of pulmonary edema/CHF. Patient had denied any trouble breathing, however was initially noted to be hypoxic. Due to complaints unrelated to breathing initially, this was thought to be an error. After CT findings, we attempted to wean patient off oxygen and were unsuccessful as upon achieving room air, her sats would drop to the mid 80s. Patient does not wear oxygen at the [facility]. We called the [facility] to see if it was possible to have a oxygen ordered for the patient to be used as needed, and they stated this was n ot possible given that it was not a pre-existing order for her and she cannot return back there if she continued to need oxygen. As result of this, hospitalist was contacted for additional evaluation. 1 dose of IV Lasix was added to the patient. She had already been started on IV antibiotics. No prior history of overt CHF, and a recent echo showed an ejection fraction of 65%. Patient does not otherwise examine like acute congestive heart failure. Patient noted to be hypertensive here, likely secondary to discomfort regarding her condition as well as being due for her usual morning medications which do include antihypertensive medications. Impression & Plan Hypoxia, Urinary tract infection, Acute urinary retention, Abdominal pain, Hypertension, CHF (congestive heart failure) Discharge Plan Visit Data Chief Complaint: Unable to Void Stated Complaint: UNABLE TO URINATE ED Provider: Marichuy Garner Discharge Problem: Hypoxia, Urinary tract infection, Acute urinary retention, Abdominal pain, Hypertension, CHF (congestive heart failure) Patient Disposition: Being Evaluated by Hospitalist Condition: Good Discharge Instructions Louis/Other Patient Handouts: ED UTI Cystitis Female Activity Restrictions/Additional Instructions: Your CAT scan didn't reveal any additional infection or kidney stone. Please continue taking your regular medications including your morning medication today when you get home with the exception of your losartan. Please drink water and stay hydrated. Please take the course of antibiotics as prescribed. You were given your first dose of antibiotics thru the IV while in the emergency room. If you have worsening pain, are unable to urinate, develop fevers, dizziness, vomiting, or have any other new concerns, please return to the emergency room. Please consider use a barrier cream to your vulvovaginal area to help with your irritation. An example of this would be A&D ointment. Your urine will be sent for a culture, this will take 2 days to result. Forms Stand Alone Forms: [facility], Important Visit Information Prescriptions Prescriptions: No Action donepezil [Aricept] 5 mg tablet 5 mg PO QAM Qty: 30 RF: 5 Cepacol Sore Throat (erna-men) 15-3.6 mg lozenge 1 colt PO UD PRN (Reason: sore throat) RF: 0 Ensure liquid 1 ea PO BID PRN (Reason: nutritional supplement) RF: 0 azelastine 137 mcg (0.1 %) aerosol,spray 2 sprays intranasal BID PRN (Reason: allergy symptoms) Qty: 1 RF: 0 fluticasone propionate 50 mcg/actuation spray,suspension 1 sprays intranasal BID PRN (Reason: allergy symptoms) Qty: 1 RF: 0 cetirizine [Zyrtec] 10 mg Tablet 10 mg PO QAM RF: 0 aspirin [Aspir-81] 81 mg Tablet,Delayed Release (Dr/Ec) 81 mg PO QAM RF: 0 calcium carbonate [Calcium 600] 600 mg calcium (1,500 mg) Tablet 600 mg PO QAM RF: 0 buspirone 7.5 mg Tablet 7.5 mg PO BID RF: 0 losartan [Cozaar] 100 mg tablet 100 mg PO QAM RF: 0 Therems-M 27-0.4 mg Tablet 1 tab PO QAM RF: 0 cholecalciferol (vitamin D3) [Vitamin D3] 1,000 unit Tablet 1,000 unit PO QAM RF: 0 Eliquis 2.5 mg Tablet 2.5 mg PO BID RF: 0 erythromycin 5 mg/gram (0.5 %) Ointment 0.25 inch OPR QID RF: 0 Systane Complete 0.6 % Drops 1 drp OPB QID RF: 0 Refresh Optive 1-0.9 % Drops,Gel 2 drp OPR HS RF: 0 amiodarone 200 mg tablet 200 mg PO QAM RF: 0 loperamide [Anti-Diarrheal (loperamide)] 2 mg tablet 2 mg PO Q4H RF: 0 acetaminophen [Acetaminophen Extra Strength] 500 mg tablet 1,000 mg PO TID MDD 3gm/24hr PRN (Reason: Pain) RF: 0 famotidine [Pepcid] 20 mg tablet 20 mg PO QAM RF: 0 levothyroxine [Synthroid] 100 mcg Tablet 100 mcg PO DAILYBB 30 Days Qty: 30 RF: 0 metoprolol succinate 25 mg Tablet Extended Release 24 Hr 12.5 mg PO QAM 30 Days Qty: 15 RF: 0 fluoxetine 20 mg Capsule 40 mg PO QAM 30 Days Qty: 60 RF: 0 Referrals Referrals: Wilner Hernandez MD [Primary Care Provider] - Discharge Problem: Urinary tract infection Qualifiers: Urinary tract infection type: acute cystitis Hematuria presence: with hematuria Qualified Code(s): N30.01 - Acute cystitis with hematuria Abdominal pain Qualifiers: Abdominal location: lower abdomen, unspecified Qualified Code(s): R10.30 - Lower abdominal pain, unspecified Hypertension Qualifiers: Hypertension type: essential hypertension Qualified Code(s): I10 - Essential (primary) hypertension CHF (congestive heart failure) Qualifiers: Heart failure type: combined systolic and diastolic Heart failure chronicity: unspecified Qualified Code(s): I50.40 - Unspecified combined systolic (congestive) and diastolic (congestive) heart failure The scribe's documentation has been prepared under my direction and personally reviewed by me in its entirety. I confirm that the note above accurately reflects all work, treatment, procedures, and medical decision making performed by me.
[2019-09-04] MEDS ORDERED: POTASSIUM CHLORIDE 20 MEQ TABCR PO STA (07:01)
[2019-09-04] MEDS ORDERED: LOSARTAN POTASSIUM 50 MG TAB PO STA (07:01)
[2019-09-04] MEDS ORDERED: FUROSEMIDE 40 MG/4 ML VIAL IV STA ×2 (07:02→10:33)
--- NOTE | 2019-09-04 07:38 | CT Scan Report ---
CT SCAN OF THE ABDOMEN AND PELVIS WITHOUT IV CONTRAST CLINICAL HISTORY: Recurrent urinary tract infections. COMPARISON STUDY: Renal ultrasound dated 09/07/2018. TECHNIQUE: CT scan of the abdomen and pelvis is performed from the lung bases to the proximal femora. Images are reviewed in the axial, sagittal, and coronal planes. IV contrast was not administered for this examination as per the referring clinician. Note that the examination was performed in suboptim al fashion without oral and IV contrast. The examination is also degraded by motion artifact. A dose lowering technique was utilized adhering to the principles of ALARA. CT DOSE: 804.30 mGy.cm FINDINGS: Lung bases: The heart is enlarged and there is trace pericardial effusion. The coronary arteries are densely calcified. There are trace pleural effusions. Intralobular septal thickening is noted at the lung bases. There is bilateral patchy airspace consolidation. A small hiatal hernia is noted. Liver: The unenhanced liver is normal in size, contour, and attenuation. There is mild intrahepatic b iliary ductal dilatation. There is a 1.4 cm hypodensity in the right lobe seen on image #104. Gallbladder: Unremarkable. Spleen: Normal in size and attenuation. Pancreas: The pancreas is mildly atrophic. There is apparent dilatation of the pancreatic duct, great est in the region of the pancreatic head. Adrenal glands: Unremarkable. Kidneys: The unenhanced kidneys are atrophic. There is mild bilateral hydronephrosis, likely related to bladder distention. No obstructing stone/lesion is identified. There is a punctate nonobstructing right renal calculus. No left renal calculi are identified. A 2.7 cm cyst is noted in the left upper pole. Abdominal vasculature: The abdominal aorta is normal in course and caliber noting advanced atheroscle rotic calcification. Bowel: There is moderate colonic diverticulosis without CT evidence of acute diverticulitis. No bowel obstruction is seen. The appendix is nonvisualized. Peritoneum: There is no intraperitoneal free air or abdominal ascites. There is a small fat-containin g umbilical hernia. Lymphadenopathy: None. Pelvic viscera: The bladder is distended. The bladder wall is circumferentially thickened and there i s pericystic inflammation. The uterus and adnexa are normal as imaged. There are small bilateral fat- containing inguinal hernias. Skeletal structures: The skeletal structures are heterogeneously osteopenic. There is moderate to adv anced lumbosacral spondylosis. No lytic or blastic lesions are seen. IMPRESSION: 1. Findings are typical for cystitis. Correlation with clinical findings and urinalysis will be requi red. 2. There is dilatation of the pancreatic duct suggested in the region of the pancreatic head. Additio shilpi, there is mild intrahepatic biliary ductal dilatation. Although there is no clear evidence of m ass lesion on this unenhanced examination, follow-up with a contrast-enhanced abdominal CT is recomme nded for further assessment. 3. Cardiomegaly with evidence of congestive failure and trace pleural effusions. 4. Patchy consolidative change is present at both lung bases. This could represent a component of int erstitial edema or possibly an infectious/inflammatory pneumonitis. Clinical correlation will be esse ntial. 5. Moderate colonic diverticulosis without CT evidence of acute diverticulitis. 6. There is mild bilateral hydroureteronephrosis, likely related to the distended bladder. 7. Right-sided nephrolithiasis. 8. There is a 1.4 cm indeterminant hypodensity in the right lobe of the liver. This can also be furth er assessed on a contrast-enhanced examination. 9. Additional findings as above. Electronically signed by: Yamil Ambrocio M.D. 09/04/2019 7:37 AM
--- NOTE | 2019-09-04 08:21 | History & Physical Report ---
Date of Service September 04, 2019 Assessment & Plan (1) Acute respiratory failure: Admit to PCU on telemetry. Respiratory failure appears to be multifactorial. It is possibly related to acute CHF, worsening acute on chronic kidney insufficiency, pneumonitis versus pneumonia, volume overload or pulmonary edema. Vital signs every 4 hours Lasix 20 mg IV twice daily Strict in and out Daily weight Low-sodium diet Free water restriction p.o. to 1200 mils daily DVT prophylaxis Eliquis(continue home dose with patient use for paroxysmal A. fib's) Replenish electrolytes. BNP, procalcitonin. Chest x-ray is pending. Full code (2) Acute urinary retention: Patient failed treatment with Keflex 1 week ago. At that point her urine culture was positive for Klebsiella (August 17, 2019). Klebsiella pneumoniae is pansensitive. Started ceftriaxone in the ER and will be continued. For pneumonitis versus pneumonia, we will add doxycycline 100 mg p.o. twice daily IV. Follow-up with procalcitonin. Present on Admission?: Yes (3) CHF (congestive heart failure): As already discussed above. Present on Admission?: Yes (4) Paroxysmal atrial fibrillation: Continue home dose of Eliquis . For rate control continue amiodarone 200 mg p.o. every morning. Present on Admission?: Yes (5) Pulmonary infiltrate: Possible pneumonia versus pneumonitis. Started ceftriaxone for recurrent versus ongoing urinary tract infection. We will add doxycycline 100 mg p.o. twice daily day to cover for pneumonia. Blood cultures and urine cultures pending. Procalcitonin pending. We will consult speech for evaluation of possible aspiration since patient has pneumonitis. Breathing treatments with DuoNeb every 4 hours as needed for shortness of breath. We will hold steroids at this point since patient has congestive heart failure in addition to other issues. Present on Admission?: Yes (6) Urinary tract infection: As the above. Started ceftriaxone in the emergency room 2 g IV every 24 hours. Continue with ceftriaxone. Follow-up blood culture and urine culture. Present on Admission?: Yes (7) Hypothyroidism: TSH elevated on August 21, 2019. Will repeat TSH and T4. Continue for now levothyroxine 100 MCG's p.o. daily. Previously elevated TSH could be related to subclinical hypothyroidism or not sufficient hormone replacement. Present on Admission?: Yes (8) Meningioma: Stable, no issues at this time. Present on Admission?: Yes (9) Hyperlipidemia: Lipid panel pending Present on Admission?: Yes (10) Chronic kidney disease, stage III (moderate): Acute on chronic. Continue monitoring creatinine. Avoid nephrotoxic agents. Present on Admission?: Yes (11) Hypertension: Blood pressure slightly elevated in the emergency room. Continue home medicine: Amiodarone 200 mg p.o. every morning, aspirin 81 mg p.o. every morning, losartan 100 mg p.o. daily, metoprolol 12.5 mg p.o. every morning. Present on Admission?: Yes (12) Dementia: Stable for now patient is hard in hearing. Oriented daily in the room. Continue donepezil 5 mg p.o. every morning. Continue fluoxetine 40 mg p.o. every morning. Present on Admission?: Yes (13) Seasonal allergies: Continue home dose of fluticasone appropriately at 50 mg 1 spray intranasal twice daily Present on Admission?: Yes (14) Weakness: Physical and Occupational Therapy placed referral. Present on Admission?: Yes (15) Chronic diarrhea: Patient reports that that is stable at this point. Continue loperamide 2 mg p.o. every 4. Present on Admission?: Yes (16) GERD (gastroesophageal reflux disease): Continue famotidine 20 mg p.o. every morning. Present on Admission?: Yes History of Present Illness Chief Complaint: Shortness of breath and dysuria Primary Care Provider: Wilner Hernandez MD Patient is a 88 years old female coming from personal home at [place] past medical history of A. fib's on Eliquis, CVA, hypertension, chronic kidney disease stage III, hyperlipidemia, hypothyroidism, meningioma was brought to the emergency room with a complaint of shortness of breath started this morning and not feeling well. Patient is hard in hearing but alert and oriented in the emergency room. Patient reports that shortness of breath occurs at rest. Patient oxygenation dropped to 84% in the emergency room without supplemental oxygen. Patient is not on oxygen at the personal home in [place]. She denies coughs or sputum production. 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 Patient had difficulties to get to the restroom last night. Patient completed Keflex 250 mg 4 times daily 1 week ago for urinary tract infection. Patient also feels mildly nauseated. Patient denies fever, chills, chest pain, abdominal pain, hematuria, melena, diarrhea, vomiting, syncope or near syncope. Labs are reviewed: WBC is 8.97, hemoglobin 12.6, hematocrit 38.2 platelets 235, sodium 139, potassium 3.4, BUN 14, creatinine 1.32, GFR 35.9, AST 24, ALT 33, troponin pending, BNP pending, procalcitonin pending, TSH 5.48 from August 21, 2019, urinalysis positive for 3+ blood, positive nitrate, positive leukocyte esterase, 5-10 WBCs, over 30 epithelial cells which appears to be not a clean-catch, urine bacteria 3+. CT abdomen pelvis shows cystitis, there is dilatation of the pancreatic duct suggesting in the region of the pancreatic head. There is also mild intrahepatic biliary ductal dilatation. Cardiomegaly with evidence of congestive failure and trace pleural effusions. Patchy consolidative changes in the both lung bases. This could represent interstitial edema or possible infectious inflammatory pneumonitis. Moderate colonic diverticulosis without CT evidence of acute diverticulitis. There is a mild bilateral hydro-ureter nephrosis likely due to distended bladder. Right-sided nephrolithiasis. There is a 1.4 cm indeterminate hypodensity in the right lobe of the liver. Decision was made to admit patient to PCU on telemetry for acute respiratory failure, treatment of the acute cystitis, possible acute congestive heart failure, possible pneumonitis versus pneumonia versus aspiration pneumonia. Allergies Allergy/AdvReac Type Severity Reaction Status Date / Time bee venom protein (honey bee) Allergy Intermediate SWELLING Verified 09/04/19 04:52 Penicillins Allergy Intermediate hives Verified 09/04/19 04:52 codeine AdvReac Mild NAUSEA/VOMI Verified 09/04/19 04:52 TING Home Medications Home Medications Medication Instructions Recorded Confirmed Type Eliquis 2.5 mg PO BID 03/07/19 09/04/19 History Therems-M 1 tab PO QAM 03/07/19 09/04/19 History aspirin [Aspir-81] 81 mg PO QAM 03/07/19 09/04/19 History buspirone 7.5 mg PO BID 03/07/19 09/04/19 History calcium carbonate [Calcium 600] 600 mg PO QAM 03/07/19 09/04/19 History cetirizine [Zyrtec] 10 mg PO QAM 03/07/19 09/04/19 History cholecalciferol (vitamin D3) 1,000 unit PO QAM 03/07/19 09/04/19 History [Vitamin D3] losartan [Cozaar] 100 mg PO QAM 03/07/19 09/04/19 History azelastine 137 mcg (0.1 %) nasal 2 sprays INTRANASAL BID PRN #1 ml 03/31/19 09/04/19 History spray aerosol benzocaine-menthol 15 mg-3.6 mg 1 colt PO UD PRN 03/31/19 09/04/19 History lozenges fluticasone propionate 50 1 sprays INTRANASAL BID PRN #1 gm 03/31/19 09/04/19 History mcg/actuation nasal spray,suspension food supplemt, lactose-reduced 1 ea PO BID PRN ml 03/31/19 09/04/19 History donepezil 5 mg tablet 5 mg PO QAM #30 tab 07/05/19 09/04/19 Rx Refresh Optive 2 drp OPR HS 08/17/19 09/04/19 History Systane Complete 1 drp OPB QID 08/17/19 09/04/19 History acetaminophen [Acetaminophen Extra 1,000 mg PO TID PRN MDD 3gm/24hr 08/17/19 09/04/19 History Strength] amiodarone 200 mg PO QAM 08/17/19 09/04/19 History erythromycin 0.25 inch OPR QID 08/17/19 09/04/19 History famotidine [Pepcid] 20 mg PO QAM 08/17/19 09/04/19 History loperamide [Anti-Diarrheal 2 mg PO Q4H 08/17/19 09/04/19 History (loperamide)] fluoxetine 40 mg PO QAM 30 Days #60 cap 08/23/19 09/04/19 Rx levothyroxine [Synthroid] 100 mcg PO DAILYBB 30 Days #30 tab 08/23/19 09/04/19 Rx metoprolol succinate 12.5 mg PO QAM 30 Days #15 tab 08/23/19 09/04/19 Rx Past Med/Surg History Medical History Abnormal CT scan, chest Altered mental status Atrial flutter with rapid ventricular response Atypical pneumonia Chronic kidney disease, stage III (moderate) (Acute) CVA (cerebral infarction) (Acute 05/29/14) Hyperlipidemia (Acute) Hypertension (Acute) Hypothyroidism (Acute) Intractable vomiting Meningioma (Acute) Sinusitis (Acute) Vertigo (Acute 05/29/14) Vomiting (Acute) Weakness (Acute) Weakness Surgical History History of left knee replacement History of sinus surgery Family History Other Family history non-contributory Social History Preferred Language: Citizen Of [place] Communication Ability: Effective Refrigeration Unit Repairer Required: No Beliefs That Will Affect Care: None marital status: / Current Living Situation: Personal Care Facility Current Living Situation Comment: [place] current occupational status: retired Other Information That Helps Us Care for You: No Feels Safe at Home: Yes Safety Concerns: Feels Safe At This Time Smoking Status: Never smoker Second Hand Exposure: No ; Hx Alcohol Use: No Hx Substance Use: No Review of Systems Review of Systems: All systems reviewed & are unremarkable except as noted in HPI & below Physical Exam Constitutional: WD/WN, vitals as above well developed and + ill appearing Eyes: PERRL, conjunctivae normal, anicteric sclerae ENMT: external ear and nose normal, oropharynx normal Hard of hearing Neck: trachea midline, no thyromegaly Respiratory: + respiratory distress Auscultation: + crackles, + rhonchi, + wheezes and + bronchovesicular breath sounds Cardiovascular: Rate/Rhythm: + irregularly irregular Heart Sounds: normal S1 and normal S2 Palpation: + palpable S3 Vessels: + JVD and dorsalis pedis pulses present Gastrointestinal (Abdomen): normal bowel sounds, soft, nontender, no hepatosplenomegaly Musculoskeletal: no cyanosis or clubbing, extremities motor strength 5/5 Skin: + pallor Neurologic: patellar DTR's 2+ bilat, sensation intact Psychiatric: A+Ox3, euthymic affect Genitourinary: Suprapubic tenderness Lymphatic: no cervical or axillary lymphadenopathy Results & Data Vital Signs (Past 12 Hours) Vital Signs Temp Pulse Pulse Resp BP BP Pulse Ox 09/04/19 07:11 91 09/04/19 07:10 58 L 18 180/82 H 87 L 09/04/19 06:52 97 09/04/19 06:11 63 18 191/79 H 89 L 09/04/19 04:30 61 61 21 179/86 H 179/86 H 92 09/04/19 04:26 93 09/04/19 04:17 36.9 C 69 20 199/87 H 93 Code Status & VTE Plan Code Status Full code VTE Prophylaxis Plan VTE Prophylaxis will be ordered: Yes PG Care Time/CCT Total # of Minutes Spent Total Time Spent with Patient: Total time spent is greater than 50% in coordination of care (as documented) at patient's floor/unit and/or counseling patient: (1) CHF (congestive heart failure) Heart failure chronicity: unspecified Heart failure type: combined systolic and diastolic Qualified Code(s): I50.40 - Unspecified combined systolic (congestive) and diastolic (congestive) heart failure (2) Urinary tract infection Hematuria presence: with hematuria Urinary tract infection type: acute cystitis Qualified Code(s): N30.01 - Acute cystitis with hematuria (3) Hypertension Hypertension type: essential hypertension Qualified Code(s): I10 - Essential (primary) hypertension
[2019-09-04 08:30] LABS: NT Pro B Type Natriuretic Pept 858 pg/ml (0-1800); Troponin I < 0.015 ng/ml (0-0.045)
[2019-09-04] MEDS ORDERED: ALBUT/IPRATROP 3MG/0.5MG NEB 3 ML VIAL NEB PRN (10:33)
[2019-09-04] MEDS ORDERED: MAGNESIUM HYDROXIDE SUSP 30 ML UDC PO PRN (10:33)
[2019-09-04] MEDS ORDERED: NON-FORMULARY MEDICATION (Azelastine 2 SPRAYS) INTNAS PRN (10:33)
[2019-09-04] MEDS ORDERED: COUGH DROP (SUGAR FREE) LOZ 24 LOZ/1 BOX BUCCAL PRN (10:33)
[2019-09-04] MEDS ORDERED: ACETAMINOPHEN 325 MG TAB PO PRN (10:33)
[2019-09-04] MEDS ORDERED: FLUTICASONE PROPIONATE NA SPR 16 GM BTL NAE PRN (10:33)
[2019-09-04] MEDS ORDERED: POLYETHYLENE (MIRALAX) 17 GM PACK PO PRN (10:33)
[2019-09-04] MEDS ORDERED: NON-FORMULARY MEDICATION (Food Supplemt, Lactose-Reduced [Ensure] 1 EA) PO PRN (10:33)
[2019-09-04] MEDS ORDERED: ALUMINUM/MAGNESIUM SUSP 30 ML UDC PO PRN (10:33)
[2019-09-04] MEDS ORDERED: LOPERAMIDE HCL 2 MG CAP PO PRN (10:49)
[2019-09-04 11:54] LABS: Basophils # (auto) 0.02 K/uL (0-0.2); Basophils % (auto) 0.2 %; Eosinophils # (auto) 0.07 K/uL (0-0.5); Eosinophils % (auto) 0.7 %; Hematocrit (blood only) 37.7 % (37-47); Hemoglobin 12.4 g/dL (12.0-16.0); Immature Granulocytes # (auto) 0.11 K/uL (0.00-0.02); Immature Granulocytes % (auto) 1.2 %; Lymphocytes # (auto) 1.81 K/uL (1.2-3.4); Lymphocytes % (auto) 19.1 %; Mean Corpuscular Hemoglobin 29.7 pg (25-34); Mean Corpuscular Hgb Conc 32.9 g/dL (32-36); Mean Corpuscular Volume 90.4 fL (80-100); Mean Platelet Volume 10.6 fL (7.4-10.4); Monocytes # (auto) 1.09 K/uL (0.11-0.59); Monocytes % (auto) 11.5 %; Neutrophils # (auto) 6.36 K/uL (1.4-6.5); Neutrophils % (auto) 67.3 %; Platelet Count 239 K/uL (130-400); RDW Coefficient of Variation 15.3 % (11.5-14.5); RDW Standard Deviation 50.3 fL (36.4-46.3); Red Blood Count 4.17 M/uL (4.2-5.4); White Blood Count 9.46 K/uL (4.8-10.8)
[2019-09-04] MEDS: APIXABAN 2.5 MG TAB PO SCH ×2 (12:54→20:15)
[2019-09-04] MEDS: ASPIRIN 81 MG ECTAB PO SCH (12:55)
[2019-09-04] MEDS: CHOLECALCIFEROL 1,000 UNITS TAB PO SCH (12:55)
[2019-09-04] MEDS: MULTIVITAMIN TAB PO SCH (12:55)
[2019-09-04] MEDS: AMIODARONE 200 MG TAB PO SCH (12:58)
[2019-09-04] MEDS: FAMOTIDINE 20 MG TAB PO SCH (12:58)
[2019-09-04] MEDS: BUSPIRONE HCL 7.5 MG TAB PO SCH ×2 (12:59→20:15)
[2019-09-04] MEDS: DONEPEZIL HCL 5 MG TAB PO SCH (12:59)
[2019-09-04] MEDS: LOSARTAN POTASSIUM 50 MG TAB PO SCH (13:00)
[2019-09-04] MEDS: FLUOXETINE HCL 20 MG CAP PO SCH (13:00)
[2019-09-04] MEDS: METOPROLOL SUCC 25MG EXT REL TAB PO SCH (13:00)
[2019-09-04] MEDS: LEVOTHYROXINE SODIUM 100 MCG TABLET PO SCH (13:00)
[2019-09-04] MEDS: CALCIUM CARBONATE 1250MG TAB PO SCH (13:01)
[2019-09-04] MEDS: CETIRIZINE HCL 10 MG TABLET PO SCH (13:01)
[2019-09-04] MEDS: ERYTHROMYCIN OP OINT 5 MG/GM 3.5 GM TUBE OPR SCH ×3 (13:02→20:14)
[2019-09-04] MEDS: ARTIFICIAL TEARS OPB SCH ×3 (13:11→20:15)
[2019-09-04] MEDS ORDERED: FUROSEMIDE 40 MG in SYRINGE 0 ML IV SCH (17:00)
[2019-09-04] MEDS: FUROSEMIDE 20 MG in SYRINGE 0 ML IV SCH (18:08)
[2019-09-04] MEDS: DOXYCYCLINE HYCLATE 100 MG in DEXTROSE 5% 100 ML IV SCH (20:14)
[2019-09-04] MEDS: CARBOXYMETHYLCELLULOSE SODIUM 15 ML OPR SCH (20:16)
[2019-09-05 05:49] LABS: Basophils # (auto) 0.01 K/uL (0-0.2); Basophils % (auto) 0.1 %; Eosinophils # (auto) 0.13 K/uL (0-0.5); Eosinophils % (auto) 1.4 %; Hematocrit (blood only) 39.5 % (37-47); Hemoglobin 13.1 g/dL (12.0-16.0); Immature Granulocytes # (auto) 0.11 K/uL (0.00-0.02); Immature Granulocytes % (auto) 1.2 %; Lymphocytes # (auto) 2.23 K/uL (1.2-3.4); Lymphocytes % (auto) 24.1 %; Mean Corpuscular Hemoglobin 29.8 pg (25-34); Mean Corpuscular Hgb Conc 33.2 g/dL (32-36); Mean Corpuscular Volume 89.8 fL (80-100); Mean Platelet Volume 10.7 fL (7.4-10.4); Monocytes # (auto) 1.57 K/uL (0.11-0.59); Neutrophils % (auto) 56.2 %; Platelet Count 249 K/uL (130-400); RDW Coefficient of Variation 15.5 % (11.5-14.5); RDW Standard Deviation 50.7 fL (36.4-46.3); White Blood Count 9.25 K/uL (4.8-10.8)
[2019-09-05 06:13] LABS: Estimated Average Glucose 105 mg/dl; Hemoglobin A1C 5.3 % (4.5-5.6)
[2019-09-05] MEDS: DOXYCYCLINE HYCLATE 100 MG in DEXTROSE 5% 100 ML IV SCH ×2 (06:17→20:31)
[2019-09-05] MEDS: LEVOTHYROXINE SODIUM 100 MCG TABLET PO SCH (06:18)
[2019-09-05 06:24] LABS: Albumin Level 3.3 gm/dl (3.4-5.0); BUN Creatinine Ratio 9.8 (10-20); Calcium 9.4 mg/dl (8.5-10.1); Creatinine Clr Calc Pharmacy 26.2 ml/min; Est GFR (Non-African American) 36.3; Potassium 3.7 mmol/L (3.5-5.1)
[2019-09-05 06:27] LABS: Albumin Globulin Ratio 0.9 (0.9-2); Bilirubin,Total 0.5 mg/dl (0.2-1); Globulin 3.7 gm/dl (2.5-4.0)
[2019-09-05] MEDS: cefTRIAXone SODIUM 2,000 MG in DEXTROSE 5% 50 ML IV SCH (08:44)
[2019-09-05] MEDS: CALCIUM CARBONATE 1250MG TAB PO SCH (08:46)
[2019-09-05] MEDS: DONEPEZIL HCL 5 MG TAB PO SCH (08:46)
[2019-09-05] MEDS: LOSARTAN POTASSIUM 50 MG TAB PO SCH (08:46)
[2019-09-05] MEDS: APIXABAN 2.5 MG TAB PO SCH ×2 (08:47→20:26)
[2019-09-05] MEDS: FAMOTIDINE 20 MG TAB PO SCH (08:47)
[2019-09-05] MEDS: CETIRIZINE HCL 10 MG TABLET PO SCH (08:47)
[2019-09-05] MEDS: FLUOXETINE HCL 20 MG CAP PO SCH (08:47)
[2019-09-05] MEDS: ASPIRIN 81 MG ECTAB PO SCH (08:47)
[2019-09-05] MEDS: CHOLECALCIFEROL 1,000 UNITS TAB PO SCH (08:47)
[2019-09-05] MEDS: MULTIVITAMIN TAB PO SCH (08:48)
[2019-09-05] MEDS: BUSPIRONE HCL 7.5 MG TAB PO SCH ×2 (08:48→20:26)
[2019-09-05] MEDS: AMIODARONE 200 MG TAB PO SCH (08:48)
[2019-09-05] MEDS: METOPROLOL SUCC 25MG EXT REL TAB PO SCH (08:48)
[2019-09-05] MEDS: FUROSEMIDE 20 MG in SYRINGE 0 ML IV SCH ×2 (08:49→18:52)
[2019-09-05] MEDS: ERYTHROMYCIN OP OINT 5 MG/GM 3.5 GM TUBE OPR SCH ×4 (08:49→20:28)
[2019-09-05] MEDS: ARTIFICIAL TEARS OPB SCH ×4 (08:50→20:28)
--- NOTE | 2019-09-05 18:46 | Hospitalist Progress Note ---
Date of Service September 05, 2019 Assessment & Plan (1) Acute respiratory failure: Continue admit to PCU on telemetry. Respiratory failure appears to be multifactorial. It is possibly related to acute CHF, worsening acute on chronic kidney insufficiency, pneumonitis versus pneumonia, volume overload or pulmonary edema. Vital signs every 4 hours BNP normal 858, calcitonin less than 0.05 Lasix 20 mg IV twice daily Strict in and out Daily weight Low-sodium diet Free water restriction p.o. to 1200 mils daily DVT prophylaxis Eliquis(continue home dose with patient use for paroxysmal A. fib's) Replenish electrolytes. Chest x-ray pending Full code (2) Acute urinary retention: Patient failed treatment with Keflex 1 week ago. At that point her urine culture was positive for Klebsiella (August 17, 2019). Klebsiella pneumoniae is pansensitive. Continue ceftriaxone For pneumonitis versus pneumonia, we will add doxycycline 100 mg p.o. twice daily IV. Procalcitonin-normal 0.05 (3) CHF (congestive heart failure): As already discussed above. (4) Paroxysmal atrial fibrillation: Continue home dose of Eliquis . For rate control continue amiodarone 200 mg p.o. every morning. (5) Pulmonary infiltrate: Possible pneumonia versus pneumonitis. Started ceftriaxone for recurrent versus ongoing urinary tract infection. We will add doxycycline 100 mg p.o. twice daily day to cover for pneumonia. Blood cultures and urine cultures pending. Appreciate speech consult for evaluation. Recommendation is to continue regular diet. No plan for CIGARETTE MAKING EXAMINER follow-up at this time. Breathing treatments with DuoNeb every 4 hours as needed for shortness of breath. We will hold steroids at this point since patient has congestive heart failure in addition to other issues. (6) Urinary tract infection: Continue ceftriaxone 2 g IV every 24 hours. Follow-up blood culture and urine culture. (7) Hypothyroidism: TSH elevated on August 21, 2019. TSH pending and T4 .For now continue for now levothyroxine 100 MCG's p.o. daily. Previously elevated TSH could be related to subclinical hypothyroidism or not sufficient hormone replacement. (8) Meningioma: Stable, no issues at this time. (9) Hyperlipidemia: Lipid panel pending (10) Chronic kidney disease, stage III (moderate): Acute on chronic. Continue monitoring creatinine. Avoid nephrotoxic agents. (11) Hypertension: Blood pressure slightly elevated in the emergency room. Continue home medicine: Amiodarone 200 mg p.o. every morning, aspirin 81 mg p.o. every morning, losartan 100 mg p.o. daily, metoprolol 12.5 mg p.o. every morning. (12) Dementia: Stable for now patient is hard in hearing. Oriented daily in the room. Continue donepezil 5 mg p.o. every morning. Continue fluoxetine 40 mg p.o. every morning. (13) Seasonal allergies: Continue home dose of fluticasone appropriately at 50 mg 1 spray intranasal twice daily (14) Weakness: Physical and Occupational Therapy placed referral. (15) Chronic diarrhea: Patient reports that that is stable at this point. Continue loperamide 2 mg p.o. every 4. (16) GERD (gastroesophageal reflux disease): Continue famotidine 20 mg p.o. every morning. Subjective Patient seen and examined at the bedside. Improving slowly. Patient has severe dementia but pleasant and able to respond to questions. Awake alert and oriented x3. Hard in hearing. Patient denies fever, chills, chest pain, shortness of breath, abdominal pain, frequency, urgency. Review of Systems Review of Systems: All systems reviewed & are unremarkable except as noted in HPI & below Physical Exam Constitutional: WD/WN, vitals as above well developed and + ill appearing Eyes: PERRL, conjunctivae normal, anicteric sclerae ENMT: external ear and nose normal, oropharynx normal Neck: trachea midline, no thyromegaly Respiratory: normal respiratory effort Auscultation: + crackles, + rhonchi, + wheezes and + bronchovesicular breath sounds Cardiovascular: Rate/Rhythm: + irregularly irregular Heart Sounds: normal S1 and normal S2 Palpation: + palpable S3 Vessels: + JVD and dorsalis pedis pulses present Gastrointestinal (Abdomen): normal bowel sounds, soft, nontender, no hepatosplenomegaly Musculoskeletal: no cyanosis or clubbing, extremities motor strength 5/5 Skin: + pallor Neurologic: patellar DTR's 2+ bilat, sensation intact Psychiatric: A+Ox3, euthymic affect Lymphatic: no cervical or axillary lymphadenopathy Results & Data Vital Signs (Past 12 Hours) Vital Signs Temp Pulse Pulse Resp BP Pulse Ox 09/05/19 17:17 56 L 09/05/19 15:27 36.9 C 59 L 18 144/52 H 94 09/05/19 12:04 36.3 C L 63 18 122/50 L 96 09/05/19 07:50 36.8 C 71 18 144/72 H 93 09/05/19 07:40 59 L PG Care Time/CCT Total # of Minutes Spent Total Time Spent with Patient: Total time spent is greater than 50% in coordination of care (as documented) at patient's floor/unit and/or counseling patient: (1) CHF (congestive heart failure) Heart failure chronicity: unspecified Heart failure type: combined systolic and diastolic Qualified Code(s): I50.40 - Unspecified combined systolic (congestive) and diastolic (congestive) heart failure (2) Urinary tract infection Hematuria presence: with hematuria Urinary tract infection type: acute cystitis Qualified Code(s): N30.01 - Acute cystitis with hematuria (3) Hypertension Hypertension type: essential hypertension Qualified Code(s): I10 - Essential (primary) hypertension
--- NOTE | 2019-09-05 19:08 | XRay Report ---
SINGLE VIEW CHEST CLINICAL HISTORY: Pneumonia. FINDINGS: An AP, portable, upright chest radiograph is compared to study dated 08/17/2019 and correla yudith with chest CT dated 10/11/2017. The examination is degraded by portable technique and patient rota tion. The heart is mildly enlarged noting atherosclerotic calcification of the thoracic aorta. There are diffuse bilateral patchy airspace opacities. No large pleural effusion or pneumothorax is seen. T he skeletal structures are osteopenic. There are healed right-sided rib fractures. Calcific tendinopa thy is noted in the left shoulder. IMPRESSION: 1. Bilateral patchy airspace opacities are unchanged from previous. 2. Cardiomegaly. 3. No large pleural effusion is seen. Electronically signed by: Yamil Ambrocio M.D. 09/05/2019 7:06 PM
[2019-09-05 19:26] LABS: Thyroid Stimulating Hormone 5.9 uIu/ml (0.300-4.500)
[2019-09-05 19:39] LABS: T4 Free Thyroxine 1.3 ng/dl (0.8-1.6)
[2019-09-05] MEDS: CARBOXYMETHYLCELLULOSE SODIUM 15 ML OPR SCH (20:31)
[2019-09-06] MEDS: LEVOTHYROXINE SODIUM 100 MCG TABLET PO SCH (05:22)
[2019-09-06] MEDS: DOXYCYCLINE HYCLATE 100 MG in DEXTROSE 5% 100 ML IV SCH ×2 (05:22→16:53)
[2019-09-06 06:22] LABS: Basophils # (auto) 0.02 K/uL (0-0.2); Basophils % (auto) 0.2 %; Eosinophils # (auto) 0.12 K/uL (0-0.5); Eosinophils % (auto) 1.2 %; Hemoglobin 13.1 g/dL (12.0-16.0); Immature Granulocytes # (auto) 0.12 K/uL (0.00-0.02); Immature Granulocytes % (auto) 1.2 %; Lymphocytes # (auto) 2.55 K/uL (1.2-3.4); Lymphocytes % (auto) 25.3 %; Mean Corpuscular Hemoglobin 30.5 pg (25-34); Mean Corpuscular Hgb Conc 33.6 g/dL (32-36); Mean Corpuscular Volume 90.7 fL (80-100); Monocytes # (auto) 1.72 K/uL (0.11-0.59); Monocytes % (auto) 17.1 %; Neutrophils # (auto) 5.55 K/uL (1.4-6.5); Platelet Count 229 K/uL (130-400); RDW Coefficient of Variation 15.5 % (11.5-14.5); White Blood Count 10.08 K/uL (4.8-10.8)
[2019-09-06 06:51] LABS: Albumin Level 3.1 gm/dl (3.4-5.0); BUN Creatinine Ratio 11.9 (10-20); Calcium 9.3 mg/dl (8.5-10.1); Creatinine Clr Calc Pharmacy 23.4 ml/min; Est GFR (African American) 36.6; Est GFR (Non-African American) 31.5; Potassium 3.3 mmol/L (3.5-5.1)
[2019-09-06 06:54] LABS: Albumin Globulin Ratio 0.8 (0.9-2); Bilirubin,Total 0.5 mg/dl (0.2-1); Globulin 3.9 gm/dl (2.5-4.0)
[2019-09-06] MEDS: LOSARTAN POTASSIUM 50 MG TAB PO SCH (09:24)
[2019-09-06] MEDS: cefTRIAXone SODIUM 2,000 MG in DEXTROSE 5% 50 ML IV SCH (09:24)
[2019-09-06] MEDS: METOPROLOL SUCC 25MG EXT REL TAB PO SCH (09:24)
[2019-09-06] MEDS: MULTIVITAMIN TAB PO SCH (09:25)
[2019-09-06] MEDS: CETIRIZINE HCL 10 MG TABLET PO SCH (09:26)
[2019-09-06] MEDS: BUSPIRONE HCL 7.5 MG TAB PO SCH ×2 (09:26→20:21)
[2019-09-06] MEDS: FUROSEMIDE 20 MG in SYRINGE 0 ML IV SCH (09:26)
[2019-09-06] MEDS: CALCIUM CARBONATE 1250MG TAB PO SCH (09:26)
[2019-09-06] MEDS: DONEPEZIL HCL 5 MG TAB PO SCH (09:26)
[2019-09-06] MEDS: CHOLECALCIFEROL 1,000 UNITS TAB PO SCH (09:26)
[2019-09-06] MEDS: APIXABAN 2.5 MG TAB PO SCH ×2 (09:27→20:21)
[2019-09-06] MEDS: FAMOTIDINE 20 MG TAB PO SCH (09:27)
[2019-09-06] MEDS: AMIODARONE 200 MG TAB PO SCH (09:27)
[2019-09-06] MEDS: ASPIRIN 81 MG ECTAB PO SCH (09:27)
[2019-09-06] MEDS: FLUOXETINE HCL 20 MG CAP PO SCH (09:27)
[2019-09-06] MEDS: ARTIFICIAL TEARS OPB SCH ×4 (09:28→20:22)
[2019-09-06] MEDS: ERYTHROMYCIN OP OINT 5 MG/GM 3.5 GM TUBE OPR SCH ×4 (09:28→20:21)
--- NOTE | 2019-09-06 13:05 | Hospitalist Progress Note ---
Date of Service September 06, 2019 Assessment & Plan (1) Acute respiratory failure: Respiratory failure appears to be multifactorial. It is possibly related to acute CHF and pneumonitis versus pneumonia. - Was on IV Lasix initially - Transitioned to oral Lasix today. - Replenish electrolytes PRN (2) Acute urinary retention: Patient failed treatment with Keflex 1 week ago. At that point her urine culture was positive for Klebsiella (August 17, 2019). - Urine cx from 09/04/2019 also growing Klebsiella pneumoniae. - Continue ceftriaxone until 09/07 (3 days total) - Will get bladder scan today as she is tender there and there's concern for urinary retention. -> Consider urology consult if retaining. (3) CHF (congestive heart failure): As already discussed above. (4) Paroxysmal atrial fibrillation: Known. - Continue home Eliquis. - For rate control, continue amiodarone 200 mg p.o. every morning. (5) Pulmonary infiltrate: CXR on 09/05 shows possible pneumonia versus pneumonitis; unchanged from 08/17. Procalcitonin was negative on 09/05 (<0.05). - Started ceftriaxone on 09/05 for recurrent versus ongoing urinary tract infection. - Add doxycycline on 09/04 to cover for atypicals. - Blood cultures from 09/04 negative. - Appreciate speech evaluation -> Recommendation is to continue regular diet. No plan for VISION C[employer] ASSOCIATE follow-up at this time. - Chest CT today for this prolonged infiltrate on CXR. (6) Urinary tract infection: As above (7) Hypothyroidism: TSH has been stable at 5.5 & 5.9. This is actually a normal range for elderly. Normal FT4. - Continue levothyroxine 100 mcg daily. (8) Meningioma: Stable, no issues at this time. (9) Chronic kidney disease, stage III (moderate): Baseline Cr ~1.3 - 1.5, eGFR ~30. - Avoid nephrotoxic agents. - Monitor (10) Hypertension: Blood pressure slightly elevated in the emergency room. Today, BP actually mildly low at 100/65. - Continue home medicines: amiodarone, aspirin, losartan, & metoprolol (11) Dementia: Stable for now. Patient is hard in hearing. - Oriented daily in the room. - Continue donepezil & fluoxetine (12) Chronic diarrhea: Patient reports that that is stable at this point. - Continue loperamide 2 mg p.o. every 4. (13) GERD (gastroesophageal reflux disease): Continue famotidine 20 mg p.o. every morning. (14) DVT prophylaxis: Apixaban for afib Subjective Reports some lower abdominal pain today to me. Otherwise is much better than the last few days. Reports no fevers/chills, chest pain, shortness of breath, abdominal pain, nausea, or vomiting. Physical Exam Constitutional: WD/WN, vitals as above Eyes: EOM intact bilaterally; no conjunctival abnormality ENMT: external ear and nose normal, oropharynx normal Neck: trachea midline, no thyromegaly normal visual inspection Respiratory: normal respiratory effort, lungs clear to auscultation no respiratory distress Cardiovascular: RRR, no murmur, no edema Gastrointestinal (Abdomen): Inspection/Auscultation: abdomen normal to inspection; abdomen not distended Percussion/Palpation: + abdomen tender (Suprapubic area) and abdomen soft; no guarding and abdomen not rigid Musculoskeletal: no cyanosis or clubbing, extremities motor strength 5/5 Skin: no rashes, warm and dry Neurologic: moves all extremities and awake Psychiatric: Orientation: alert, oriented to person and cooperative Results & Data Vital Signs (Past 12 Hours) Vital Signs Temp Pulse Pulse Resp BP Pulse Ox 09/06/19 11:28 36.7 C 116 H 18 99/66 L 94 09/06/19 07:40 127 H 09/06/19 07:23 36.6 C 97 H 18 120/76 92 09/06/19 04:19 36.5 C 119 H 18 121/71 94 PG Care Time/CCT Total # of Minutes Spent Total Time Spent with Patient: Total time spent is greater than 50% in coordination of care (as documented) at patient's floor/unit and/or counseling patient: (1) Urinary tract infection Hematuria presence: with hematuria Urinary tract infection type: acute cystitis Qualified Code(s): N30.01 - Acute cystitis with hematuria (2) CHF (congestive heart failure) Heart failure chronicity: unspecified Heart failure type: combined systolic and diastolic Qualified Code(s): I50.40 - Unspecified combined systolic (congestive) and diastolic (congestive) heart failure (3) Hypertension Hypertension type: essential hypertension Qualified Code(s): I10 - Essential (primary) hypertension
--- NOTE | 2019-09-06 16:17 | CT Scan Report ---
CT chest wo con CLINICAL HISTORY: 88 years-old Female presenting with Chronic infiltrate on CXR. TECHNIQUE: Multidetector CT imaging of the chest was performed without the use of intravenous contras t. IV contrast: None. One or more dose lowering techniques were used consistent with the principles o f ALARA (as low as reasonably achievable), including automatic exposure control, mA or kV adjustment to individual patient size, and/or use of iterative reconstruction. COMPARISON: 10/11/2018 and chest x-ray from 09/05/2019. CT DOSE (mGy.cm): The estimated cumulative dose is 544.20 mGy.cm. 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 Soft tissues: Normal thyroid and thoracic inlet. Scattered subcentimeter pretracheal lymph nodes, non specific. Evaluation of the venita limited in the absence of intravenous contrast. Mild ectasia of the ascending aorta, measuring 4.2 cm in diameter, which is stable. Atherosclerosis of the aorta. Normal heart size. Coronary artery, mitral annular, and aortic valve calcification. Trace pericardial effusi on. No pleural effusion. Upper abdomen normal. Lungs and airways: No pneumothorax. Central airways patent. Pulmonary arteries are not significantly enlarged relative to adjacent bronchi. No interlobular septal thickening. Reticular and groundglass o pacities with an upper lobe and peribronchovascular predominance. This has not demonstrably progresse d or regressed from the prior exam. Musculoskeletal: Degenerative changes of the spine. IMPRESSION: 1. Upper lobe predominant peribronchial vascular groundglass and reticular opacities. This favors an airway inflammatory etiology such as sarcoidosis, or an opportunistic infection such as pneumocystis pneumonia, cytomegalovirus, or herpes simplex virus among other possibilities. There is unlikely thi s has a neoplastic or hematologic etiology. Correlate with bronchoscopy and possible biopsy. 2. No superimposed pneumonia. 3. Stable mild ectasia of the ascending aorta measuring 4.2 cm. ACT 112: Negative or not required by law. Electronically signed by: Khoa Longoria M.D. 09/06/2019 4:15 PM
[2019-09-06] MEDS: POTASSIUM CHLORIDE 10 MEQ TABCR PO SCH (20:21)
[2019-09-06] MEDS: CARBOXYMETHYLCELLULOSE SODIUM 15 ML OPR SCH (20:23)
[2019-09-07] MEDS: DOXYCYCLINE HYCLATE 100 MG in DEXTROSE 5% 100 ML IV SCH (05:19)
[2019-09-07] MEDS: LEVOTHYROXINE SODIUM 100 MCG TABLET PO SCH (05:28)
[2019-09-07 06:27] LABS: Basophils # (auto) 0.02 K/uL (0-0.2); Basophils % (auto) 0.2 %; Eosinophils # (auto) 0.15 K/uL (0-0.5); Eosinophils % (auto) 1.5 %; Hematocrit (blood only) 41.2 % (37-47); Hemoglobin 13.7 g/dL (12.0-16.0); Immature Granulocytes # (auto) 0.17 K/uL (0.00-0.02); Immature Granulocytes % (auto) 1.7 %; Lymphocytes # (auto) 2.93 K/uL (1.2-3.4); Lymphocytes % (auto) 29.2 %; Mean Corpuscular Hgb Conc 33.3 g/dL (32-36); Mean Corpuscular Volume 90.2 fL (80-100); Mean Platelet Volume 10.9 fL (7.4-10.4); Monocytes # (auto) 1.93 K/uL (0.11-0.59); Monocytes % (auto) 19.2 %; Neutrophils # (auto) 4.84 K/uL (1.4-6.5); Neutrophils % (auto) 48.2 %; Platelet Count 246 K/uL (130-400); RDW Coefficient of Variation 15.3 % (11.5-14.5); RDW Standard Deviation 50.9 fL (36.4-46.3); Red Blood Count 4.57 M/uL (4.2-5.4); White Blood Count 10.04 K/uL (4.8-10.8)
[2019-09-07 06:52] LABS: Albumin Level 3.3 gm/dl (3.4-5.0); BUN Creatinine Ratio 14.1 (10-20); Creatinine Clr Calc Pharmacy 22.4 ml/min; Est GFR (African American) 35.1; Est GFR (Non-African American) 30.3; Potassium 3.9 mmol/L (3.5-5.1)
[2019-09-07 06:59] LABS: Albumin Globulin Ratio 0.8 (0.9-2); Bilirubin,Total 0.6 mg/dl (0.2-1); Globulin 4.1 gm/dl (2.5-4.0); Total Protein 7.4 gm/dl (6.4-8.2)
[2019-09-07] MEDS: cefTRIAXone SODIUM 2,000 MG in DEXTROSE 5% 50 ML IV SCH (08:37)
[2019-09-07] MEDS: POTASSIUM CHLORIDE 10 MEQ TABCR PO SCH (08:42)
[2019-09-07] MEDS: APIXABAN 2.5 MG TAB PO SCH ×2 (08:42→21:20)
[2019-09-07] MEDS: FAMOTIDINE 20 MG TAB PO SCH (08:42)
[2019-09-07] MEDS: DONEPEZIL HCL 5 MG TAB PO SCH (08:42)
[2019-09-07] MEDS: CETIRIZINE HCL 10 MG TABLET PO SCH (08:42)
[2019-09-07] MEDS: FLUOXETINE HCL 20 MG CAP PO SCH (08:42)
[2019-09-07] MEDS: CHOLECALCIFEROL 1,000 UNITS TAB PO SCH (08:42)
[2019-09-07] MEDS: CALCIUM CARBONATE 1250MG TAB PO SCH (08:42)
[2019-09-07] MEDS: AMIODARONE 200 MG TAB PO SCH (08:42)
[2019-09-07] MEDS: FUROSEMIDE 20 MG TAB PO SCH (08:42)
[2019-09-07] MEDS: ASPIRIN 81 MG ECTAB PO SCH (08:43)
[2019-09-07] MEDS: ARTIFICIAL TEARS OPB SCH ×4 (08:43→21:19)
[2019-09-07] MEDS: METOPROLOL SUCC 25MG EXT REL TAB PO SCH (08:43)
[2019-09-07] MEDS: MULTIVITAMIN TAB PO SCH (08:43)
[2019-09-07] MEDS: ERYTHROMYCIN OP OINT 5 MG/GM 3.5 GM TUBE OPR SCH ×4 (08:43→21:18)
[2019-09-07] MEDS: BUSPIRONE HCL 7.5 MG TAB PO SCH ×2 (08:43→21:20)
[2019-09-07] MEDS: LOSARTAN POTASSIUM 50 MG TAB PO SCH (08:44)
--- NOTE | 2019-09-07 12:36 | Pulmonary Consultation ---
Date of Consultation September 07, 2019 Assessment & Plan (1) ILD (interstitial lung disease): CT chest reviewed personally: showed Interstitial thickening with some consolidation especially in lower lobes (Which is new compared to last CT chest) There is unchanged minimal medistinal LAD Patient has interstitial thickening on previous CT chest too dating back 2017 for which she had Bronchoscopy with TBBx done which showed only few histiocytes and no granulomas. TB, Coccidioides, Aspergillus was all ruled out on previous admissions. Right now differential for her SOB with underlying ILD includes superimposed infection. Although PCT is -ve would c/w Atypical coverage for antibiotics. c/w O2 supplementation as needed along with diuresis. Patient seems to be back at her baseline already on examination today. For her ILD again differential is quite vast 1) Sarcoidosis especially given that patient's Ca has always been high normal (Vitamin D level, PTH and LESLIE level ordered) 2) Chronic HP. 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 6) CHIP BIN OPERATOR can present this way. It is diagnosis of exclusion - Would try steroids if patient doesn't improve with Abx and diuresis Given patient's comorbidities, patient being on Apixaban for Afib and she not being in acute distress. Recommend conservative medical management and observance. If there is no improvement and patient agrees would consider Bronchoscopy with EBUS and TBBx to look for diagnosis. This can be done as outpatient. Patient will need to be off Apixaban for at lest 48 hours prior to procedure. (2) Paroxysmal atrial fibrillation: (3) Pulmonary infiltrate: History of Present Illness Attending Physician: Weston Mcgee History of Present Illness 88-year-old female with significant past medical history of interstitial lung disease, A. fib on apixaban and amiodarone, CKD stage III, hypothyroidism, hypertension was brought in to the hospital with complaints of shortness of breath. Patient's oxygen saturation was 84% on room air in the ER. At the time of getting history from the patient patient denied any respiratory complaints. She even denied shortness of breath as the reason being admitted to the hospital. The only complaint she had was lower abdominal pain which brought her to the ER. Patient denies any chest pain, no cough, no hemoptysis, occasional palpitation b ut no dizziness. Complains of mild chest congestion. Denies any nausea or vomiting. Positive dysuria, no hematuria, no hematochezia, no epistaxis. No blurry vision. No fever or chills. Patient had bronchoscopy with transbronchial biopsies done by Dr. Garcia back in [id number] which didn't show any granulomas but few histiocytes. It was negative for malignancy. Patient underwent extensive workup which included Coccidioides, histoplasmosis, Aspergillus fumigatus/ niger/flavus, Quant gold wh ich were all negative. Patient is a very poor historian. On asking PMHx and about bronchoscopy she states she has poor memory and doesn't recall. Social hx: Denies any smoking, illicit drug use or ETOH. Worked at [employer] in [employer] and [employer] department. Worked in [employer] before that. She is [place] resident lifelong. 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 No mold that she knows off. Family hx: Lung cancer History obtained from previous records dating back 05/2017 Allergies Allergy/AdvReac Type Severity Reaction Status Date / Time bee venom protein (honey bee) Allergy Intermediate SWELLING Verified 09/04/19 04:52 Penicillins Allergy Intermediate hives Verified 09/04/19 04:52 codeine AdvReac Mild NAUSEA/VOMI Verified 09/04/19 04:52 TING Home Medications Home Medications Medication Instructions Recorded Confirmed Type Eliquis 2.5 mg PO BID 03/07/19 09/04/19 History Therems-M 1 tab PO QAM 03/07/19 09/04/19 History aspirin [Aspir-81] 81 mg PO QAM 03/07/19 09/04/19 History buspirone 7.5 mg PO BID 03/07/19 09/04/19 History calcium carbonate [Calcium 600] 600 mg PO QAM 03/07/19 09/04/19 History cetirizine [Zyrtec] 10 mg PO QAM 03/07/19 09/04/19 History cholecalciferol (vitamin D3) 1,000 unit PO QAM 03/07/19 09/04/19 History [Vitamin D3] losartan [Cozaar] 100 mg PO QAM 03/07/19 09/04/19 History azelastine 137 mcg (0.1 %) nasal 2 sprays INTRANASAL BID PRN #1 ml 03/31/19 09/04/19 History spray aerosol benzocaine-menthol 15 mg-3.6 mg 1 colt PO UD PRN 03/31/19 09/04/19 History lozenges fluticasone propionate 50 1 sprays INTRANASAL BID PRN #1 gm 03/31/19 09/04/19 History mcg/actuation nasal spray,suspension food supplemt, lactose-reduced 1 ea PO BID PRN ml 03/31/19 09/04/19 History donepezil 5 mg tablet 5 mg PO QAM #30 tab 07/05/19 09/04/19 Rx Refresh Optive 2 drp OPR HS 08/17/19 09/04/19 History Systane Complete 1 drp OPB QID 08/17/19 09/04/19 History acetaminophen [Acetaminophen Extra 1,000 mg PO TID PRN MDD 3gm/24hr 08/17/19 09/04/19 History Strength] amiodarone 200 mg PO QAM 08/17/19 09/04/19 History erythromycin 0.25 inch OPR QID 08/17/19 09/04/19 History famotidine [Pepcid] 20 mg PO QAM 08/17/19 09/04/19 History loperamide [Anti-Diarrheal 2 mg PO Q4H 08/17/19 09/04/19 History (loperamide)] fluoxetine 40 mg PO QAM 30 Days #60 cap 08/23/19 09/04/19 Rx levothyroxine [Synthroid] 100 mcg PO DAILYBB 30 Days #30 tab 08/23/19 09/04/19 Rx metoprolol succinate 12.5 mg PO QAM 30 Days #15 tab 08/23/19 09/04/19 Rx Patient History Medical History Abnormal CT scan, chest Altered mental status Atrial flutter with rapid ventricular response Atypical pneumonia Chronic kidney disease, stage III (moderate) (Acute) CVA (cerebral infarction) (Acute 05/29/14) Hyperlipidemia (Acute) Hypertension (Acute) Hypothyroidism (Acute) Intractable vomiting Meningioma (Acute) Sinusitis (Acute) Vertigo (Acute 05/29/14) Vomiting (Acute) Weakness (Acute) Weakness Surgical History History of left knee replacement History of sinus surgery Family History Other Family history non-contributory Social History Preferred Language: Sinhala Communication Ability: Effective Industrial Custodian Required: No Beliefs That Will Affect Care: None marital status: / Current Living Situation: Personal Care Facility Current Living Situation Comment: [facility] current occupational status: retired Feels Safe at Home: Yes Smoking Status: Never smoker Second Hand Exposure: No ; Hx Alcohol Use: No Hx Substance Use: No Review of Systems Review of Systems: All systems reviewed & are unremarkable except as noted in HPI & below Physical Exam Constitutional: WD/WN, vitals as above well developed and well nourished Eyes: PERRL, conjunctivae normal, anicteric sclerae ENMT: external ear and nose normal, oropharynx normal Neck: trachea midline, no thyromegaly Respiratory: able to speak in complete sentences; no labored breathing and no stridor Auscultation: + crackles (Minimal crackles appreciated b/l); no rales, no rhonchi and normal I/E ratio Cardiovascular: Heart Sounds: normal S1 and normal S2; no gallop, no murmur and no cardiac rub Vessels: no JVD Extremities: normal capillary refill; no edema Gastrointestinal (Abdomen): normal bowel sounds, soft, nontender, no hepatospl enomegaly Musculoskeletal: no cyanosis or clubbing, extremities motor strength 5/5 Skin: no rashes, warm and dry Neurologic: PERRL, EOMI, accommodation nl, no face palsy, no dysarthria Psychiatric: A+Ox3, euthymic affect Orientation: alert, oriented x 3, oriented to person, oriented to place, oriented to time and cooperative Apperance: appropriately dressed Eye Contact: good eye contact Genitourinary: No hernandez Lymphatic: no cervical or axillary lymphadenopathy Results & Data Vital Signs (Past 12 Hours) Vital Signs Temp Pulse Resp BP BP Pulse Ox 09/07/19 11:48 36.5 C 68 17 103/50 L 95 09/07/19 08:01 37.0 C 114 H 22 127/83 95 09/07/19 04:46 37.0 C 100 H 18 155/85 H 92 09/07/19 06:11 09/07/19 06:11 PG Care Time/CCT Total # of Minutes Spent Total Time Spent: 70 Total Time Spent with Patient: Total time spent is greater than 50% in coordination of care (as documented) at patient's floor/unit and/or counseling patient:
[2019-09-07 13:11] LABS: C Reactive Protein 1.28 mg/dl (0-0.29)
[2019-09-07 13:22] LABS: Vitamin D, 25 Hydrox 29.3 ng/ml (30-100)
[2019-09-07 13:56] LABS: Cyclic Citrullinated Pep IgG < 0.40 U/ml (0-4.99)
[2019-09-07] MEDS: DOXYCYCLINE HYCLATE 100 MG CAP PO SCH (17:46)
[2019-09-07] MEDS: CARBOXYMETHYLCELLULOSE SODIUM 15 ML OPR SCH (21:19)
--- NOTE | 2019-09-07 22:30 | Hospitalist Progress Note ---
Date of Service September 07, 2019 Assessment & Plan (1) Acute respiratory failure: Respiratory failure appears to be multifactorial. It is possibly related to acute CHF and pneumonitis versus pneumonia. - Was on IV Lasix initially - Transitioned to oral Lasix today. -patient has been gradually improving. -in regards to pulmonary infiltrate, patient will have pulmonary consult. -May require bronchoscopy. - Replenish electrolytes PRN (2) Acute urinary retention: Patient failed treatment with Keflex 1 week ago. At that point her urine culture was positive for Klebsiella (August 17, 2019). - Urine cx from 09/04/2019 also growing Klebsiella pneumoniae. - Continue ceftriaxone until 09/07 (3 days total) - Will get bladder scan today as she is tender there and there's concern for urinary retention. -> Consider urology consult if retaining. (3) CHF (congestive heart failure): As already discussed above. (4) Paroxysmal atrial fibrillation: Known. - Continue home Eliquis. - For rate control, continue amiodarone 200 mg p.o. every morning. (5) Pulmonary infiltrate: CXR on 09/05 shows possible pneumonia versus pneumonitis; unchanged from 08/17. Procalcitonin was negative on 09/05 (<0.05). - Started ceftriaxone on 09/05 for recurrent versus ongoing urinary tract infection. - Add doxycycline on 09/04 to cover for atypicals. - Blood cultures from 09/04 negative. - Appreciate speech evaluation -> Recommendation is to continue regular diet. No plan for GUMMED TAPE PRESS OPERATOR follow-up at this time. - ct chest completed. awaiting input from pulmonary (6) Urinary tract infection: As above (7) Hypothyroidism: TSH has been stable at 5.5 & 5.9. This is actually a normal range for elderly. Normal FT4. - Continue levothyroxine 100 mcg daily. (8) Meningioma: Stable, no issues at this time. (9) Chronic kidney disease, stage III (moderate): Baseline Cr ~1.3 - 1.5, eGFR ~30. - Avoid nephrotoxic agents. - Monitor (10) Hypertension: Blood pressure slightly elevated in the emergency room. Today, BP actually mildly low at 100/65. - Continue home medicines: amiodarone, aspirin, losartan, & metoprolol (11) Dementia: Stable for now. Patient is hard in hearing. - Oriented daily in the room. - Continue donepezil & fluoxetine (12) Chronic diarrhea: Patient reports that that is stable at this point. - Continue loperamide 2 mg p.o. every 4. (13) GERD (gastroesophageal reflux disease): Continue famotidine 20 mg p.o. every morning. (14) DVT prophylaxis: Apixaban for afib Subjective Patient reports feeling better today than comparted to yesterday. Patient is not back at baseline as of yet. Review of Systems Review of Systems: All systems reviewed & are unremarkable except as noted in HPI & below Physical Exam Physical Exam: Constitutional: WD/WN, vitals as above Eyes: EOM intact bilaterally; no conjunctival abnormality ENMT: external ear and nose normal, oropharynx normal Neck: trachea midline, no thyromegaly normal visual inspection Respiratory: normal respiratory effort, lungs clear to auscultation no respiratory distress Cardiovascular: RRR, no murmur, no edema Gastrointestinal (Abdomen): Inspection/Auscultation: abdomen normal to inspection; abdomen not distended Percussion/Palpation: + abdomen nontender and abdomen soft; no guarding and abdomen not rigid Musculoskeletal: no cyanosis or clubbing, extremities motor strength 5/5 Skin: no rashes, warm and dry Neurologic: moves all extremities and awake Psychiatric: Orientation: alert, oriented to person and cooperative Results & Data Vital Signs (Past 12 Hours) Vital Signs Temp Pulse Pulse Resp BP Pulse Ox 09/07/19 19:29 37 C 65 20 120/49 L 95 09/07/19 16:15 36.4 C L 61 20 119/51 L 92 09/07/19 16:00 60 09/07/19 11:48 36.5 C 68 17 103/50 L 95 PG Care Time/CCT Total # of Minutes Spent Total Time Spent with Patient: Total time spent is greater than 50% in coordination of care (as documented) at patient's floor/unit and/or counseling patient: (1) Urinary tract infection Hematuria presence: with hematuria Urinary tract infection type: acute cystitis Qualified Code(s): N30.01 - Acute cystitis with hematuria (2) CHF (congestive heart failure) Heart failure chronicity: unspecified Heart failure type: combined systolic and diastolic Qualified Code(s): I50.40 - Unspecified combined systolic (congestive) and diastolic (congestive) heart failure (3) Hypertension Hypertension type: essential hypertension Qualified Code(s): I10 - Essential (primary) hypertension
[2019-09-08] MEDS: DOXYCYCLINE HYCLATE 100 MG CAP PO SCH (05:09)
[2019-09-08] MEDS: LEVOTHYROXINE SODIUM 100 MCG TABLET PO SCH (05:09)
[2019-09-08] MEDS: CALCIUM CARBONATE 1250MG TAB PO SCH (08:19)
[2019-09-08] MEDS: FAMOTIDINE 20 MG TAB PO SCH (08:19)
[2019-09-08] MEDS: AMIODARONE 200 MG TAB PO SCH (08:19)
[2019-09-08] MEDS: BUSPIRONE HCL 7.5 MG TAB PO SCH (08:19)
[2019-09-08] MEDS: APIXABAN 2.5 MG TAB PO SCH (08:19)
[2019-09-08] MEDS: ASPIRIN 81 MG ECTAB PO SCH (08:19)
[2019-09-08] MEDS: DONEPEZIL HCL 5 MG TAB PO SCH (08:19)
[2019-09-08] MEDS: CETIRIZINE HCL 10 MG TABLET PO SCH (08:19)
[2019-09-08] MEDS: LOSARTAN POTASSIUM 50 MG TAB PO SCH (08:19)
[2019-09-08] MEDS: CHOLECALCIFEROL 1,000 UNITS TAB PO SCH (08:19)
[2019-09-08] MEDS: FLUOXETINE HCL 20 MG CAP PO SCH (08:19)
[2019-09-08] MEDS: METOPROLOL SUCC 25MG EXT REL TAB PO SCH (08:19)
[2019-09-08] MEDS: ARTIFICIAL TEARS OPB SCH ×2 (08:20→14:11)
[2019-09-08] MEDS: MULTIVITAMIN TAB PO SCH (08:20)
[2019-09-08] MEDS: ERYTHROMYCIN OP OINT 5 MG/GM 3.5 GM TUBE OPR SCH ×2 (08:20→14:11)
[2019-09-08] MEDS: cefTRIAXone SODIUM 2,000 MG in DEXTROSE 5% 50 ML IV SCH (08:23)
[2019-09-08] MEDS: FUROSEMIDE 20 MG TAB PO SCH (09:07)
--- NOTE | 2019-09-08 09:44 | Pulmonology Progress Note ---
Date of Service September 08, 2019 Assessment & Plan (1) ILD (interstitial lung disease): CT chest reviewed personally: showed Interstitial thickening with some consolidation especially in lower lobes (Which is new compared to last CT chest) There is unchanged minimal medistinal LAD Patient has interstitial thickening on previous CT chest too dating back 2017 for which she had Bronchoscopy with TBBx done which showed only few histiocytes and no granulomas. TB, Coccidioides, Aspergillus was all ruled out on previous admissions. Right now differential for her SOB with underlying ILD includes superimposed infection. Although PCT is -ve would c/w Atypical coverage for antibiotics. c/w O2 supplementation as needed along with diuresis. Patient is back to her baseline looking at her respiratory status. c/w Abx with atypical coverage for total of 5 days. Laboratory Tests 09/07/19 09/07/19 09/07/19 12:22 12:22 12:22 ESR 22 H C-Reactive Protein 25-OH Vitamin D Total 29.3 L PTH Intact 75.2 Cycl Citrul Peptide IgG < 0.40 09/07/19 12:22 ESR C-Reactive Protein 1.28 H 25-OH Vitamin D Total PTH Intact Cycl Citrul Peptide IgG For her ILD again differential is quite vast 1) Sarcoidosis especially given that patient's Ca has always been high normal (Vitamin D level, LESLIE level ordered, PTH: high normal) 2) Chronic HP. 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 6) BOUNTY TRAPPER can present this way. It is diagnosis of exclusion - Would try steroids if patient doesn't improve with Abx and diuresis Given patient's comorbidities, patient being on Apixaban for Afib and she not be ing in acute distress. Recommend conservative medical management and observance. No plan for any intervention from pulmonary perspective. -- Hypercalcaemia 10.6 when corrected for Albumin with High normal PTH Likely represents Primary Hyperparathyroidism Defer management to primary team (2) Paroxysmal atrial fibrillation: (3) Pulmonary infiltrate: Subjective Patient seen and examined at bedside. No acute distress, no adverse events overnight. Patient said that she is feeling better. No shortness of breath, no cough, no phlegm. No chest pain. No nausea or vomiting. Good appetite. Patient does complain of suprapubic tenderness and states that she has just urge to urinate but is unable to urinate. Spoke with the nurse to do bedside bladder ultrasound to see if there is urinary retention. At the time of examination patient was saturating 96% on room air with heart rate of 113 at rest. Review of Systems Review of Systems: All systems reviewed & are unremarkable except as noted in HPI & below Physical Exam Constitutional: WD/WN, vitals as above well developed and well nourished Eyes: PERRL, conjunctivae normal, anicteric sclerae ENMT: external ear and nose normal, oropharynx normal Neck: trachea midline, no thyromegaly Respiratory: able to speak in complete sentences; no labored breathing and no stridor Auscultation: + crackles (Minimal crackles appreciated b/l); no rales, no rhonchi and normal I/E ratio Cardiovascular: Rate/Rhythm: + irregularly irregular Heart Sounds: normal S1 and normal S2; no gallop, no murmur and no cardiac rub Vessels: no JVD Extremities: normal capillary refill; no edema Gastrointestinal (Abdomen): Inspection/Auscultation: abdomen normal to inspection and normal bowel sounds Percussion/Palpation: + abdomen tender (Suprapubic); no guarding and abdomen not rigid Musculoskeletal: no cyanosis or clubbing, extremities motor strength 5/5 Skin: no rashes, warm and dry Neurologic: PERRL, EOMI, accommodation nl, no face palsy, no dysarthria Psychiatric: A+Ox3, euthymic affect Orientation: alert, oriented x 3, oriented to person, oriented to place, oriented to time and cooperative Apperance: appropriately dressed Eye Contact: good eye contact Lymphatic: no cervical or axillary lymphadenopathy Results & Data Vital Signs (Past 12 Hours) Vital Signs Temp Pulse Pulse Resp BP Pulse Ox 09/08/19 07:34 36.7 C 110 H 18 155/88 H 92 09/08/19 03:18 36.9 C 65 18 134/55 L 93 09/08/19 00:22 56 L 09/07/19 23:35 36.9 C 62 17 125/52 L 92 09/07/19 06:11 09/07/19 06:11 Laboratory Tests 09/07/19 09/07/19 09/07/19 12:22 12:22 12:22 ESR 22 H C-Reactive Protein 25-OH Vitamin D Total 29.3 L PTH Intact 75.2 Cycl Citrul Peptide IgG < 0.40 09/07/19 12:22 ESR C-Reactive Protein 1.28 H 25-OH Vitamin D Total PTH Intact Cycl Citrul Peptide IgG PG Care Time/CCT Total # of Minutes Spent Total Time Spent with Patient: Total time spent is greater than 50% in coordination of care (as documented) at patient's floor/unit and/or counseling patient:
--- NOTE | 2019-09-08 10:29 | XRay Report ---
XR chest 1V portable CLINICAL HISTORY: 88 years-old Female presenting with f/u. TECHNIQUE: Portable upright AP view of the chest was obtained. COMPARISON: Chest CT from 09/06/2019 and chest x-ray from 09/05/2019. FINDINGS: Atherosclerosis of the aortic arch. Cardiac silhouette normal in size. Lungs are hyperinflated. Retic ulonodular lung opacities with an upper lobe predominance may be mildly decreased from prior. No pleu ral effusion or pneumothorax. Degenerative changes of the thoracic spine. Upper abdomen normal. IMPRESSION: 1. Stable to slightly decreased bilateral reticulonodular upper lung infiltrates. No new focal infil trate. ACT 112: Negative or not required by law. Electronically signed by: Khoa Longoria M.D. 09/08/2019 10:28 AM
--- NOTE | 2019-09-11 08:02 | Discharge Summary ---
Date of Service September 08, 2019 Admission HPI Per Admitting Provider Patient is a 88 years old female coming from personal home at [place] past medical history of A. fib's on Eliquis, CVA, hypertension, chronic kidney disease stage III, hyperlipidemia, hypothyroidism, meningioma was brought to the emergency room with a complaint of shortness of breath started this morning and not feeling well. Patient is hard in hearing but alert and oriented in the emergency room. Patient reports that shortness of breath occurs at rest. Patient oxygenation dropped to 84% in the emergency room without supplemental oxygen. Patient is not on oxygen at the personal home in [place]. She denies coug hs or sputum production. Patient also reports that she has issues with voiding beginning [employer], but EMS states that patient had a normal void earlier this evening. Patient had difficulties to get to the restroom last night. Patient completed Keflex 250 mg 4 times daily 1 week ago for urinary tract infection. Patient also feels mildly nauseated. Patient denies fever, chills, chest pain, abdominal pain, hematuria, melena, diarrhea, vomiting, syncope or near syncope. Labs are reviewed: WBC is 8.97, hemoglobin 12.6, hematocrit 38.2 platelets 235, sodium 139, potassium 3.4, BUN 14, creatinine 1.32, GFR 35.9, AST 24, ALT 33, troponin pending, BNP pending, procalcitonin pending, TSH 5.48 from August 21, 2019, urinalysis positive for 3+ blood, positive nitrate, positive leukocyte esterase, 5-10 WBCs, over 30 epithelial cells which appears to be not a clean- catch, urine bacteria 3+. CT abdomen pelvis shows cystitis, there is dilatation of the pancreatic duct suggesting in the region of the pancreatic head. There is also mild intrahepatic biliary ductal dilatation. Cardiomegaly with evidence of congestive failure and trace pleural effusions. Patchy consolidative changes in the both lung bases. This could represent interstitial edema or possible infectious inflammatory pneumonitis. Moderate colonic diverticulosis without CT evidence of acute diverticulitis. There is a mild bilateral hydro-ureter nephrosis likely due to distended bladder. Right-sided nephrolithiasis. There is a 1.4 cm indeterminate hypodensity in the right lobe of the liver. Decision was made to admit patient to PCU on telemetry for acute respiratory failure, treatment of the acute cystitis, possible acute congestive heart failure, possible pneumonitis versus pneumonia versus aspiration pneumonia. Principal Diagnosis Acute respiratory failure Discharge Exam Constitutional: WD/WN, vitals as above Eyes: EOM intact bilaterally; no conjunctival abnormality ENMT: external ear and nose normal, oropharynx normal Neck: trachea midline, no thyromegaly normal visual inspection Respiratory: normal respiratory effort, lungs clear to auscultation no respiratory distress Cardiovascular: RRR, no murmur, no edema Gastrointestinal (Abdomen): Inspection/Auscultation: abdomen normal to inspection; abdomen not distended Percussion/Palpation: abdomen nontender and abdomen soft; no guarding and abdomen not rigid Musculoskeletal: no cyanosis or clubbing, extremities motor strength 5/5 Skin: no rashes, warm and dry Neurologic: moves all extremities and awake Psychiatric: Orientation: alert, oriented to person and cooperative Discharge Data Allergies Allergy/AdvReac Type Severity Reaction Status Date / Time bee venom protein (honey bee) Allergy Intermediate SWELLING Verified 09/04/19 04:52 Penicillins Allergy Intermediate hives Verified 09/04/19 04:52 codeine AdvReac Mild NAUSEA/VOMI Verified 09/04/19 04:52 TING Consultations 09/04/19 07:42 ED Decision to Admit Stat 09/07/19 10:12 Consult Pulmonology Routine Ordered Studies 09/04/19 05:00 CT abd pelvis wo con Urgent 09/06/19 13:37 CT chest wo con Routine Hospital Course (1) Acute respiratory failure: Respiratory failure appears to be multifactorial. It is possibly related to acute CHF and pneumonitis versus pneumonia. - Was on IV Lasix initially - Transitioned to oral Lasix today. -patient has been gradually improving. -in regards to pulmonary infiltrate, patient will have pulmonary consult. Appreciate input from Pulmonary (in bold): CT chest reviewed personally: showed Interstitial thickening with some consolidation especially in lower lobes (Which is new compared to last CT chest) There is unchanged minimal medistinal LAD Patient has interstitial thickening on previous CT chest too dating back 2017 for which she had Bronchoscopy with TBBx done which showed only few histiocytes and no granulomas. TB, Coccidioides, Aspergillus was all ruled out on previous admissions. Right now differential for her SOB with underlying ILD includes superimposed infection. Although PCT is -ve would c/w Atypical coverage for antibiotics. c/w O2 supplementation as needed along with diuresis. Patient is back to her baseline looking at her respiratory status. c/w Abx with atypical coverage for total of 5 days. (2) Acute urinary retention: Patient failed treatment with Keflex 1 week ago. At that point her urine culture was positive for Klebsiella (August 17, 2019). - Urine cx from 09/04/2019 also growing Klebsiella pneumoniae. - Continue ceftriaxone until 09/07 (3 days total) -Patient did not require a hernandez catheter while in the hospital. She was able to urinarte. She had about 250 ml of urine in the bladder. She was also treated for a UTI. Will hav her followup with a urologist as an outpatient if she continues to have subjective complaints. (3) CHF (congestive heart failure): As already discussed above. (4) Paroxysmal atrial fibrillation: Known. - Continue home Eliquis. - For rate control, continue amiodarone 200 mg p.o. every morning. (5) Pulmonary infiltrate: CXR on 09/05 shows possible pneumonia versus pneumonitis; unchanged from 08/17. Procalcitonin was negative on 09/05 (<0.05). - Started ceftriaxone on 09/05 for recurrent versus ongoing urinary tract infection. - Add doxycycline on 09/04 to cover for atypicals. - Blood cultures from 09/04 negative. - Appreciate speech evaluation -> Recommendation is to continue regular diet. No plan for [employer] follow-up at this time. - ct chest completed. awaiting input from pulmonary (6) Urinary tract infection: As above (7) Hypothyroidism: TSH has been stable at 5.5 & 5.9. This is actually a normal range for elderly. Normal FT4. - Continue levothyroxine 100 mcg daily. (8) Meningioma: Stable, no issues at this time. (9) Chronic kidney disease, stage III (moderate): Baseline Cr ~1.3 - 1.5, eGFR ~30. - Avoid nephrotoxic agents. - Monitor (10) Hypertension: Blood pressure slightly elevated in the emergency room. Today, BP actually mildly low at 100/65. - Continue home medicines: amiodarone, aspirin, losartan, & metoprolol (11) Dementia: Stable for now. Patient is hard in hearing. - Oriented daily in the room. - Continue donepezil & fluoxetine (12) Chronic diarrhea: Patient reports that that is stable at this point. - Continue loperamide 2 mg p.o. every 4. (13) GERD (gastroesophageal reflux disease): Continue famotidine 20 mg p.o. every morning. (14) DVT prophylaxis: Apixaban for afib Total Time Total Time Spent Total Time Spent (In Minutes): 32 Total Time Includes: Examination of the Patient, Discharge Planning and Medication Reconciliation Discharge Plan Discharge Items Patient Disposition: [facility] Reason For Visit: ACUTE RESPIRATORY FAILURE Discharge Diagnosis: Interstitial lung disease Condition on Discharge: Good Activity: Resume your previous activity Non-emergency contact: Primary Care Provider Call non-emergency contact if: you have any medication questions Follow-up/Referrals: MARY, [Primary Care Provider] - Diet: Heart Healthy and Low Sodium (2gm) Fluids: 1500ml (6 cups) Addtl Attending Provider Instructions: Recommend followup with PCP in 1-2 weeks Recommend followup with pulmonology within 1 month Recommend followup with Urology within 2-4 weeks if you continue to have symptoms of urinary retention. We treated you for a urinary tract infection. Physical therapy and Occupation Therapy for ambulatory dysfunction. Pending Studies at Discharge: No Stand-Alone Forms: My [employer], Smoking Cessation Skilled Items Lines: None Urinary Catheter: No Medications and DC Order Prescriptions: New doxycycline hyclate 100 mg Capsule 100 mg PO Q12H Qty: 2 RF: 0 Continued donepezil [Aricept] 5 mg tablet 5 mg PO QAM Qty: 30 RF: 5 Cepacol Sore Throat (erna-men) 15-3.6 mg lozenge 1 colt PO UD PRN (Reason: sore throat) RF: 0 Ensure liquid 1 ea PO BID PRN (Reason: nutritional supplement) RF: 0 azelastine 137 mcg (0.1 %) aerosol,spray 2 sprays intranasal BID PRN (Reason: allergy symptoms) Qty: 1 RF: 0 fluticasone propionate 50 mcg/actuation spray,suspension 1 sprays intranasal BID PRN (Reason: allergy symptoms) Qty: 1 RF: 0 cetirizine [Zyrtec] 10 mg Tablet 10 mg PO QAM RF: 0 aspirin [Aspir-81] 81 mg Tablet,Delayed Release (Dr/Ec) 81 mg PO QAM RF: 0 calcium carbonate [Calcium 600] 600 mg calcium (1,500 mg) Tablet 600 mg PO QAM RF: 0 buspirone 7.5 mg Tablet 7.5 mg PO BID RF: 0 losartan [Cozaar] 100 mg tablet 100 mg PO QAM RF: 0 Therems-M 27-0.4 mg Tablet 1 tab PO QAM RF: 0 cholecalciferol (vitamin D3) [Vitamin D3] 1,000 unit Tablet 1,000 unit PO QAM RF: 0 Eliquis 2.5 mg Tablet 2.5 mg PO BID RF: 0 erythromycin 5 mg/gram (0.5 %) Ointment 0.25 inch OPR QID RF: 0 Systane Complete 0.6 % Drops 1 drp OPB QID RF: 0 Refresh Optive 1-0.9 % Drops,Gel 2 drp OPR HS RF: 0 amiodarone 200 mg tablet 200 mg PO QAM RF: 0 loperamide [Anti-Diarrheal (loperamide)] 2 mg tablet 2 mg PO Q4H RF: 0 acetaminophen [Acetaminophen Extra Strength] 500 mg tablet 1,000 mg PO TID MDD 3gm/24hr PRN (Reason: Pain) RF: 0 famotidine [Pepcid] 20 mg tablet 20 mg PO QAM RF: 0 levothyroxine [Synthroid] 100 mcg Tablet 100 mcg PO DAILYBB 30 Days Qty: 30 RF: 0 metoprolol succinate 25 mg Tablet Extended Release 24 Hr 12.5 mg PO QAM 30 Days Qty: 15 RF: 0 fluoxetine 20 mg Capsule 40 mg PO QAM 30 Days Qty: 60 RF: 0 Discharge Orders: Discharge Order (Routine); Ordered 09/08/19 Ordered By: Weston Mcgee Admission Data Admit Date/Time: 09/04/19 07:51 Attending Provider: Weston Mcgee Admit Provider: Esha Daniels Primary Care Provider: Pasha HERNANDEZ Providers: Slava Cote ; Roxie Sanchez Other Interventions: Discharge Summary Assessment (RN) Last Done: 09/08/19 16:27 DC Date/Time DO NOT enter until pt leaves facility: 09/08/19 16:45
[2019-09-14 18:17] LABS: Anti-dsDNA Recombinant <1 IU/mL; Aureobasidium pullulans IgG 2.3 mcg/mL (< 13.6); Mycoplasma pneumoniae Ab, IgM 95 U/mL (<770); Saccharopolyspora rectivir Ab Not detected (Not detected); Thermoactinomyces candidus Ab Not detected (Not detected); Thermoactinomyces sacchari Ab Not detected (Not detected)
[2019-09-15 12:43] LABS: Angiotensin Converting Enzyme 31 U/L (9-67); Anti-Centromere Ab <1.0 NEG AI (<1.0 NEG); Anti-Glom Basement Antibody <1.0 AI (<1.0); Anti-Neutrophil Antibody NONE DETECTED (NONE DETECTED); Anti-SS-A <1.0 NEG AI (<1.0 NEG); Anti-SS-B <1.0 NEG AI (<1.0 NEG); JO 1 Antibody <1.0 NEG AI (<1.0 NEG); Proteinase-3 Ab <1.0 AI; RNP Antibody <1.0 NEG AI (<1.0 NEG); Rheumatoid Factor <14 IU/mL (<14); Scleroderma Anti Scl-70 Ab <1.0 NEG AI (<1.0 NEG); Sm Antibody <1.0 NEG AI (<1.0 NEG); Vitamin D 1,25 38 pg/mL (18-72); Vitamin D3,1,25 38 pg/mL
== END 2019-09-08 16:45 | disposition home or self-care (01) | DRG 193 ==
LOC: ED 04:16 → SUATTDRO 07:51 → 2E 07:51

== ENCOUNTER 2019-11-25 17:34 | Observation (INO) ==
[2019-11-25] MEDS ORDERED: SODIUM CHLORIDE 0.9% 1000ML 1,000 ML IV SCH (18:15)
[2019-11-25 18:17] LABS: Basophils # (auto) 0.01 K/uL (0-0.2); Basophils % (auto) 0.1 %; Eosinophils # (auto) 0.05 K/uL (0-0.5); Eosinophils % (auto) 0.7 %; Hematocrit (blood only) 34.7 % (37-47); Hemoglobin 11.1 g/dL (12.0-16.0); Immature Granulocytes # (auto) 0.08 K/uL (0.00-0.02); Immature Granulocytes % (auto) 1.1 %; Lymphocytes # (auto) 2.33 K/uL (1.2-3.4); Lymphocytes % (auto) 31.2 %; Mean Corpuscular Hemoglobin 28.1 pg (25-34); Mean Corpuscular Volume 87.8 fL (80-100); Mean Platelet Volume 10.5 fL (7.4-10.4); Monocytes # (auto) 1.34 K/uL (0.11-0.59); Neutrophils # (auto) 3.65 K/uL (1.4-6.5); Neutrophils % (auto) 48.9 %; Platelet Count 248 K/uL (130-400); RDW Standard Deviation 51.3 fL (36.4-46.3); Red Blood Count 3.95 M/uL (4.2-5.4); White Blood Count 7.46 K/uL (4.8-10.8)
[2019-11-25 18:29] LABS: INR 1.1 (0.9-1.1); Prothrombin Time 11.5 Seconds (9.0-12.0)
[2019-11-25 18:36] LABS: Alanine Aminotransferase 26 U/L (12-78); Albumin Level 2.9 gm/dl (3.4-5.0); Aspartate Aminotransferase 22 U/L (15-37); BUN Creatinine Ratio 9.7 (10-20); Blood Urea Nitrogen 11 mg/dl (7-18); Calcium 9.3 mg/dl (8.5-10.1); Carbon Dioxide 29 mmol/L (21-32); Chloride 108 mmol/L (98-107); Creatinine Clr Calc Pharmacy 30.2 ml/min; Est GFR (African American) 48.3; Est GFR (Non-African American) 41.7; Glucose 84 mg/dl (70-99); Potassium 3.7 mmol/L (3.5-5.1); Sodium 141 mmol/L (136-145)
[2019-11-25 18:47] LABS: Albumin Globulin Ratio 0.8 (0.9-2); Alkaline Phosphatase 90 U/L (45-117); Bilirubin,Total 0.5 mg/dl (0.2-1); Globulin 3.8 gm/dl (2.5-4.0); Total Protein 6.7 gm/dl (6.4-8.2); Troponin I < 0.015 ng/ml (0-0.045)
--- NOTE | 2019-11-25 19:05 | CT Scan Report ---
CT SCAN OF THE BRAIN WITHOUT IV CONTRAST CLINICAL HISTORY: Change in mental status. COMPARISON STUDY: CT an MRI of the brain dated 08/17/2019. TECHNIQUE: Unenhanced axial CT scan of the brain is performed from the vertex to the skull base. A do se lowering technique was utilized adhering to the principles of ALARA. CT DOSE: 537.48 mGy.cm FINDINGS: Brain parenchyma: There are age-related involutional changes noting advanced subcortical and periven tricular microangiopathic change. There is no hemorrhage, mass effect, or evidence of acute territori al ischemia by CT criteria. Bilateral occipital encephalomalacia is consistent with remote ischemia. Chronic lacunar infarct identified in the right cerebellar hemisphere and the basal ganglia. Clarke-whi te matter differentiation is preserved. No extra-axial fluid collection is seen. A 10 mm extra-axial nodule along the right convexity seen on image #21 is unchanged and typical in appearance for a small meningioma. Ventricles, sulci, cisterns: Prominent secondary to involutional change. Intracranial vasculature: There is atherosclerotic calcification of the cavernous carotid arteries. Calvarium: Unremarkable. Sinuses and mastoids: There is subtotal opacification of the left frontal sinus. Mucosal thickening i s also seen within the ethmoid sinuses. Trace mucosal thickening is noted in the left maxillary antru m and the right sphenoid sinus. The mastoid air cells are well pneumatized. Orbits: The bony orbits are grossly intact. IMPRESSION: Senescent change and remote infarcts as above. There is no hemorrhage, mass effect, or ev idence of acute territorial ischemia by CT criteria. ACT 112: Negative or not required by law. Electronically signed by: Yamil Ambrocio M.D. 11/25/2019 7:04 PM
--- NOTE | 2019-11-25 19:22 | XRay Report ---
SINGLE VIEW CHEST CLINICAL HISTORY: Generalized weakness. FINDINGS: An AP, portable, upright chest radiograph is compared to study dated 11/07/2019 and correlat ed with chest CT dated 09/06/2019. The examination is degraded by portable technique and patient rota tion. The heart is mildly enlarged noting atherosclerotic calcification of the thoracic aorta. There are diffuse bilateral patchy airspace opacities which have progressed as compared to 11/07/2019. No la rge pleural effusion or pneumothorax is seen. The skeletal structures are osteopenic. There are heale d right-sided rib fractures. Calcific tendinopathy is noted in the left shoulder. IMPRESSION: 1. Bilateral patchy airspace opacities are again noted and have progressed from 11/07/2019. Cortical c linically for evidence of an infectious/inflammatory pneumonitis, pulmonary hemorrhage, or possibly p ulmonary edema. Radiographic follow-up to resolution is recommended. 2. Cardiomegaly. 3. No large pleural effusion is seen. Electronically signed by: Yamil Ambrocio M.D. 11/25/2019 7:21 PM
[2019-11-25 19:23] LABS: Appearance Urine Clear (Clear); Bacteria Urine Automated Negative (Negative); Bilirubin Urine Negative (Negative); Blood Urine Negative (Negative); Color Urine Yellow; Glucose Urine UA Negative (Negative); Ketones Urine Negative (Negative); Leukocyte Esterase Urine Trace (Negative); Nitrite Urine Negative (Negative); Protein Urine Trace (Negative); RBC Urine Automated 0-4 /hpf (0-4); Specific Gravity Urine 1.009 (1.000-1.030); Urobilinogen Urine Negative (Negative)
--- NOTE | 2019-11-25 21:30 | History & Physical Report ---
Date of Service November 25, 2019 Assessment & Plan (1) Recurrent UTI (urinary tract infection): Ms. Sunshine Steward is an 89 year old woman with a past medical history including HTN, HLD, CVA, GERD, CKD III and recent fall and wrist fracture who is here with weakness and fatigue progressive over last several days. Weakness Large differential, patient with some evidence of possible UTI, has been urinating frequently UTI today showing trace leukocyte esterase, multiple UTI's in past she has sought outpatient treatment for recurrent UTI's as well Will treat with ceftriaxone Electrolytes WNL particularly sodium and Calcium Head CT showing old infarct no acute changes Patient with history of interstitial lung disease, will check ABG, CXR showing possible increase in infiltrate, patient without acute breathing changes from respiratory standpoint, always on night time oxygen LFT's normal, will check ammonia TSH negative No new medications or exposures Abdominal Pain Patient with cyclic LLQ pain moving into flank, alternating tender and nontender Will get Abdomen pelvis CT Patient not requesting pain medicine at this time Dementia Possibly component of progressive dementia and weakness as well as acute decompensation from recent fall Will order PT/OT Aspiration Patient with bilateral opacities and witnessed aspiration event, will make her NPO til tomorrow morning and get speech evaluation F/E/N: NPO until speech evaluation normal saline 80 mls/hour Code Status: DNR/DNI Dispo: Med/Surg pending results of workup, will get PT/OT evaluation as well. (2) GERD (gastroesophageal reflux disease): (3) Stroke: (4) Atrial fibrillation: (5) Confusion: (6) Fracture of wrist, closed: (7) Altered mental status: (8) Urine frequency: (9) Weakness: (10) Abdominal pain: History of Present Illness Chief Complaint: Weakness/Fatigue Primary Care Provider: Wilner Hernandez MD Sunshine Mcfarland is an 89 year old woman with a past medical history significant for interstitial lung disease on home oxygen at night, paroxysmal atrial fibrillation on eliquis, amiodarone, and metoprolol, HTN, dyslipidemia, stroke in 2017, CKD III and dementia who presents today for weakness and fatigue. Ms. Mcfarland is a resident at the [facility] living [facility] and recently has been treated for recurrent UTI's, as well as a fall at the end of October that resulted in a right wrist fracture. She is currently in a cast for that. She did not have any other injuries during the fall and did not hit her head at all. For the last several days the patient has been more tired per family members. She was falling asleep in the middle of the day. Son came over to watch the [employer] with her which she usually loves, unfortunately she slept right through it and as soon as she was roused would fall back asleep. She was also profoundly weak, she had to go to bathroom and was unable to get up to go and struggled even with assistance.She was brought in to the emergency department and given some normal saline and has woken back up pretty well. When I walked in to evaluate patient she was getting a drink of water from her daughter and had a clear aspiration episode, family tells me this is new and that she does not do this at home, they attribute it to her contorted position in the bed. uSnshine tells me she is feeling okay and is not able to give me much history other than the fact that she has been urinating quite often "off and on" when asked how long this has been going on for she is unable to tell me but family says she occasionally complains about this and has for months. Son tells me that confusion and forgetfulness have been slowly increasing for last 6 months or so. Other than the fatigue and weakness mentioned above they have not noticed any other symptoms on review of systems. Family are clear that above all else her goals are to be comfortable and she wishes to be DNR/DNI. Allergies Allergy/AdvReac Type Severity Reaction Status Date / Time bee venom protein (honey bee) Allergy Intermediate SWELLING Verified 11/25/19 18:39 Penicillins Allergy Intermediate hives Verified 11/25/19 18:39 codeine AdvReac Mild NAUSEA/VOMI Verified 11/25/19 18:39 TING Home Medications Home Medications Medication Instructions Recorded Confirmed Type Eliquis 2.5 mg PO BID 03/07/19 11/25/19 History Therems-M [place] [address]/07/19 11/25/19 History aspirin [Aspir-81] 81 mg PO QAM 03/07/19 11/25/19 History buspirone 7.5 mg PO BID 03/07/19 11/25/19 History calcium carbonate [Calcium 600] 600 mg PO 0800 03/07/19 11/25/19 History cetirizine [Zyrtec] 10 mg PO DAILY 03/07/19 11/25/19 History cholecalciferol (vitamin D3) 1,000 unit PO DAILY 03/07/19 11/25/19 History [Vitamin D3] losartan [Cozaar] 100 mg PO DAILY 03/07/19 11/25/19 History azelastine 137 mcg (0.1 %) nasal 2 sprays INTRANASAL BID PRN #1 ml 03/31/19 11/25/19 History spray aerosol benzocaine 15 mg-menthol 3.6 mg 1 colt PO UD PRN 03/31/19 11/25/19 History lozenges Systane Complete 1 drp OPB QID 08/17/19 11/25/19 History acetaminophen [Acetaminophen Extra 1,000 mg PO TID PRN MDD 3gm/24hr 08/17/19 11/25/19 History Strength] amiodarone 200 mg PO QAM 08/17/19 11/25/19 History famotidine [Pepcid] 20 mg PO QAM 08/17/19 11/25/19 History loperamide [Anti-Diarrheal 2 mg PO Q4H PRN 08/17/19 11/25/19 History (loperamide)] carboxymethylcellulose-glycern 2 drp OPHTHALMIC (EYE) QID 10/03/19 11/25/19 History [Refresh Optive] donepezil [Aricept] 5 mg PO DAILY 10/03/19 11/25/19 History fluoxetine [Prozac] 40 mg PO DAILY 10/03/19 11/25/19 History levothyroxine 100 mcg PO QAM 10/03/19 11/25/19 History Oxygen Home #2 liter 11/01/19 11/17/19 Rx food supplemt, lactose-reduced 1 ea PO BID 11/07/19 11/25/19 History [Ensure] fluticasone propionate 50 1 sprays INTRANASAL BID PRN #16 gm 11/08/19 11/25/19 Rx mcg/actuation nasal spray,suspension metoprolol succinate 25 mg capsule 12.5 mg PO DAILY ea 11/09/19 11/25/19 History sprinkle, ext. release 24 hr spironolactone 25 mg tablet 25 mg PO DAILY #30 tab 11/14/19 11/25/19 Rx Past Med/Surg History Medical History Acute respiratory failure Anticoagulant long-term use Anxiety Atrial fibrillation Chronic kidney disease, stage III (moderate) (Acute) CVA (cerebral infarction) (Acute 05/29/14) Depression GERD (gastroesophageal reflux disease) Hyperlipidemia (Acute) Hypertension (Acute) Hypothyroidism (Acute) ILD (interstitial lung disease) (Inactive) Kidney stones Meningioma (Acute) Paroxysmal atrial flutter Stroke Surgical History History of bronchoscopy History of left knee replacement History of sinus surgery Family History Other Family history non-contributory Denies family history of Ovarian cancer Myocardial infarction Breast cancer Colorectal cancer Social History Preferred Language: Frisian Communication Ability: Effective [employer] Business [employer]st Required: No Beliefs That Will Affect Care: None marital status: / Current Living Situation: Prison Current Living Situation Comment: [place] current occupational status: retired Feels Safe at Home: Yes Safety Concerns: Feels Safe At This Time Smoking Status: Never smoker Second Hand Exposure: No ; Hx Alcohol Use: No Hx Substance Use: No Review of Systems Constitutional: + fatigue, + weakness and + daytime sleepiness; no fever and no chills Eyes: no problem reported Ear, Nose, Mouth, Throat: no problem reported Respiratory: no cough and no dyspnea Cardiovascular: no chest pain, no dyspnea and no palpitations Gastrointestinal: + abdominal pain (Severe LLQ pain) Musculoskeletal: Fall broken wrist Physical Exam Constitutional: Frail fatigued appearing woman lying in bed with eyes closed, had an aspiration episode as I walked into the room but recovered after a few minutes. Eyes: PERRL, conjunctivae normal, anicteric sclerae ENMT: external ear and nose normal, oropharynx normal Neck: trachea midline, no thyromegaly Respiratory: Respiratory effort normal, good air entry globally, possible faint crackles appreciated left lower lobe Cardiovascular: Patient currently with regular rhythm regular rate, no murmurs, rubs, skips or gallops, no lower extremity edema peripheral pulses inta ct and equal Gastrointestinal (Abdomen): normal bowel sounds, soft, nontender, no hepatosplenomegaly Patient with periodic wincing and grasping at LLQ appeared to be independent of my exam. Every few minutes. Musculoskeletal: Cast on right wrist Neurologic: PERRL, EOMI, accommodation nl, no face palsy, no dysarthria CN II-XII examined normal and equal. Results & Data Vital Signs (Past 12 Hours) Vital Signs Temp Pulse Resp BP Pulse Ox 11/25/19 19:01 96 11/25/19 19:00 185/72 H 97 11/25/19 18:58 185/78 H 98 11/25/19 18:30 63 8 L 99 11/25/19 18:01 63 20 99 11/25/19 18:00 65 23 185/81 H 100 11/25/19 17:46 100 11/25/19 17:44 63 16 100 11/25/19 17:42 64 19 183/77 H 98 11/25/19 17:20 37.2 C 76 16 183/77 H 98 Code Status & VTE Plan Code Status DNR/DNI comfort is main goal Supervising Physician Co-Signing Physician Notes Patient seen and examined, chart reviewed, case discussed with and agree with his assessment and plan as documented above. Briefly, patient is a 89-year-old female with history of A. fib/GERD/hypertension/hyperlipidemia/interstitial lung disease/CKD on home O2 nightly [facility] with altered mental status, confusion as well as diffuse weakness and fatigue ongoing for the last few days. Per ER attending, patient quite somnolent when she arrived to [facility]. Mental status has improved with IV fluids. She endorses some urinary frequency as well as left abdominal pain On exam she is afebrile, hypertensive otherwise hemodynamically stable, no acute distress Skinwarm, dry, intact HEENTnormocephalic/atraumatic, pupils equal and reactive to light, mucous membranes slightly dry, neck supple Heart+ S1, S2, regular, no murmur/rub/gallops LungsCTA Abdomen+ bowel sounds, soft, mildly tender with palpation of the left upper quadrant with no rebound/guarding/peritoneal signs Extremitieswarm, well-perfused, palpable pulses Labs and images reviewed Assessment/[id number] female [facility] to [facility] with altered mental status. Differential to include dehydration, UTI, hypoxia/hypercarbia. Patient has improved in the ER with treatment with IV fluids Treat with ceftriaxone Check CT abdomen for abdominal pain Speech/swallow evaluation Remainder of plan as above Resident Activity Tracking Resident Involvement: Resident Care Provided Care Provided: Adult Hospital Medicine (1) Fracture of wrist, closed Encounter type: initial encounter Laterality: right Qualified Code(s): S62.101A - Fracture of unspecified carpal bone, right wrist, initial encounter for closed fracture (2) Altered mental status Altered mental status type: unspecified Qualified Code(s): R41.82 - Altered mental status, unspecified
--- NOTE | 2019-11-25 21:31 | Emergency Department Note ---
Entered by Yuliana Barros acting as a scribe for Mary Concepcion MD History of Present Illness General Chief complaint: Confusion Stated complaint: LETHARGIC Source: patient History of Present Illness Provider complaint: lethargic Onset (ago): day(s) (several) Location: head Severity: similar to prior episodes Relieved By: + none Exacerbated By: + none Associated symptoms: + loss of appetite; no nausea/vomiting The patient is a 89 year old female who presents to the Emergency Room with complaints of lethargy for the past several days. The patients family reports that the patient has been lethargic for the past several days. They notes that the patient has been recently placed on 2 liters of oxygen for the past 4 weeks. They note that the patient was recently seen here in the ED for a fall where she fractured her wrist. They mention that the patient is on blood thinners. They mention that the patient has a history of UTIs. They mention that the patient has been experiencing a loss of appetite. They deny any episodes of nausea and vomiting. Home Medications Home Medications Medication Instructions Recorded Confirmed Type Eliquis 2.5 mg PO BID 03/07/19 11/25/19 History Therems-M 1 tab PO 0730 03/07/19 11/25/19 History aspirin [Aspir-81] 81 mg PO QAM 03/07/19 11/25/19 History buspirone 7.5 mg PO BID 03/07/19 11/25/19 History calcium carbonate [Calcium 600] 600 mg PO 0800 03/07/19 11/25/19 History cetirizine [Zyrtec] 10 mg PO DAILY 03/07/19 11/25/19 History cholecalciferol (vitamin D3) 1,000 unit PO DAILY 03/07/19 11/25/19 History [Vitamin D3] losartan [Cozaar] 100 mg PO DAILY 03/07/19 11/25/19 History azelastine 137 mcg (0.1 %) nasal 2 sprays INTRANASAL BID PRN #1 ml 03/31/19 History spray aerosol benzocaine 15 mg-menthol 3.6 mg 1 colt PO UD PRN 03/31/19 11/25/19 History lozenges Systane Complete 1 drp OPB QID 08/17/19 11/25/19 History acetaminophen [Acetaminophen Extra 1,000 mg PO TID PRN MDD 3gm/24hr 08/17/19 11/25/19 History Strength] amiodarone 200 mg PO QAM 08/17/19 11/25/19 History famotidine [Pepcid] 20 mg PO QAM 08/17/19 11/25/19 History loperamide [Anti-Diarrheal 2 mg PO Q4H PRN 08/17/19 11/25/19 History (loperamide)] carboxymethylcellulose-glycern 2 drp OPHTHALMIC (EYE) QID 10/03/19 11/25/19 History [Refresh Optive] donepezil [Aricept] 5 mg PO DAILY 10/03/19 11/25/19 History fluoxetine [Prozac] 40 mg PO DAILY 10/03/19 11/25/19 History levothyroxine 100 mcg PO QAM 10/03/19 11/25/19 History Oxygen Home #2 liter 11/01/19 11/17/19 Rx food supplemt, lactose-reduced 1 ea PO BID 11/07/19 11/25/19 History [Ensure] fluticasone propionate 50 1 sprays INTRANASAL BID PRN #16 gm 11/08/19 11/25/19 Rx mcg/actuation nasal spray,suspension metoprolol succinate 25 mg capsule 12.5 mg PO DAILY ea 11/09/19 11/25/19 History sprinkle, ext. release 24 hr spironolactone 25 mg tablet 25 mg PO DAILY #30 tab 11/14/19 11/25/19 Rx Allergies Allergy/AdvReac Type Severity Reaction Status Date / Time bee venom protein (honey bee) Allergy Intermediate SWELLING Verified 11/25/19 18:39 Penicillins Allergy Intermediate hives Verified 11/25/19 18:39 codeine AdvReac Mild NAUSEA/VOMI Verified 11/25/19 18:39 TING Past Med/Surg History Medical History Acute respiratory failure Anticoagulant long-term use Anxiety Atrial fibrillation Chronic kidney disease, stage III (moderate) (Acute) CVA (cerebral infarction) (Acute 05/29/14) Depression GERD (gastroesophageal reflux disease) Hyperlipidemia (Acute) Hypertension (Acute) Hypothyroidism (Acute) ILD (interstitial lung disease) (Inactive) Kidney stones Meningioma (Acute) Paroxysmal atrial flutter Stroke Surgical History History of bronchoscopy History of left knee replacement History of sinus surgery Family History Other Family history non-contributory Denies family history of Ovarian cancer Myocardial infarction Breast cancer Colorectal cancer Social History Preferred Language: Bulgarian Communication Ability: Effective 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 and A total of 10 systems reviewed and were otherwise negative Physical Exam Vital Signs Vital Signs - 24 hr 11/25/19 17:20 11/25/19 17:42 11/25/19 17:44 Temperature 37.2 C Temperature Source Rectal Pulse Rate 76 64 63 Pulse Rate from SpO2 Sensor 64 63 Pulse Rhythm Regular Pulse Strength Normal Respiratory Rate 16 19 16 Respiratory Effort / Characteristics Non-Labored Respiratory Depth Normal Respiratory Pattern Regular Blood Pressure 183/77 H 183/77 H Blood Pressure Mean 112 135 Blood Pressure Position Lying Pulse Oximetry 98 98 100 Oxygen Delivery Method Nasal Cannula Oxygen Flow Rate 2 Sepsis Recent Fever Within 48 Hours No Sepsis New/Unexplained Change in Mental Status Yes Sepsis Action Taken by Nursing No Action Required 11/25/19 17:46 11/25/19 18:00 11/25/19 18:01 Temperature Temperature Source Pulse Rate 65 63 Pulse Rate from SpO2 Sensor 65 63 Pulse Rhythm Pulse Strength Respiratory Rate 23 20 Respiratory Effort / Characteristics Respiratory Depth Respiratory Pattern Blood Pressure 185/81 H Blood Pressure Mean 98 Blood Pressure Position Pulse Oximetry 100 100 99 Oxygen Delivery Method Nasal Cannula Oxygen Flow Rate Sepsis Recent Fever Within 48 Hours Sepsis New/Unexplained Change in Mental Status Sepsis Action Taken by Nursing 11/25/19 18:30 11/25/19 18:58 11/25/19 19:00 Temperature Temperature Source Pulse Rate 63 Pulse Rate from SpO2 Sensor 63 62 64 Pulse Rhythm Pulse Strength Respiratory Rate 8 L Respiratory Effort / Characteristics Respiratory Depth Respiratory Pattern Blood Pressure 185/78 H 185/72 H Blood Pressure Mean 105 97 Blood Pressure Position Pulse Oximetry 99 98 97 Oxygen Delivery Method Oxygen Flow Rate Sepsis Recent Fever Within 48 Hours Sepsis New/Unexplained Change in Mental Status Sepsis Action Taken by Nursing 11/25/19 19:01 11/25/19 19:30 11/25/19 19:31 Temperature Temperature Source Pulse Rate 61 61 Pulse Rate from SpO2 Sensor 63 61 62 Pulse Rhythm Pulse Strength Respiratory Rate Respiratory Effort / Characteristics Respiratory Depth Respiratory Pattern Blood Pressure 187/77 H Blood Pressure Mean 90 Blood Pressure Position Pulse Oximetry 96 100 99 Oxygen Delivery Method Oxygen Flow Rate Sepsis Recent Fever Within 48 Hours Sepsis New/Unexplained Change in Mental Status Sepsis Action Taken by Nursing 11/25/19 20:00 11/25/19 20:01 11/25/19 20:30 Temperature Temperature Source Pulse Rate 64 63 64 Pulse Rate from SpO2 Sensor 64 63 64 Pulse Rhythm Pulse Strength Respiratory Rate 16 Respiratory Effort / Characteristics Respiratory Depth Respiratory Pattern Blood Pressure 177/75 H 202/74 H Blood Pressure Mean 104 97 Blood Pressure Position Pulse Oximetry 100 100 100 Oxygen Delivery Method Oxygen Flow Rate Sepsis Recent Fever Within 48 Hours Sepsis New/Unexplained Change in Mental Status Sepsis Action Taken by Nursing 11/25/19 20:31 11/25/19 21:00 11/25/19 21:01 Temperature Temperature Source Pulse Rate 63 56 L 55 L Pulse Rate from SpO2 Sensor 63 56 L Pulse Rhythm Pulse Strength Respiratory Rate 16 Respiratory Effort / Characteristics Respiratory Depth Respiratory Pattern Blood Pressure 210/77 H Blood Pressure Mean 93 Blood Pressure Position Pulse Oximetry 100 99 Oxygen Delivery Method Oxygen Flow Rate Sepsis Recent Fever Within 48 Hours Sepsis New/Unexplained Change in Mental Status Sepsis Action Taken by Nursing Vital signs reviewed. General: Chronically ill-appearing 89 year old female, elderly, on nasal cannula oxygen, no significant distress. HEENT: No scleral icterus, PERRLA, neck supple. Atraumatic. Moist mucous membranes. Cardiovascular: Regular rate and rhythm, no extra sounds. Pulmonary: Clear to auscultation bilaterally, normal work of breathing. Abdomen: Soft, nontender, nondistended, positive bowel sounds. Musculoskeletal: Atraumatic, no peripheral edema. Neurologic: Patient somnolent but arousable, answers questions Skin: Warm, dry, no rash Course Course 1758: The patient was evaluated in room C10, and a complete history and physical examination were performed. Continuous Cardiac Monitoring: An order was placed for continuous cardiac monitoring. The monitor shows a rate of 61 with normal sinus rhythm. 2018: I reviewed the patient's case with Dr. Nara Stone- [facility] Hospitalist. She will evaluate the patient for further management. Administered Medications Discontinued Medications Sodium Chloride (Nss 1000ml) 1,000 mls @ 125 mls/hr IV .Q8H SPEEDY Stop: 11/26/19 02:14 Last Infusion: 11/25/19 22:15 Dose: 0 mls/hr Documented by: [id number] Admin: 11/25/19 18:13 Dose: 125 mls/hr Documented by: [id number] Medical Decision Making Differential Diagnosis Differential diagnosis: Etiologies such as metabolic, infection, hypoglycemia, electrolyte abnormalities, cardiac sources, intracerebral event, toxicologic, neurologic, as well as others were entertained. Medical Records Attestation: I reviewed the patient's medical records. Home Medications Current Medication List: was personally reviewed by me Laboratory Data Attestation: I reviewed the patient's lab results. Result diagrams: 11/25/19 18:01 11/25/19 18:01 Lab Results 11/25/19 11/25/19 11/25/19 Range/Units 18:01 18:01 18:01 WBC 7.46 (4.8-10.8) K/uL RBC 3.95 L (4.2-5.4) M/uL Hgb 11.1 L (12.0-16.0) g/dL Hct 34.7 L (37-47) % MCV 87.8 (80-100) fL MCH 28.1 (25-34) pg MCHC 32.0 (32-36) g/dL RDW Std Deviation 51.3 H (36.4-46.3) fL RDW Coeff of Fidel 16.0 H (11.5-14.5) % Plt Count 248 (130-400) K/uL MPV 10.5 H (7.4-10.4) fL Immature Gran % (Auto) 1.1 % Neut % (Auto) 48.9 % Lymph % (Auto) 31.2 % Stewart % (Auto) 18.0 % Eos % (Auto) 0.7 % Baso % (Auto) 0.1 % Immature Gran # (Auto) 0.08 H (0.00-0.02) K/uL Neut # (Auto) 3.65 (1.4-6.5) K/uL Lymph # (Auto) 2.33 (1.2-3.4) K/uL Stewart # (Auto) 1.34 H (0.11-0.59) K/uL Eos # (Auto) 0.05 (0-0.5) K/uL Baso # (Auto) 0.01 (0-0.2) K/uL PT 11.5 (9.0-12.0) Seconds INR 1.1 (0.9-1.1) Sodium 141 (136-145) mmol/L Potassium 3.7 (3.5-5.1) mmol/L Chloride 108 H (98-107) mmol/L Carbon Dioxide 29 (21-32) mmol/L Anion Gap 3.0 (3-11) BUN 11 (7-18) mg/dl Creatinine 1.16 (0.6-1.2) mg/dl Est Cr Clr Drug Dosing 30.2 ml/min Est GFR ( Amer) 48.3 Est GFR (Non-Af Amer) 41.7 BUN/Creatinine Ratio 9.7 L (10-20) Glucose 84 (70-99) mg/dl Lactate (0.4-2.0) mmol/L Calcium 9.3 (8.5-10.1) mg/dl Magnesium 2.0 (1.8-2.4) mg/dl Total Bilirubin 0.5 (0.2-1) mg/dl AST 22 (15-37) U/L ALT 26 (12-78) U/L Alkaline Phosphatase 90 (45-117) U/L Troponin I < 0.015 (0-0.045) ng/ml Total Protein 6.7 (6.4-8.2) gm/dl Albumin 2.9 L (3.4-5.0) gm/dl Globulin 3.8 (2.5-4.0) gm/dl Albumin/Globulin Ratio 0.8 L (0.9-2) TSH 1.260 (0.300-4.500) uIu/ml 11/25/19 Range/Units 18:41 WBC (4.8-10.8) K/uL RBC (4.2-5.4) M/uL Hgb (12.0-16.0) g/dL Hct (37-47) % MCV (80-100) fL MCH (25-34) pg MCHC (32-36) g/dL RDW Std Deviation (36.4-46.3) fL RDW Coeff of Fidel (11.5-14.5) % Plt Count (130-400) K/uL MPV (7.4-10.4) fL Immature Gran % (Auto) % Neut % (Auto) % Lymph % (Auto) % Stewart % (Auto) % Eos % (Auto) % Baso % (Auto) % Immature Gran # (Auto) (0.00-0.02) K/uL Neut # (Auto) (1.4-6.5) K/uL Lymph # (Auto) (1.2-3.4) K/uL Stewart # (Auto) (0.11-0.59) K/uL Eos # (Auto) (0-0.5) K/uL Baso # (Auto) (0-0.2) K/uL PT (9.0-12.0) Seconds INR (0.9-1.1) Sodium (136-145) mmol/L Potassium (3.5-5.1) mmol/L Chloride (98-107) mmol/L Carbon Dioxide (21-32) mmol/L Anion Gap (3-11) BUN (7-18) mg/dl Creatinine (0.6-1.2) mg/dl Est Cr Clr Drug Dosing ml/min Est GFR ( Amer) Est GFR (Non-Af Amer) BUN/Creatinine Ratio (10-20) Glucose (70-99) mg/dl Lactate 0.9 (0.4-2.0) mmol/L Calcium (8.5-10.1) mg/dl Magnesium (1.8-2.4) mg/dl Total Bilirubin (0.2-1) mg/dl AST (15-37) U/L ALT (12-78) U/L Alkaline Phosphatase (45-117) U/L Troponin I (0-0.045) ng/ml Total Protein (6.4-8.2) gm/dl Albumin (3.4-5.0) gm/dl Globulin (2.5-4.0) gm/dl Albumin/Globulin Ratio (0.9-2) TSH (0.300-4.500) uIu/ml Imaging Data Radiologist's Impression: Radiology results as stated below per my review and the radiologist's interpretation: SINGLE VIEW CHEST CLINICAL HISTORY: Generalized weakness. FINDINGS: An AP, portable, upright chest radiograph is compared to study dated 11/07/2019 and correlated with chest CT dated 09/06/2019. The examination is degraded by portable technique and patient rotation. The heart is mildly enlarged noting atherosclerotic calcification of the thoracic aorta. There are diffuse bilateral patchy airspace opacities which have progressed as compared to 11/07/2019. No large pleural effusion or pneumothorax is seen. The skeletal structures are osteopenic. There are healed right-sided rib fractures. Calcific tendinopathy is noted in the left shoulder. IMPRESSION: 1. Bilateral patchy airspace opacities are again noted and have progressed from 11/07/2019. Cortical clinically for evidence of an infectious/inflammatory pneumonitis, pulmonary hemorrhage, or possibly pulmonary edema. Radiographic follow-up to resolution is recommended. 2. Cardiomegaly. 3. No large pleural effusion is seen. Electronically signed by: Yamil Ambrocio M.D. 11/25/2019 7:[address] SCAN OF THE BRAIN WITHOUT IV CONTRAST CLINICAL HISTORY: Change in mental status. COMPARISON STUDY: CT an MRI of the brain dated 08/17/2019. TECHNIQUE: Unenhanced axial CT scan of the brain is performed from the vertex to the skull base. A dose lowering technique was utilized adhering to the principles of ALARA. CT DOSE: 537.48 mGy.cm FINDINGS: Brain parenchyma: There are age-related involutional changes noting advanced subcortical and periventricular microangiopathic change. There is no hemorrhage, mass effect, or evidence of acute territorial ischemia by CT criteria. Bilateral occipital encephalomalacia is consistent with remote ischemia. Chronic lacunar infarct identified in the right cerebellar hemisphere and the basal ganglia. Clarke-white matter differentiation is preserved. No extra-axial fluid collection is seen. A 10 mm extra-axial nodule along the right convexity seen on image #21 is unchanged and typical in appearance for a small meningioma. Ventricles, sulci, cisterns: Prominent secondary to involutional change. Intracranial vasculature: There is atherosclerotic calcification of the cavernous carotid arteries. Calvarium: Unremarkable. Sinuses and mastoids: There is subtotal opacification of the left frontal sinus. Mucosal thickening is also seen within the ethmoid sinuses. Trace mucosal thickening is noted in the left maxillary antrum and the right sphenoid sinus. The mastoid air cells are well pneumatized. Orbits: The bony orbits are grossly intact. IMPRESSION: Senescent change and remote infarcts as above. There is no hemorrhage, mass effect, or evidence of acute territorial ischemia by CT criteria. ACT 112: Negative or not required by law. Electronically signed by: Yamil Ambrocio M.D. 11/25/2019 7:04 PM ECG Data Attestation: I personally reviewed and interpreted this ECG as follows: Indication: + altered mental status Rate (beats per minute): 61 Rhythm: + sinus rhythm ECG Intervals/blocks: + Prolonged QT (473) ECG ST segments: no ST depression and no ST elevation ECG Findings: + Other (diffuse T wave flattening); no PACs and no PVCs Blood Pressure Blood Pressure Findings: Elevated blood pressure Blood Pressure Disposition: further management by hospitalist MDM Narrative An order for cardiac monitoring was placed and the patient is found to be in a This patient was evaluated and appeared to be in no significant distress. IV access was obtained and laboratory work was drawn. The patient was placed on the child monitor and found to be in a normal sinus rhythm. Patient's laboratory work is fairly reassuring. She was hydrated with normal saline solution. Urinalysis is negative for infection. Chest x-ray reveals bilateral patchy airspace opacities that are noted but slightly progressive from 11/07/2019. Patient is afebrile and on her home oxygen without difficulty. CT scan of the head was performed and is negative for acute intracranial pathology. The etiology of the patient's altered mental status is unclear. She does seem to be slightly more alert after IV hydration. Patient will be evaluated by the hospitalist service for further management. Family is aware of the plan and agrees. Impression & Plan Altered mental status Discharge Plan Visit Data *Final* Discharge Date/Time: 11/25/19 21:52 Chief Complaint: Confusion Stated Complaint: LETHARGIC ED Provider: Mary Concepcion Discharge Problem: Altered mental status Patient Disposition: Admitted As Inpatient Discharge Instructions Interventions: ED Discharge Assessment Last Done: 11/25/19 21:52 Discharge Problem: Altered mental status Qualifiers: Altered mental status type: unspecified Qualified Code(s): R41.82 - Altered mental status, unspecified The scribe's documentation has been prepared under my direction and personally reviewed by me in its entirety. I confirm that the note above accurately reflects all work, treatment, procedures, and medical decision making performed by me.
[2019-11-25 21:47] LABS: Base Excess ABG 1.7 mEq/L (-9-1.8); HCO3 ABG 26 mmol/L (19-24); Oxygen Saturation ABG 97.7 % (90-95); PCO2 ABG 39 mmHg (35-46); PO2 ABG 100 mmHg (80-95); pH ABG 7.44 (7.35-7.45)
[2019-11-25 21:48] LABS: Allen Test POS (Pos)
--- NOTE | 2019-11-25 22:21 | CT Scan Report ---
CT SCAN OF THE ABDOMEN AND PELVIS WITHOUT IV CONTRAST CLINICAL HISTORY: Flank pain. COMPARISON STUDY: Renal ultrasound dated 09/04/2019. TECHNIQUE: CT scan of the abdomen and pelvis is performed from the lung bases to the proximal femora. Images are reviewed in the axial, sagittal, and coronal planes. IV contrast was not administered for this examination as per the referring clinician. Note that the examination was performed in suboptim al fashion without oral and IV contrast. The examination is also degraded by motion artifact. A dose lowering technique was utilized adhering to the principles of ALARA. CT DOSE: 284.51 mGy.cm FINDINGS: Lung bases: The heart is enlarged and there is trace pericardial effusion. The coronary arteries are densely calcified. There are small pleural effusions with associated atelectasis. Intralobular septal thickening and patchy airspace consolidation is seen at the lung bases. A small hiatal hernia is not ed. Liver: The unenhanced liver is mildly enlarged measuring 19.5 cm in length. The liver is otherwise no rmal in contour and attenuation. There is mild intrahepatic biliary ductal dilatation. There is a 1.3 cm hypodensity in the right lobe seen on image #74. This is unchanged from previous. Gallbladder: Unremarkable. Spleen: Normal in size and attenuation. Pancreas: The pancreas is mildly atrophic. There is dilatation of the pancreatic duct, greatest in th e region of the pancreatic head. This is unchanged from previous. Adrenal glands: Unremarkable. Kidneys: The unenhanced kidneys are atrophic. There is mild fullness of the renal pelvis bilaterally without hydronephrosis. Small extrarenal pelvises are noted bilaterally. There is a punctate nonobstr ucting right renal calculus. No left renal calculi are identified. A 2.7 cm cyst is noted in the left upper pole. Abdominal vasculature: The abdominal aorta is normal in course and caliber noting advanced atheroscle rotic calcification. Bowel: There is moderate colonic diverticulosis without CT evidence of acute diverticulitis. No bowel obstruction is seen. Fecal retention is noted in the colon. The appendix is well-visualized and nor mal. Peritoneum: There is no intraperitoneal free air or abdominal ascites. There is a small fat-containin g umbilical hernia. Lymphadenopathy: None. Pelvic viscera: The bladder is moderately distended. The bladder wall is circumferentially thickened and there is pericystic inflammation. The uterus and adnexa are normal as imaged. There are small cuca ateral fat-containing inguinal hernias. Skeletal structures: The skeletal structures are heterogeneously osteopenic. There is moderate to adv anced lumbosacral spondylosis. No lytic or blastic lesions are seen. IMPRESSION: 1. Findings are typical for cystitis. Correlation with clinical findings and urinalysis will be requi red. 2. Cardiomegaly with evidence of congestive failure and trace pleural effusions. 3. Patchy consolidative change is present at both lung bases. This could represent a component of int erstitial edema or possibly an infectious/inflammatory pneumonitis. This is similar to previous and c linical correlation will be essential. 4. Nonspecific dilatation of the pancreatic duct is similar to previous. 5. Moderate colonic diverticulosis without CT evidence of acute diverticulitis. 6. Right-sided nephrolithiasis. 7. Additional findings as above. Electronically signed by: Yamil Ambrocio M.D. 11/25/2019 10:19 PM
[2019-11-25] MEDS ORDERED: ACETAMINOPHEN 500 MG TAB PO PRN (22:39)
[2019-11-25] MEDS ORDERED: POLYETHYLENE (MIRALAX) 17 GM PACK PO PRN (22:39)
[2019-11-25] MEDS ORDERED: ACETAMINOPHEN 325 MG TAB PO PRN (22:39)
[2019-11-26] MEDS ORDERED: cefTRIAXone SODIUM 1,000 MG in DEXTROSE 5% 50 ML IV SCH
[2019-11-26] MEDS: ARTIFICIAL TEARS OP SCH ×5 (00:10→20:13)
[2019-11-26] MEDS: SODIUM CHLORIDE 0.9% 1000ML 1,000 ML IV SCH ×2 (00:13→16:13)
[2019-11-26] MEDS ORDERED: HydrALAZINE 10 MG TAB PO PRN (03:18)
--- NOTE | 2019-11-26 03:28 | Billing Data ---
Date of Service November 26, 2019 Coding Level of Care Code 69439 OBS Care - Level 3
[2019-11-26] MEDS: LEVOTHYROXINE SODIUM 100 MCG TABLET PO SCH (06:20)
[2019-11-26] MEDS ORDERED: NON-FORMULARY MEDICATION (Food Supplemt, Lactose-Reduced [Ensure] 1 EA) PO SCH (09:00)
[2019-11-26] MEDS ORDERED: APIXABAN 2.5 MG TAB PO SCH (09:00)
[2019-11-26] MEDS ORDERED: CARBOXYMETHYLCELLULOSE GLYCERN OP SCH (09:00)
[2019-11-26] MEDS: BUSPIRONE HCL 7.5 MG TAB PO SCH ×2 (09:38→20:14)
[2019-11-26] MEDS: METOPROLOL SUCC 25MG EXT REL TAB PO SCH (09:38)
[2019-11-26] MEDS: FLUOXETINE HCL 20 MG CAP PO SCH (09:38)
[2019-11-26] MEDS: DONEPEZIL HCL 5 MG TAB PO SCH (09:38)
[2019-11-26] MEDS: LOSARTAN POTASSIUM 50 MG TAB PO SCH (09:38)
[2019-11-26] MEDS: FAMOTIDINE 20 MG TAB PO SCH (09:38)
[2019-11-26] MEDS: SPIRONOLACTONE 25 MG TAB PO SCH (09:39)
[2019-11-26] MEDS: CHOLECALCIFEROL 1,000 UNITS 25 MCG TAB PO SCH (09:40)
[2019-11-26] MEDS: CALCIUM 600MG + VIT D 400 IU TAB PO SCH (09:40)
[2019-11-26] MEDS: CETIRIZINE HCL 10 MG TABLET PO SCH (09:40)
[2019-11-26] MEDS: CEROVITE ADV FORMULA TAB PO SCH (09:40)
[2019-11-26] MEDS: AMIODARONE 200 MG TAB PO SCH (09:41)
[2019-11-26] MEDS: ASPIRIN 81 MG ECTAB PO SCH (09:41)
[2019-11-26] MEDS: POLYETHYLENE (MIRALAX) 17 GM PACK PO SCH (09:42)
[2019-11-26] MEDS ORDERED: DOCUSATE SODIUM 100 MG CAP PO ONE (14:30)
[2019-11-26] MEDS ORDERED: POLYETHYLENE (MIRALAX) 17 GM PACK PO ONE (14:30)
--- NOTE | 2019-11-26 14:33 | Electrocardiogram Report ---
Test Reason : Blood Pressure : / mmHG Vent. Rate : 061 BPM Atrial Rate : 061 BPM P-R Int : 182 ms QRS Dur : 082 ms QT Int : 470 ms P-R-T Axes : 048 015 037 degrees QTc Int : 473 ms Normal sinus rhythm Normal ECG When compared with ECG of 07-NOV-2019 15:06, Nonspecific T wave abnormality has replaced inverted T waves in Inferior leads T wave inversion no longer evident in Anterior leads Confirmed by Meir Mota ([id number]) on 11/26/2019 2:33:05 PM Referred By: REFERRED SELF Confirmed By:Meir Mota
--- NOTE | 2019-11-26 16:40 | Hospitalist Progress Note ---
Date of Service November 26, 2019 Assessment & Plan (1) Recurrent UTI (urinary tract infection): Ms. Sunshine Steward is an 89 year old woman admitted 11/25 for evaluation of generalized weakness and fatigue. Weakness - progressive over several days leading to admission - patient complaining of increased urinary frequency in days prior to admission, abdominopelvic CT scan showing evidence of cystitis, UA showing only trace LE, WBC normal, infection unlikely. patient received one dose of IV ceftriaxone in the ED - CXR showing evidence of progressive bilateral lower lobar opacities, thought to represent infiltrative process vs. underlying interstitial lung disease. WBC normal; blood cultures pending - presentation likely from dehydration, deconditioning - dehydration possible given observed improvement with IVF in ED; electrolytes and kidney function WNL - d/c ceftriaxone as infection felt to be unlikely - PT and OT recommend placement in SNF Abdominal Pain - left lower quadrant tender on exam - abdominopelvic CT scan showing evidence of cystitis, diverticulosis (no acute diverticulitis), moderate constipation - treat constipation as below Atrial Fibrillation - continue Eliquis 5mg BID - continue amiodarone 200mg qAM - continue metoprolol 12.5 BID Hypothyroidism - continue home dose levothyroxine 100mcg - TSH normal on admission Interstitial lung disease - patient chronically on nighttime oxygen per overnight pulse oximetry - follows with [facility] - no additional treatment Hypertension - BP above goal at 169/72 - continue losartan, metoprolol, spironolactone Constipation - scheduled miralax BID - colace, daily Dementia - lives at personal longterm ([place], [place]) - baseline functioning unknown at this time Concern for aspiration - passed speech eval today - resume normal diet F/E/N: Heart Healthy, Diabetic diet Code Status: DNR/DNI DVT ppx: on Eliquis Dispo: Med/Surg; PT/OT recommend SNF placement; care managers on board (2) GERD (gastroesophageal reflux disease): (3) Stroke: (4) Atrial fibrillation: (5) Confusion: (6) Fracture of wrist, closed: (7) Altered mental status: (8) Urine frequency: (9) Weakness: (10) Abdominal pain: Admission and Anticipated Discharge Date Admission Date: November 25, 2019 Supervising Physician Co-Signing Physician Notes Resident Physician Supervision Note: I independently interviewed and examined the patient and verified the hoang history and physical, reviewed labs and image studies, discussed the case with the resident Dr. Wise and agree with the findings and care plan. Subjective No acute events since admission. Denies being in any discomfort. Does not burn when she pees. Does not want to go to a SNF Review of Systems Review of Systems: All systems reviewed & are unremarkable except as noted in HPI & below Physical Exam Constitutional: WD/WN, vitals as above Eyes: + anicteric sclerae ENMT: external ear and nose normal, oropharynx normal Neck: normal visual inspection and trachea midline Respiratory: normal respiratory effort, lungs clear to auscultation Cardiovascular: RRR, no murmur, no edema Heart Sounds: normal S1 and normal S2 Gastrointestinal (Abdomen): Inspection/Auscultation: abdomen normal to inspection and normal bowel sounds; abdomen not distended Percussion/Palpation: + abdomen tender (Left lower quadrant) Skin: no rashes, warm and dry Psychiatric: Orientation: alert; + not oriented x 3 (x2) Results & Data ([facility]) Vital Signs (Past 12 Hours) Vital Signs Temp Pulse Resp BP Pulse Ox 11/26/19 15:33 62 18 169/72 H 98 11/26/19 15:00 36.8 C 57 L 16 195/75 H 99 11/26/19 07:29 36.9 C 69 16 154/68 H 97 Resident Activity Tracking Resident Involvement: Resident Care Provided Care Provided: Adult Hospital Medicine (1) Fracture of wrist, closed Encounter type: initial encounter Laterality: right Qualified Code(s): S62.101A - Fracture of unspecified carpal bone, right wrist, initial encounter for closed fracture (2) Altered mental status Altered mental status type: unspecified Qualified Code(s): R41.82 - Altered mental status, unspecified
[2019-11-26] MEDS: APIXABAN 5 MG TABLET PO SCH (20:14)
[2019-11-27] MEDS: LEVOTHYROXINE SODIUM 100 MCG TABLET PO SCH (06:20)
[2019-11-27] MEDS: LOSARTAN POTASSIUM 50 MG TAB PO SCH (07:48)
[2019-11-27] MEDS: METOPROLOL SUCC 25MG EXT REL TAB PO SCH (07:51)
[2019-11-27 07:52] VITALS: TEMP 97.9; O2SAT 95
[2019-11-27] MEDS: CEROVITE ADV FORMULA TAB PO SCH (07:54)
[2019-11-27] MEDS: CALCIUM 600MG + VIT D 400 IU TAB PO SCH (07:55)
[2019-11-27] MEDS: FAMOTIDINE 20 MG TAB PO SCH (09:05)
[2019-11-27] MEDS: APIXABAN 5 MG TABLET PO SCH (09:05)
[2019-11-27] MEDS: CETIRIZINE HCL 10 MG TABLET PO SCH (09:05)
[2019-11-27] MEDS: AMIODARONE 200 MG TAB PO SCH (09:05)
[2019-11-27] MEDS: CHOLECALCIFEROL 1,000 UNITS 25 MCG TAB PO SCH (09:05)
[2019-11-27] MEDS: BUSPIRONE HCL 7.5 MG TAB PO SCH (09:06)
[2019-11-27] MEDS: ASPIRIN 81 MG ECTAB PO SCH (09:06)
[2019-11-27] MEDS: DONEPEZIL HCL 5 MG TAB PO SCH (09:06)
[2019-11-27] MEDS: SPIRONOLACTONE 25 MG TAB PO SCH (09:06)
[2019-11-27] MEDS: FLUOXETINE HCL 20 MG CAP PO SCH (09:07)
[2019-11-27] MEDS: POLYETHYLENE (MIRALAX) 17 GM PACK PO SCH (09:07)
[2019-11-27] MEDS: ARTIFICIAL TEARS OP SCH ×2 (09:09→12:23)
--- NOTE | 2019-11-27 09:37 | Discharge Summary ---
Date of Service November 27, 2019 Admission HPI Per Admitting Provider Sunshine Mcfarland is an 89 year old woman with a past medical history significant for interstitial lung disease on home oxygen at night, paroxysmal atrial fibrillation on eliquis, amiodarone, and metoprolol, HTN, dyslipidemia, stroke in 2017, CKD III and dementia who presents today for weakness and fatigue. Ms. Mcfarland is a resident at the [facility] and recently has been treated for recurrent UTI's, as well as a fall at the end of October that resulted in a right wrist fracture. She is currently in a cast for that. She did not have any other injuries during the fall and did not hit her head at all. For the last several days the patient has been more tired per family members. She was falling asleep in the middle of the day. Son came over to watch the [employer] with her which she usually loves, unfortunately she slept right through it and as soon as she was roused would fall back asleep. She was also profoundly weak, she had to go to bathroom and was unable to get up to go and struggled even with assistance.She was brought in to the emergency department and given some normal saline and has woken back up pretty well. When I walked in to evaluate patient she was getting a drink of water from her daughter and had a clear aspiration episode, family tells me this is new and that she does not do this at home, they attribute it to her contorted position in the bed. Sunshine tells me she is feeling okay and is not able to give me much history other than the fact that she has been urinating quite often "off and on" when asked how long this has been going on for she is unable to tell me but family says she occasionally complains about this and has for months. Son tells me that confusion and forgetfulness have been slowly increasing for last 6 months or so. Other than the fatigue and weakness mentioned above they have not noticed any other symptoms on review of systems. Family are clear that above all else her goals are to be comfortable and she wishes to be DNR/DNI. Admission Exam Per Admitting Provider Constitutional: Frail fatigued appearing woman lying in bed with eyes closed, had an aspiration episode as I walked into the room but recovered after a few minutes. Eyes: PERRL, conjunctivae normal, anicteric sclerae ENMT: external ear and nose normal, oropharynx normal Neck: trachea midline, no thyromegaly Respiratory: Respiratory effort normal, good air entry globally, possible faint crackles appreciated left lower lobe Cardiovascular: Patient currently with regular rhythm regular rate, no murmurs, rubs, skips or gallops, no lower extremity edema peripheral pulses intact and equal Gastrointestinal (Abdomen): normal bowel sounds, soft, nontender, no hepatosplenomegaly Patient with periodic wincing and grasping at [facility] appeared to be independent of my exam. Every few minutes. Musculoskeletal: Cast on right wrist Neurologic: PERRL, EOMI, accommodation nl, no face palsy, no dysarthria CN II- XII examined normal and equal. Principal Diagnosis Weakness Discharge Exam Constitutional WD/WN, vitals as above Eyes + anicteric sclerae ENMT external ear and nose normal, oropharynx normal Neck normal visual inspection and trachea midline Respiratory normal respiratory effort, lungs clear to auscultation Cardiovascular RRR, no murmur, no edema Heart Sounds: normal S1 and normal S2 Gastrointestinal (Abdomen) Inspection/Auscultation: abdomen normal to inspection and normal bowel sounds; abdomen not distended Percussion/Palpation: + abdomen tender (Left lower quadrant) Skin no rashes, warm and dry Psychiatric Orientation: alert and oriented to person; + not oriented x 3, + not oriented to place and + not oriented to time Discharge Data Allergies Allergy/AdvReac Type Severity Reaction Status Date / Time bee venom protein (honey bee) Allergy Intermediate SWELLING Verified 11/25/19 18:39 Penicillins Allergy Intermediate hives Verified 11/25/19 18:39 codeine AdvReac Mild NAUSEA/VOMI Verified 11/25/19 18:39 TING Consultations 11/25/19 20:35 ED Decision to Admit Stat Ordered Studies 11/25/19 18:02 CT head/brain wo con Stat 11/25/19 21:22 CT abd pelvis wo con Stat Hospital Course (1) Recurrent UTI (urinary tract infection): Ms. Sunshine Steward is an 89 year old woman admitted 11/26/19 for evaluation of generalized weakness and fatigue. The cause of her weakness was never fully elucidated, although it was thought to be secondary to dehydration and/or deconditioning. Weakness - progressive over several days leading to admission - patient complaining of increased urinary frequency in days prior to admission, abdominopelvic CT scan showing evidence of cystitis, UA showing only trace LE, WBC normal, infection unlikely. patient received one dose of IV ceftriaxone in the ED, although antibiotics were subsequently discontinued - Head CT negative on admission - CXR showing evidence of progressive bilateral lower lobar opacities, thought to represent infiltrative process vs. underlying interstitial lung disease. WBC normal; blood cultures showing no growth through 24 hours - presentation likely from dehydration, deconditioning - dehydration possible given observed improvement with IVF in ED; electrolytes and kidney function WNL - PT and OT recommend placement in SNF, however patient's family was able to arrange for her to return to personal retirement with home health care/physical therapy. Abdominal Pain - left lower quadrant tender on exam - abdominopelvic CT scan showing evidence of cystitis, diverticulosis (no acute diverticulitis), moderate constipation - treated constipation as below Atrial Fibrillation - continue amiodarone 200mg qAM - continue metoprolol 12.5 BID - Eliquis dose was increased from 2.5mg BID to 5mg BID, as patient only meets 1 of 3 criteria for half dosing (ie age >80 years). Her weight is > 60kg and her serum creatinine was less than 1.5mg/dL Hypothyroidism - continue home dose levothyroxine 100mcg - TSH normal on admission Interstitial lung disease - patient chronically on nighttime oxygen per overnight pulse oximetry - follows with [facility] pulmonology - no additional treatment Hypertension - BP was above goal throughout hospital stay, reaching hypertensive urgency ranges. In addition to her home medications, she required prn doses of IV hydralazine to bring pressures down. - continue losartan, metoprolol, spironolactone - electrolytes WNL Outpatient items to do: repeat BP and assess need for medication escalation. Patient on Max dose of losartan. Constipation - moderate stool burden noted on A/P cat scan - titrate miralax dosing to 1 soft BM daily Dementia - lives at personal retirement ([facility] [place], [place]) - baseline functioning unknown at this time - continue Donepezil Outpatient items to do: follow annual MOCHA/mini cog tests Concern for aspiration Patient with witnessed aspiration event. Passed speech evaluation. - resume normal, heart healthy diet GERD - continue home famotidine (2) GERD (gastroesophageal reflux disease): (3) Stroke: (4) Atrial fibrillation: (5) Confusion: (6) Fracture of wrist, closed: (7) Altered mental status: (8) Urine frequency: (9) Weakness: (10) Abdominal pain: Total Time Total Time Spent Total Time Spent (In Minutes): see attending attestation Discharge Plan Discharge Items Patient Disposition: Personal Residential Reason For Visit: WEAKNESS FATIGUE Discharge Diagnosis: Weakness Activity: Resume your previous activity Non-emergency contact: Primary Care Provider Call non-emergency contact if: your symptoms worsen Follow-up/Referrals: Wilner Hernandez MD [Primary Care Provider] - Diet: Heart Healthy Addtl Attending Provider Instructions: You were hospitalized at [facility] for evaluation of weakness. The cause of your weakness was not definitively found, although dehydration was thought to be highly likely. A cat scan of your head was done and it returned as normal. Your urine was tested and showed no signs of infection. A chest X ray showed some clouding of your lower lung garces, although this is thought to be related to your underlying interstitial lung disease rather than a new lung infection, such as pneumonia. You were treated with IV fluids and your weakness improved. A cat scan of your abdomen was done which showed constipation, or an abundance of stool throughout your bowel. You were treated with Miralax while in the hospital. We recommend taking 1 capful of miralax daily upon discharge. Physical and occupational therapy evaluated you and recommended [facility] a [facility]. However, your family was able to arrange for you to return to your personal retirement with home health. Pending Studies at Discharge: No Stand-Alone Forms: My [facility], Smoking Cessation Skilled Items Patient informed of condition?: Yes DNR: Yes Discharge Level of Care: Other Communicable Disease: No Discharge Prognosis: Stable Lines: None Urinary Catheter: No Medications and DC Order Prescriptions: New Eliquis 5 mg Tablet 5 mg PO BID 30 Days Qty: 60 RF: 3 Continued (DME) Oxygen Home Liters Per Minute See Rx Instructions .ROUTE .MEDSUPPLY Qty: 2 RF: 0 fluticasone propionate 50 mcg/actuation spray,suspension 1 sprays intranasal BID PRN (Reason: allergy symptoms) Qty: 16 RF: 5 spironolactone 25 mg tablet 25 mg PO DAILY Qty: 30 RF: 5 Cepacol Sore Throat (erna-men) 15-3.6 mg lozenge 1 colt PO UD PRN (Reason: sore throat) RF: 0 azelastine 137 mcg (0.1 %) aerosol,spray 2 sprays intranasal BID PRN (Reason: allergy symptoms) Qty: 1 RF: 0 metoprolol succinate 25 mg capsule,sprinkle,ER 24hr 12.5 mg PO DAILY RF: 0 Refresh Optive 1-0.9 % Drops,Gel 2 drp OPHTHALMIC (EYE) QID RF: 0 fluoxetine [Prozac] 40 mg capsule 40 mg PO DAILY RF: 0 donepezil [Aricept] 5 mg tablet 5 mg PO DAILY RF: 0 levothyroxine 100 mcg tablet 100 mcg PO QAM RF: 0 cetirizine [Zyrtec] 10 mg Tablet 10 mg PO DAILY RF: 0 aspirin [Aspir-81] 81 mg Tablet,Delayed Release (Dr/Ec) 81 mg PO QAM RF: 0 calcium carbonate [Calcium 600] 600 mg calcium (1,500 mg) Tablet 600 mg PO 0800 RF: 0 buspirone 7.5 mg Tablet 7.5 mg PO BID RF: 0 losartan [Cozaar] 100 mg tablet 100 mg PO DAILY RF: 0 Therems-M 27-0.4 mg Tablet 1 tab PO 0730 RF: 0 cholecalciferol (vitamin D3) [Vitamin D3] 1,000 unit Tablet 1,000 unit PO DAILY RF: 0 Systane Complete 0.6 % Drops 1 drp OPB QID RF: 0 amiodarone 200 mg tablet 200 mg PO QAM RF: 0 loperamide [Anti-Diarrheal (loperamide)] 2 mg tablet 2 mg PO Q4H PRN (Reason: Diarrhea) RF: 0 acetaminophen [Acetaminophen Extra Strength] 500 mg tablet 1,000 mg PO TID MDD 3gm/24hr PRN (Reason: Pain) RF: 0 famotidine [Pepcid] 20 mg tablet 20 mg PO QAM RF: 0 Ensure Liquid 1 ea PO BID RF: 0 Discontinued Eliquis 2.5 mg Tablet 2.5 mg PO BID RF: 0 Discharge Orders: Discharge Order (Routine); Ordered 11/27/19 Ordered By: Brandi Wise Admission Data Admit Date/Time: 11/25/19 21:22 Attending Provider: Emily Ryan Admit Provider: Rafael Escobedo Primary Care Provider: Wilner Hernandez Other Providers: Mohini Stone Other Interventions: Discharge Summary Assessment (RN) Last Done: 11/27/19 12:16 DC Date/Time DO NOT enter until pt leaves facility: 11/27/19 13:25 Supervising Physician Co-Signing Physician Notes Resident Physician Supervision Note: I independently interviewed and examined the patient and verified the hoang history and physical, reviewed labs and image studies, discussed the case with the resident Dr. Wise and agree with the findings and care plan. Resident Activity Tracking Resident Involvement: Resident Care Provided Care Provided: Adult Hospital Medicine
[2019-11-27 12:27] VITALS: BP 175/71; PULSE 67
== END 2019-11-27 13:25 | disposition home or self-care (01) ==
LOC: 4W 17:34 → ED 17:34 → SUATTDRO 21:22 → 4W 21:52